=== PATIENT | male | born 1960 | race Two or more races ===

== ENCOUNTER 2024-06-19 16:36 | Inpatient (IN) | payer OTHER, MEDICAID ==
[~2024-06-19] VITALS: Ht 190.5 cm; Wt 138.0 kg
[2024-06-19 17:11] VITALS: BP 137/70; PULSE 94; RESP 18; TEMP 97.7; O2SAT 94
--- NOTE | 2024-06-19 17:28 | DVHHP2 ---
History of Present Illness Reason for Visit: Left foot osteomyelitis History of Present Illness Rickey Chin is a 64-year-old male with a past medical history of diabetes and diabetic neuropathy who presents to the clinic with left foot osteomyelitis. Per podiatry admit the patient in for plan for surgery tomorrow. Patient will be NPO after midnight. Endocrine: Diabetes Past Medical History Bilateral big toes I and D Smoke: Quit ALCOHOL: none Drugs: None Lives: with Family Domestic Violence: Neg Review of Systems Musculoskeletal: foot pain Skin: Other (Open left toe) Exam General Appearance: Alert, Cooperative, No acute distress Assessment/Plan Assessment/Plan Assessment/Plan: Left toe osteomyelitis Labs IV antibiotics-vancomycin + Zosyn Antiemetics Pain management Podiatry seen patient in clinic today A.m. labs NPO after midnight Diabetes HgbA1c ISS and Accu-Cheks FEN/PPX Diet IV fluids DVT ppx -not indicated patient ambulating PUD ppx not indicated no history of GERD or GI bleed Discussed plan of care with patient and nurse Admit to [facility] surge Plan discussed with: Patient My Orders Orders - CEE HADDAD RN CVICU Procedure Category Date Status Time Complete Blood Count LAB 06/19/24 Verified 17:20 Basic Metabolic Panel LAB 06/19/24 Verified 17:20 Electrocardigram EKG 06/19/24 Verified 17:20 Vancomycin Per PHA 06/19/24 Verified Pharmacy 17:30 Zosyn Extended PHA 06/19/24 Verified Infusion 22:00 Hemoglobin A1c LAB 06/19/24 Verified 17:20 Glucose Blood PHA 06/19/24 Verified (Accu-Chek Comfort 22:00 Mild Sliding Scale PHA 06/19/24 Verified 22:00 Dextrose 50% Syringe PHA 06/19/24 Verified 17:30 Npo After Midnight DIET 06/19/24 Verified Dinner Admit ADMIT 06/19/24 Verified 17:20 Allergies DOLORES 06/19/24 Verified 17:20 Code Status CODE 06/19/24 Verified 17:20 0.9% Ns 1000 Ml PHA 06/19/24 Verified 17:30 Hydrocodone-Acet PHA 06/19/24 Verified 5/325mg Tab ([place] 17:30 Ondansetron Hcl PHA 06/19/24 Verified (Zofran) 17:30 Complete Blood Count LAB 06/20/24 Verified 04:00 Comprehensive LAB 06/20/24 Verified Metabolic Panel 04:00 Cardiac DIET 06/19/24 Verified Diet-2gna,Lofat,Lochol Dinner Acetaminophen Tablet PHA 06/19/24 Verified (Tylenol Tablet) 17:30 Morphine Sulfate PHA 06/19/24 Verified Injection 17:30 Date of Service: Jun 19, 2024 Billing Provider: CEE HADDAD Common Visit Codes: [id number] INP/OBS CARE (HIGH) CEE HADDAD Jun 19, 2024 17:28
[2024-06-19] MEDS ORDERED: DEXTROSE (50%) 50ML SYRG IV PRN (17:30)
[2024-06-19] MEDS ORDERED: MORPHINE SULFATE INJ 2 MG/ml SYRG IV PRN (17:30)
[2024-06-19] MEDS ORDERED: VANCOMYCIN PER PHARMACY 0 MG IV SCH (17:30)
[2024-06-19] MEDS ORDERED: ONDANSETRON HCL 4 MG/2 ML VIAL IV PRN (17:30)
[2024-06-19] MEDS ORDERED: ACETAMINOPHEN 325 MG TAB PO PRN (17:30)
[2024-06-19 18:46] LABS: Basophils # (auto) 0.1 10 ^3/uL (0-0.2); Basophils % (auto) 0.6 % (0.0-2.0); Eosinophils # (auto) 0.6 10 ^3/uL (0-0.8); Eosinophils % (auto) 6.3 % (0.0-7.0); Hematocrit 41.7 % (41.0-53.0); Hemoglobin 13.6 g/dL (13.5-17.5); Lymphocytes # (auto) 1.8 10 ^3/uL (0.4-5.4); Lymphocytes % (auto) 18.9 % (10.0-50.0); Mean Corpuscular Hemoglobin 28.4 pg (28.0-32.0); Mean Corpuscular Hgb Conc. 32.5 g/dL (32.0-36.0); Mean Corpuscular Volume 87.3 fL (80.0-100.0); Monocytes # (auto) 0.8 10 ^3/uL (0-1.3); Monocytes % (auto) 8.2 % (0.0-12.0); Neutrophils # (auto) 6.2 10 ^3/uL (1.6-8.6); Nucleated Red Blood Cells % 0.1 %; Platelet Count (auto) 213 10^3/uL (140-450); Red Blood Cells 4.78 10^6/uL (4.5-5.90); Red Cell Distribution Width 14.6 % (11.8-14.3); White Blood Cell 9.4 10^3/uL (4.4-10.8)
[2024-06-19 18:50] LABS: Chloride 101 mmol/L (98-107); Potassium 4.5 mmol/L (3.5-5.1)
[2024-06-19 18:51] LABS: Anion Gap 8 (5-15); Calcium 9.1 mg/dL (8.7-10.4); Carbon Dioxide 27 mmol/L (20-31)
[2024-06-19 18:56] LABS: Blood Urea Nitrogen 23 mg/dL (9-23)
[2024-06-19 18:57] LABS: Glucose 192 mg/dL (74-106); Sodium 136 mmol/L (136-145)
[2024-06-19] MEDS: SODIUM CHLORIDE 0.9% 1,000 ML IV SCH (18:59)
[2024-06-19] MEDS ORDERED: PIPERACILLIN-TAZOB 3.375GM 100 ML IV ONE (19:00)
[2024-06-19 20:00] VITALS: PULSE 95; RESP 18; O2SAT 99
[2024-06-19] MEDS: VANCOMYCIN 1GM/250ML KIT 250 ML IV SCH (20:21)
[2024-06-19] MEDS: PIPERACILLIN-TAZOB 3.375GM 100 ML IV ONE (20:21)
[2024-06-19 21:00] VITALS: BP 122/73; PULSE 95; RESP 18; TEMP 97.8; O2SAT 94
[2024-06-19] MEDS: ACCU-CHEK COMFORT CURVE STRIP VI SCH (22:00)
[2024-06-19] MEDS: HYDROcodone-ACET 5/325MG TAB PO PRN (22:39)
[2024-06-19] MEDS: InsuLIN REG 1unit/0.01ml Soln (100units/ml) SC SCH (22:51)
[2024-06-19 23:50] LABS: Rapid Influenza A Negative (Negative); Rapid Influenza B Negative (Negative)
[2024-06-20] VITALS (9 sets, daily range): BP systolic 111–133; BP diastolic 59–78; PULSE 74–114; RESP 18–20; TEMP 97.6–98.6; O2SAT 93–99
[2024-06-20] MEDS: PIPERACILLIN-TAZOB 3.375GM 100 ML IV SCH (00:25)
[2024-06-20 02:13] LABS: COVID19 ANTIGEN SOFIA FIA NEGATIVE (NEGATIVE)
[2024-06-20 06:51] LABS: Basophils # (auto) 0.1 10 ^3/uL (0-0.2); Basophils % (auto) 0.6 % (0.0-2.0); Eosinophils # (auto) 0.9 10 ^3/uL (0-0.8); Eosinophils % (auto) 10.4 % (0.0-7.0); Hematocrit 41.8 % (41.0-53.0); Hemoglobin 13.7 g/dL (13.5-17.5); Lymphocytes # (auto) 2.3 10 ^3/uL (0.4-5.4); Lymphocytes % (auto) 25.9 % (10.0-50.0); Mean Corpuscular Hemoglobin 28.6 pg (28.0-32.0); Mean Corpuscular Hgb Conc. 32.8 g/dL (32.0-36.0); Mean Corpuscular Volume 87.1 fL (80.0-100.0); Monocytes # (auto) 0.9 10 ^3/uL (0-1.3); Monocytes % (auto) 9.8 % (0.0-12.0); Neutrophils # (auto) 4.6 10 ^3/uL (1.6-8.6); Neutrophils % (auto) 53.3 % (37.0-80.0); Nucleated Red Blood Cells % 0.1 %; Platelet Count (auto) 225 10^3/uL (140-450); Red Cell Distribution Width 14.6 % (11.8-14.3); White Blood Cell 8.7 10^3/uL (4.4-10.8)
[2024-06-20 07:09] LABS: Alanine Aminotransferase 25 U/L (7-40); Albumin 4.3 g/dL (3.2-4.8); Alkaline Phosphatase 86 U/L (46-116); Anion Gap 8 (5-15); Aspartate Aminotransferase 27 U/L (13-40); BUN/Creatinine Ratio 20.7 (10.0-20.0); Blood Urea Nitrogen 19 mg/dL (9-23); Calcium 9.7 mg/dL (8.7-10.4); Carbon Dioxide 28 mmol/L (20-31); Chloride 102 mmol/L (98-107); Potassium 4.4 mmol/L (3.5-5.1); Sodium 138 mmol/L (136-145)
[2024-06-20 07:10] LABS: Bilirubin, Total 0.4 mg/dL (0.2-1.0); Total Protein 7.5 g/dL (5.7-8.2)
[2024-06-20 07:12] LABS: Glucose 107 mg/dL (74-106)
[2024-06-20] MEDS ORDERED: VANCOMYCIN 1.25GM/250ML 250 ML IV SCH (08:00)
[2024-06-20] MEDS: BUPIVACAINE HCL 50 ML ONE (08:09)
--- NOTE | 2024-06-20 09:03 | DVH ---
XY CHEST PORTABLE, HISTORY: PRE-OP EVAL COMPARISON: None None TECHNICAL DATA: 1 view of the chest was obtained. FINDINGS: Lines and tubes: None Cardiomediastinal silhouette: normal Pulmonary vasculature: normal Lung expansion: normal Lung airspace: normal Lung interstitium: normal Pleura: normal Pneumothorax: no Bones: Unremarkable Other: no IMPRESSION: No acute intrathoracic abnormality.
--- NOTE | 2024-06-20 09:13 | DVHINCON2 ---
Date Seen: Jun 20, 2024 Reason for Consultation Left foot wound History of Present Illness Rickey Chin is a 64-year-old male with a past medical history of diabetes and diabetic neuropathy who presents to the clinic with left foot osteomyelitis. Per podiatry admit the patient in for plan for surgery tomorrow. Patient will be NPO after midnight. Past Medical History See H&P Past Surgical History See H&P Family History: Patient reports no known family medical history. Allergies: Coded Allergies: NO KNOWN ALLERGIES (Unverified , 06/19/24) Current Medications Current Medications Medications (Trade) Dose Ordered Sig/Melia Route PRN Reason Start Time Stop Time Status Last Admin Vancomycin HCl 0 ml @ 0 mls/hr UD IV 06/19/24 17:30 Piperacillin Sod/ Tazobactam Sod 100 ml @ 25 mls/hr Q8H IV 06/20/24 00:00 06/20/24 08:09 Diagnostic Test (Pha) (Accu-Chek Comfort Curve T) 1 strip ACHS 06/19/24 22:00 06/20/24 06:04 Insulin Human Regular (InsuLIN R) ACHS SC 06/19/24 22:00 06/19/24 22:51 Dextrose 50 ml UD PRN IV Blood Sugar LESS THAN 60 06/19/24 17:30 Sodium Chloride 1,000 ml @ 60 mls/hr [id number] IV 06/19/24 17:30 06/19/24 18:59 Acetaminophen/ Hydrocodone Bitart ([place] 5/325MG Tab) 1 tab Q4HP PRN PO MODERATE PAIN (4-6 PAIN SCALE) 06/19/24 17:30 06/19/24 22:39 Ondansetron HCl (Zofran) 4 mg Q4HP PRN IV NAUSEA / VOMITING 06/19/24 17:30 Acetaminophen (Tylenol Tablet) 650 mg Q6HP PRN PO PAIN SCALE 1-3 OR TEMP>100.4 06/19/24 17:30 Morphine Sulfate 2 mg Q4HPRN PRN IV SEVERE PAIN (7-10 PAIN SCALE) 06/19/24 17:30 Vancomycin HCl 250 ml @ 250 mls/hr Q1H IV 06/19/24 20:00 06/19/24 21:59 DC 06/19/24 22:44 Vancomycin HCl 250 ml @ 200 mls/hr Q12H IV 06/20/24 08:00 Vital Signs Vital Signs Date Time Temp Pulse Resp B/P (MAP) Pulse Ox O2 Delivery O2 Flow Rate FiO2 06/20/24 08:32 97.6 78 18 117/78 (91) 94 97.6 06/20/24 08:00 Nasal Cannula* 2 28 Physical Exam DERMATOLOGIC EXAM: - Skin is dry and cool to the touch dry bilaterally. - Nails 1-5 of the bilateral foot are thickened, discolored, dystrophic, and tender to palpate with subungual debris - Hair loss noted to bilateral feet Wound #1: Location: Left dorsal medial hallux Measurements: Length 2 cm x width 1 cm x depth 1 cm. Wound margins: Hyperkeratotic. Wound base: Full thickness. General Appearance: Fibrotic and necrotic Probes to Bone: Yes Purulent drainage: Yes Serous drainage: No Erythema: Mid foot VASCULAR EXAM: - DP and PT pulses are palpable bilaterally. - MENTAL HEALTH COUNSELOR is brisk to all digits. - Feet are cool to touch compared to lower legs bilaterally. NEUROLOGIC EXAM: - Normal light touch sensation to the superficial peroneal, deep peroneal, sural, saphenous, and tibial nerve branches. - Protective sensation is diminished as tested with a 5.07 10g Dawn-Shelbie bilaterally. MUSCULOSKELETAL EXAM: - No gross deformities - Muscle strength is 5/5 and active motion is pain-free and symmetrical bilaterally - No pain or crepitation with passive range of motion bilaterally to all major pedal joints Labs/Diagnostic Data Labs Test 06/20/24 06:02 06/20/24 05:40 06/19/24 23:00 06/19/24 18:13 Range/Units POC Glucose 118 H 70-106 mg/dl White Blood Count 8.7 4.4-10.8 10^3/uL Red Blood Count 4.80 4.5-5.90 10^6/uL Hemoglobin 13.7 13.5-17.5 g/dL Hematocrit 41.8 41.0-53.0 % Mean Corpuscular Volume 87.1 80.0-100.0 fL Mean Corpuscular Hemoglobin 28.6 28.0-32.0 pg Mean Corpuscular Hemoglobin Concent 32.8 32.0-36.0 g/dL Red Cell Distribution Width 14.6 H 11.8-14.3 % Platelet Count 225 140-450 10^3/uL Mean Platelet Volume 8.5 6.9-10.8 fL Neutrophils (%) (Auto) 53.3 37.0-80.0 % Lymphocytes (%) (Auto) 25.9 10.0-50.0 % Monocytes (%) (Auto) 9.8 0.0-12.0 % Eosinophils (%) (Auto) 10.4 H 0.0-7.0 % Basophils (%) (Auto) 0.6 0.0-2.0 % Neutrophils # (Auto) 4.6 1.6-8.6 10 ^3/uL Lymphocytes # (Auto) 2.3 0.4-5.4 10 ^3/uL Monocytes # (Auto) 0.9 0-1.3 10 ^3/uL Eosinophils # (Auto) 0.9 H 0-0.8 10 ^3/uL Basophils # (Auto) 0.1 0-0.2 10 ^3/uL Nucleated Red Blood Cells 0.1 % Sodium Level 138 136-145 mmol/L Potassium Level 4.4 3.5-5.1 mmol/L Chloride Level 102 98-107 mmol/L Carbon Dioxide Level 28 20-31 mmol/L Anion Gap 8 5-15 Blood Urea Nitrogen 19 9-23 mg/dL Creatinine 0.92 0.700-1.30 mg/dL Glomerular Filtration Rate Calc 93 >90 mL/min BUN/Creatinine Ratio 20.7 H 10.0-20.0 Serum Glucose 107 H 74-106 mg/dL Calcium Level 9.7 8.7-10.4 mg/dL Total Bilirubin 0.4 0.2-1.0 mg/dL Aspartate Amino Transferase (AST) 27 13-40 U/L Alanine Aminotransferase (ALT) 25 7-40 U/L Alkaline Phosphatase 86 46-116 U/L Total Protein 7.5 5.7-8.2 g/dL Albumin 4.3 3.2-4.8 g/dL Influenza Type A Antigen Negative Negative Influenza Type B Antigen Negative Negative SARS-CoV-2 Antigen (Rapid) Negative NEGATIVE Hemoglobin A1c 8.5 H <5.7 % A1C Problems(with codes): (1) Osteomyelitis of foot, left, acute (2) Abscess of left foot (3) Cellulitis of left foot (4) Diabetic foot ulcer (5) Diabetic neuropathy Plan/Recommendation ASSESSMENT: Patient is a year old seen on the floor for a worsening ulcer PLAN: - The patients chart was reviewed, clinical findings were discussed with the patient, the etiologies of the conditions were discussed in detail, and a treatment plan was agreed to at this time, with both oral and written instructions provided. - reviewed advanced imaging - discussed plan is to perform an incision and drainage - patient will be NPO since midnight - take him to the OR today - we will get cultures in the OR - can weightbear as tolerated in postoperative shoe All questions were answered and concerns addressed to the patient's satisfaction. The patient was given the phone number to the clinic and was told how to make contact with the clinic should any concerns or questions arise. Patient understands that if any questions or concerns arise prior to the next appointment, we should be contacted immediately. FOLLOW-UP: Continue to follow while inpatient Plan discussed with: Patient Date of Service: Jun 20, 2024 Billing Provider: AARBELLA OLIVAS DPM Common Visit Codes: CONSULT ONLY Consultation Codes: [id number] CONSULT <80MIN ARABELLA OLIVAS DPM Jun 20, 2024 09:13
[2024-06-20] MEDS ORDERED: MIDAZOLAM HCL 2MG/2ML 2ml VIAL (1mg/ml) ONE (11:20)
[2024-06-20] MEDS ORDERED: fentaNYL CITRATE 100 MCG/2 ML VL ONE (11:20)
[2024-06-20] MEDS ORDERED: METOCLOPRAMIDE HCL 5MG/ml INJ 2ml VIAL ONE (11:21)
[2024-06-20] MEDS ORDERED: PROPOFOL 10 MG/ML 20 ML IV ONE (11:21)
[2024-06-20] MEDS ORDERED: ONDANSETRON HCL 4 MG/2 ML VIAL ONE (11:21)
--- NOTE | 2024-06-20 12:00 | DVHOP2 ---
Operative Report - 2 Report Details Date: 06/20/24 Preop Diagnosis: 1. Left hallux osteomyelitis 2. Left hallux abscess 3. Left hallux cellulitis 4. Left hallux diabetic ulcer Postop Diagnosis: Same as preop Surgeon: Arabella Olivas MD Anesthesiologist: See anesthesia Anesthesia: General Consent: The patient was informed of the risks and benefits of the procedure. These include but are not limited to complications of anesthesia, postoperative infection, incomplete relief of symptoms, recurrence of symptoms, damage to blood vessels, nerves and tendons, deep venous thrombosis, pulmonary embolism and possible need for repeat surgery in the future. Complications: None Estimated Blood Loss: Minimal Fluids: See anesthesia Findings: Consistent with the diagnosis Indications for Surgery: Worsening left foot wound Name of Procedure Performed 1. Left foot I&D to bone (75226) 2. Left foot bone biopsy () x 2 Procedure Details Procedure Details: PRE-PROCEDURE INFORMATION: In the pre-op holding area, the extremity to be operated on was clearly marked and the patient verified correct laterality of the marking. The patient was transferred to the OR table and placed in a supine position. A timeout was performed in which identification of the correct patient, procedure, location, and materials was done. The left foot and leg were prepped and draped in normal sterile fashion. DESCRIPTION OF PROCEDURE: Attention was directed to the left where area of fluctuance was noted. An incision was made over this area and was deepened through blunt dissection. The incision was deepened to the level of abscess and bone. Care was taken to the dissection to avoid any neurovascular and tendinous structures. The incision was deepened to the bone, and the abscess appeared to be purulent fluid consistent with pus. The cortices of the bone was then removed with Andre an all necrotic tissue. After the abscess was drained, the area was irrigated with 3 L normal saline using cysto tubing. Deep cultures were then obtained from the wound. The area was then inspected and any areas of tracking, especially along the tendons were also drained. A bone biopsy was then taken of the left distal phalanx which was deepened to the muscle belly and tendons. The bone was then sent to pathology to determine the extent of osteomyelitis. A bone biopsy was then taken of the left proximal phalanx which was deepened to the muscle belly and tendons. The bone was then sent to pathology to determine the extent of osteomyelitis. The wound was packed with Betadine-soaked gauze and we will need to be closed at a later date. POSTOPERATIVE INFORMATION: The patient tolerated the above noted procedure and anesthesia well and was transferred to the PACU with vital signs stable, and vascular status intact with capillary refill intact to all digits. Deep cultures were taken. Patient will require 6 weeks of IV antibiotics. Patient will return to the OR possibly on Tuesday. Specimen: Left distal hallux phalanx Left proximal hallux phalanx Condition Good Disposition Still a Patient ARABELLA OLIVAS DPStaci Jun 20, 2024 12:00
[2024-06-20] MEDS ORDERED: HYDROmorphone HCL 2 MG/ML VL/or syr IV PRN (12:15)
[2024-06-20] MEDS: VANCOMYCIN 1.25GM/250ML 250 ML IV SCH (14:30)
[2024-06-20] MEDS ORDERED: ACET500T58 PO (15:28)
--- NOTE | 2024-06-20 15:41 | DVHPNRES ---
Progress Note Date Seen: Jun 20, 2024 Resident Creating Document: CECI MOSER RESIDENT Has the PT tested + for MRSA If YES, has PT been informed?: No Medical Necessity Reason Pt with a Central, PICC or Fol: No Subjective Review of Systems Rickey Chin is a 64-year-old male with a past medical history of HTN, COPD, diabetes and diabetic neuropathy who presents to the clinic with left foot osteomyelitis. Patient states 20 days days ago he had incision and debridement in other facility but the wound did not heal properly and he was seen by a doctor who sent him to the ED Objective vital signs Vital Sign Date Time Temp Pulse Resp B/P (MAP) Pulse Ox O2 Delivery O2 Flow Rate FiO2 06/20/24 13:00 97.7 114 20 122/77 (92) 94 97.7 06/20/24 12:00 Mask 7.0 06/20/24 12:00 93 Total Intake and Output 06/19/24 06/19/24 06/20/24 15:00 23:00 07:00 Intake Total 300 ml 1000 ml Output Total 1125 ml Balance 300 ml -125 ml medications Current Medications Medications Dose Ordered Sig/Melia Route Start Time Stop Time Status Last Admin Dose Admin Vancomycin HCl 0 ml @ 0 mls/hr UD IV 06/19/24 17:30 Piperacillin Sod/ Tazobactam Sod 100 ml @ 25 mls/hr Q8H IV 06/20/24 00:00 06/20/24 08:09 25 MLS/HR Diagnostic Test (Pha) 1 strip ACHS 06/19/24 22:00 06/20/24 06:04 1 STRIP Insulin Human Regular ACHS SC 06/19/24 22:00 06/19/24 22:51 2 UNITS Dextrose 50 ml UD PRN IV 06/19/24 17:30 Sodium Chloride 1,000 ml @ 60 mls/hr [id number] IV 06/19/24 17:30 06/20/24 14:26 60 MLS/HR Acetaminophen/ Hydrocodone Bitart 1 tab Q4HP PRN PO 06/19/24 17:30 06/20/24 15:20 1 TAB Ondansetron HCl 4 mg Q4HP PRN IV 06/19/24 17:30 Acetaminophen 650 mg Q6HP PRN PO 06/19/24 17:30 Morphine Sulfate 2 mg Q4HPRN PRN IV 06/19/24 17:30 Vancomycin HCl 250 ml @ 200 mls/hr Q12H IV 06/20/24 14:00 06/20/24 14:30 200 MLS/HR Examination PSYCH: Good Judgment. AOx3. Normal memory, mood, and affect. HEENT -Head: normocephalic atraumatic, no facial trauma, neck is supple -Eyes: PERRL, EOMI. No discharge or redness; -Ears: External ears are normal. Normal TMs. -Nose: Normal nares. -Mouth and throat: MMM. Normal gums, mucosa, palate,. Good dentition. NECK: Supple, with no masses. CV: RRR, no m/r/g. LUNGS: . Lungs clear to auscultation without rhonchi, wheezes, rales ABD: Soft, ND/NT. No evidence of fluid wave. No pulsatile masses on exam, rebound tenderness, Ward sign or pain over Mcburney's point. : N/A EXT: wound in the Left dorsal medial hallux Fibrotic and necrotic NEURO: Ambulating with no limitations. Normal muscle strength and tone. No focal deficits. laboratory and microbiology Laboratory Tests 06/20/24 05:40 Test 06/20/24 05:40 Range/Units Serum Glucose 107 H 74-106 mg/dL Problem List/Assessment/Plan Problem List/Assessment/Plan #sp I&D day 0 #Left hallux osteomyelitis #Left hallux abscess #Left hallux cellulitis #Left hallux diabetic ulcer #DM type 2 hba1c 8.5 #Hypertension #Acute on chronic respiratory failure resolved #COPD exacerbation? #Former smoker #PAD? Pt uses O2 at home 2 lt Diabetic diet IV fluids 60 cc/h Mild sliding scale insulin Piptazo/Vanco Pain medication Hold on BP meds for now No need of O2 for now Lower extremity Arterial Doppler ordered Case discussed with Dr Strong Time spent on care 23 min Plan discussed with: Patient, Other (rn) Date of Service: Jun 20, 2024 Billing Provider: MIMA STRONG MD Common Visit Codes: [id number] INP/OBS CARE(HIGH) CECI MOSER RESIDENT Jun 20, 2024 15:41 MIMA STRONG MD Jun 25, 2024 08:32
[2024-06-20] MEDS ORDERED: ATOR40TA52 PO (16:36)
[2024-06-20] MEDS ORDERED: AMLO1TAB22 PO (16:36)
[2024-06-20] MEDS ORDERED: BENZ100C97 PO (16:37)
[2024-06-20] MEDS ORDERED: LISI40TA16 (16:38)
[2024-06-20] MEDS ORDERED: EMPA1TAB3 (16:39)
[2024-06-20] MEDS ORDERED: TAMS0.4C39 (16:39)
[2024-06-20] MEDS ORDERED: METF-372 PO (16:40)
[2024-06-20] MEDS ORDERED: CHOL20002 PO (16:41)
[2024-06-20] MEDS ORDERED: PIOG1TAB51 (16:41)
[2024-06-20] MEDS ORDERED: BUDE0.253 NEB (16:43)
[2024-06-20] MEDS ORDERED: ALBU108A5 IN (16:46)
[2024-06-20] MEDS ORDERED: BECL80AE11 IN (16:47)
[2024-06-20] MEDS ORDERED: GABA-1250 PO (16:48)
--- NOTE | 2024-06-20 19:03 | DVH ---
EXAM: US BILAT LOW EXT ART DUPLEX HISTORY: PAD COMPARISON: None TECHNIQUE: Real-time grayscale and color Doppler images of the bilateral lower extremities were obta ined with spectral waveform analysis. Findings: Arterial peak systolic velocities reported in units of centimeters per second (cm/sec): Right side: Common femoral - 112 Profunda - 66 Proximal SFA - 103 Mid SFA - 127 Distal SFA - 160, suggests less than 50% stenosis Popliteal - 76 Posterior tibial - 85 Dorsalis pedis - 106 Diffuse triphasic waveforms. Left side: Common femoral - 92 Profunda - 58 Proximal SFA - 95 Mid SFA - 120 Distal SFA - 85 Popliteal - 106 Posterior tibial - 90 Dorsalis pedis - 89 Diffuse triphasic waveforms with the exception of the dorsalis pedis artery which is monophasic IMPRESSION: 1. No evidence of hemodynamically significant stenosis throughout the bilateral lower extremity arter ial systems.
[2024-06-21] VITALS (8 sets, daily range): BP systolic 104–140; BP diastolic 56–77; PULSE 82–90; RESP 17–20; TEMP 98–98.7; O2SAT 92–97
[2024-06-21 11:16] LABS: Urine Bacteria None Seen /hpf (None Seen)
[2024-06-21 11:34] LABS: Urine Blood Negative /uL (Negative); Urine Clarity Clear (Clear); Urine Color Light-Yellow (Yellow); Urine Protein, UAD Negative (Negative); Urine Squamous Epithelial Cell None Seen /hpf (<5); Urine Urobilinogen Normal (Negative); Urine WBC 1 /HPF (0-3); Urine pH 5.5 (5.0-9.0)
[2024-06-21 11:47] LABS: Benzodiazephine Screen, Urine Pos (NEGATIVE); Opiate Scree,Urine Neg (NEGATIVE)
[2024-06-21 11:51] LABS: Amphetamine Screen, Urine Neg (NEGATIVE); Barbiturate Scree,Urine Neg (NEGATIVE); Cannabinoid Screen, Urine Neg (NEGATIVE); Cocaine Screen, Urine Neg (NEGATIVE); Phencyclidine Screen, Urine Neg (NEGATIVE)
[2024-06-21] MEDS: guaiFENesin 200 MG/10 ML UD PO ONE (16:49)
--- NOTE | 2024-06-21 18:44 | DVHPNRES ---
Progress Note Date Seen: Jun 21, 2024 Resident Creating Document: CECI MOSER RESIDENT Has the PT tested + for MRSA If YES, has PT been informed?: No Medical Necessity Reason Pt with a Central, PICC or Fol: No Subjective Review of Systems Rickey Chin is a 64-year-old male with a past medical history of HTN, COPD, diabetes and diabetic neuropathy who presents to the clinic with left foot osteomyelitis. Patient states 20 days days ago he had incision and debridement in other facility but the wound did not heal properly and he was seen by a doctor who sent him to the ED Objective vital signs Vital Sign Date Time Temp Pulse Resp B/P (MAP) Pulse Ox O2 Delivery O2 Flow Rate FiO2 06/21/24 16:44 98.4 88 18 119/69 (86) 95 98.4 06/21/24 08:05 Nasal Cannula* 4 36 Total Intake and Output 06/20/24 06/20/24 06/21/24 15:00 23:00 07:00 Intake Total 200 ml 1650 ml 350 ml Output Total 1225 ml Balance 200 ml 1650 ml -875 ml medications Current Medications Medications Dose Ordered Sig/Melia Route Start Time Stop Time Status Last Admin Dose Admin Vancomycin HCl 0 ml @ 0 mls/hr UD IV 06/19/24 17:30 Piperacillin Sod/ Tazobactam Sod 100 ml @ 25 mls/hr Q8H IV 06/20/24 00:00 06/21/24 16:49 25 MLS/HR Diagnostic Test (Pha) 1 strip ACHS 06/19/24 22:00 06/21/24 17:00 1 STRIP Insulin Human Regular ACHS SC 06/19/24 22:00 06/21/24 17:45 3 UNITS Dextrose 50 ml UD PRN IV 06/19/24 17:30 Sodium Chloride 1,000 ml @ 60 mls/hr [id number] IV 06/19/24 17:30 06/21/24 03:37 60 MLS/HR Acetaminophen/ Hydrocodone Bitart 1 tab Q4HP PRN PO 06/19/24 17:30 06/20/24 15:20 1 TAB Ondansetron HCl 4 mg Q4HP PRN IV 06/19/24 17:30 Acetaminophen 650 mg Q6HP PRN PO 06/19/24 17:30 Cancel Morphine Sulfate 2 mg Q4HPRN PRN IV 06/19/24 17:30 Vancomycin HCl 250 ml @ 200 mls/hr Q12H IV 06/20/24 14:00 06/21/24 14:49 200 MLS/HR Examination PSYCH: Good Judgment. AOx3. Normal memory, mood, and affect. HEENT -Head: normocephalic atraumatic, no facial trauma, neck is supple -Eyes: PERRL, EOMI. No discharge or redness; -Ears: External ears are normal. Normal TMs. -Nose: Normal nares. -Mouth and throat: MMM. Normal gums, mucosa, palate,. Good dentition. NECK: Supple, with no masses. CV: RRR, no m/r/g. LUNGS: . Lungs clear to auscultation without rhonchi, wheezes, rales ABD: Soft, ND/NT. No evidence of fluid wave. No pulsatile masses on exam, rebound tenderness, Ward sign or pain over Mcburney's point. : N/A EXT: wound in the Left dorsal medial hallux Fibrotic and necrotic NEURO: Ambulating with no limitations. Normal muscle strength and tone. No focal deficits. laboratory and microbiology Laboratory Tests 06/20/24 05:40 Test 06/20/24 05:40 Range/Units Serum Glucose 107 H 74-106 mg/dL Microbiology Date/Time Source Procedure Growth Status 06/20/24 11:50 Foot Left Gram Stain - Final Resulted 06/20/24 11:50 Foot Left Anaerobic Culture - Preliminary Resulted 06/20/24 11:50 Foot Left Aerobic Culture - Preliminary Resulted Problem List/Assessment/Plan Problem List/Assessment/Plan #sp I&D day 1 #Left hallux osteomyelitis #Left hallux abscess #Left hallux cellulitis #Left hallux diabetic ulcer #DM type 2 hba1c 8.5 #Hypertension #Acute on chronic respiratory failure resolved #COPD exacerbation? #Former smoker Diabetic diet IV fluids 60 cc/h Mild sliding scale insulin Piptazo/Vanco Pain medication Hold on BP meds for now No need of O2 for now Lower extremity Arterial Doppler normal NPO midnight: surgery tomorrow Case discussed with Dr Strong Time spent on care 23 min Plan discussed with: Patient, Other (rn) Date of Service: Jun 21, 2024 Billing Provider: MIMA STRONG MD Common Visit Codes: [id number] INP/OBS CARE(HIGH) CECI MOSER RESIDENT Jun 21, 2024 18:44 MIMA STRONG MD Jun 25, 2024 08:33
[2024-06-22] VITALS (11 sets, daily range): BP systolic 113–149; BP diastolic 53–83; PULSE 78–114; RESP 15–20; TEMP 97.6–98; O2SAT 91–98
[2024-06-22 06:26] LABS: Basophils # (auto) 0.1 10 ^3/uL (0-0.2); Basophils % (auto) 0.7 % (0.0-2.0); Eosinophils % (auto) 13.2 % (0.0-7.0); Hematocrit 42.9 % (41.0-53.0); Hemoglobin 14.1 g/dL (13.5-17.5); Lymphocytes # (auto) 1.8 10 ^3/uL (0.4-5.4); Lymphocytes % (auto) 22.8 % (10.0-50.0); Mean Corpuscular Hemoglobin 28.6 pg (28.0-32.0); Mean Corpuscular Hgb Conc. 32.8 g/dL (32.0-36.0); Mean Corpuscular Volume 87.2 fL (80.0-100.0); Monocytes # (auto) 0.9 10 ^3/uL (0-1.3); Monocytes % (auto) 11.3 % (0.0-12.0); Platelet Count (auto) 218 10^3/uL (140-450); Red Blood Cells 4.92 10^6/uL (4.5-5.90); Red Cell Distribution Width 14.6 % (11.8-14.3); White Blood Cell 7.7 10^3/uL (4.4-10.8)
[2024-06-22 06:39] LABS: INR 1.02 (0.9-1.15); Partial Thromboplastin Time 29.2 SEC (24.5-34.5); Prothrombin Time 10.8 sec (9.3-11.8)
[2024-06-22 06:49] LABS: Alanine Aminotransferase 24 U/L (7-40); Alkaline Phosphatase 80 U/L (46-116); Anion Gap 9 (5-15); Aspartate Aminotransferase 25 U/L (13-40); BUN/Creatinine Ratio 14.5 (10.0-20.0); Bilirubin, Total 0.4 mg/dL (0.2-1.0); Blood Urea Nitrogen 11 mg/dL (9-23); Calcium 9.6 mg/dL (8.7-10.4); Carbon Dioxide 26 mmol/L (20-31); Chloride 102 mmol/L (98-107); Glucose 144 mg/dL (74-106); Potassium 4.2 mmol/L (3.5-5.1); Sodium 137 mmol/L (136-145)
[2024-06-22] MEDS ORDERED: PROPOFOL 10 MG/ML 20 ML IV ONE (13:21)
[2024-06-22] MEDS ORDERED: KETAMINE 50mg/ML 1ml syringe ONE (13:21)
[2024-06-22] MEDS ORDERED: MIDAZOLAM HCL 2MG/2ML 2ml VIAL (1mg/ml) ONE (13:21)
[2024-06-22] MEDS ORDERED: GLYCOPYRROLATE 0.2 MG/ML 1ML VIAL ONE (13:21)
[2024-06-22] MEDS ORDERED: ONDANSETRON HCL 4 MG/2 ML VIAL ONE (13:21)
--- NOTE | 2024-06-22 13:35 | DVHPNRES ---
Progress Note Date Seen: Jun 22, 2024 Resident Creating Document: CECI MOSER RESIDENT Has the PT tested + for MRSA If YES, has PT been informed?: No Medical Necessity Reason Pt with a Central, PICC or Fol: No Subjective Review of Systems Rickey Chin is a 64-year-old male with a past medical history of HTN, COPD, diabetes and diabetic neuropathy who presents to the clinic with left foot osteomyelitis. Patient states 20 days days ago he had incision and debridement in other facility but the wound did not heal properly and he was seen by a doctor who sent him to the ED Objective vital signs Vital Sign Date Time Temp Pulse Resp B/P (MAP) Pulse Ox O2 Delivery O2 Flow Rate FiO2 06/22/24 09:00 98.0 78 20 144/83 (103) 94 98.0 06/22/24 08:20 Nasal Cannula* 3 32 Total Intake and Output 06/21/24 06/21/24 06/22/24 15:00 23:00 07:00 Intake Total 100 ml 1565 ml 250 ml Output Total 1750 ml 1700 ml Balance 100 ml -185 ml -1450 ml medications Current Medications Medications Dose Ordered Sig/Melia Route Start Time Stop Time Status Last Admin Dose Admin Vancomycin HCl 0 ml @ 0 mls/hr UD IV 06/19/24 17:30 Piperacillin Sod/ Tazobactam Sod 100 ml @ 25 mls/hr Q8H IV 06/20/24 00:00 06/22/24 08:05 25 MLS/HR Diagnostic Test (Pha) 1 strip ACHS 06/19/24 22:00 06/22/24 11:30 1 STRIP Insulin Human Regular ACHS SC 06/19/24 22:00 06/21/24 21:18 4 UNITS Dextrose 50 ml UD PRN IV 06/19/24 17:30 Sodium Chloride 1,000 ml @ 60 mls/hr [id number] IV 06/19/24 17:30 06/21/24 20:43 60 MLS/HR Acetaminophen/ Hydrocodone Bitart 1 tab Q4HP PRN PO 06/19/24 17:30 06/21/24 21:10 1 TAB Ondansetron HCl 4 mg Q4HP PRN IV 06/19/24 17:30 Acetaminophen 650 mg Q6HP PRN PO 06/19/24 17:30 Cancel Morphine Sulfate 2 mg Q4HPRN PRN IV 06/19/24 17:30 Vancomycin HCl 250 ml @ 200 mls/hr Q12H IV 06/20/24 14:00 06/22/24 01:42 200 MLS/HR Examination PSYCH: Good Judgment. AOx3. Normal memory, mood, and affect. HEENT -Head: normocephalic atraumatic, no facial trauma, neck is supple -Eyes: PERRL, EOMI. No discharge or redness; -Ears: External ears are normal. Normal TMs. -Nose: Normal nares. -Mouth and throat: MMM. Normal gums, mucosa, palate,. Good dentition. NECK: Supple, with no masses. CV: RRR, no m/r/g. LUNGS: . Lungs clear to auscultation without rhonchi, wheezes, rales ABD: Soft, ND/NT. No evidence of fluid wave. No pulsatile masses on exam, rebound tenderness, Ward sign or pain over Mcburney's point. : N/A EXT: wound in the Left dorsal medial hallux Fibrotic and necrotic NEURO: Ambulating with no limitations. Normal muscle strength and tone. No focal deficits. laboratory and microbiology Laboratory Tests 06/22/24 05:14 Test 06/22/24 05:14 Range/Units Serum Glucose 144 H 74-106 mg/dL Microbiology Date/Time Source Procedure Growth Status 06/20/24 11:50 Foot Left Gram Stain - Final Resulted 06/20/24 11:50 Foot Left Anaerobic Culture - Preliminary Resulted 06/20/24 11:50 Aerobic Culture - Preliminary Morganella morganii Resulted Problem List/Assessment/Plan Problem List/Assessment/Plan #sp 2x I&D day 0 #Left hallux osteomyelitis #Left hallux abscess #Left hallux cellulitis #Left hallux diabetic ulcer #DM type 2 hba1c 8.5 #Hypertension #Acute on chronic respiratory failure resolved #COPD exacerbation? #Former smoker #PAD? Pt uses O2 at home 2 lt Diabetic diet IV fluids 60 cc/h Mild sliding scale insulin Piptazo/Vanco : Morganella is growing in the wound cultures Pending closure of the wound Pain medication Restart home meds No need of O2 for now Lower extremity Arterial Doppler ordered Case discussed with Dr Strong Time spent on care 23 min Plan discussed with: Patient, Other (rn) My Orders My Orders Orders - CECI MOSER RESIDENT Procedure Category Date Status Time * Picc Line Consult CONS 06/22/24 Transmitted 13:07 Date of Service: Jun 22, 2024 Billing Provider: MIMA STRONG MD Common Visit Codes: [id number] INP/OBS CARE(HIGH) CECI MOSER RESIDENT Jun 22, 2024 13:35 MIMA STRONG MD Jun 25, 2024 08:33
[2024-06-22] MEDS: ceFAZolin 2 GM/D5W100ml 100 ML IV ONE (14:25)
--- NOTE | 2024-06-22 14:42 | DVHPN2 ---
Subjective Rickey Chin is a 64-year-old male with a past medical history of diabetes and diabetic neuropathy who presents to the clinic with left foot osteomyelitis. Per podiatry admit the patient in for plan for surgery tomorrow. Patient will be NPO after midnight. Changes from previous H/P or p: No Changes Musculoskeletal: foot pain Skin: Other (Open left toe) Objective Vitals Vital Signs Date Time Temp Pulse Resp B/P (MAP) Pulse Ox O2 Delivery O2 Flow Rate FiO2 06/22/24 09:00 98.0 78 20 144/83 (103) 94 98.0 06/22/24 08:20 Nasal Cannula* 3 32 Intake/Output Intake and Output 06/22/24 07:00 Intake Total 1915 ml Output Total 3450 ml Balance -1535 ml Intake Oral 975 ml IV Total 940 ml Output Urine Total 3450 ml # Bowel Movements 1 Exam DERMATOLOGIC EXAM: - Skin is dry and cool to the touch dry bilaterally. - Nails 1-5 of the bilateral foot are thickened, discolored, dystrophic, and tender to palpate with subungual debris - Hair loss noted to bilateral feet Wound #1: Location: Left dorsal medial hallux Measurements: Length 2 cm x width 1 cm x depth 1 cm. Wound margins: Hyperkeratotic. Wound base: Full thickness. General Appearance: Fibrotic and necrotic Probes to Bone: Yes Purulent drainage: Yes Serous drainage: No Erythema: Mid foot VASCULAR EXAM: - DP and PT pulses are palpable bilaterally. - PIZZAMAKER is brisk to all digits. - Feet are cool to touch compared to lower legs bilaterally. NEUROLOGIC EXAM: - Normal light touch sensation to the superficial peroneal, deep peroneal, sural, saphenous, and tibial nerve branches. - Protective sensation is diminished as tested with a 5.07 10g Fortuna-Shelbie bilaterally. MUSCULOSKELETAL EXAM: - No gross deformities - Muscle strength is 5/5 and active motion is pain-free and symmetrical bilaterally - No pain or crepitation with passive range of motion bilaterally to all major pedal joints Medications Current Medications Medications Dose Ordered Sig/Melia Route Start Time Stop Time Status Last Admin Dose Admin Vancomycin HCl 0 ml @ 0 mls/hr UD IV 06/19/24 17:30 Piperacillin Sod/ Tazobactam Sod 100 ml @ 25 mls/hr Q8H IV 06/20/24 00:00 06/22/24 08:05 25 MLS/HR Diagnostic Test (Pha) 1 strip ACHS 06/19/24 22:00 06/22/24 11:30 1 STRIP Insulin Human Regular ACHS SC 06/19/24 22:00 06/21/24 21:18 4 UNITS Dextrose 50 ml UD PRN IV 06/19/24 17:30 Sodium Chloride 1,000 ml @ 60 mls/hr [id number] IV 06/19/24 17:30 06/21/24 20:43 60 MLS/HR Acetaminophen/ Hydrocodone Bitart 1 tab Q4HP PRN PO 06/19/24 17:30 06/21/24 21:10 1 TAB Ondansetron HCl 4 mg Q4HP PRN IV 06/19/24 17:30 Acetaminophen 650 mg Q6HP PRN PO 06/19/24 17:30 Cancel Morphine Sulfate 2 mg Q4HPRN PRN IV 06/19/24 17:30 Vancomycin HCl 250 ml @ 200 mls/hr Q12H IV 06/20/24 14:00 06/22/24 01:42 200 MLS/HR Laboratory Results Laboratory Tests 06/22/24 05:14 Chemistry Test 06/22/24 05:14 Albumin 4.0 g/dL (3.2-4.8) Calcium Level 9.6 mg/dL (8.7-10.4) Total Protein 7.0 g/dL (5.7-8.2) Coagulation Test 06/22/24 05:14 Prothrombin Time 10.8 sec (9.3-11.8) Prothrombin Time INR 1.02 (0.9-1.15) Activated Partial Thromboplast Time 29.2 SEC (24.5-34.5) LFT Test 06/22/24 05:14 Alanine Aminotransferase (ALT) 24 U/L (7-40) Alkaline Phosphatase 80 U/L (46-116) Aspartate Amino Transferase (AST) 25 U/L (13-40) Total Bilirubin 0.4 mg/dL (0.2-1.0) Urinalysis Test 06/21/24 10:30 Urine Color Light-yellow (Yellow) Urine Clarity Clear (Clear) Urine pH 5.5 (5.0-9.0) Urine Specific [place] 1.020 (1.001-1.035) Urine Protein Negative (Negative) Urine Ketones Negative (Negative) Urine Blood Negative /uL (Negative) Urine Nitrite Negative (Negative) Urine Bilirubin Negative (Negative) Urine Urobilinogen Normal mg/dL (Negative) Urine Leukocyte Esterase Negative /uL (Negative) Urine RBC <1 /hpf (0 - 3) Urine Microscopic WBC 1 /HPF (0-3) Urine Squamous Epithelial Cells None seen /hpf (<5) Urine Bacteria None seen /hpf (None Seen) Urine Glucose 4+ mg/dL (Normal) H Microbiology Microbiology Date/Time Source Procedure Growth Status 06/20/24 11:50 Foot Left Gram Stain - Final Resulted 06/20/24 11:50 Foot Left Anaerobic Culture - Preliminary Resulted 06/20/24 11:50 Aerobic Culture - Preliminary Morganella morganii Resulted Assessment/Plan Assessment/Plan ASSESSMENT: Patient is a year old seen on the floor today s/p from a left foot I&D PLAN: - The patients chart was reviewed, clinical findings were discussed with the patient, the etiologies of the conditions were discussed in detail, and a treatment plan was agreed to at this time, with both oral and written instructions provided. - reviewed advanced imaging - discussed plan is to perform an incision and drainage - patient will be NPO since midnight - take him to the OR today - can weightbear as tolerated in postoperative shoe - we will see if were able to close the patient - patient will need 6 weeks of IV antibiotics All questions were answered and concerns addressed to the patient's satisfaction. The patient was given the phone number to the clinic and was told how to make contact with the clinic should any concerns or questions arise. Patient understands that if any questions or concerns arise prior to the next appointment, we should be contacted immediately. FOLLOW-UP: Continue to follow while inpatient Plan discussed with: Patient My Orders Orders - ARABELLA OLIVAS DPM Procedure Category Date Status Time Npo After Midnight DIET 06/21/24 Transmitted Dinner Obtain Consent For: ORDERS 06/21/24 Transmitted 16:43 Problem List: (1) Diabetic neuropathy (2) Diabetic foot ulcer (3) Abscess of left foot (4) Osteomyelitis of foot, left, acute (5) Cellulitis of left foot Date of Service: Jun 22, 2024 Billing Provider: ARABELLA OLIVAS DPM Common Visit Codes: [id number] INP/OBS CARE(HIGH) ARABELLA OLIVAS DPM Jun 22, 2024 14:41
[2024-06-22] MEDS: ACCU-CHEK COMFORT CURVE STRIP VI ONE (14:45)
[2024-06-22] MEDS ORDERED: HYDROmorphone HCL 2 MG/ML VL/or syr IV PRN (14:45)
--- NOTE | 2024-06-22 14:45 | DVHOP2 ---
Operative Report - 2 Report Details Date: 06/22/24 Preop Diagnosis: 1. Left hallux osteomyelitis 2. Left hallux abscess 3. Left hallux cellulitis 4. Left hallux diabetic ulcer Postop Diagnosis: Same as preop Surgeon: Arabella Olivas MD Anesthesiologist: See anesthesia Anesthesia: General Consent: The patient was informed of the risks and benefits of the procedure. These include but are not limited to complications of anesthesia, postoperative infection, incomplete relief of symptoms, recurrence of symptoms, damage to blood vessels, nerves and tendons, deep venous thrombosis, pulmonary embolism and possible need for repeat surgery in the future. Complications: None Estimated Blood Loss: Minimal Fluids: See anesthesia Findings: Consistent with diagnosis Indications for Surgery: Worsening left foot wound Name of Procedure Performed 1. Left foot I&D to bone (98189) Procedure Details Procedure Details: PRE-PROCEDURE INFORMATION: In the pre-op holding area, the extremity to be operated on was clearly marked and the patient verified correct laterality of the marking. The patient was transferred to the OR table and placed in a supine position. A timeout was performed in which identification of the correct patient, procedure, location, and materials was done. The left foot and leg were prepped and draped in normal sterile fashion. DESCRIPTION OF PROCEDURE: Attention was directed to the left foot where previous area of fluctuance was noted. An incision was made over this area and was deepened through blunt dissection. The incision was deepened to the level of abscess and bone. Care was taken to the dissection to avoid any neurovascular and tendinous structures. The incision was deepened to the bone, and the abscess appeared to be purulent fluid consistent with pus. The cortices of the bone was then removed with Andre an all necrotic tissue. After the abscess was drained, the area was irrigated with 3 L normal saline using cysto tubing. Deep cultures were then obtained from the wound. The area was then inspected and any areas of tracking, especially along the tendons were also drained. The wound was packed with Betadine-soaked gauze and we will need to be closed at a later date. e. POSTOPERATIVE INFORMATION: The patient tolerated the above noted procedure and anesthesia well and was transferred to the PACU with vital signs stable, and vascular status intact with capillary refill intact to all digits. Patient will require 6 weeks of IV antibiotics. The patient will return to the floor on Tuesday for closure as it was not ready at this point. Specimen: Left distal hallux phalanx Left proximal hallux phalanx Condition Good Disposition Still a Patient ARABELLA OLIVAS DPM Jun 22, 2024 14:45
[2024-06-22] MEDS: IPRATROPIUM BROM 0.5 MG/2.5ML INH SOL NEB ONE (15:00)
[2024-06-22] MEDS: ALBUTEROL SULF 2.5 MG/0.5ML(0.5%) NEB SOLN NEB ONE (15:00)
[2024-06-22] MEDS: ALBUTEROL SULF 2.5 MG/0.5ML(0.5%) NEB SOLN ONE (15:01)
[2024-06-22] MEDS: IPRATROPIUM BROM 0.5 MG/2.5ML INH SOL ONE (15:01)
[2024-06-22] MEDS: TAMSULOSIN HYDROCHLORIDE 0.4 MG CAP PO SCH (18:09)
[2024-06-22] MEDS: ERTAPENEM SOD INJ 1 GM in SODIUM CHL 0.9% 50 ML IV ONE (18:10)
[2024-06-22] MEDS: ATORVASTATIN 20 MG TAB PO SCH (22:23)
[2024-06-23] VITALS (8 sets, daily range): BP systolic 114–162; BP diastolic 63–77; PULSE 78–101; RESP 17–18; TEMP 97.5–98.1; O2SAT 91–97
[2024-06-23 06:29] LABS: Basophils # (auto) 0.1 10 ^3/uL (0-0.2); Basophils % (auto) 0.9 % (0.0-2.0); Eosinophils % (auto) 11.3 % (0.0-7.0); Hematocrit 40.9 % (41.0-53.0); Hemoglobin 13.6 g/dL (13.5-17.5); Lymphocytes # (auto) 1.8 10 ^3/uL (0.4-5.4); Lymphocytes % (auto) 21.4 % (10.0-50.0); Mean Corpuscular Hemoglobin 29.2 pg (28.0-32.0); Mean Corpuscular Hgb Conc. 33.3 g/dL (32.0-36.0); Mean Corpuscular Volume 87.6 fL (80.0-100.0); Monocytes # (auto) 1.1 10 ^3/uL (0-1.3); Monocytes % (auto) 13.2 % (0.0-12.0); Neutrophils # (auto) 4.5 10 ^3/uL (1.6-8.6); Neutrophils % (auto) 53.2 % (37.0-80.0); Platelet Count (auto) 228 10^3/uL (140-450); Red Blood Cells 4.67 10^6/uL (4.5-5.90); Red Cell Distribution Width 14.6 % (11.8-14.3); White Blood Cell 8.5 10^3/uL (4.4-10.8)
[2024-06-23 06:58] LABS: Alanine Aminotransferase 19 U/L (7-40); Albumin 3.9 g/dL (3.2-4.8); Alkaline Phosphatase 76 U/L (46-116); Anion Gap 10 (5-15); Aspartate Aminotransferase 22 U/L (13-40); BUN/Creatinine Ratio 13.1 (10.0-20.0); Blood Urea Nitrogen 11 mg/dL (9-23); Calcium 9.4 mg/dL (8.7-10.4); Carbon Dioxide 24 mmol/L (20-31); Chloride 102 mmol/L (98-107)
[2024-06-23 06:59] LABS: Bilirubin, Total 0.4 mg/dL (0.2-1.0); Total Protein 6.7 g/dL (5.7-8.2)
[2024-06-23 07:00] LABS: Glucose 154 mg/dL (74-106); Sodium 136 mmol/L (136-145)
[2024-06-23] MEDS: LISINOPRIL 20 MG TAB PO SCH (09:56)
[2024-06-23] MEDS: ERTAPENEM SOD INJ 1 GM in SODIUM CHL 0.9% 50 ML IV SCH (09:57)
--- NOTE | 2024-06-23 15:14 | DVHPN2 ---
Subjective no acute events. patient notes hesitancy and inability to fully void. No hx of prostate disease. Reviewed: Care Plan Changes from previous H/P or p: No Changes (except as noted in Hpi ) General: No Chills, No Night Sweats; Fatigue Neurological: No Weakness, No Numbness Eyes: No Pain Cardiovascular: No Chest Pain Respiratory: No Cough, No Dry, No Shortness of breath Gastrointestinal: No Nausea, No Vomiting, No Abdominal Pain Genitourinary: Frequency, Retention Musculoskeletal: foot pain Skin: No Lesions Endocrine: No Cold Intolerance Objective Vitals Vital Signs Date Time Temp Pulse Resp B/P (MAP) Pulse Ox O2 Delivery O2 Flow Rate FiO2 06/23/24 13:00 97.9 101 18 162/77 (105) 96 97.9 06/23/24 10:30 Nasal Cannula* 3 32 Intake/Output Intake and Output 06/23/24 07:00 Intake Total 2960 ml Output Total 2000 ml Balance 960 ml Intake Oral 1660 ml IV Total 1300 ml Output Urine Total 2000 ml # Bowel Movements 1 General Appearance: Alert, Oriented X3 HEENT: Atraumatic Lungs: Clear to auscultation, Normal air movement Cardiovascular: Regular rate, Normal S1, Normal S2 Abdomen: Normal bowel sounds, Other (mild suprapubic discomft. ) Rectal: Deferred Medications Current Medications Medications Dose Ordered Sig/Melia Route Start Time Stop Time Status Last Admin Dose Admin Vancomycin HCl 0 ml @ 0 mls/hr UD IV 06/19/24 17:30 Cancel Diagnostic Test (Pha) 1 strip ACHS 06/19/24 22:00 06/23/24 11:12 1 STRIP Insulin Human Regular ACHS SC 06/19/24 22:00 06/23/24 11:12 3 UNITS Dextrose 50 ml UD PRN IV 06/19/24 17:30 Sodium Chloride 1,000 ml @ 60 mls/hr [id number] IV 06/19/24 17:30 06/22/24 15:54 60 MLS/HR Acetaminophen/ Hydrocodone Bitart 1 tab Q4HP PRN PO 06/19/24 17:30 06/22/24 22:24 1 TAB Ondansetron HCl 4 mg Q4HP PRN IV 06/19/24 17:30 Acetaminophen 650 mg Q6HP PRN PO 06/19/24 17:30 Cancel Morphine Sulfate 2 mg Q4HPRN PRN IV 06/19/24 17:30 Ertapenem 1 gm/ Sodium Chloride 50 ml @ 100 mls/hr DAILY IV 06/23/24 10:00 06/23/24 09:57 100 MLS/HR Lisinopril 40 mg DAILY PO 06/23/24 10:00 06/23/24 09:56 40 MG Atorvastatin Calcium 40 mg HS PO 06/22/24 22:00 06/22/24 22:23 40 MG Tamsulosin HCl 0.4 mg QPM PO 06/22/24 18:00 06/22/24 18:09 0.4 MG Laboratory Results Laboratory Tests 06/23/24 05:27 Chemistry Test 06/23/24 05:27 Albumin 3.9 g/dL (3.2-4.8) Calcium Level 9.4 mg/dL (8.7-10.4) Total Protein 6.7 g/dL (5.7-8.2) LFT Test 06/23/24 05:27 Alanine Aminotransferase (ALT) 19 U/L (7-40) Alkaline Phosphatase 76 U/L (46-116) Aspartate Amino Transferase (AST) 22 U/L (13-40) Total Bilirubin 0.4 mg/dL (0.2-1.0) Urinalysis Test 06/21/24 10:30 Urine Color Light-yellow (Yellow) Urine Clarity Clear (Clear) Urine pH 5.5 (5.0-9.0) Urine Specific [place] 1.020 (1.001-1.035) Urine Protein Negative (Negative) Urine Ketones Negative (Negative) Urine Blood Negative /uL (Negative) Urine Nitrite Negative (Negative) Urine Bilirubin Negative (Negative) Urine Urobilinogen Normal mg/dL (Negative) Urine Leukocyte Esterase Negative /uL (Negative) Urine RBC <1 /hpf (0 - 3) Urine Microscopic WBC 1 /HPF (0-3) Urine Squamous Epithelial Cells None seen /hpf (<5) Urine Bacteria None seen /hpf (None Seen) Urine Glucose 4+ mg/dL (Normal) H Microbiology Microbiology Date/Time Source Procedure Growth Status 06/20/24 11:50 Foot Left Gram Stain - Final Resulted 06/20/24 11:50 Foot Left Anaerobic Culture - Preliminary Resulted 06/20/24 11:50 Aerobic Culture - Preliminary Morganella morganii Resulted Assessment/Plan Assessment/Plan Problem List/Assessment/Plan #sp 2x I&D 06/20 & 0131 #Left hallux osteomyelitis #Left hallux abscess #Left hallux cellulitis #Left hallux diabetic ulcer #DM type 2 hba1c 8.5 #Hypertension #Acute on chronic respiratory failure resolved #Former smoker #PAD O2 like at home 2 lt Diabetic diet IV fluids 60 cc/h Mild sliding scale insulin Ertapenem IV f/u podiatry recs Pain medication Restart home meds No need of O2 for now Plan discussed with: Patient Date of Service: Jun 23, 2024 Billing Provider: LYN SORENSEN MD Common Visit Codes: [id number] INP/OBS CARE(HIGH) LYN SORENSEN MD Jun 23, 2024 15:14
[2024-06-23 16:23] LABS: Alanine Aminotransferase 19 U/L (7-40); Albumin 4.1 g/dL (3.2-4.8); Alkaline Phosphatase 78 U/L (46-116); Anion Gap 8 (5-15); Aspartate Aminotransferase 23 U/L (13-40); BUN/Creatinine Ratio 15.6 (10.0-20.0); Blood Urea Nitrogen 15 mg/dL (9-23); Calcium 9.2 mg/dL (8.7-10.4); Carbon Dioxide 28 mmol/L (20-31); Chloride 100 mmol/L (98-107); Potassium 4.1 mmol/L (3.5-5.1)
[2024-06-23 16:24] LABS: Total Protein 6.8 g/dL (5.7-8.2)
[2024-06-23 16:25] LABS: Bilirubin, Total 0.3 mg/dL (0.2-1.0); Glucose 226 mg/dL (74-106); Sodium 136 mmol/L (136-145)
[2024-06-23] MEDS: guaiFENesin 200 MG/10 ML UD PO PRN (17:28)
[2024-06-24] VITALS (9 sets, daily range): BP systolic 124–157; BP diastolic 57–95; PULSE 66–92; RESP 18; TEMP 97.5–98; O2SAT 94–96
[2024-06-24 07:00] LABS: Basophils # (auto) 0.1 10 ^3/uL (0-0.2); Basophils % (auto) 1.1 % (0.0-2.0); Eosinophils # (auto) 0.9 10 ^3/uL (0-0.8); Eosinophils % (auto) 13.4 % (0.0-7.0); Hematocrit 38.7 % (41.0-53.0); Lymphocytes # (auto) 1.6 10 ^3/uL (0.4-5.4); Lymphocytes % (auto) 24.2 % (10.0-50.0); Mean Corpuscular Hemoglobin 29.1 pg (28.0-32.0); Mean Corpuscular Hgb Conc. 33.6 g/dL (32.0-36.0); Mean Corpuscular Volume 86.8 fL (80.0-100.0); Monocytes # (auto) 0.8 10 ^3/uL (0-1.3); Monocytes % (auto) 12.2 % (0.0-12.0); Neutrophils # (auto) 3.3 10 ^3/uL (1.6-8.6); Neutrophils % (auto) 49.1 % (37.0-80.0); Nucleated Red Blood Cells % 0.1 %; Platelet Count (auto) 236 10^3/uL (140-450); Red Blood Cells 4.46 10^6/uL (4.5-5.90); Red Cell Distribution Width 14.4 % (11.8-14.3); White Blood Cell 6.8 10^3/uL (4.4-10.8)
--- NOTE | 2024-06-24 11:33 | DVHPNRES ---
Progress Note Date Seen: Jun 24, 2024 Resident Creating Document: CECI MOSER RESIDENT Has the PT tested + for MRSA If YES, has PT been informed?: No Medical Necessity Reason Pt with a Central, PICC or Fol: No Subjective Review of Systems Rickey Chin is a 64-year-old male with a past medical history of HTN, COPD, diabetes and diabetic neuropathy who presents to the clinic with left foot osteomyelitis. Patient states 20 days days ago he had incision and debridement in other facility but the wound did not heal properly and he was seen by a doctor who sent him to the ED Objective vital signs Vital Sign Date Time Temp Pulse Resp B/P (MAP) Pulse Ox O2 Delivery O2 Flow Rate FiO2 06/24/24 09:12 155/75 06/24/24 09:00 97.8 84 18 96 97.8 06/23/24 20:00 Nasal Cannula* 3 32 Total Intake and Output 06/23/24 06/23/24 06/24/24 15:00 23:00 07:00 Intake Total 50 ml 1000 ml 550 ml Output Total 1000 ml 1100 ml Balance 50 ml 0 ml -550 ml medications Current Medications Medications Dose Ordered Sig/Melia Route Start Time Stop Time Status Last Admin Dose Admin Vancomycin HCl 0 ml @ 0 mls/hr UD IV 06/19/24 17:30 Cancel Diagnostic Test (Pha) 1 strip ACHS 06/19/24 22:00 06/24/24 06:04 1 STRIP Insulin Human Regular ACHS SC 06/19/24 22:00 06/24/24 11:19 4 UNITS Dextrose 50 ml UD PRN IV 06/19/24 17:30 Sodium Chloride 1,000 ml @ 60 mls/hr [id number] IV 06/19/24 17:30 06/23/24 19:25 60 MLS/HR Acetaminophen/ Hydrocodone Bitart 1 tab Q4HP PRN PO 06/19/24 17:30 06/22/24 22:24 1 TAB Ondansetron HCl 4 mg Q4HP PRN IV 06/19/24 17:30 Acetaminophen 650 mg Q6HP PRN PO 06/19/24 17:30 Cancel Morphine Sulfate 2 mg Q4HPRN PRN IV 06/19/24 17:30 Ertapenem 1 gm/ Sodium Chloride 50 ml @ 100 mls/hr DAILY IV 06/23/24 10:00 06/24/24 09:12 100 MLS/HR Lisinopril 40 mg DAILY PO 06/23/24 10:00 06/24/24 09:12 40 MG Atorvastatin Calcium 40 mg HS PO 06/22/24 22:00 06/23/24 21:44 40 MG Tamsulosin HCl 0.4 mg QPM PO 06/22/24 18:00 06/23/24 17:28 0.4 MG Guaifenesin 200 mg Q6HP PRN PO 06/23/24 17:00 06/24/24 09:12 200 MG Examination PSYCH: Good Judgment. AOx3. Normal memory, mood, and affect. HEENT -Head: normocephalic atraumatic, no facial trauma, neck is supple -Eyes: PERRL, EOMI. No discharge or redness; -Ears: External ears are normal. Normal TMs. -Nose: Normal nares. -Mouth and throat: MMM. Normal gums, mucosa, palate,. Good dentition. NECK: Supple, with no masses. CV: RRR, no m/r/g. LUNGS: . Lungs clear to auscultation without rhonchi, wheezes, rales ABD: Soft, ND/NT. No evidence of fluid wave. No pulsatile masses on exam, rebound tenderness, Ward sign or pain over Mcburney's point. : N/A EXT: wound in the Left dorsal medial hallux Fibrotic and necrotic NEURO: Ambulating with no limitations. Normal muscle strength and tone. No focal deficits. laboratory and microbiology Laboratory Tests 06/24/24 05:45 06/23/24 15:47 Test 06/23/24 15:47 Range/Units Serum Glucose 226 H 74-106 mg/dL Microbiology Date/Time Source Procedure Growth Status 06/20/24 11:50 Foot Left Gram Stain - Final Resulted 06/20/24 11:50 Foot Left Anaerobic Culture - Final Resulted 06/20/24 11:50 Aerobic Culture - Preliminary Morganella morganii Enterococcus faecalis Resulted Problem List/Assessment/Plan Problem List/Assessment/Plan #sp 2x I&D day 0 #Left hallux osteomyelitis #Left hallux abscess #Left hallux cellulitis #Left hallux diabetic ulcer #DM type 2 hba1c 8.5 #Hypertension #Acute on chronic respiratory failure resolved #COPD exacerbation? #Former smoker Pt uses O2 at home 2 lt Diabetic diet IV fluids 60 cc/h Mild sliding scale insulin Ertapenem + Amoxicillin : Morganella and E faecalis is growing in the wound cultures IV AB for ertapenem Amoxicillin oral for 6 weeks Pending closure of the wound tomorrow Pain medication Restart home meds Lower extremity Arterial Doppler ordered: normal PICC already placed Case discussed with Dr Workman Time spent on care 23 min Plan discussed with: Patient, Other My Orders My Orders Orders - CECI MOSER Procedure Category Date Status Time Amoxicillin Capsule [facility] 06/24/24 Transmitted 14:00 CECI MOSER RESIDENT Jun 24, 2024 11:33
[2024-06-24] MEDS: AMOXICILLIN TRIHYDRATE 250 MG CAP PO SCH (14:45)
--- NOTE | 2024-06-24 16:07 | DVH ---
CLINICAL INFORMATION: 64 years old, Male; PICC placement. TECHNIQUE: Single AP portable chest radiograph was obtained. COMPARISON: XY CHEST PORTABLE on DOS: 06/20/24 FINDINGS: Interval placement of a right PICC with the distal tip at the level of the distal SVC. Low lung volum es and bibasilar atelectasis, similar to the prior exam. No pneumothorax. No other significant inter jeremi change. IMPRESSION: Interval placement of a right PICC as described above.
[2024-06-25] VITALS (13 sets, daily range): BP systolic 103–167; BP diastolic 69–93; PULSE 79–95; RESP 15–19; TEMP 97.6–98.8; O2SAT 94–96
[2024-06-25 06:43] LABS: Basophils # (auto) 0.1 10 ^3/uL (0-0.2); Basophils % (auto) 0.9 % (0.0-2.0); Eosinophils % (auto) 14.7 % (0.0-7.0); Hematocrit 39.6 % (41.0-53.0); Hemoglobin 13.2 g/dL (13.5-17.5); Lymphocytes # (auto) 1.6 10 ^3/uL (0.4-5.4); Lymphocytes % (auto) 23.6 % (10.0-50.0); Mean Corpuscular Hemoglobin 28.8 pg (28.0-32.0); Mean Corpuscular Hgb Conc. 33.2 g/dL (32.0-36.0); Mean Corpuscular Volume 86.6 fL (80.0-100.0); Monocytes # (auto) 0.7 10 ^3/uL (0-1.3); Neutrophils # (auto) 3.5 10 ^3/uL (1.6-8.6); Neutrophils % (auto) 50.8 % (37.0-80.0); Nucleated Red Blood Cells % 0.1 %; Platelet Count (auto) 254 10^3/uL (140-450); Red Blood Cells 4.57 10^6/uL (4.5-5.90); Red Cell Distribution Width 14.5 % (11.8-14.3); White Blood Cell 6.9 10^3/uL (4.4-10.8)
[2024-06-25 06:56] LABS: Alanine Aminotransferase 21 U/L (7-40); Albumin 3.8 g/dL (3.2-4.8); Alkaline Phosphatase 76 U/L (46-116); Anion Gap 7 (5-15); Aspartate Aminotransferase 23 U/L (13-40); BUN/Creatinine Ratio 13.8 (10.0-20.0); Bilirubin, Total 0.4 mg/dL (0.2-1.0); Blood Urea Nitrogen 11 mg/dL (9-23); Calcium 9.4 mg/dL (8.7-10.4); Carbon Dioxide 28 mmol/L (20-31); Chloride 103 mmol/L (98-107); Sodium 138 mmol/L (136-145); Total Protein 6.7 g/dL (5.7-8.2)
[2024-06-25 06:57] LABS: INR 1.03 (0.9-1.15); Partial Thromboplastin Time 26.2 SEC (24.5-34.5); Prothrombin Time 10.9 sec (9.3-11.8)
[2024-06-25 07:04] LABS: Glucose 212 mg/dL (74-106)
--- NOTE | 2024-06-25 07:53 | ECG ---
[facility] Test Date: 2024-06-25 Test Time: 02:09:24 Pat Name: WON OSCAR Department: Respiratoy Room: 0217 A Gender: M Consultant In [employer]ics And Safety: ZA CABALLERO : 1960 Requested By: CECI CABRERA Order Number: [id number] Reading MD: Sb Paz Measurements Intervals [place] Rate: 77 P: 91 SD: 175 QRS: 73 QRSD: 96 T: 10 QT: 366 QTc: 415 Interpretive Statements Sinus rhythm Electronically Signed On 06-25-2024 21:06:36 PST by Sb Paz Please click the below link to view image of tracing.
--- NOTE | 2024-06-25 11:44 | DVHPN2 ---
Subjective Rickey Chin is a 64-year-old male with a past medical history of diabetes and diabetic neuropathy who presents to the clinic with left foot osteomyelitis. Per podiatry admit the patient in for plan for surgery tomorrow. Patient will be NPO after midnight. Reviewed: Care Plan Changes from previous H/P or p: No Changes General: No Chills, No Night Sweats; Fatigue Neurological: No Weakness, No Numbness Eyes: No Pain Cardiovascular: No Chest Pain Respiratory: No Cough, No Dry, No Shortness of breath Gastrointestinal: No Nausea, No Vomiting, No Abdominal Pain Genitourinary: Frequency, Retention Musculoskeletal: foot pain Skin: No Lesions Endocrine: No Cold Intolerance Objective Vitals Vital Signs Date Time Temp Pulse Resp B/P (MAP) Pulse Ox O2 Delivery O2 Flow Rate FiO2 06/25/24 10:23 94 Nasal Cannula 3.0 06/25/24 10:23 32 06/25/24 09:24 153/83 06/25/24 09:11 98.6 84 18 98.6 Intake/Output Intake and Output 06/25/24 07:00 Intake Total 2888 ml Output Total 1803 ml Balance 1085 ml Intake Oral 1888 ml IV Total 1000 ml Output Urine Total 1800 ml Stool Total 3 ml # Voids 8 Exam DERMATOLOGIC EXAM: - Skin is dry and cool to the touch dry bilaterally. - Nails 1-5 of the bilateral foot are thickened, discolored, dystrophic, and tender to palpate with subungual debris - Hair loss noted to bilateral feet Wound #1: Location: Left dorsal medial hallux Measurements: Length 2 cm x width 1 cm x depth 1 cm. Wound margins: Hyperkeratotic. Wound base: Full thickness. General Appearance: Fibrotic and necrotic Probes to Bone: Yes Purulent drainage: Yes Serous drainage: No Erythema: Mid foot VASCULAR EXAM: - DP and PT pulses are palpable bilaterally. - INVESTMENT EXECUTIVE is brisk to all digits. - Feet are cool to touch compared to lower legs bilaterally. NEUROLOGIC EXAM: - Normal light touch sensation to the superficial peroneal, deep peroneal, sural, saphenous, and tibial nerve branches. - Protective sensation is diminished as tested with a 5.07 10g [place] bilaterally. MUSCULOSKELETAL EXAM: - No gross deformities - Muscle strength is 5/5 and active motion is pain-free and symmetrical bilaterally - No pain or crepitation with passive range of motion bilaterally to all major pedal joints General Appearance: Alert, Oriented X3 HEENT: Atraumatic Lungs: Clear to auscultation, Normal air movement Cardiovascular: Regular rate, Normal S1, Normal S2 Abdomen: Normal bowel sounds, Other (mild suprapubic discomft. ) Rectal: Deferred Medications Current Medications Medications Dose Ordered Sig/Melia Route Start Time Stop Time Status Last Admin Dose Admin Vancomycin HCl 0 ml @ 0 mls/hr UD IV 06/19/24 17:30 Cancel Diagnostic Test (Pha) 1 strip ACHS 06/19/24 22:00 06/25/24 11:16 1 STRIP Insulin Human Regular ACHS SC 06/19/24 22:00 06/25/24 11:18 3 UNITS Dextrose 50 ml UD PRN IV 06/19/24 17:30 Sodium Chloride 1,000 ml @ 60 mls/hr [id number] IV 06/19/24 17:30 06/25/24 06:21 60 MLS/HR Acetaminophen/ Hydrocodone Bitart 1 tab Q4HP PRN PO 06/19/24 17:30 06/22/24 22:24 1 TAB Ondansetron HCl 4 mg Q4HP PRN IV 06/19/24 17:30 Acetaminophen 650 mg Q6HP PRN PO 06/19/24 17:30 Cancel Morphine Sulfate 2 mg Q4HPRN PRN IV 06/19/24 17:30 Ertapenem 1 gm/ Sodium Chloride 50 ml @ 100 mls/hr DAILY IV 06/23/24 10:00 06/25/24 09:24 100 MLS/HR Lisinopril 40 mg DAILY PO 06/23/24 10:00 06/25/24 09:24 40 MG Atorvastatin Calcium 40 mg HS PO 06/22/24 22:00 06/24/24 21:22 40 MG Tamsulosin HCl 0.4 mg QPM PO 06/22/24 18:00 06/24/24 17:01 0.4 MG Guaifenesin 200 mg Q6HP PRN PO 06/23/24 17:00 06/24/24 21:39 200 MG Amoxicillin 500 mg Q8HR PO 06/24/24 14:00 06/24/24 21:22 500 MG Laboratory Results Laboratory Tests 06/25/24 05:51 Chemistry Test 06/25/24 05:51 Albumin 3.8 g/dL (3.2-4.8) Calcium Level 9.4 mg/dL (8.7-10.4) Total Protein 6.7 g/dL (5.7-8.2) Coagulation Test 06/25/24 05:51 Prothrombin Time 10.9 sec (9.3-11.8) Prothrombin Time INR 1.03 (0.9-1.15) Activated Partial Thromboplast Time 26.2 SEC (24.5-34.5) LFT Test 06/25/24 05:51 Alanine Aminotransferase (ALT) 21 U/L (7-40) Alkaline Phosphatase 76 U/L (46-116) Aspartate Amino Transferase (AST) 23 U/L (13-40) Total Bilirubin 0.4 mg/dL (0.2-1.0) Urinalysis Test 06/21/24 10:30 Urine Color Light-yellow (Yellow) Urine Clarity Clear (Clear) Urine pH 5.5 (5.0-9.0) Urine Specific [place] 1.020 (1.001-1.035) Urine Protein Negative (Negative) Urine Ketones Negative (Negative) Urine Blood Negative /uL (Negative) Urine Nitrite Negative (Negative) Urine Bilirubin Negative (Negative) Urine Urobilinogen Normal mg/dL (Negative) Urine Leukocyte Esterase Negative /uL (Negative) Urine RBC <1 /hpf (0 - 3) Urine Microscopic WBC 1 /HPF (0-3) Urine Squamous Epithelial Cells None seen /hpf (<5) Urine Bacteria None seen /hpf (None Seen) Urine Glucose 4+ mg/dL (Normal) H Microbiology Microbiology Date/Time Source Procedure Growth Status 06/20/24 11:50 Foot Left Gram Stain - Final Resulted 06/20/24 11:50 Foot Left Anaerobic Culture - Final Resulted 06/20/24 11:50 Aerobic Culture - Preliminary Morganella morganii Enterococcus faecalis Resulted Assessment/Plan Assessment/Plan ASSESSMENT: Patient is a year old seen on the floor today s/p from a left foot I&D PLAN: - The patients chart was reviewed, clinical findings were discussed with the patient, the etiologies of the conditions were discussed in detail, and a treatment plan was agreed to at this time, with both oral and written instructions provided. - reviewed advanced imaging - discussed plan is to perform an incision and drainage with closure - patient will be NPO since midnight - take him to the OR today - can weightbear as tolerated in postoperative shoe - we will see if were able to close the patient - patient will need 6 weeks of IV antibiotics All questions were answered and concerns addressed to the patient's satisfaction. The patient was given the phone number to the clinic and was told how to make contact with the clinic should any concerns or questions arise. Patient understands that if any questions or concerns arise prior to the next appointment, we should be contacted immediately. FOLLOW-UP: Continue to follow while inpatient Plan discussed with: Patient My Orders Orders - ARABELLA OLIVAS DPM Procedure Category Date Status Time Npo After Midnight DIET 06/25/24 Transmitted Breakfast Obtain Consent For: ORDERS 06/24/24 Transmitted 22:58 Problem List: (1) Diabetic neuropathy (2) Diabetic foot ulcer (3) Abscess of left foot (4) Osteomyelitis of foot, left, acute (5) Cellulitis of left foot Date of Service: Jun 25, 2024 Billing Provider: ARABELLA OLIVAS DPM Common Visit Codes: [id number] INP/OBS CARE(HIGH) ARABELLA OLIVAS DPM Jun 25, 2024 11:44
[2024-06-25] MEDS ORDERED: GLYCOPYRROLATE 0.2 MG/ML 1ML VIAL ONE (12:27)
[2024-06-25] MEDS ORDERED: PROPOFOL 10 MG/ML 20 ML IV ONE (12:27)
[2024-06-25] MEDS ORDERED: MIDAZOLAM HCL 2MG/2ML 2ml VIAL (1mg/ml) ONE (12:27)
[2024-06-25] MEDS ORDERED: ONDANSETRON HCL 4 MG/2 ML VIAL ONE (12:27)
[2024-06-25] MEDS ORDERED: KETAMINE 50mg/ML 1ml syringe ONE (12:28)
--- NOTE | 2024-06-25 13:07 | DVHOP2 ---
Operative Report - 2 Report Details Date: 06/25/24 Preop Diagnosis: 1. Left hallux osteomyelitis 2. Left hallux abscess 3. Left hallux cellulitis 4. Left hallux diabetic ulcer Postop Diagnosis: Same as preop Surgeon: Arabella Olivas MD Anesthesiologist: See anesthesia Anesthesia: General Consent: The patient was informed of the risks and benefits of the procedure. These include but are not limited to complications of anesthesia, postoperative infection, incomplete relief of symptoms, recurrence of symptoms, damage to blood vessels, nerves and tendons, deep venous thrombosis, pulmonary embolism and possible need for repeat surgery in the future. Complications: None Estimated Blood Loss: Minimal Fluids: See anesthesia Findings: Consistent with diagnosis Indications for Surgery: Worsening left foot wound Name of Procedure Performed 1. Left foot I&D to bone (46776) 2. Left foot rotational flap (28950) 3. Left foot delayed closure (70030) Procedure Details Procedure Details: PRE-PROCEDURE INFORMATION: In the pre-op holding area, the extremity to be operated on was clearly marked and the patient verified correct laterality of the marking. The patient was transferred to the OR table and placed in a supine position. A timeout was performed in which identification of the correct patient, procedure, location, and materials was done. The left foot and leg were prepped and draped in normal sterile fashion. DESCRIPTION OF PROCEDURE: Attention was directed to the left foot where previous area of fluctuance was noted. An incision was made over this area and was deepened through blunt dissection. The incision was deepened to the level of abscess and bone. Care was taken to the dissection to avoid any neurovascular and tendinous structures. The incision was deepened to the bone, and the abscess appeared to be purulent fluid consistent with pus. The cortices of the bone was then removed with Andre an all necrotic tissue. After the abscess was drained, the area was irrigated with 3 L normal saline using cysto tubing. A rotational flap was then performed using a 15. Blade, the medial aspect of the hallux was then excised to allow for closure of the toe. A delayed closure was then performed using 2-0 nylon after was deemed appropriate with no longer concern for infection. POSTOPERATIVE INFORMATION: The patient tolerated the above noted procedure and anesthesia well and was transferred to the PACU with vital signs stable, and v ascular status intact with capillary refill intact to all digits. Patient will require 6 weeks of IV antibiotics. The patient can be discharged on antibiotics. Patient can weightbear as tolerated with a postoperative shoe. Condition Good Disposition Still a Patient ARABELLA OLIVAS DPM Jun 25, 2024 13:07
[2024-06-25] MEDS ORDERED: HYDROmorphone HCL 2 MG/ML VL/or syr IV PRN (13:15)
--- NOTE | 2024-06-25 13:41 | DVHPNRES ---
Progress Note Date Seen: Jun 25, 2024 Resident Creating Document: CECI MOSER RESIDENT Has the PT tested + for MRSA If YES, has PT been informed?: No Medical Necessity Reason Pt with a Central, PICC or Fol: No Subjective Review of Systems Rickey Chin is a 64-year-old male with a past medical history of HTN, COPD, diabetes and diabetic neuropathy who presents to the clinic with left foot osteomyelitis. Patient states 20 days days ago he had incision and debridement in other facility but the wound did not heal properly and he was seen by a doctor who sent him to the ED Objective vital signs Vital Sign Date Time Temp Pulse Resp B/P (MAP) Pulse Ox O2 Delivery O2 Flow Rate FiO2 06/25/24 13:03 Nasal Cannula 3.0 95 06/25/24 13:03 95 15 95 06/25/24 09:24 153/83 06/25/24 09:11 98.6 98.6 Total Intake and Output 06/24/24 06/24/24 06/25/24 15:00 23:00 07:00 Intake Total 594 ml 994 ml 1300 ml Output Total 1102 ml 701 ml Balance 594 ml -108 ml 599 ml medications Current Medications Medications Dose Ordered Sig/Melia Route Start Time Stop Time Status Last Admin Dose Admin Vancomycin HCl 0 ml @ 0 mls/hr UD IV 06/19/24 17:30 Cancel Diagnostic Test (Pha) 1 strip ACHS 06/19/24 22:00 06/25/24 11:16 1 STRIP Insulin Human Regular ACHS SC 06/19/24 22:00 06/25/24 11:18 3 UNITS Dextrose 50 ml UD PRN IV 06/19/24 17:30 Sodium Chloride 1,000 ml @ 60 mls/hr [id number] IV 06/19/24 17:30 06/25/24 06:21 60 MLS/HR Acetaminophen/ Hydrocodone Bitart 1 tab Q4HP PRN PO 06/19/24 17:30 06/22/24 22:24 1 TAB Ondansetron HCl 4 mg Q4HP PRN IV 06/19/24 17:30 Acetaminophen 650 mg Q6HP PRN PO 06/19/24 17:30 Cancel Morphine Sulfate 2 mg Q4HPRN PRN IV 06/19/24 17:30 Ertapenem 1 gm/ Sodium Chloride 50 ml @ 100 mls/hr DAILY IV 06/23/24 10:00 06/25/24 09:24 100 MLS/HR Lisinopril 40 mg DAILY PO 06/23/24 10:00 06/25/24 09:24 40 MG Atorvastatin Calcium 40 mg HS PO 06/22/24 22:00 06/24/24 21:22 40 MG Tamsulosin HCl 0.4 mg QPM PO 06/22/24 18:00 06/24/24 17:01 0.4 MG Guaifenesin 200 mg Q6HP PRN PO 06/23/24 17:00 06/24/24 21:39 200 MG Amoxicillin 500 mg Q8HR PO 06/24/24 14:00 06/24/24 21:22 500 MG Hydromorphone HCl 0.5 mg Q10M PRN IV 06/25/24 13:15 06/25/24 13:56 UNV Examination PSYCH: Good Judgment. AOx3. Normal memory, mood, and affect. HEENT -Head: normocephalic atraumatic, no facial trauma, neck is supple -Eyes: PERRL, EOMI. No discharge or redness; -Ears: External ears are normal. Normal TMs. -Nose: Normal nares. -Mouth and throat: MMM. Normal gums, mucosa, palate,. Good dentition. NECK: Supple, with no masses. CV: RRR, no m/r/g. LUNGS: . Lungs clear to auscultation without rhonchi, wheezes, rales ABD: Soft, ND/NT. No evidence of fluid wave. No pulsatile masses on exam, rebound tenderness, Ward sign or pain over Mcburney's point. : N/A EXT: wound in the Left dorsal medial hallux covered NEURO: Ambulating with no limitations. Normal muscle strength and tone. No focal deficits. laboratory and microbiology Laboratory Tests 06/25/24 05:51 Test 06/25/24 05:51 Range/Units Serum Glucose 212 H 74-106 mg/dL Microbiology Date/Time Source Procedure Growth Status 06/20/24 11:50 Foot Left Gram Stain - Final Resulted 06/20/24 11:50 Foot Left Anaerobic Culture - Final Resulted 06/20/24 11:50 Aerobic Culture - Preliminary Morganella morganii Enterococcus faecalis Resulted Problem List/Assessment/Plan Problem List/Assessment/Plan #sp Left foot rotational flap Left foot delayed closure #sp 2x I&D day 0 #Left hallux osteomyelitis #Left hallux abscess #Left hallux cellulitis #Left hallux diabetic ulcer #DM type 2 hba1c 8.5 #Hypertension #Acute on chronic respiratory failure resolved #COPD exacerbation? #Former smoker Pt uses O2 at home 2 lt Diabetic diet IV fluids 60 cc/h Mild sliding scale insulin Ertapenem + Amoxicillin : Morganella and E faecalis is growing in the wound cultures IV AB for ertapenem: pending Amoxicillin oral for 6 weeks Probably DC tomorrow after HH arrangements, surgery today with successful closure Pain medication Restart home meds Lower extremity Arterial Doppler ordered: normal PICC already placed Case discussed with Dr Strong Time spent on care 23 min Plan discussed with: Patient, Other (rn) My Orders My Orders Orders - CECI MOSER RESIDENT Procedure Category Date Status Time Chest Xray 1 View XY 06/24/24 Resulted 14:17 Date of Service: Jun 25, 2024 Billing Provider: MIMA STRONG MD Common Visit Codes: [id number] INP/OBS CARE(HIGH) CECI MOSER RESIDENT Jun 25, 2024 13:41 MIMA STRONG MD Jun 26, 2024 09:20
[2024-06-25] MEDS: amLODIPine BESYLATE 5 MG TAB PO SCH (20:48)
[2024-06-25] MEDS: LISINOPRIL 20 MG TAB PO SCH (20:48)
[2024-06-26] VITALS (7 sets, daily range): BP systolic 133–142; BP diastolic 76–77; PULSE 69–96; RESP 16–20; TEMP 97.6–99; O2SAT 92–97
[2024-06-26] MEDS: ERTAPENEM SOD INJ 1 GM in SODIUM CHL 0.9% 50 ML IV SCH (06:22)
[2024-06-26] MEDS ORDERED: AMOX500T86 PO (11:21)
[2024-06-26] MEDS: ONDANSETRON HCL 4 MG/2 ML VIAL IV ONE ×3 (11:50→11:51)
[2024-06-26] MEDS: KETOROLAC TROMETH 30 MG/ML 1ML VIAL IV ONE (11:50)
[2024-06-26] MEDS: BUPIVACAINE HCL 50 ML ONE (11:50)
[2024-06-26] MEDS: BUPIVACAINE 0.5% P/F INJ 10 ML VIAL ONE (11:51)
[2024-06-26] MEDS: VANCOMYCIN HCL 1000 MG VL ONE (11:51)
[2024-06-26] MEDS: ACCU-CHEK COMFORT CURVE STRIP VI ONE (11:51)
--- NOTE | 2024-06-26 13:36 | DVHDSRES ---
Discharge Summary Date of Admission Resident Creating Document: CECI MOSER RESIDENT Jun 19, 2024 at 16:55 Date of Discharge: Jun 25, 2024 Admitting Diagnosis #Left hallux osteomyelitis Labs/Diagnostic Data: Laboratory Results Test 06/26/24 10:41 06/25/24 05:51 06/21/24 13:09 06/21/24 10:30 POC Glucose 265 mg/dl (70-106) White Blood Count 6.9 10^3/uL (4.4-10.8) Red Blood Count 4.57 10^6/uL (4.5-5.90) Hemoglobin 13.2 g/dL (13.5-17.5) Hematocrit 39.6 % (41.0-53.0) Mean Corpuscular Volume 86.6 fL (80.0-100.0) Mean Corpuscular Hemoglobin 28.8 pg (28.0-32.0) Mean Corpuscular Hemoglobin Concent 33.2 g/dL (32.0-36.0) Red Cell Distribution Width 14.5 % (11.8-14.3) Platelet Count 254 10^3/uL (140-450) Mean Platelet Volume 8.7 fL (6.9-10.8) Neutrophils (%) (Auto) 50.8 % (37.0-80.0) Lymphocytes (%) (Auto) 23.6 % (10.0-50.0) Monocytes (%) (Auto) 10.0 % (0.0-12.0) Eosinophils (%) (Auto) 14.7 % (0.0-7.0) Basophils (%) (Auto) 0.9 % (0.0-2.0) Neutrophils # (Auto) 3.5 10 ^3/uL (1.6-8.6) Lymphocytes # (Auto) 1.6 10 ^3/uL (0.4-5.4) Monocytes # (Auto) 0.7 10 ^3/uL (0-1.3) Eosinophils # (Auto) 1.0 10 ^3/uL (0-0.8) Basophils # (Auto) 0.1 10 ^3/uL (0-0.2) Nucleated Red Blood Cells 0.1 % Prothrombin Time 10.9 sec (9.3-11.8) Prothrombin Time INR 1.03 (0.9-1.15) Activated Partial Thromboplast Time 26.2 SEC (24.5-34.5) Sodium Level 138 mmol/L (136-145) Potassium Level 4.0 mmol/L (3.5-5.1) Chloride Level 103 mmol/L (98-107) Carbon Dioxide Level 28 mmol/L (20-31) Anion Gap 7 (5-15) Blood Urea Nitrogen 11 mg/dL (9-23) Creatinine 0.80 mg/dL (0.700-1.30) Glomerular Filtration Rate Calc 99 mL/min (>90) BUN/Creatinine Ratio 13.8 (10.0-20.0) Serum Glucose 212 mg/dL (74-106) Calcium Level 9.4 mg/dL (8.7-10.4) Total Bilirubin 0.4 mg/dL (0.2-1.0) Aspartate Amino Transferase (AST) 23 U/L (13-40) Alanine Aminotransferase (ALT) 21 U/L (7-40) Alkaline Phosphatase 76 U/L (46-116) Total Protein 6.7 g/dL (5.7-8.2) Albumin 3.8 g/dL (3.2-4.8) Vancomycin Level Trough 14.1 ug/mL (5-10) Urine Color Light-yellow (Yellow) Urine Clarity Clear (Clear) Urine pH 5.5 (5.0-9.0) Urine Specific [place] 1.020 (1.001-1.035) Urine Protein Negative (Negative) Urine Ketones Negative (Negative) Urine Blood Negative /uL (Negative) Urine Nitrite Negative (Negative) Urine Bilirubin Negative (Negative) Urine Urobilinogen Normal mg/dL (Negative) Urine Leukocyte Esterase Negative /uL (Negative) Urine RBC <1 /hpf (0 - 3) Urine Microscopic WBC 1 /HPF (0-3) Urine Squamous Epithelial Cells None seen /hpf (<5) Urine Bacteria None seen /hpf (None Seen) Urine Glucose 4+ mg/dL (Normal) Urine Opiates Screen Neg (NEGATIVE) Urine Fentanyl Screen Neg (NEGATIVE) Urine Barbiturates Screen Neg (NEGATIVE) Urine Phencyclidine Screen Neg (NEGATIVE) Urine Amphetamines Screen Neg (NEGATIVE) Urine Benzodiazepines Screen Pos (NEGATIVE) Urine Cocaine Screen Neg (NEGATIVE) Urine Cannabinoids Screen Neg (NEGATIVE) Test 06/19/24 23:00 06/19/24 18:13 Influenza Type A Antigen Negative (Negative) Influenza Type B Antigen Negative (Negative) SARS-CoV-2 Antigen (Rapid) Negative (NEGATIVE) Hemoglobin A1c 8.5 % A1C (<5.7) Other Laboratory Tests 06/25/24 05:51 Brief Hx & Hospital Course: A 64-year-old male with a past medical history significant for hypertension, COPD with home O2, diabetes mellitus with a hemoglobin A1c of 8.5%, and diabetic neuropathy presented with left foot osteomyelitis complicated by abscess, cellulitis, and a diabetic ulcer. He underwent incision and drainage procedures and was treated for a growing wound culture that revealed Morganella and Enterococcus faecalis. After placement of a PICC line, he was initiated on ertapenem and oral amoxicillin for six weeks. Surgical intervention with a left foot rotational flap was successfully performed, achieving delayed closure without complications. The patient was clinically stable at discharge, tolerating a diabetic diet, and his home medications were resumed. He will continue supplemental oxygen at 2 L/min. Arrangements were made for home health services to oversee IV antibiotic administration. A lower extremity arterial Doppler study was performed, yielding normal results. The patient was advised to follow up with the surgical team and primary care provider. PSYCH: Good Judgment. AOx3. Normal memory, mood, and affect. HEENT -Head: normocephalic atraumatic, no facial trauma, neck is supple -Eyes: PERRL, EOMI. No discharge or redness; -Ears: External ears are normal. Normal TMs. -Nose: Normal nares. -Mouth and throat: MMM. Normal gums, mucosa, palate,. Good dentition. NECK: Supple, with no masses. CV: RRR, no m/r/g. LUNGS: . Lungs clear to auscultation without rhonchi, wheezes, rales ABD: Soft, ND/NT. No evidence of fluid wave. No pulsatile masses on exam, rebound tenderness, Ward sign or pain over Mcburney's point. : N/A EXT: wound in the Left dorsal medial hallux covered NEURO: Ambulating with no limitations. Normal muscle strength and tone. No focal deficits. Case discussed with Dr Strong Time spent on care 23 min Consults/Reason for consult home economics teacher due to diabetic foot Operations or Procedures Preop Diagnosis: 1. Left hallux osteomyelitis 2. Left hallux abscess 3. Left hallux cellulitis 4. Left hallux diabetic ulcer Postop Diagnosis: Same as preop Surgeon: Shravan iGbbons MD Anesthesiologist: See anesthesia Anesthesia: General Consent: The patient was informed of the risks and benefits of the procedure. These include but are not limited to complications of anesthesia, postoperative infection, incomplete relief of symptoms, recurrence of symptoms, damage to blood vessels, nerves and tendons, deep venous thrombosis, pulmonary embolism and possible need for repeat surgery in the future. Complications: None Estimated Blood Loss: Minimal Fluids: See anesthesia Findings: Consistent with diagnosis Indications for Surgery: Worsening left foot wound Name of Procedure Performed 1. Left foot I&D to bone (58185) 2. Left foot rotational flap (97552) 3. Left foot delayed closure (78287) Procedure Details Procedure Details: PRE-PROCEDURE INFORMATION: In the pre-op holding area, the extremity to be operated on was clearly marked and the patient verified correct laterality of the marking. The patient was transferred to the OR table and placed in a supine position. A timeout was performed in which identification of the correct patient, procedure, location, and materials was done. The left foot and leg were prepped and draped in normal sterile fashion. DESCRIPTION OF PROCEDURE: Attention was directed to the left foot where previous area of fluctuance was noted. An incision was made over this area and was deepened through blunt dissection. The incision was deepened to the level of abscess and bone. Care was taken to the dissection to avoid any neurovascular and tendinous structures. The incision was deepened to the bone, and the abscess appeared to be purulent fluid consistent with pus. The cortices of the bone was then removed with Andre an all necrotic tissue. After the abscess was drained, the area was irrigated with 3 L normal saline using cysto tubing. A rotational flap was then performed using a 15. Blade, the medial aspect of the hallux was then excised to allow for closure of the toe. A delayed closure was then performed using 2-0 nylon after was deemed appropriate with no longer concern for infection. POSTOPERATIVE INFORMATION: The patient tolerated the above noted procedure and anesthesia well and was transferred to the PACU with vital signs stable, and vascular status intact with capillary refill intact to all digits. Patient will require 6 weeks of IV antibiotics. The patient can be discharged on antibiotics. Patient can weightbear as tolerated with a postoperative shoe. Condition at Discharge: Good Final Diagnosis/Problems List #sp Left foot rotational flap Left foot delayed closure #sp 2x I&D day 0 #Left hallux osteomyelitis #Left hallux abscess #Left hallux cellulitis #Left hallux diabetic ulcer #DM type 2 hba1c 8.5 #Hypertension #Acute on chronic respiratory failure resolved #COPD exacerbation? #Former smoker Discharge Disposition: Home with Health Services Discharge Instruct/Medications Diet: Consistent carbohydrate, Cardiac 2g Na,low cholest Activity: Light activity Follow Up/Referral: f/u pcp and Dr Gibbons as outpatient Medications: resume home meds + IV AB Discharge Statement: "Patient was advised to return to the ER or call 911 if any headaches, dizziness, shortness of breath, chest pain, abdominal pain, bleeding, fevers, or worsening of medical condition. Patient was counseled about treatment plan, medications, possible side effects, patientverbalized understanding. All questions were answered to the best of my ability. This discharge took greater then 30 minutes in planning, reviewing documentation, counseling the patient, and discussing with other team members." ASSESSMENT ASSESSMENT Assessment s/p I&D osetomyelitis CECI MOSER RESIDENT Jun 26, 2024 13:36
[2024-06-26] MEDS ORDERED: HYDR-4902 PO (14:38)
== END 2024-06-26 15:00 | disposition home health service (06) | DRG 628 ==
LOC: CENTRAL 16:55
PROVIDERS: ADMIT Student in an Organized Health Care Education/Training Program; ATTEND Podiatrist
PROC: 0QBP0ZX Excision of Left Metatarsal, Open Approach, Diagnostic (ICD-10-PCS; 2024-06-20)
PROC: 0Y9N0ZZ Drainage of Left Foot, Open Approach (ICD-10-PCS; principal; 2024-06-20 11:36)
PROC: 0Y9N0ZZ Drainage of Left Foot, Open Approach (ICD-10-PCS; 2024-06-22)
PROC: 0Y9N0ZZ Drainage of Left Foot, Open Approach (ICD-10-PCS; 2024-06-25)
DX: E11.69 Type 2 diabetes mellitus with other specified complication (principal); J96.20 Acute and chronic respiratory failure, unspecified whether with hypoxia or hypercapnia; L02.612 Cutaneous abscess of left foot; M86.172 Other acute osteomyelitis, left ankle and foot; J44.1 Chronic obstructive pulmonary disease with (acute) exacerbation; L03.032 Cellulitis of left toe; Z20.822 Contact with and (suspected) exposure to COVID-19; E11.622 Type 2 diabetes mellitus with other skin ulcer; E11.40 Type 2 diabetes mellitus with diabetic neuropathy, unspecified; I10 Essential (primary) hypertension; L97.529 Non-pressure chronic ulcer of other part of left foot with unspecified severity; Z87.891 Personal history of nicotine dependence
CPT/HCPCS: 36415; 71045; 80048; 80053; 80202; 80307; 81001; 82962; 83036; 85025; 85610; 85730; 87070; 87075; 87077; 87186; 87205; 87426; 87804; 93005; 93925; 94640; G0378; J1335; J1815; J2250; J2405; J2543; J2704; J3490

== ENCOUNTER 2025-01-28 15:43 | Inpatient (IN) | payer OTHER, MEDICAID ==
[~2025-01-28] VITALS: Ht 180.3 cm; Wt 133.7 kg
[~2025-01-28 15:43] MED LIST: ACET500T58 PO; ALBU108A5 IN; AMLO1TAB22 PO; AMOX500T86 PO; ATOR40TA52 PO; BECL80AE11 IN; BENZ100C97 PO; BUDE0.253 NEB; CHOL20002 PO; EMPA1TAB3; GABA-1250 PO; HYDR-4902 PO; LISI40TA16; METF-372 PO; PIOG1TAB51; TAMS0.4C39
--- NOTE | 2025-01-28 17:02 | ED.PDOC ---
SOB-HPI HPI Comments 64 year old male presents to the ED via EMS with a chief complaint of shortness of breath onset 4 days. PMHx COPD, HTN, DM. Patient states he has been experiencing shortness of breath for the past 4 days as well as back pain, states pain is on RT lung, has a stabbing sensation. He is also experiencing LT great toe swelling, follows up with orthopedic, recently began swelling with redness. Denies fever, chills, congestion, dizziness, chest pain, nausea, vomiting, diarrhea. No other symptoms or modifying factors present at this time. Chief Complaint: Shortness of Breath Time Seen by MD: 16:55 Reviewed notes: Medications, Allergies Information Source: Patient, Emergency Med Personnel Mode of Arrival: EMS Severity: Moderate Timing: Days Duration: Since onset Context: At Rest PE Risk Factors: None History of: COPD Prehospital treatment: Oxygen Modifying Factors: Nothing Past Medical History PAST MEDICAL HISTORY: COPD, DM, HTN Surgical History: Denies all surgeries Family History Family History: Reviewed,noncontributory to illness, No family hx of Cancer, No family hx of DM, No family hx of Heart crystal, No family hx of HTN, No family hx ofKidney crystal, No family hx of Liver crystal, No family hx of Lung crystal, No family hx of Stroke Social History Smoker: Non-Smoker Alcohol: Denies ETOH Use Drugs: Denies Drug Use Lives In: Home Constitutional: denies: chills, diaphoresis, fatigue, fever, malaise, sweats, weakness, others EENTM: denies: blurred vision, double vision, ear bleeding, ear discharge, ear drainage, ear pain, ear ringing, eye pain, eye redness, hearing loss, mouth pain, mouth swelling, nasal discharge, nose bleeding, nose congestion, nose pain, photophobia, tearing, throat pain, throat swelling, voice changes, others Respiratory: reports: cough, shortness of breath; denies: hemoptysis, orthopnea, SOB at rest, SOB with excertion, stridor, wheezing, others Cardiovascular: denies: chest pain, dizzy spells, diaphoresis, Dyspnea on exertion, edema, irregular heart beat, left arm pain, lightheadedness, palpitations, PND, syncope, others Gastrointestinal: denies: abdomen distended, abdominal pain, blood streaked bowels, constipated, diarrhea, dysphagia, difficulty swallowing, hematemesis, melena, nausea, poor appetite, poor fluid intake, rectal bleeding, rectal pain, vomiting, others Genitourinary: denies: burning, dysuria, flank pain, frequency, hematuria, incontinence, penile discharge, penile sore, pain, testicle pain, testicle swelling, urgency, others Neurological: denies: dizziness, fainting, headache, left sided numbness, left sided weakness, numbness, paresthesia, pre-existing deficit, right sided numbness, right sided weakness, seizure, speech problems, tingling, tremors, weakness, others Musculoskeletal: reports: back pain, others (LT great toe swelling, pain); denies: gout, joint pain, joint swelling, muscle pain, muscle stiffness, neck pain Integumetry: denies: bruises, change in color, change in hair/nails, dryness, laceration, lesions, lumps, rash, wounds, others Allergic/Immunocompromised: denies: Difficulty Healing, Frequent Infections, Hives, Itching, others Hematologic/Lymphatic: denies: anemia, blood clots, easy bleeding, easy bruising, swollen glands, others Endocrine: denies: excessive hunger, excessive sweating, excessive thirst, excessive urination, flushing, intolerance to cold, intolerance to heat, unexplained weight gain, unexplained weight loss, others Psychiatric: denies: anxiety, bipolar disorder, depression, hopeless, panic disorder, schizophrenia, sleepless, suicidal, others All Other Systems: Reviewed and Negative Physical Exam General Appearance: Moderate Distress, Obese HEENT: Normal ENT Inspection, Pharynx Normal, TMs Normal Neck: Full Range of Motion, Non-Tender, Normal, Normal Inspection Respiratory: Chest Non-Tender, No Accessory Muscle Use, No Respiratory Distress, Other (Coarse breath sounds) Cardiovascular: No Edema, No JVD, No Murmur, No Gallop, Normal Peripheral Pulses, Tachycardia Breast Exam: Deferred Gastrointestinal: No Organomegaly, Non Tender, No Pulsatile Mass, Normal Bowel Sounds, Soft Genitalia: Deferred Pelvic: Deferred Rectal: Deferred Extremities: No calf tenderness, Normal capillary refill, Normal inspection, Normal range of motion, Non-tender, No pedal edema Musculoskeletal : Apperance: Normal Neurologic: Alert, energy trading analyst II-XII nml as Tested, No Motor Deficits, Normal Affect, Normal Mood, No Sensory Deficits Cerebellar Function: NOT DONE Reflexes: NOT DONE Skin: Dry, Normal Color, Warm, Wounds (Left foot) Peripheral Pulses: 3+ Radial (R), 3+ Radial (L) Lymphatic: No Adenopathy Was a procedure done? Was a procedure done?: No Differential Dx Differential Diagnosis: Anxiety, Asthma, Bronchitis, CHF, COPD X-Ray, Labs, Meds, VS Vital Signs Date Time Temp Pulse Resp B/P (MAP) Pulse Ox O2 Delivery O2 Flow Rate FiO2 01/28/25 15:57 99.8 114 20 156/81 95 99.8 Patient alert. Complaining of back pain left foot pain. Vitals stable. Answering questions. Complaining of back pain. Blood pressure elevated. Left foot read swollen. Diabetic foot. Possible osteomyelitis. Establish intravenous access. Was given Zosyn. Was given clindamycin. Explained to the patient. Continue monitoring. Time of 1ST Reevaluation: 17:25 Reevaluation 1ST: Unchanged Patient Education/Counseling: Diagnosis, Treatment, Prognosis Family Education/Counseling: No Family Present SEPSIS Sepsis Screen Date sepsis recognized/suspect: Jan 28, 2025 Time Sepsis recognized/suspect: 1543 Recent Procedure: No On Antibiotic Therapy: No Respiratory Rate >20: No Heart Rate >90: Yes Temp<36 C (96.8 F) or >38.3 C: No SBP <90 or MAP <65 mmHG: No New Acute Mental Status Change: No Is the patient on CPAP, BIPAP,: No Physician Orders Troponin-I Hs (01/28/25 17:00) Complete Blood Count (01/28/25 17:00) Comprehensive Metabolic Panel (01/28/25 17:00) B-Type Natriuretic Peptide (01/28/25 17:00) Chest Portable (01/28/25 17:00) Urinalysis (01/28/25 17:00) Troponin-I Hs (01/28/25 18:00) Troponin-I Hs (01/28/25 20:00) Ct L Foot Wo Contrast (01/28/25 17:00) Spine Thoracic 2view (01/28/25 17:00) Vital Signs Date Time Temp Pulse Resp B/P (MAP) Pulse Ox O2 Delivery O2 Flow Rate FiO2 01/28/25 15:57 99.8 114 20 156/81 95 99.8 Departure 1 Departure Time of Disposition: 17:10 Impression: Primary Impression: Osteomyelitis of foot, left, acute Additional Impression: Hypertension Qualified Codes: I10 - Essential (primary) hypertension Disposition: 09 ADMITTED INPATIENT Admit to: Med Surg Condition: Guarded Critical Care Note Critical Care Time?: Yes (90 min-critical care time only) Critical care comment: Continue oxygen Stability Stability form required: No Heart Score Heart Score: Heart Score Response (Comments) Value History N/A 0 EKG N/A 0 Age N/A 0 Risk Factors N/A 0 Troponin N/A 0 Total 0 I personally scribed for BRENNON BOWERS MD ([email or web address]) on 01/28/25 at 17:02. Electronically submitted by Glenis Jose ([email or web address]). BRENNON BOWERS MD Jan 28, 2025 17:02
[2025-01-28] MEDS ORDERED: PIPERACILLIN-TAZOB 3.375GM 100 ML IV ONE (17:15)
--- NOTE | 2025-01-28 17:55 | DVH ---
CLINICAL HISTORY: sob TECHNIQUE: Single view of the chest was obtained. COMPARISON: XY CHEST XRAY 1 VIEW on DOS: 06/24/24, XY CHEST PORTABLE on DOS: 06/20/24 FINDINGS: The heart size and pulmonary vasculature are normal. There are low lung volumes. There is a left base opacity. IMPRESSION: Low lung volumes with left base opacity, likely atelactasis or infection with small pleural effusions .
[2025-01-28 17:59] LABS: Hematocrit 35.3 % (41.0-53.0); Hemoglobin 11.8 g/dL (13.5-17.5); Mean Corpuscular Hemoglobin 29.0 pg (28.0-32.0); Mean Corpuscular Volume 86.3 fL (80.0-100.0); Nucleated Red Blood Cells % 0.0 %
--- NOTE | 2025-01-28 18:07 | DVH ---
EXAM: XY SPINE THORACIC 2VIEW INDICATION: pain TECHNIQUE: 3 views of the thoracic spine COMPARISON: None FINDINGS/IMPRESSION: No radiographic evidence of an acute osseous abnormality. There is no acute fracture, osseous malalig nment, or aggressive focal osseous lesion. Minimal superior endplate loss measuring 10 percent in mid thoracic vertebra. No visualized significant retropulsion overall imaging findings incompletely malachi cterized consider further evaluation with CT height loss primarily affecting T12, T11 and possibly T8 .
[2025-01-28 18:17] LABS: Alanine Aminotransferase 24 U/L (7-40); Albumin 3.9 g/dL (3.2-4.8); Alkaline Phosphatase 80 U/L (46-116); Anion Gap 8 (5-15); BUN/Creatinine Ratio 21.8 (10.0-20.0); Bilirubin, Total 0.3 mg/dL (0.2-1.0); Carbon Dioxide 25 mmol/L (20-31); Chloride 107 mmol/L (98-107); Potassium 4.8 mmol/L (3.5-5.1); Sodium 140 mmol/L (136-145); Total Protein 7.1 g/dL (5.7-8.2)
[2025-01-28 18:18] LABS: Blood Urea Nitrogen 29 mg/dL (9-23); Calcium 8.1 mg/dL (8.7-10.4); Glucose 225 mg/dL (74-106)
--- NOTE | 2025-01-28 18:33 | DVH ---
EXAM: CT CT L FOOT WO CONTRAST INDICATION: osteo TECHNIQUE: Axial images of left foot have been obtained along with coronal and sagittal reformatted i mages. All CT scans at this facility use dose modulation, iterative reconstruction, and/or weight bas ed dosing when appropriate to reduce radiation dose to as low as reasonably achievable. COMPARISON: None FINDINGS: BONES: Significant osteomyelitis with the areas of osseous erosion and pathologic fracture primarily involving the 1st proximal phalanx. Additional osseous erosion and areas of intermixed sclerosis of the 1st metatarsal head and likely base of the distal phalanx. Surrounding subcutaneous adipose tiss ue edema and swelling. No soft tissue emphysema. Asymmetric joint space loss of the 1st metatarsopha langeal joint MUSCLES: No abnormal attenuation. JOINT SPACES: No joint effusion. TENDONS/LIGAMENTS: Intact. OTHER: Surrounding subcutaneous tissue edema without visualized drainable fluid collection. Vascular calcifications. IMPRESSION: 1. Significant osteomyelitis primarily involving the 1st proximal phalanx. 2. Additional osseous erosion and areas of intermixed sclerosis of the 1st metatarsal head and likely base of the distal phalanx.
[2025-01-28] MEDS ORDERED: VANCOMYCIN PER PHARMACY 0 MG IV SCH (20:45)
[2025-01-28] MEDS ORDERED: ONDANSETRON HCL 4 MG/2 ML VIAL IV PRN (20:45)
[2025-01-28] MEDS ORDERED: VANCOMYCIN 2,000 MG in SODIUM CHL 0.9% 500 ML IV ONE (21:45)
[2025-01-28] MEDS ORDERED: ALBUTEROL SULF 2.5 MG/0.5ML(0.5%) NEB SOLN NEB PRN (22:00)
[2025-01-28] MEDS ORDERED: DEXTROSE (50%) 50ML SYRG IV PRN (22:00)
[2025-01-28] MEDS ORDERED: ACETAMINOPHEN 325 MG TAB PO PRN (22:00)
[2025-01-28] MEDS ORDERED: PIPERACILLIN-TAZOB 3.375GM 100 ML IV SCH (22:00)
--- NOTE | 2025-01-28 22:01 | DVHHP2 ---
History of Present Illness Reason for Visit: Foot infection History of Present Illness 64-year-old male presents for evaluation of foot infection. Patient initially presented with complaints of shortness for breath as worsening over the past four days. He uses 2 L of nasal cannula oxygen at home. He further complaints of left foot infection to his great toe. Denies fever or chills. No chest pain or palpitations. Past Medical History Hypertension, diabetes mellitus, COPD, arthritis Past Surgical History Denies Family History Noncontributory Smoke: No ALCOHOL: none Drugs: None Lives: with Family Review of Systems Review of Systems Review of systems are currently negative otherwise addressed in HPI. Allergies: Coded Allergies: NO KNOWN ALLERGIES (Unverified , 06/19/24) Medications Current Medications Medications Dose Ordered Sig/Melia Route Start Time Stop Time Status Last Admin Dose Admin Amlodipine Besylate 5 mg DAILY PO 01/29/25 10:00 Lisinopril 40 mg DAILY PO 01/29/25 10:00 Atorvastatin Calcium 40 mg HS PO 01/28/25 22:00 Piperacillin Sod/ Tazobactam Sod 100 ml @ 25 mls/hr Q8HR IV 01/28/25 22:00 Vancomycin HCl 0 ml @ 0 mls/hr UD IV 01/28/25 20:45 UNV Ondansetron HCl 4 mg Q4HP PRN IV 01/28/25 20:45 Exam Vital Signs Vital Signs Date Time Temp Pulse Resp B/P (MAP) Pulse Ox O2 Delivery O2 Flow Rate FiO2 01/28/25 15:57 99.8 114 20 156/81 95 99.8 Exam Gen: 64-year-old male in mild distress Skin: Warm, dry, normal color and texture, no rash. HEENT: Normocephalic atraumatic, mucous membranes moist and pink. Neck: Cervical and supraclavicular nodes normal without enlargement, trachea is midline, thyroid gland is normal without masses. Pulmonary: Clear to auscultation and percussion bilaterally. Cardiac: Regular rate and rhythm. No murmur Abdomen: Soft, nontender, nondistended, bowel sounds present all 4 quadrants, no guarding, no rigidity, no organomegaly. Extremities: No cyanosis, clubbing, left foot infection Neuro: Cranial nerves II through XII grossly intact, normal affect and speech, no focal motor deficits. Labs/Xrays ORDERING PHYSICIAN: BRENNON BOWERS MD PROCEDURE(s): CXRP - CHEST PORTABLE REASON: sob ORDER NUMBER(s): [id number], ACCESSION NUMBER(s): [id number] CLINICAL HISTORY: sob TECHNIQUE: Single view of the chest was obtained. COMPARISON: XY CHEST XRAY 1 VIEW on DOS: 06/24/24, XY CHEST PORTABLE on DOS: 06/20/24 FINDINGS: The heart size and pulmonary vasculature are normal. There are low lung volumes. There is a left base opacity. IMPRESSION: Low lung volumes with left base opacity, likely atelactasis or infection with small pleural effusions. ATED BY: ZORAIDA HUDDLESTON MD ORDERING PHYSICIAN: BRENNON BOWERS MD PROCEDURE(s): LFTCT - CT L FOOT WO CONTRAST REASON: osteo ORDER NUMBER(s): [id number], ACCESSION NUMBER(s): [id number] EXAM: CT CT L FOOT WO CONTRAST INDICATION: osteo TECHNIQUE: Axial images of left foot have been obtained along with coronal and sagittal reformatted images. All CT scans at this facility use dose modulation, iterative reconstruction, and/or weight based dosing when appropriate to reduce radiation dose to as low as reasonably achievable. COMPARISON: None FINDINGS: BONES: Significant osteomyelitis with the areas of osseous erosion and pathologic fracture primarily involving the 1st proximal phalanx. Additional osseous erosion and areas of intermixed sclerosis of the 1st metatarsal head and likely base of the distal phalanx. Surrounding subcutaneous adipose tissue edema and swelling. No soft tissue emphysema. Asymmetric joint space loss of the 1st metatarsophalangeal joint MUSCLES: No abnormal attenuation. JOINT SPACES: No joint effusion. TENDONS/LIGAMENTS: Intact. OTHER: Surrounding subcutaneous tissue edema without visualized drainable fluid collection. Vascular calcifications. IMPRESSION: 1. Significant osteomyelitis primarily involving the 1st proximal phalanx. 2. Additional osseous erosion and areas of intermixed sclerosis of the 1st metatarsal head and likely base of the distal phalanx. Labs Test 01/28/25 21:11 01/28/25 17:39 Range/Units White Blood Count 13.6 H 4.4-10.8 10^3/uL Red Blood Count 4.09 L 4.5-5.90 10^6/uL Hemoglobin 11.8 L 13.5-17.5 g/dL Hematocrit 35.3 L 41.0-53.0 % Mean Corpuscular Volume 86.3 80.0-100.0 fL Mean Corpuscular Hemoglobin 29.0 28.0-32.0 pg Mean Corpuscular Hemoglobin Concent 33.6 32.0-36.0 g/dL Red Cell Distribution Width 15.2 H 11.8-14.3 % Platelet Count 359 140-450 10^3/uL Mean Platelet Volume 8.1 6.9-10.8 fL Neutrophils (%) (Auto) 82.4 H 37.0-80.0 % Lymphocytes (%) (Auto) 7.8 L 10.0-50.0 % Monocytes (%) (Auto) 8.2 0.0-12.0 % Eosinophils (%) (Auto) 0.9 0.0-7.0 % Basophils (%) (Auto) 0.7 0.0-2.0 % Neutrophils # (Auto) 11.2 H 1.6-8.6 10 ^3/uL Lymphocytes # (Auto) 1.1 0.4-5.4 10 ^3/uL Monocytes # (Auto) 1.1 0-1.3 10 ^3/uL Eosinophils # (Auto) 0.1 0-0.8 10 ^3/uL Basophils # (Auto) 0.1 0-0.2 10 ^3/uL Nucleated Red Blood Cells 0.0 % Sodium Level 140 136-145 mmol/L Potassium Level 4.8 3.5-5.1 mmol/L Chloride Level 107 98-107 mmol/L Carbon Dioxide Level 25 20-31 mmol/L Anion Gap 8 5-15 Blood Urea Nitrogen 29 H 9-23 mg/dL Creatinine 1.33 H 0.700-1.30 mg/dL Glomerular Filtration Rate Calc 60 >90 mL/min BUN/Creatinine Ratio 21.8 H 10.0-20.0 Serum Glucose 225 H 74-106 mg/dL Calcium Level 8.1 L 8.7-10.4 mg/dL Total Bilirubin 0.3 0.2-1.0 mg/dL Aspartate Amino Transferase (AST) 25 13-40 U/L Alanine Aminotransferase (ALT) 24 7-40 U/L Alkaline Phosphatase 80 46-116 U/L B-Type Natriuretic Peptide 73.56 0-100 pg/mL Total Protein 7.1 5.7-8.2 g/dL Albumin 3.9 3.2-4.8 g/dL SEPSIS Sepsis Screen Date sepsis recognized/suspect: Jan 28, 2025 Time Sepsis recognized/suspect: 1542 Recent Procedure: No On Antibiotic Therapy: No Respiratory Rate >20: No Heart Rate >90: Yes Temp<36 C (96.8 F) or >38.3 C: No SBP <90 or MAP <65 mmHG: No New Acute Mental Status Change: No Is the patient on CPAP, BIPAP,: No Physician Orders Chest Portable (01/28/25 17:00) Urinalysis (01/28/25 17:00) Troponin-I Hs (01/28/25 20:00) Ct L Foot Wo Contrast (01/28/25 17:00) Spine Thoracic 2view (01/28/25 17:00) Admit (01/28/25 19:58) Consistent Carb(Ccho)Diabetes (01/29/25 Breakfast) Amlodipine Tablet (Norvasc Tablet) (01/29/25 10:00) Lisinopril Tablet (Zestril Tablet) (01/29/25 10:00) Atorvastatin (Lipitor) (01/28/25 22:00) Piperacillin-Tazob 3.375gm (Zosyn 3.375g (01/28/25 22:00) Vancomycin Per Pharmacy (01/28/25 20:45) *Podiatry Consult Edwige(Dvmg) (01/28/25 20:43) Basic Metabolic Panel (01/29/25 04:00) Ondansetron Hcl (Zofran) (01/28/25 20:45) Complete Blood Count (01/29/25 04:00) Cardiac Diet-2gna,Lofat,Lochol (01/29/25 Breakfast) Condition: Stable (01/28/25 20:43) Bedrest With Bathroom Privileg (01/28/25 20:43) Vancomycin (Vancomycin Hcl) (01/28/25 21:45) Furosemide Injection (Lasix Injection) (01/28/25 22:00) Echo 2d Mode Cardiac Dop (01/28/25 21:55) Albuterol Medneb (Ventolin Medneb) (01/28/25 22:00) Guaifenesin-Dextromet Liquid (Robitussin (01/28/25 22:00) Lactic Acid W/ Reflex Order (01/28/25 21:55) Glucose Blood (Accu-Chek Comfort Curve T (01/28/25 22:00) Vital Signs Date Time Temp Pulse Resp B/P (MAP) Pulse Ox O2 Delivery O2 Flow Rate FiO2 01/28/25 15:57 99.8 114 20 156/81 95 99.8 Laboratory Tests Test 01/28/25 17:39 White Blood Count 13.6 10^3/uL (4.4-10.8) H Assessment/Plan Assessment/Plan Assessment Left foot osteomyelitis Acute kidney injury Uncontrolled diabetes mellitus Hypertension Morbid obesity Plan Admit the patient to [facility] surge to the hospitalist Zosyn/vancomycin Podiatry consult Resume home medications Continue treatment per orders. Plan discussed with: Patient My Orders Orders - KIM DUMONT Procedure Category Date Status Time Admit ADMIT 01/28/25 Transmitted 19:58 Consistent DIET 01/29/25 Transmitted Carb(Ccho)Diabetes Breakfast Amlodipine Tablet PHA 01/29/25 In Process (Norvasc Tablet) 10:00 Lisinopril Tablet PHA 01/29/25 In Process (Zestril Tablet) 10:00 Atorvastatin (Lipitor) PHA 01/28/25 In Process 22:00 Piperacillin-Tazob PHA 01/28/25 In Process 3.375gm (Zosyn 3.375g 22:00 Vancomycin Per PHA 01/28/25 Pending Pharmacy 20:45 *Podiatry Consult CONS 01/28/25 Transmitted Musson(Dvmg) 20:43 Basic Metabolic Panel LAB 01/29/25 Verified 04:00 Ondansetron Hcl PHA 01/28/25 In Process (Zofran) 20:45 Complete Blood Count LAB 01/29/25 Verified 04:00 Cardiac DIET 01/29/25 Transmitted Diet-2gna,Lofat,Lochol Breakfast Condition: Stable DOLORES 01/28/25 In Process 20:43 Bedrest With Bathroom DOLORES 01/28/25 In Process Privileg 20:43 Vancomycin PHA 01/28/25 In Process (Vancomycin Hcl) 21:45 Furosemide Injection PHA 01/28/25 Verified (Lasix Injection) 22:00 Echo 2d Mode Cardiac US 01/28/25 Verified DOP 21:55 Albuterol Medneb PHA 01/28/25 Verified (Ventolin Medneb) 22:00 Guaifenesin-Dextromet PHA 01/28/25 Verified Liquid (Robitussin 22:00 Lactic Acid W/ Reflex LAB 01/28/25 Verified Order 21:55 Glucose Blood PHA 01/28/25 Verified (Accu-Chek Comfort 22:00 Date of Service: Jan 28, 2025 Billing Provider: KIM DUMONT Common Visit Codes: [id number] INP/OBS CARE (HIGH) KIM DUMONT Jan 28, 2025 22:01
[2025-01-28 22:30] VITALS: BP 156/81; PULSE 114; RESP 20; TEMP 99.8; O2SAT 95
[2025-01-28] MEDS: VANCOMYCIN 1GM/250ML KIT 250 ML IV SCH (23:00)
[2025-01-29] VITALS (9 sets, daily range): BP systolic 123–152; BP diastolic 64–81; PULSE 102–115; RESP 18–22; TEMP 98.1–99.5; O2SAT 92–98
[2025-01-29] MEDS: FUROSEMIDE 20 MG/2 ML VIAL IV ONE (01:21)
[2025-01-29] MEDS: CLINDAMYCIN 300MG IV 50 ML IV ONE (01:21)
[2025-01-29] MEDS: HYDROcodone-ACET 5/325MG TAB PO PRN (01:25)
[2025-01-29] MEDS: ATORVASTATIN 20 MG TAB PO SCH (01:25)
[2025-01-29] MEDS: ACCU-CHEK COMFORT CURVE STRIP VI SCH (01:26)
[2025-01-29] MEDS: InsuLIN REG 1unit/0.01ml Soln (100units/ml) SC SCH (01:26)
[2025-01-29] MEDS: PIPERACILLIN-TAZOB 3.375GM 100 ML IV ONE (01:29)
[2025-01-29] MEDS: VANCOMYCIN 1GM/250ML KIT 250 ML IV SCH (05:48)
[2025-01-29 08:01] LABS: Hematocrit 39.8 % (41.0-53.0); Hemoglobin 13.1 g/dL (13.5-17.5); Mean Corpuscular Hemoglobin 28.8 pg (28.0-32.0); Mean Corpuscular Volume 87.9 fL (80.0-100.0); Nucleated Red Blood Cells % 0.0 %
[2025-01-29] MEDS: PIPERACILLIN-TAZOB 3.375GM 100 ML IV SCH (08:07)
[2025-01-29 08:11] LABS: Chloride 102 mmol/L (98-107); Potassium 4.6 mmol/L (3.5-5.1); Sodium 138 mmol/L (136-145)
[2025-01-29 08:12] LABS: Anion Gap 12 (5-15); Calcium 9.0 mg/dL (8.7-10.4); Carbon Dioxide 24 mmol/L (20-31)
[2025-01-29 08:17] LABS: BUN/Creatinine Ratio 14.6 (10.0-20.0); Blood Urea Nitrogen 19 mg/dL (9-23)
[2025-01-29 08:20] LABS: Glucose 209 mg/dL (74-106)
[2025-01-29 09:53] LABS: Urine Protein, UAD TRACE (Negative)
[2025-01-29] MEDS: LISINOPRIL 20 MG TAB PO SCH (11:00)
--- NOTE | 2025-01-29 17:05 | DVHPN2 ---
Subjective Patient continues to report having left foot pain Reviewed: Care Plan, H&P, Labs, Medications Changes from previous H/P or p: No Changes General: Per HPI Objective Vitals Vital Signs Date Time Temp Pulse Resp B/P (MAP) Pulse Ox O2 Delivery O2 Flow Rate FiO2 01/29/25 13:00 98.4 115 22 148/64 (92) 92 98.4 01/29/25 06:58 Nasal Cannula 3.0 01/29/25 06:58 32 General Appearance: Alert, Oriented X3, Cooperative HEENT: Atraumatic, PERRLA Lungs: Clear to auscultation, Normal air movement Cardiovascular: Normal S1, Normal S2 Musculoskeletal: Normal sensory function, Normal motor function Skin: Dry, Intact Psych/Mental Status: Mental status NL, Mood NL Medications Current Medications Medications Dose Ordered Sig/Melia Route Start Time Stop Time Status Last Admin Dose Admin Amlodipine Besylate 5 mg DAILY PO 01/29/25 10:00 01/29/25 10:51 5 MG Lisinopril 40 mg DAILY PO 01/29/25 10:00 01/29/25 11:00 40 MG Atorvastatin Calcium 40 mg HS PO 01/28/25 22:00 01/29/25 01:25 40 MG Vancomycin HCl 0 ml @ 0 mls/hr UD IV 01/28/25 20:45 Ondansetron HCl 4 mg Q4HP PRN IV 01/28/25 20:45 Albuterol 2.5 mg Q6HPRN PRN NEB 01/28/25 22:00 Guaifenesin/ Dextromethorphan 10 ml Q4HP PRN PO 01/28/25 22:00 Diagnostic Test (Pha) 1 strip ACHS 01/28/25 22:00 01/29/25 11:21 1 STRIP Insulin Human Regular ACHS SC 01/28/25 22:00 01/29/25 11:58 4 UNITS Dextrose 50 ml UD PRN IV 01/28/25 22:00 Acetaminophen 650 mg Q6HP PRN PO 01/28/25 22:00 Vancomycin HCl 250 ml @ 166.667 mls/hr Q12H IV 01/29/25 17:30 Ceftriaxone Sodium 50 ml @ 100 mls/hr DAILY@09 IV 01/30/25 09:00 UNV Acetaminophen/ Hydrocodone Bitart 1 tab Q6HP PRN PO 01/29/25 16:00 UNV Laboratory Results Laboratory Tests 01/29/25 07:19 Chemistry Test 01/28/25 17:39 01/29/25 07:19 Albumin 3.9 g/dL (3.2-4.8) Calcium Level 8.1 mg/dL (8.7-10.4) L 9.0 mg/dL (8.7-10.4) Total Protein 7.1 g/dL (5.7-8.2) Coagulation Test 01/28/25 22:48 D-Dimer, Quantitative 1.21 mg/L FEU (0.0-0.49) H Cardiac Markers Test 01/28/25 17:39 B-Type Natriuretic Peptide 73.56 pg/mL (0-100) LFT Test 01/28/25 17:39 Alanine Aminotransferase (ALT) 24 U/L (7-40) Alkaline Phosphatase 80 U/L (46-116) Aspartate Amino Transferase (AST) 25 U/L (13-40) Total Bilirubin 0.3 mg/dL (0.2-1.0) HgA1c, TSH Test 01/29/25 07:19 Hemoglobin A1c 8.5 % A1C (<5.7) H Urinalysis Test 01/29/25 09:14 Urine Color Light-yellow (Yellow) Urine Clarity Clear (Clear) Urine pH 5.0 (5.0-9.0) Urine Specific [place] 1.032 (1.001-1.035) Urine Protein Trace (Negative) H Urine Ketones 1+ (Negative) H Urine Blood 2+ /uL (Negative) H Urine Nitrite Negative (Negative) Urine Bilirubin Negative (Negative) Urine Urobilinogen Normal mg/dL (Negative) Urine Leukocyte Esterase Negative /uL (Negative) Urine RBC 11 /hpf (0 - 3) Urine Microscopic WBC 1 /HPF (0-3) Urine Squamous Epithelial Cells Few /hpf (<5) Urine Bacteria None seen /hpf (None Seen) Urine Glucose 4+ mg/dL (Normal) H Labs and/or images reviewed: Labs reviewed by me, Image(s) reviewed by me Assessment/Plan Assessment/Plan Impression: -left foot osteomyelitis -sepsis -diabetes mellitus -primary hypertension -dyslipidemia -obesity Plan: -podiatry consultation -continue antibiotic therapy with Rocephin and vancomycin -regular insulin sliding scale -pain management -antihypertensives -check ESR, CRP -repeat labs in a.m. Total time spent with patient discussing and formulating plan of care: 35 minutes. This medical document was created using an electronic medical record system with [employer] dictation system. Although this document has been carefully reviewed, there may still be some phonetic and typographical errors. These areas are purely typographical due to imperfections of the software programs, and do not reflect any compromise in the patient's medical care. Plan discussed with: Patient, Other (RN) My Orders Orders - CAROL PROCTOR NP Procedure Category Date Status Time Wound Culture W/ Gs LIZA 01/29/25 Logged 15:33 Erythrocyte LAB 01/29/25 In Process Sedimentation Rate 15:53 C-Reactive Protein LAB 01/29/25 In Process 15:53 Ceftriaxone 1gm/50ml PHA 01/30/25 Logged (Rocephin) 09:00 Basic Metabolic Panel LAB 01/30/25 Verified 04:00 Hydrocodone-Acet PHA 01/29/25 Logged 10/325mg Tab (Atalissa 16:00 Date of Service: Jan 29, 2025 Billing Provider: CAROL PROCTOR NP Common Visit Codes: [id number] INP/OBS CARE(HIGH) CAROL PROCTOR NP Jan 29, 2025 17:05
[2025-01-29] MEDS: HYDROcodone-ACET 10/325MG TAB PO PRN (17:44)
[2025-01-29] MEDS: VANCOMYCIN 1.5GM/250ML 250 ML IV SCH (18:55)
--- NOTE | 2025-01-29 19:50 | DVHCONRES ---
Date Seen: Jan 29, 2025 Resident Creating Document: DARLENE VILA RESIDENT Referring Physician Chadwick Myers NP Reason for Consultation Osteomyelitis of the left foot History of Present Illness Patient is a 64-year-old male prior medical history of COPD, hypertension, type 2 diabetes mellitus, previous left foot osteomyelitis previous I&D and 6 weeks of antibiotics in May 2024 and arthritis, who presented to the ED with complaint of shortness of breaths and left great toe pain. per the patient, the foot pain began approximately 2 weeks prior associated with swelling and redness. patient in the ED, temperature was 99.8 and was tachycardic and hypertensive. Labs are significant for WBCs 13.6 trending up to 16.6, normocytic anemia, ESR 76, CRP 18.13, A1c 8.5, and hyperglycemia. Left foot CT shows significant osteomyelitis primarily involving the 1st proximal phalanx and additional osseous erosion and areas of intermixed sclerosis of the 1st metatarsal head and likely base of distal phalanx. Patient was started on R ocephin and vancomycin for antibiotic therapy. Consultation for podiatry and infectious disease was placed for further evaluation. Past Medical History Type 2 diabetes mellitus, COPD, hypertension, osteoarthritis, recurrent osteomyelitis 3 sent episode in May 2024 requiring I and D and 6 weeks of IV antibiotics. Past Surgical History I&D in May 2024 Family History: Diabetes mellitus G8 MOTHER, Social History States he smoked a pack a day of cigarettes for 15 years Allergies: Coded Allergies: NO KNOWN ALLERGIES (Unverified , 06/19/24) Home Meds Active Scripts Hydrocodone-Acetaminophen (Hydrocodone Bitartrate/AC 5-325 mg) 1 Tab Tab, 1 TAB PO TIDP PRN for 3 Days, #9 TAB Prov:MIMA QUIROS MD 06/26/24 Amoxicillin & Pot Clavulanate (Augmentin) 500 Mg Tab, 500 MG PO BID for 42 Days, #84 TAB Prov:CECI MOSER 06/26/24 Reported Medications Gabapentin (Gabapentin) 300 Mg Cap, 400 MG PO QID for 30 Days, MG 06/20/24 Beclomethasone Dipropionate (Qvar Redihaler) 80 Mcg/Act Aer, 80 MCG IN BID, AER 06/20/24 Albuterol Sulfate (Albuterol Sulfate Hfa) 108 Mcg/Act Aer, 90 MCG IN Q4HPRN PRN for wheezing, AER 06/20/24 Budesonide (Inhalation) (Budesonide) 0.25 Mg/2 Ml Love, 1 VIAL NEB BID 06/20/24 Cholecalciferol (VITAMIN D3) 2,000 Unit Tab, 1 CAP PO DAILY 06/20/24 Pioglitazone Hydrochloride (PIOGLITAZONE HCL) 45 Mg Tab, 1 DAILY 06/20/24 Metformin Hydrochloride (Metformin Hcl) 1,000 Mg Tab, 1 TAB PO 06/20/24 Tamsulosin Hcl (Tamsulosin Hcl) 0.4 Mg Cap 06/20/24 Empagliflozin (Jardiance) 25 Mg Tab, 1 DAILY 06/20/24 Lisinopril (Lisinopril) 40 Mg Tab, 1 DAILY 06/20/24 Benzonatate (Benzonatate) 100 Mg Cap, 1 CAP PO TID PRN for cough 06/20/24 Atorvastatin Calcium (ATORVASTATIN CALCIUM) 40 Mg Tab, 1 TAB PO 06/20/24 Amlodipine Besylate (Amlodipine Besylate) 5 Mg Tab, 1 TAB PO DAILY 06/20/24 Acetaminophen (Acetaminophen) 500 Mg Tab, 500 MG PO Q6HPRN PRN for mild pain , TAB 06/20/24 Current Medications Current Medications Medications (Trade) Dose Ordered Sig/Melia Route PRN Reason Start Time Stop Time Status Last Admin Amlodipine Besylate (Norvasc Tablet) 5 mg DAILY PO 01/29/25 10:00 01/29/25 10:51 Lisinopril (Zestril Tablet) 40 mg DAILY PO 01/29/25 10:00 01/29/25 11:00 Atorvastatin Calcium (Lipitor) 40 mg HS PO 01/28/25 22:00 01/29/25 01:25 Piperacillin Sod/ Tazobactam Sod 100 ml @ 25 mls/hr Q8HR IV 01/28/25 22:00 01/28/25 22:08 DC Vancomycin HCl 0 ml @ 0 mls/hr UD IV 01/28/25 20:45 Ondansetron HCl (Zofran) 4 mg Q4HP PRN IV NAUSEA / VOMITING 01/28/25 20:45 Albuterol (Ventolin Medneb) 2.5 mg Q6HPRN PRN NEB SHORTNESS OF BREATH 01/28/25 22:00 Guaifenesin/ Dextromethorphan (Robitussin-Dm Liquid) 10 ml Q4HP PRN PO FOR COUGH 01/28/25 22:00 Diagnostic Test (Pha) (Accu-Chek Comfort Curve T) 1 strip ACHS 01/28/25 22:00 01/29/25 17:29 Insulin Human Regular (InsuLIN R) ACHS SC 01/28/25 22:00 01/29/25 11:58 Dextrose 50 ml UD PRN IV Blood Sugar LESS THAN 60 01/28/25 22:00 Acetaminophen/ Hydrocodone Bitart ([place] 5/325MG Tab) 1 tab Q4HP PRN PO MODERATE PAIN (4-6 PAIN SCALE) 01/28/25 22:00 01/29/25 16:00 DC 01/29/25 01:25 Acetaminophen (Tylenol Tablet) 650 mg Q6HP PRN PO PAIN SCALE 1-3 OR TEMP>100.4 01/28/25 22:00 Vancomycin HCl 250 ml @ 250 mls/hr Q1H IV 01/28/25 23:00 01/29/25 00:59 DC Piperacillin Sod/ Tazobactam Sod 100 ml @ 25 mls/hr Q8HR IV 01/29/25 06:00 01/29/25 15:57 DC 01/29/25 08:07 Vancomycin HCl 250 ml @ 250 mls/hr Q1H IV 01/29/25 05:30 01/29/25 07:29 DC 01/29/25 07:08 Vancomycin HCl 250 ml @ 166.667 mls/hr Q12H IV 01/29/25 17:30 01/29/25 18:55 Ceftriaxone Sodium 50 ml @ 100 mls/hr DAILY@09 IV 01/30/25 09:00 Acetaminophen/ Hydrocodone Bitart ([place] 10/325MG Tab) 1 tab Q6HP PRN PO MODERATE PAIN (4-6 PAIN SCALE) 01/29/25 16:00 01/29/25 17:44 Review of Systems Review of Systems: Constitutional: Denies weight loss, fever and chills. HEENT: Denies changes in vision and hearing. Respiratory: Shortness of breath has improved, denies cough Cardiovascular: Denies chest discomfort or palpitations GI: Denies abdominal distention, abdominal pain, diarrhea : Denies dysuria and urinary frequency. Musculoskeletal: Refers pain, redness and swelling of left Skin: Refers open wound in left great toe Neurological: denies dizziness headache vision or hearing problems Vital Signs Vital Signs Date Time Temp Pulse Resp B/P (MAP) Pulse Ox O2 Delivery O2 Flow Rate FiO2 01/29/25 19:42 95 Nasal Cannula 2.0 01/29/25 19:42 28 01/29/25 18:00 108 18 01/29/25 17:54 98.1 148/81 (103) 98.1 Physical Exam General: The patient alert and oriented in person place and time. Patient following commands HEENT: Normocephalic, atraumatic, normal reactive pupils, EOM intact, pink conjunctiva, pink moist mucous membrane Respiratory/pulmonary: Bilateral chest expansion, no pain on palpation, clear lungs bilaterally, vesicular murmurs present in almost all lung mcnair, no associated crackles or wheezes Abdomen: Abdomen nondistended, there is no pain to palpation in any of the abdominal quadrants, no palpable masses. Extremities: Erythema of foot, great toe with purulent wound been foul smell, pain on palpation Skin: As Above. Neurological: Intact cranial nerves with no focal neurologic deficits Labs/Diagnostic Data Labs Test 01/29/25 17:27 01/29/25 09:14 01/29/25 07:19 01/28/25 22:48 Range/Units POC Glucose 145 H 70-106 mg/dl Urine Color Light-yellow Yellow Urine Clarity Clear Clear Urine pH 5.0 5.0-9.0 Urine Specific [place] 1.032 1.001-1.035 Urine Protein Trace H Negative Urine Ketones 1+ H Negative Urine Blood 2+ H Negative /uL Urine Nitrite Negative Negative Urine Bilirubin Negative Negative Urine Urobilinogen Normal Negative mg/dL Urine Leukocyte Esterase Negative Negative /uL Urine RBC 11 0 - 3 /hpf Urine Microscopic WBC 1 0-3 /HPF Urine Squamous Epithelial Cells Few <5 /hpf Urine Bacteria None seen None Seen /hpf Urine Glucose 4+ H Normal mg/dL White Blood Count 16.6 H 4.4-10.8 10^3/uL Red Blood Count 4.53 4.5-5.90 10^6/uL Hemoglobin 13.1 L 13.5-17.5 g/dL Hematocrit 39.8 #L 41.0-53.0 % Mean Corpuscular Volume 87.9 80.0-100.0 fL Mean Corpuscular Hemoglobin 28.8 28.0-32.0 pg Mean Corpuscular Hemoglobin Concent 32.8 32.0-36.0 g/dL Red Cell Distribution Width 15.2 H 11.8-14.3 % Platelet Count 399 140-450 10^3/uL Mean Platelet Volume 8.4 6.9-10.8 fL Neutrophils (%) (Auto) 84.7 H 37.0-80.0 % Lymphocytes (%) (Auto) 7.0 L 10.0-50.0 % Monocytes (%) (Auto) 7.4 0.0-12.0 % Eosinophils (%) (Auto) 0.6 0.0-7.0 % Basophils (%) (Auto) 0.3 0.0-2.0 % Neutrophils # (Auto) 14.1 H 1.6-8.6 10 ^3/uL Lymphocytes # (Auto) 1.2 0.4-5.4 10 ^3/uL Monocytes # (Auto) 1.2 0-1.3 10 ^3/uL Eosinophils # (Auto) 0.1 0-0.8 10 ^3/uL Basophils # (Auto) 0.1 0-0.2 10 ^3/uL Nucleated Red Blood Cells 0.0 % Erythrocyte Sedimentation Rate 76 H 0-20 mm/hr Sodium Level 138 136-145 mmol/L Potassium Level 4.6 3.5-5.1 mmol/L Chloride Level 102 98-107 mmol/L Carbon Dioxide Level 24 20-31 mmol/L Anion Gap 12 5-15 Blood Urea Nitrogen 19 # 9-23 mg/dL Creatinine 1.30 0.700-1.30 mg/dL Glomerular Filtration Rate Calc 62 >90 mL/min BUN/Creatinine Ratio 14.6 10.0-20.0 Serum Glucose 209 H 74-106 mg/dL Hemoglobin A1c 8.5 H <5.7 % A1C Calcium Level 9.0 8.7-10.4 mg/dL C-Reactive Protein High Sensitivity 18.13 H <1.0 mg/dL D-Dimer, Quantitative 1.21 H 0.0-0.49 mg/L FEU Test 01/28/25 22:16 01/28/25 21:11 01/28/25 17:39 Range/Units Lactic Acid Level 0.8 0.4-2.0 mmol/L Troponin I High Sensitivity 5 </=54 ng/L Total Bilirubin 0.3 0.2-1.0 mg/dL Aspartate Amino Transferase (AST) 25 13-40 U/L Alanine Aminotransferase (ALT) 24 7-40 U/L Alkaline Phosphatase 80 46-116 U/L B-Type Natriuretic Peptide 73.56 0-100 pg/mL Total Protein 7.1 5.7-8.2 g/dL Albumin 3.9 3.2-4.8 g/dL Assessment Assessment: Osteomyelitis of left great toe Cellulitis of left foot Sepsis Uncontrolled diabetes mellitus Possible peripheral vascular disease History of heavy tobacco use Hypertension Dyslipidemia Morbid obesity Plan/Recommendation Discontinue ceftriaxone Initiate Cefepime 1g IV q8 hrs Continue Vancomycin per pharmacy protocol Order b/l lower extremity duplex ultrasound Continue wound care Pending evaluation from podiatry for potential I&D Recommended smoking cessation Case discussed with Dr. Pascual Thank you for the opportunity to consult on this patient. We will continue to follow. Plan discussed with: Patient DARLENE VILA RESIDENT Jan 29, 2025 19:50
[2025-01-29] MEDS: CEFEPIME 1GM/50ML 50 ML IV SCH (21:49)
[2025-01-30] VITALS (14 sets, daily range): BP systolic 102–162; BP diastolic 55–90; PULSE 71–98; RESP 16–22; TEMP 97.4–98.7; O2SAT 69–98
--- NOTE | 2025-01-30 03:29 | DVH ---
BILATERAL Lower Extremity Arterial Duplex Date: 01/29/2025 09:17 PM Clinical History: R/o PAD Comparison: US BILAT LOW EXT ART DUPLEX on DOS: 06/20/24, MRI LOWER EXT JOINT WO on DOS: 05/20/24, MRI LOWER EXT JOINT W and WO on DOS: 05/20/24 Technique: Duplex Doppler evaluation including color Doppler and spectral/pulsed waveform analysis of the lower extremity arteries was performed. Finding: Velocities and waveform within Normal limits. 4cm left inguinal lymph node REFERENCE VALUES, [facility] ([facility]) vascular Imaging Lab Criteria: Peak systolic velocity ranges (in cm/sec) are as follows: <150 cm/s - <20 % stenosis 150-200 cm/s - 20-49% stenosis 200-300 cm/s - 50-75% stenosis >300 cm/s -> 75% stenosis IMPRESSION: There is no evidence for peripheral vascular insufficiency in the right lower extremity. There is no evidence for peripheral vascular insufficiency in the left lower extremity. No significant focal stenosis is identified.
--- NOTE | 2025-01-30 10:31 | DVHPN2 ---
Subjective Patient continues to report having left foot pain Reviewed: Care Plan, H&P, Labs, Medications Changes from previous H/P or p: No Changes General: Per HPI Objective Vitals Vital Signs Date Time Temp Pulse Resp B/P (MAP) Pulse Ox O2 Delivery O2 Flow Rate FiO2 01/30/25 09:22 102/60 01/30/25 08:48 97.4 93 19 92 97.4 01/30/25 07:00 Nasal Cannula* 2 28 Intake/Output Intake and Output 01/30/25 07:00 Intake Total 900 ml Output Total 250 ml Balance 650 ml Intake Oral 350 ml IV Total 550 ml Output Urine Total 250 ml General Appearance: Alert, Oriented X3, Cooperative HEENT: Atraumatic, PERRLA Lungs: Clear to auscultation, Normal air movement Cardiovascular: Normal S1, Normal S2 Musculoskeletal: Normal sensory function, Normal motor function Extremities: Other (Limited range of motion in pain to right shoulder.) Skin: Dry, Intact Psych/Mental Status: Mental status NL, Mood NL Medications Current Medications Medications Dose Ordered Sig/Melia Route Start Time Stop Time Status Last Admin Dose Admin Amlodipine Besylate 5 mg DAILY PO 01/29/25 10:00 01/30/25 09:22 5 MG Lisinopril 40 mg DAILY PO 01/29/25 10:00 01/30/25 09:15 40 MG Atorvastatin Calcium 40 mg HS PO 01/28/25 22:00 01/29/25 21:49 40 MG Vancomycin HCl 0 ml @ 0 mls/hr UD IV 01/28/25 20:45 Ondansetron HCl 4 mg Q4HP PRN IV 01/28/25 20:45 Guaifenesin/ Dextromethorphan 10 ml Q4HP PRN PO 01/28/25 22:00 Diagnostic Test (Pha) 1 strip ACHS 01/28/25 22:00 01/30/25 06:12 1 STRIP Insulin Human Regular ACHS SC 01/28/25 22:00 01/30/25 06:12 2 UNITS Dextrose 50 ml UD PRN IV 01/28/25 22:00 Acetaminophen 650 mg Q6HP PRN PO 01/28/25 22:00 Vancomycin HCl 250 ml @ 166.667 mls/hr Q12H IV 01/29/25 17:30 01/30/25 04:47 166.667 MLS/HR Acetaminophen/ Hydrocodone Bitart 1 tab Q6HP PRN PO 01/29/25 16:00 01/30/25 06:22 1 TAB Cefepime HCl 50 ml @ 12.5 mls/hr Q8HR IV 01/29/25 22:00 01/30/25 06:25 12.5 MLS/HR Albuterol 2.5 mg Q6HWA [facility] 01/30/25 12:00 UNV Ipratropium [place] 0.5 mg Q6HWA [facility] 01/30/25 12:00 UNV Laboratory Results Laboratory Tests 01/29/25 07:19 Urinalysis Test 01/29/25 09:14 Urine Color Light-yellow (Yellow) Urine Clarity Clear (Clear) Urine pH 5.0 (5.0-9.0) Urine Specific [place] 1.032 (1.001-1.035) Urine Protein Trace (Negative) H Urine Ketones 1+ (Negative) H Urine Blood 2+ /uL (Negative) H Urine Nitrite Negative (Negative) Urine Bilirubin Negative (Negative) Urine Urobilinogen Normal mg/dL (Negative) Urine Leukocyte Esterase Negative /uL (Negative) Urine RBC 11 /hpf (0 - 3) Urine Microscopic WBC 1 /HPF (0-3) Urine Squamous Epithelial Cells Few /hpf (<5) Urine Bacteria None seen /hpf (None Seen) Urine Glucose 4+ mg/dL (Normal) H Labs and/or images reviewed: Labs reviewed by me, Image(s) reviewed by me Assessment/Plan Assessment/Plan Impression: -left foot osteomyelitis -sepsis -diabetes mellitus -primary hypertension -dyslipidemia -obesity -acute hypoxic respiratory failure -nicotine dependence -rheumatoid arthritis -right shoulder pain Plan: Events: No events overnight. -podiatry consultation : Pending -infectious disease consultation: Continue antibiotics per their recommendations. Noted bilateral lower extremity arterial study without any flow-limiting stenosis. -regular insulin sliding scale -pain management: Continue [place], add Celebrex -right shoulder x-ray -antihypertensives -check ESR, CRP -repeat labs in a.m. Total time spent with patient discussing and formulating plan of care: 35 minutes. This medical document was created using an electronic medical record system with [employer] dictation system. Although this document has been carefully reviewed, there may still be some phonetic and typographical errors. These areas are purely typographical due to imperfections of the software programs, and do not reflect any compromise in the patient's medical care. Plan discussed with: Patient, Other (RN) My Orders Orders - CAROL PROCTOR NP Procedure Category Date Status Time Wound Culture W/ Gs LIZA 01/29/25 Logged 15:33 Basic Metabolic Panel LAB 01/30/25 Logged 04:00 Hydrocodone-Acet PHA 01/29/25 In Process 10/325mg Tab ([place] 16:00 * Infectious Amy- CONS 01/29/25 Transmitted K Ankur 17:09 Ipratropium Medneb PHA 01/30/25 Logged (Atrovent Medneb) 12:00 Albuterol Medneb PHA 01/30/25 Logged (Ventolin Medneb) 12:00 Date of Service: Jan 30, 2025 Billing Provider: CAROL PROCTOR NP Common Visit Codes: [id number] INP/OBS CARE(HIGH) CAROL PROCTOR NP Jan 30, 2025 10:31
[2025-01-30 10:47] LABS: Hematocrit 36.8 % (41.0-53.0); Hemoglobin 12.3 g/dL (13.5-17.5); Mean Corpuscular Hemoglobin 29.2 pg (28.0-32.0); Mean Corpuscular Volume 87.4 fL (80.0-100.0); Nucleated Red Blood Cells % 0.1 %
[2025-01-30 10:49] LABS: Chloride 100 mmol/L (98-107); Potassium 4.6 mmol/L (3.5-5.1)
[2025-01-30 10:50] LABS: Anion Gap 12 (5-15); Carbon Dioxide 23 mmol/L (20-31)
[2025-01-30 10:51] LABS: Calcium 8.7 mg/dL (8.7-10.4); Sodium 135 mmol/L (136-145)
[2025-01-30 10:55] LABS: BUN/Creatinine Ratio 13.6 (10.0-20.0); Blood Urea Nitrogen 15 mg/dL (9-23)
[2025-01-30 10:57] LABS: Glucose 254 mg/dL (74-106)
--- NOTE | 2025-01-30 11:54 | DVHCONRES ---
Date Seen: Jan 30, 2025 Reason for Consultation Left hallux wound History of Present Illness 64-year-old male presents for evaluation of foot infection. Patient initially presented with complaints of shortness for breath as worsening over the past four days. He uses 2 L of nasal cannula oxygen at home. He further complaints of left foot infection to his great toe. Denies fever or chills. No chest pain or palpitations. Past Medical History See H&P Past Surgical History See H&P Family History: Diabetes mellitus G8 MOTHER, Allergies: Coded Allergies: NO KNOWN ALLERGIES (Unverified , 06/19/24) Home Meds Active Scripts Hydrocodone-Acetaminophen (Hydrocodone Bitartrate/AC 5-325 mg) 1 Tab Tab, 1 TAB PO TIDP PRN for 3 Days, #9 TAB Prov:MIMA QUIROS MD 06/26/24 Amoxicillin & Pot Clavulanate (Augmentin) 500 Mg Tab, 500 MG PO BID for 42 Days, #84 TAB Prov:CECI MOSER 06/26/24 Reported Medications Gabapentin (Gabapentin) 300 Mg Cap, 400 MG PO QID for 30 Days, MG 06/20/24 Beclomethasone Dipropionate (Qvar Redihaler) 80 Mcg/Act Aer, 80 MCG IN BID, AER 06/20/24 Albuterol Sulfate (Albuterol Sulfate Hfa) 108 Mcg/Act Aer, 90 MCG IN Q4HPRN PRN for wheezing, AER 06/20/24 Budesonide (Inhalation) (Budesonide) 0.25 Mg/2 Ml Love, 1 VIAL NEB BID 06/20/24 Cholecalciferol (VITAMIN D3) 2,000 Unit Tab, 1 CAP PO DAILY 06/20/24 Pioglitazone Hydrochloride (PIOGLITAZONE HCL) 45 Mg Tab, 1 DAILY 06/20/24 Metformin Hydrochloride (Metformin Hcl) 1,000 Mg Tab, 1 TAB PO 06/20/24 Tamsulosin Hcl (Tamsulosin Hcl) 0.4 Mg Cap 06/20/24 Empagliflozin (Jardiance) 25 Mg Tab, 1 DAILY 06/20/24 Lisinopril (Lisinopril) 40 Mg Tab, 1 DAILY 06/20/24 Benzonatate (Benzonatate) 100 Mg Cap, 1 CAP PO TID PRN for cough 06/20/24 Atorvastatin Calcium (ATORVASTATIN CALCIUM) 40 Mg Tab, 1 TAB PO 06/20/24 Amlodipine Besylate (Amlodipine Besylate) 5 Mg Tab, 1 TAB PO DAILY 06/20/24 Acetaminophen (Acetaminophen) 500 Mg Tab, 500 MG PO Q6HPRN PRN for mild pain , TAB 06/20/24 Current Medications Current Medications Medications (Trade) Dose Ordered Sig/Melia Route PRN Reason Start Time Stop Time Status Last Admin Vancomycin HCl 250 ml @ 166.667 mls/hr Q12H IV 01/29/25 17:30 01/30/25 04:47 Ceftriaxone Sodium 50 ml @ 100 mls/hr DAILY@09 IV 01/30/25 09:00 01/29/25 20:20 DC Acetaminophen/ Hydrocodone Bitart ([place] 10/325MG Tab) 1 tab Q6HP PRN PO MODERATE PAIN (4-6 PAIN SCALE) 01/29/25 16:00 01/30/25 06:22 Cefepime HCl 50 ml @ 12.5 mls/hr Q8HR IV 01/29/25 22:00 01/30/25 06:25 Albuterol (Ventolin Medneb) 2.5 mg Q6HWA [facility] 01/30/25 12:00 UNV Ipratropium [place] (Atrovent Medneb) 0.5 mg Q6HWA NEB 01/30/25 12:00 UNV Celecoxib (CeleBREX CAPSULE) 100 mg Q12HR PO 01/30/25 22:00 UNV Vital Signs Vital Signs Date Time Temp Pulse Resp B/P (MAP) Pulse Ox O2 Delivery O2 Flow Rate FiO2 01/30/25 09:22 102/60 01/30/25 08:48 97.4 93 19 92 97.4 01/30/25 07:00 Nasal Cannula* 2 28 Physical Exam Dermatological: Skin is dry with mild erythema and some maceration around the wound site No gross deformities noted Mild non-pitting edema present bilaterally Left hallux medial wound with purulent drainage Vascular: Dorsalis pedis and posterior tibial pulses are 1+ bilaterally Capillary refill is under 2 seconds Skin temperature is warm bilaterally Neurologic: Protective sensation is absent on the plantar forefoot bilaterally Monofilament testing reveals decreased sensation in multiple plantar sites Musculoskeletal: Range of motion at the ankle and MTP joints is within normal limits. Strength is 5/5 in all tested muscle groups. Gait is antalgic due to offloading of the affected limb. Labs/Diagnostic Data Labs Test 01/30/25 09:55 01/29/25 21:37 01/29/25 09:14 01/29/25 07:19 Range/Units White Blood Count 13.3 H 4.4-10.8 10^3/uL Red Blood Count 4.21 L 4.5-5.90 10^6/uL Hemoglobin 12.3 L 13.5-17.5 g/dL Hematocrit 36.8 L 41.0-53.0 % Mean Corpuscular Volume 87.4 80.0-100.0 fL Mean Corpuscular Hemoglobin 29.2 28.0-32.0 pg Mean Corpuscular Hemoglobin Concent 33.5 32.0-36.0 g/dL Red Cell Distribution Width 14.9 H 11.8-14.3 % Platelet Count 353 140-450 10^3/uL Mean Platelet Volume 8.5 6.9-10.8 fL Neutrophils (%) (Auto) 77.6 37.0-80.0 % Lymphocytes (%) (Auto) 9.6 L 10.0-50.0 % Monocytes (%) (Auto) 10.5 0.0-12.0 % Eosinophils (%) (Auto) 1.5 0.0-7.0 % Basophils (%) (Auto) 0.8 0.0-2.0 % Neutrophils # (Auto) 10.3 H 1.6-8.6 10 ^3/uL Lymphocytes # (Auto) 1.3 0.4-5.4 10 ^3/uL Monocytes # (Auto) 1.4 H 0-1.3 10 ^3/uL Eosinophils # (Auto) 0.2 0-0.8 10 ^3/uL Basophils # (Auto) 0.1 0-0.2 10 ^3/uL Nucleated Red Blood Cells 0.1 % Sodium Level 135 L 136-145 mmol/L Potassium Level 4.6 3.5-5.1 mmol/L Chloride Level 100 98-107 mmol/L Carbon Dioxide Level 23 20-31 mmol/L Anion Gap 12 5-15 Blood Urea Nitrogen 15 9-23 mg/dL Creatinine 1.10 0.700-1.30 mg/dL Glomerular Filtration Rate Calc 75 >90 mL/min BUN/Creatinine Ratio 13.6 10.0-20.0 Serum Glucose 254 H 74-106 mg/dL Calcium Level 8.7 8.7-10.4 mg/dL POC Glucose 218 H 70-106 mg/dl Urine Color Light-yellow Yellow Urine Clarity Clear Clear Urine pH 5.0 5.0-9.0 Urine Specific [place] 1.032 1.001-1.035 Urine Protein Trace H Negative Urine Ketones 1+ H Negative Urine Blood 2+ H Negative /uL Urine Nitrite Negative Negative Urine Bilirubin Negative Negative Urine Urobilinogen Normal Negative mg/dL Urine Leukocyte Esterase Negative Negative /uL Urine RBC 11 0 - 3 /hpf Urine Microscopic WBC 1 0-3 /HPF Urine Squamous Epithelial Cells Few <5 /hpf Urine Bacteria None seen None Seen /hpf Urine Glucose 4+ H Normal mg/dL Erythrocyte Sedimentation Rate 76 H 0-20 mm/hr Hemoglobin A1c 8.5 H <5.7 % A1C C-Reactive Protein High Sensitivity 18.13 H <1.0 mg/dL Test 01/28/25 22:48 01/28/25 22:16 01/28/25 21:11 01/28/25 17:39 Range/Units D-Dimer, Quantitative 1.21 H 0.0-0.49 mg/L FEU Lactic Acid Level 0.8 0.4-2.0 mmol/L Troponin I High Sensitivity 5 </=54 ng/L Total Bilirubin 0.3 0.2-1.0 mg/dL Aspartate Amino Transferase (AST) 25 13-40 U/L Alanine Aminotransferase (ALT) 24 7-40 U/L Alkaline Phosphatase 80 46-116 U/L B-Type Natriuretic Peptide 73.56 0-100 pg/mL Total Protein 7.1 5.7-8.2 g/dL Albumin 3.9 3.2-4.8 g/dL Problems(with codes): (1) Diabetic neuropathy (2) Diabetic foot ulcer (3) Abscess of left foot (4) Cellulitis of left foot (5) Hypertension (6) Osteomyelitis of foot, left, acute Plan/Recommendation ASSESSMENT: Patient is a 64 year old seen on the floor for a worsening ulcer PLAN: - The patients chart was reviewed, clinical findings were discussed with the patient, the etiologies of the conditions were discussed in detail, and a treatment plan was agreed to at this time, with both oral and written instructions provided. - reviewed advanced imaging - discussed plan is to perform an incision and drainage - patient will be NPO at midnight - take him to the OR tomorrow - we will get cultures in the OR - can weightbear as tolerated in postoperative shoe All questions were answered and concerns addressed to the patient's satisfaction. The patient was given the phone number to the clinic and was told how to make contact with the clinic should any concerns or questions arise. Patient understands that if any questions or concerns arise prior to the next ap pointment, we should be contacted immediately. FOLLOW-UP: Continue to follow while inpatient Plan discussed with: Patient Visit Coding Podiatry Date of Service if different f: Jan 30, 2025 Billing Provider: ARABELLA OLIVAS DPM Podiatry Common Visit Codes: CONSULT ONLY Podiatry Consult Codes: 21743-QY/OBS CONSLTJ NEW/EST HI 80 ARABELLA OLIVAS DPM Jan 30, 2025 11:54
[2025-01-30] MEDS: ALBUTEROL SULF 2.5 MG/0.5ML(0.5%) NEB SOLN ONE (12:00)
[2025-01-30] MEDS: ALBUTEROL SULF 2.5 MG/0.5ML(0.5%) NEB SOLN NEB SCH (12:02)
[2025-01-30] MEDS: IPRATROPIUM BROM 0.5 MG/2.5ML INH SOL NEB SCH (12:02)
--- NOTE | 2025-01-30 13:01 | DVH ---
EXAM: XY R SHOULDER 2+ VIEW XRAY CLINICAL INDICATION: pain, limited ROM TECHNIQUE: XY R SHOULDER 2+ VIEW XRAY Comparison: None FINDINGS/IMPRESSION: There is no evidence of acute fracture or dislocation. The visualized joint space is well maintained. The alignment is anatomical. There is no radiopaque foreign body.
[2025-01-30] MEDS: CELECOXIB 100 MG CAP PO SCH (21:32)
[2025-01-31] VITALS (14 sets, daily range): BP systolic 106–144; BP diastolic 68–83; PULSE 84–103; RESP 17–20; TEMP 97.9–98.5; O2SAT 91–99
[2025-01-31 05:56] LABS: Anion Gap 10 (5-15); Carbon Dioxide 27 mmol/L (20-31); Chloride 100 mmol/L (98-107); Potassium 4.8 mmol/L (3.5-5.1); Sodium 137 mmol/L (136-145)
[2025-01-31 06:02] LABS: BUN/Creatinine Ratio 20.8 (10.0-20.0); Blood Urea Nitrogen 21 mg/dL (9-23)
[2025-01-31 06:06] LABS: Calcium 8.6 mg/dL (8.7-10.4); Glucose 172 mg/dL (74-106)
[2025-01-31 06:09] LABS: Hematocrit 36.6 % (41.0-53.0); Hemoglobin 12.5 g/dL (13.5-17.5); Mean Corpuscular Hemoglobin 29.5 pg (28.0-32.0); Mean Corpuscular Volume 86.3 fL (80.0-100.0); Nucleated Red Blood Cells % 0.1 %
[2025-01-31 08:59] LABS: INR 1.02 (0.9-1.15); Partial Thromboplastin Time 36.4 SEC (24.5-34.5); Prothrombin Time 10.8 sec (9.3-11.8)
--- NOTE | 2025-01-31 12:07 | DVHPN2 ---
Subjective 64-year-old male presents for evaluation of foot infection. Patient initially presented with complaints of shortness for breath as worsening over the past four days. He uses 2 L of nasal cannula oxygen at home. He further complaints of left foot infection to his great toe. Denies fever or chills. No chest pain or palpitations. Reviewed: Care Plan, H&P, Labs, Medications Changes from previous H/P or p: No Changes General: Per HPI Objective Vitals Vital Signs Date Time Temp Pulse Resp B/P (MAP) Pulse Ox O2 Delivery O2 Flow Rate FiO2 01/31/25 10:20 97 Nasal Cannula* 2 28 01/31/25 09:36 150/81 01/31/25 08:50 97.9 88 19 97.9 Intake/Output Intake and Output 01/31/25 07:00 Intake Total 2100 ml Output Total 2970 ml Balance -870 ml Intake Oral 1950 ml IV Total 150 ml Output Urine Total 2970 ml Exam Dermatological: Skin is dry with mild erythema and some maceration around the wound site No gross deformities noted Mild non-pitting edema present bilaterally Left hallux medial wound with purulent drainage Vascular: Dorsalis pedis and posterior tibial pulses are 1+ bilaterally Capillary refill is under 2 seconds Skin temperature is warm bilaterally Neurologic: Protective sensation is absent on the plantar forefoot bilaterally Monofilament testing reveals decreased sensation in multiple plantar sites Musculoskeletal: Range of motion at the ankle and MTP joints is within normal limits. Strength is 5/5 in all tested muscle groups. Gait is antalgic due to offloading of the affected limb. General Appearance: Alert, Oriented X3, Cooperative HEENT: Atraumatic, PERRLA Lungs: Clear to auscultation, Normal air movement Cardiovascular: Normal S1, Normal S2 Musculoskeletal: Normal sensory function, Normal motor function Extremities: Other (Limited range of motion in pain to right shoulder.) Skin: Dry, Intact Psych/Mental Status: Mental status NL, Mood NL Medications Current Medications Medications Dose Ordered Sig/Melia Route Start Time Stop Time Status Last Admin Dose Admin Amlodipine Besylate 5 mg DAILY PO 01/29/25 10:00 01/31/25 09:35 5 MG Lisinopril 40 mg DAILY PO 01/29/25 10:00 01/31/25 09:36 40 MG Atorvastatin Calcium 40 mg HS PO 01/28/25 22:00 01/30/25 21:33 40 MG Vancomycin HCl 0 ml @ 0 mls/hr UD IV 01/28/25 20:45 Ondansetron HCl 4 mg Q4HP PRN IV 01/28/25 20:45 Guaifenesin/ Dextromethorphan 10 ml Q4HP PRN PO 01/28/25 22:00 Diagnostic Test (Pha) 1 strip ACHS 01/28/25 22:00 01/31/25 06:20 1 STRIP Insulin Human Regular ACHS SC 01/28/25 22:00 01/30/25 21:30 8 UNITS Dextrose 50 ml UD PRN IV 01/28/25 22:00 Acetaminophen 650 mg Q6HP PRN PO 01/28/25 22:00 Acetaminophen/ Hydrocodone Bitart 1 tab Q6HP PRN PO 01/29/25 16:00 01/31/25 07:35 1 TAB Cefepime HCl 50 ml @ 12.5 mls/hr Q8HR IV 01/29/25 22:00 01/31/25 05:35 12.5 MLS/HR Albuterol 2.5 mg Q6HWA [facility] 01/30/25 12:00 01/31/25 05:55 2.5 MG Ipratropium [place] 0.5 mg Q6HWA NEB 01/30/25 12:00 01/31/25 05:55 0.5 MG Celecoxib 100 mg Q12HR PO 01/30/25 22:00 01/30/25 21:32 100 MG Vancomycin HCl 250 ml @ 200 mls/hr Q12H IV 01/31/25 19:00 UNV Laboratory Results Laboratory Tests 01/31/25 04:47 Chemistry Test 01/31/25 04:47 Calcium Level 8.6 mg/dL (8.7-10.4) L Coagulation Test 01/31/25 08:04 Prothrombin Time 10.8 sec (9.3-11.8) Prothrombin Time INR 1.02 (0.9-1.15) Activated Partial Thromboplast Time 36.4 SEC (24.5-34.5) H Urinalysis Test 01/29/25 09:14 Urine Color Light-yellow (Yellow) Urine Clarity Clear (Clear) Urine pH 5.0 (5.0-9.0) Urine Specific [place] 1.032 (1.001-1.035) Urine Protein Trace (Negative) H Urine Ketones 1+ (Negative) H Urine Blood 2+ /uL (Negative) H Urine Nitrite Negative (Negative) Urine Bilirubin Negative (Negative) Urine Urobilinogen Normal mg/dL (Negative) Urine Leukocyte Esterase Negative /uL (Negative) Urine RBC 11 /hpf (0 - 3) Urine Microscopic WBC 1 /HPF (0-3) Urine Squamous Epithelial Cells Few /hpf (<5) Urine Bacteria None seen /hpf (None Seen) Urine Glucose 4+ mg/dL (Normal) H Microbiology Microbiology Date/Time Source Procedure Growth Status 01/30/25 11:16 Foot Left Gram Stain Pending Resulted 01/30/25 11:16 Foot Left Wound Culture - Preliminary Resulted Assessment/Plan Assessment/Plan ASSESSMENT: Patient is a 64 year old seen on the floor for a worsening ulcer PLAN: - The patients chart was reviewed, clinical findings were discussed with the patient, the etiologies of the conditions were discussed in detail, and a treatment plan was agreed to at this time, with both oral and written instructions provided. - reviewed advanced imaging - discussed plan is to perform an incision and drainage - patient has been NPO since midnight - take him to the OR today - we will get cultures in the OR - can weightbear as tolerated in postoperative shoe All questions were answered and concerns addressed to the patient's satisfaction. The patient was given the phone number to the clinic and was told how to make contact with the clinic should any concerns or questions arise. Patient understands that if any questions or concerns arise prior to the next appointment, we should be contacted immediately. FOLLOW-UP: Continue to follow while inpatient Plan discussed with: Patient My Orders Orders - ARABELLA OLIVAS DPM Procedure Category Date Status Time Electrocardigram EKG 01/31/25 Logged 07:15 Problem List: (1) Hypertension (2) Osteomyelitis of foot, left, acute (3) Diabetic neuropathy (4) Diabetic foot ulcer (5) Abscess of left foot (6) Cellulitis of left foot Visit Coding Podiatry Date of Service if different f: Jan 31, 2025 Billing Provider: ARABELLA OLIVAS DPM Podiatry Common Visit Codes: [id number] INP/OBS CARE(HIGH) ARABELLA OLIVAS DPM Jan 31, 2025 12:07
[2025-01-31] MEDS ORDERED: ONDANSETRON HCL 4 MG/2 ML VIAL IV PRN (12:15)
[2025-01-31] MEDS ORDERED: hydrALAZINE HCL 20 MG/ML VL IV PRN (12:15)
[2025-01-31] MEDS ORDERED: HYDROmorphone HCL 2 MG/ML VL/or syr IV PRN (12:15)
[2025-01-31] MEDS ORDERED: MIDAZOLAM HCL 2MG/2ML 2ml VIAL (1mg/ml) ONE (13:13)
[2025-01-31] MEDS ORDERED: PROPOFOL 10 MG/ML 20 ML IV ONE (13:13)
[2025-01-31] MEDS ORDERED: fentaNYL CITRATE 100 MCG/2 ML VL ONE (13:13)
[2025-01-31] MEDS ORDERED: ONDANSETRON HCL 4 MG/2 ML VIAL ONE (13:14)
[2025-01-31] MEDS ORDERED: METOCLOPRAMIDE HCL 5MG/ml INJ 2ml VIAL ONE (13:14)
[2025-01-31] MEDS: BUPIVACAINE 0.25% INJ 50ML VIAL IJ ONE (13:24)
--- NOTE | 2025-01-31 13:40 | DVHOP2 ---
Operative Report - 2 Report Details Date: 01/31/25 Preop Diagnosis: 1. Left foot osteomyelitis 2. Left foot abscess 3. Left foot cellulitis 4. Left foot diabetic ulcer Postop Diagnosis: Same as preop Surgeon: Arabella Olivas MD Anesthesiologist: See anesthesia Anesthesia: Mac Consent: The patient was informed of the risks and benefits of the procedure. These include but are not limited to complications of anesthesia, postoperative infection, incomplete relief of symptoms, recurrence of symptoms, damage to blood vessels, nerves and tendons, deep venous thrombosis, pulmonary embolism and possible need for repeat surgery in the future. Complications: None Estimated Blood Loss: Minimal Fluids: See anesthesia Findings: Consistent with diagnosis Indications for Surgery: Worsening foot wound Name of Procedure Performed 1. Left foot I&D to bone () 2. Left foot bone biopsy () Procedure Details Procedure Details: PRE-PROCEDURE INFORMATION: In the pre-op holding area, the extremity to be operated on was clearly marked and the patient verified correct laterality of the marking. The patient was transferred to the OR table and placed in a supine position. A timeout was performed in which identification of the correct patient, procedure, location, and materials was done. The left foot and leg were prepped and draped in normal sterile fashion. DESCRIPTION OF PROCEDURE: Attention was directed to the left where area of fluctuance was noted. An incision was made over this area and was deepened through blunt dissection. The incision was deepened to the level of abscess and bone. Care was taken to the dissection to avoid any neurovascular and tendinous structures. The incision was deepened to the bone, and the abscess appeared to be purulent fluid consistent with pus. The cortices of the bone was then removed with rongeur an all necrotic tissue. After the abscess was drained, the area was irrigated with 3 L normal saline using cysto tubing. Deep cultures were then obtained from the wound. The area was then inspected and any areas of tracking, especially along the tendons were also drained. A bone biopsy was then taken of the left hallux which was deepened to the muscle belly and tendons. The bone was then sent to pathology to determine the extent of osteomyelitis. The wound was packed with Betadine-soaked gauze and we will need to be closed at a later date. POSTOPERATIVE INFORMATION: The patient tolerated the above noted procedure and anesthesia well and was transferred to the PACU with vital signs stable, and vascular status intact with capillary refill intact to all digits. Deep cultures were taken. Continue on IV antibiotics. Patient will need closure another date. Condition Good Disposition Still a Patient Visit Coding Podiatry Date of Service if different f: Jan 31, 2025 Billing Provider: ARABELLA OLIVAS DPM Podiatry Common Visit Codes: PROCEDURE ONLY ARABELLA OLIVAS DPM Jan 31, 2025 13:40
--- NOTE | 2025-01-31 14:13 | DVHPN2 ---
Subjective Patient continues to report having left foot pain Reviewed: Care Plan, H&P, Labs, Medications Changes from previous H/P or p: No Changes General: Per HPI Objective Vitals Vital Signs Date Time Temp Pulse Resp B/P (MAP) Pulse Ox O2 Delivery O2 Flow Rate FiO2 01/31/25 13:34 Mask 6.0 01/31/25 13:34 97.5 95 17 100/60 (73) 96 97.5 01/31/25 10:20 28 Intake/Output Intake and Output 01/31/25 07:00 Intake Total 2100 ml Output Total 2970 ml Balance -870 ml Intake Oral 1950 ml IV Total 150 ml Output Urine Total 2970 ml General Appearance: Alert, Oriented X3, Cooperative HEENT: Atraumatic, PERRLA Lungs: Clear to auscultation, Normal air movement Cardiovascular: Normal S1, Normal S2 Musculoskeletal: Normal sensory function, Normal motor function Extremities: Other (Limited range of motion in pain to right shoulder.) Skin: Dry, Intact Psych/Mental Status: Mental status NL, Mood NL Medications Current Medications Medications Dose Ordered Sig/Melia Route Start Time Stop Time Status Last Admin Dose Admin Amlodipine Besylate 5 mg DAILY PO 01/29/25 10:00 01/31/25 09:35 5 MG Lisinopril 40 mg DAILY PO 01/29/25 10:00 01/31/25 09:36 40 MG Atorvastatin Calcium 40 mg HS PO 01/28/25 22:00 01/30/25 21:33 40 MG Vancomycin HCl 0 ml @ 0 mls/hr UD IV 01/28/25 20:45 Ondansetron HCl 4 mg Q4HP PRN IV 01/28/25 20:45 Guaifenesin/ Dextromethorphan 10 ml Q4HP PRN PO 01/28/25 22:00 Diagnostic Test (Pha) 1 strip ACHS 01/28/25 22:00 01/31/25 06:20 1 STRIP Insulin Human Regular ACHS SC 01/28/25 22:00 01/30/25 21:30 8 UNITS Dextrose 50 ml UD PRN IV 01/28/25 22:00 Acetaminophen 650 mg Q6HP PRN PO 01/28/25 22:00 Acetaminophen/ Hydrocodone Bitart 1 tab Q6HP PRN PO 01/29/25 16:00 01/31/25 07:35 1 TAB Cefepime HCl 50 ml @ 12.5 mls/hr Q8HR IV 01/29/25 22:00 01/31/25 05:35 12.5 MLS/HR Albuterol 2.5 mg Q6HWA [facility] 01/30/25 12:00 01/31/25 05:55 2.5 MG Ipratropium [place] 0.5 mg Q6HWA [facility] 01/30/25 12:00 01/31/25 05:55 0.5 MG Celecoxib 100 mg Q12HR PO 01/30/25 22:00 01/30/25 21:32 100 MG Vancomycin HCl 250 ml @ 200 mls/hr Q12H IV 01/31/25 19:00 Laboratory Results Laboratory Tests 01/31/25 04:47 Chemistry Test 01/31/25 04:47 Calcium Level 8.6 mg/dL (8.7-10.4) L Coagulation Test 01/31/25 08:04 Prothrombin Time 10.8 sec (9.3-11.8) Prothrombin Time INR 1.02 (0.9-1.15) Activated Partial Thromboplast Time 36.4 SEC (24.5-34.5) H Urinalysis Test 01/29/25 09:14 Urine Color Light-yellow (Yellow) Urine Clarity Clear (Clear) Urine pH 5.0 (5.0-9.0) Urine Specific [place] 1.032 (1.001-1.035) Urine Protein Trace (Negative) H Urine Ketones 1+ (Negative) H Urine Blood 2+ /uL (Negative) H Urine Nitrite Negative (Negative) Urine Bilirubin Negative (Negative) Urine Urobilinogen Normal mg/dL (Negative) Urine Leukocyte Esterase Negative /uL (Negative) Urine RBC 11 /hpf (0 - 3) Urine Microscopic WBC 1 /HPF (0-3) Urine Squamous Epithelial Cells Few /hpf (<5) Urine Bacteria None seen /hpf (None Seen) Urine Glucose 4+ mg/dL (Normal) H Microbiology Microbiology Date/Time Source Procedure Growth Status 01/30/25 11:16 Foot Left Gram Stain Pending Resulted 01/30/25 11:16 Foot Left Wound Culture - Preliminary Resulted Labs and/or images reviewed: Labs reviewed by me, Image(s) reviewed by me Assessment/Plan Assessment/Plan Impression: -left foot osteomyelitis -sepsis -diabetes mellitus -primary hypertension -dyslipidemia -obesity -acute hypoxic respiratory failure -nicotine dependence -rheumatoid arthritis -right shoulder pain Plan: Events: No events overnight. -podiatry consultation t: Patient to surgery today. -infectious disease consultation: Continue antibiotics per their recommendations. Noted bilateral lower extremity arterial study without any flow-limiting stenosis. -regular insulin sliding scale -pain management: Continue [place], add Celebrex -antihypertensives -repeat labs in a.m. Total time spent with patient discussing and formulating plan of care: 35 minutes. This medical document was created using an electronic medical record system with [employer] dictation system. Although this document has been carefully reviewed, there may still be some phonetic and typographical errors. These areas are purely typographical due to imperfections of the software programs, and do not reflect any compromise in the patient's medical care. Plan discussed with: Patient, Other (RN) My Orders Orders - CAROL PROCTOR NP Procedure Category Date Status Time Basic Metabolic Panel LAB 02/01/25 Verified 04:00 Complete Blood Count LAB 02/01/25 Verified 04:00 Date of Service: Jan 31, 2025 Billing Provider: CAROL PROCTOR NP Common Visit Codes: [id number] INP/OBS CARE(HIGH) CAROL PROCTOR NP Jan 31, 2025 14:13
[2025-01-31] MEDS: VANCOMYCIN 1.25GM/250ML 250 ML IV SCH (18:14)
[2025-02-01] VITALS (13 sets, daily range): BP systolic 126–149; BP diastolic 66–81; PULSE 75–100; RESP 16–20; TEMP 98–98.8; O2SAT 90–95
[2025-02-01 06:18] LABS: Hematocrit 35.8 % (41.0-53.0); Hemoglobin 12.1 g/dL (13.5-17.5); Mean Corpuscular Hemoglobin 29.4 pg (28.0-32.0); Mean Corpuscular Volume 86.8 fL (80.0-100.0); Nucleated Red Blood Cells % 0.0 %
[2025-02-01 06:36] LABS: Anion Gap 9 (5-15); Carbon Dioxide 28 mmol/L (20-31); Potassium 4.8 mmol/L (3.5-5.1)
[2025-02-01 06:42] LABS: BUN/Creatinine Ratio 16.0 (10.0-20.0); Blood Urea Nitrogen 17 mg/dL (9-23)
[2025-02-01 06:44] LABS: Calcium 8.7 mg/dL (8.7-10.4); Chloride 98 mmol/L (98-107); Glucose 199 mg/dL (74-106); Sodium 135 mmol/L (136-145)
--- NOTE | 2025-02-01 07:59 | ECG ---
[facility] Test Date: 2025-01-31 Test Time: 07:15:12 Pat Name: WON OSCAR Department: Room: [facility] Gender: M Materials Scheduler: ANA : 1960 Requested By: ARABELLA OLIVAS Order Number: [id number] Reading MD: Sb Paz Measurements Intervals [place] Rate: 92 P: 75 CO: 163 QRS: 74 QRSD: 90 T: 41 QT: 330 QTc: 409 Interpretive Statements Sinus rhythm Electronically Signed On 02-05-2025 18:08:11 PDT by Sb Paz Please click the below link to view image of tracing.
[2025-02-01] MEDS ORDERED: DEXTROSE (50%) 50ML SYRG IV PRN (10:00)
--- NOTE | 2025-02-01 10:06 | DVHPN2 ---
Subjective Patient continues to report having left foot pain Reviewed: Care Plan, H&P, Labs, Medications Changes from previous H/P or p: No Changes General: Per HPI Objective Vitals Vital Signs Date Time Temp Pulse Resp B/P (MAP) Pulse Ox O2 Delivery O2 Flow Rate FiO2 02/01/25 09:25 143/75 02/01/25 08:10 Nasal Cannula* 2 28 02/01/25 06:50 96 20 95 02/01/25 04:39 98.1 98.1 Intake/Output Intake and Output 02/01/25 07:00 Intake Total 2150 ml Output Total 2200 ml Balance -50 ml Intake Oral 1450 ml IV Total 700 ml Output Urine Total 2200 ml General Appearance: Alert, Oriented X3, Cooperative HEENT: Atraumatic, PERRLA Lungs: Clear to auscultation, Normal air movement Cardiovascular: Normal S1, Normal S2 Musculoskeletal: Normal sensory function, Normal motor function Extremities: Other (Limited range of motion in pain to right shoulder.) Skin: Dry, Intact Psych/Mental Status: Mental status NL, Mood NL Medications Current Medications Medications Dose Ordered Sig/Melia Route Start Time Stop Time Status Last Admin Dose Admin Amlodipine Besylate 5 mg DAILY PO 01/29/25 10:00 02/01/25 09:24 5 MG Lisinopril 40 mg DAILY PO 01/29/25 10:00 02/01/25 09:25 40 MG Atorvastatin Calcium 40 mg HS PO 01/28/25 22:00 01/31/25 21:26 40 MG Vancomycin HCl 0 ml @ 0 mls/hr UD IV 01/28/25 20:45 Ondansetron HCl 4 mg Q4HP PRN IV 01/28/25 20:45 Guaifenesin/ Dextromethorphan 10 ml Q4HP PRN PO 01/28/25 22:00 Acetaminophen 650 mg Q6HP PRN PO 01/28/25 22:00 Acetaminophen/ Hydrocodone Bitart 1 tab Q6HP PRN PO 01/29/25 16:00 01/31/25 21:26 1 TAB Cefepime HCl 50 ml @ 12.5 mls/hr Q8HR IV 01/29/25 22:00 02/01/25 04:46 12.5 MLS/HR Albuterol 2.5 mg Q6HWA NEB 01/30/25 12:00 02/01/25 06:40 2.5 MG Ipratropium [place] 0.5 mg Q6HWA NEB 01/30/25 12:00 02/01/25 06:40 0.5 MG Celecoxib 100 mg Q12HR PO 01/30/25 22:00 02/01/25 09:25 100 MG Vancomycin HCl 250 ml @ 200 mls/hr Q12H IV 01/31/25 19:00 02/01/25 06:27 200 MLS/HR Diagnostic Test (Pha) 1 strip ACHS 02/01/25 11:30 UNV Insulin Human Regular HS SC 02/01/25 22:00 UNV Insulin Human Regular AC SC 02/01/25 11:30 UNV Dextrose 50 ml UD PRN IV 02/01/25 10:00 UNV Laboratory Results Laboratory Tests 02/01/25 05:31 Chemistry Test 02/01/25 05:31 Calcium Level 8.7 mg/dL (8.7-10.4) Urinalysis Test 01/29/25 09:14 Urine Color Light-yellow (Yellow) Urine Clarity Clear (Clear) Urine pH 5.0 (5.0-9.0) Urine Specific [place] 1.032 (1.001-1.035) Urine Protein Trace (Negative) H Urine Ketones 1+ (Negative) H Urine Blood 2+ /uL (Negative) H Urine Nitrite Negative (Negative) Urine Bilirubin Negative (Negative) Urine Urobilinogen Normal mg/dL (Negative) Urine Leukocyte Esterase Negative /uL (Negative) Urine RBC 11 /hpf (0 - 3) Urine Microscopic WBC 1 /HPF (0-3) Urine Squamous Epithelial Cells Few /hpf (<5) Urine Bacteria None seen /hpf (None Seen) Urine Glucose 4+ mg/dL (Normal) H Microbiology Microbiology Date/Time Source Procedure Growth Status 01/30/25 11:16 Foot Left Gram Stain - Final Resulted 01/30/25 11:16 Foot Left Wound Culture - Preliminary Resulted Labs and/or images reviewed: Labs reviewed by me Assessment/Plan Assessment/Plan Impression: -left foot osteomyelitis -sepsis -diabetes mellitus -primary hypertension -dyslipidemia -obesity -acute hypoxic respiratory failure -nicotine dependence -rheumatoid arthritis -right shoulder pain -constipation Plan: Events: No events overnight. -podiatry consultation: Status post I&D. -PICC line placement -infectious disease consultation: Continue antibiotics per their recommendations. Noted bilateral lower extremity arterial study without any flow-limiting stenosis. -regular insulin sliding scale, increased to monitor to scale -pain management: Continue [place], add Celebrex -bowel regimen -antihypertensives Total time spent with patient discussing and formulating plan of care: 35 minutes. This medical document was created using an electronic medical record system with [employer] dictation system. Although this document has been carefully reviewed, there may still be some phonetic and typographical errors. These areas are purely typographical due to imperfections of the software programs, and do not reflect any compromise in the patient's medical care. Plan discussed with: Patient, Other (RN) My Orders Orders - CAROL PROCTOR NP Procedure Category Date Status Time Consistent DIET 01/31/25 Transmitted Carb(Ccho)Diabetes Dinner * Picc Line Consult CONS 02/01/25 Transmitted 09:57 Glucose Blood PHA 02/01/25 Transmitted (Accu-Chek Comfort 11:30 Bedtime Insulin Scale PHA 02/01/25 Transmitted 22:00 Moderate Insulin Ss PHA 02/01/25 Transmitted 11:30 Dextrose 50% Syringe PHA 02/01/25 Transmitted 10:00 Date of Service: Feb 01, 2025 Billing Provider: CAROL PROCTOR NP Common Visit Codes: [id number] INP/OBS CARE(HIGH) CAROL PROCTOR NP Feb 01, 2025 10:05
[2025-02-01] MEDS: ACCU-CHEK COMFORT CURVE STRIP VI SCH (11:07)
[2025-02-01] MEDS: InsuLIN REG 1unit/0.01ml Soln (100units/ml) SC SCH ×2 (11:11→21:28)
[2025-02-01] MEDS: LACTULOSE 20Gm/30ML SOLN PO ONE (11:13)
[2025-02-01] MEDS: guaiFENesin-DM 100/10mg/5ml SYR PO PRN (11:13)
[2025-02-01] MEDS: LIDOCAINE 1% (LOCAL ANESTH.) PF 5ml SDV ID ONE (20:24)
--- NOTE | 2025-02-01 20:29 | DVHPN2 ---
Consult Progress Note Date Seen: Feb 01, 2025 Subjective Patient reports: No new complaints Other Systems: Primarily Malawian speaking patient, seen at bedside was sleeping, pain moderately well controlled. Objective vital signs Vital Sign Date Time Temp Pulse Resp B/P (MAP) Pulse Ox O2 Delivery O2 Flow Rate FiO2 02/01/25 17:10 98.0 95 18 126/81 (96) 94 98.0 02/01/25 11:49 Nasal Cannula* 2 28 Total Intake and Output 01/31/25 01/31/25 02/01/25 15:00 23:00 07:00 Intake Total 400 ml 550 ml 1200 ml Output Total 1150 ml 1050 ml Balance 400 ml -600 ml 150 ml General Appearance: Alert, Oriented X3, Cooperative HEENT: Atraumatic, PERRLA Lungs: Clear to auscultation, Normal air movement Cardiovascular: Normal S1, Normal S2 Musculoskeletal: Normal sensory function, Normal motor function Extremities: Other (Limited range of motion in pain to right shoulder.) Well dressed foot wound. Skin: Dry, Intact Psych/Mental Status: Mental status NL, Mood NL medications Current Medications Medications Dose Ordered Sig/Melia Route Start Time Stop Time Status Last Admin Dose Admin Amlodipine Besylate 5 mg DAILY PO 01/29/25 10:00 02/01/25 09:24 5 MG Lisinopril 40 mg DAILY PO 01/29/25 10:00 02/01/25 09:25 40 MG Atorvastatin Calcium 40 mg HS PO 01/28/25 22:00 01/31/25 21:26 40 MG Vancomycin HCl 0 ml @ 0 mls/hr UD IV 01/28/25 20:45 Ondansetron HCl 4 mg Q4HP PRN IV 01/28/25 20:45 Guaifenesin/ Dextromethorphan 10 ml Q4HP PRN PO 01/28/25 22:00 02/01/25 11:13 10 ML Acetaminophen 650 mg Q6HP PRN PO 01/28/25 22:00 Acetaminophen/ Hydrocodone Bitart 1 tab Q6HP PRN PO 01/29/25 16:00 02/01/25 16:59 1 TAB Cefepime HCl 50 ml @ 12.5 mls/hr Q8HR IV 01/29/25 22:00 02/01/25 14:02 12.5 MLS/HR Albuterol 2.5 mg Q6HWA NEB 01/30/25 12:00 02/01/25 19:10 2.5 MG Ipratropium [place] 0.5 mg Q6HWA NEB 01/30/25 12:00 02/01/25 19:10 0.5 MG Celecoxib 100 mg Q12HR PO 01/30/25 22:00 02/01/25 09:25 100 MG Vancomycin HCl 250 ml @ 200 mls/hr Q12H IV 01/31/25 19:00 02/01/25 18:26 200 MLS/HR Diagnostic Test (Pha) 1 strip ACHS 02/01/25 11:30 02/01/25 16:51 1 STRIP Insulin Human Regular HS SC 02/01/25 22:00 Insulin Human Regular AC SC 02/01/25 11:30 02/01/25 16:56 9 UNITS Dextrose 50 ml UD PRN IV 02/01/25 10:00 Lactulose 30 ml DAILYPRN PRN PO 02/02/25 10:00 Sodium Chloride 10 ml QSHIFT@10,22 IV 02/01/25 22:00 laboratory and microbiology Laboratory Tests 02/01/25 05:31 Test 02/01/25 05:31 Range/Units Serum Glucose 199 H 74-106 mg/dL Problem List/Assessment/Plan Problem List/Assessment/Plan WON PEARSON, a 64-year-old male with a history of COPD, hypertension, type 2 diabetes mellitus, prior smoking history, osteoarthritis, and recurrent left foot osteomyelitis (previously treated with I&D and six weeks of IV antibiotics in May 2024) presented to the ED with shortness of breath and left great toe pain that began two weeks prior, accompanied by swelling and redness, presented septic, with CT imaging of the left foot showed significant osteomyelitis involving the 1st proximal phalanx, with additional osseous erosion and sclerosis of the 1st metatarsal head and likely base of the distal phalanx. He was started on Rocephin and vancomycin later changed to cefepime as MSSA and Streptococcus group B came positive from left foot wound, podiatry on board for further management and now pending incision and drainage. Assessment: #Osteomyelitis of left 1st proximal phalanx with osseous erosion and areas of intermixed sclerosis of the 1st metatarsal head and likely base of the distal phalanx. #Cellulitis of left foot with worsening wound MSSA and Streptococcus group s/p I&D for source control #rheumatoid arthritis with right shoulder pain #Present on admission, with sepsis, resolved. #[place] diabetes mellitus 8.5 HbA1C #Diabetic neuropathy/Charcot foot #Ruled out peripheral vascular disease #History of heavy tobacco use #Osteoarthritis #Hypertension #Dyslipidemia #Chronic constipation #Grade III obesity #Anxiety and depression #COPD #BPH Plan/Recommendation: #PICC line with likely 6-8 weeks of IV antibiotics. #S/p Cefepime 1g IV q8 hrs. changed to IV Zosyn. #Discontinue Vancomycin #Continue wound care and follow up cultures #Recommended smoking cessation Case discussed with Dr. Pascual ID team will continue to follow up. Plan discussed with: Patient [facility]ary Evaluation [facility] Expected Outcomes/Goals: wt loss, healing wounds FRIDA SOUZA RESIDENT Feb 01, 2025 20:29
[2025-02-01] MEDS: PIPERACILLIN-TAZO 4.5GM 100 ML IV SCH (21:19)
[2025-02-01] MEDS: SODIUM CHLOR 0.9% PF (SALINE LOCK) 10ML VIAL/SYR IV SCH (21:28)
[2025-02-01] MEDS ORDERED: PIPERACILLIN-TAZOB 3.375GM 100 ML IV SCH (22:00)
[2025-02-02] VITALS (15 sets, daily range): BP systolic 118–149; BP diastolic 70–87; PULSE 80–102; RESP 15–22; TEMP 97.6–98.3; O2SAT 94–100
[2025-02-02 06:37] LABS: Hematocrit 36.0 % (41.0-53.0); Hemoglobin 12.1 g/dL (13.5-17.5); Mean Corpuscular Hemoglobin 28.8 pg (28.0-32.0); Mean Corpuscular Volume 85.7 fL (80.0-100.0); Nucleated Red Blood Cells % 0.1 %
[2025-02-02 06:57] LABS: Chloride 99 mmol/L (98-107); Potassium 4.4 mmol/L (3.5-5.1)
[2025-02-02 06:58] LABS: Anion Gap 10 (5-15); Carbon Dioxide 25 mmol/L (20-31)
[2025-02-02 07:00] LABS: Sodium 134 mmol/L (136-145)
[2025-02-02 07:01] LABS: Calcium 8.6 mg/dL (8.7-10.4)
[2025-02-02 07:03] LABS: BUN/Creatinine Ratio 13.5 (10.0-20.0); Blood Urea Nitrogen 13 mg/dL (9-23)
[2025-02-02 07:04] LABS: Glucose 230 mg/dL (74-106)
[2025-02-02] MEDS ORDERED: LACTULOSE 20Gm/30ML SOLN PO PRN (10:00)
--- NOTE | 2025-02-02 11:46 | DVHPN2 ---
Reviewed: Care Plan, H&P, Labs, Medications Changes from previous H/P or p: No Changes General: Per HPI Objective Vitals Vital Signs Date Time Temp Pulse Resp B/P (MAP) Pulse Ox O2 Delivery O2 Flow Rate FiO2 02/02/25 10:07 149/84 02/02/25 08:03 98.3 102 18 94 98.3 02/02/25 06:48 Nasal Cannula 2.0 02/02/25 06:48 28 Intake/Output Intake and Output 02/02/25 07:00 Intake Total 1950 ml Balance 1950 ml Intake Oral 1600 ml IV Total 350 ml # Voids 14 # Bowel Movements 1 General Appearance: Alert, Oriented X3, Cooperative HEENT: Atraumatic, PERRLA Lungs: Clear to auscultation, Normal air movement Cardiovascular: Normal S1, Normal S2 Musculoskeletal: Normal sensory function, Normal motor function Extremities: Other (Limited range of motion in pain to right shoulder.) Skin: Dry, Intact Psych/Mental Status: Mental status NL, Mood NL Medications Current Medications Medications Dose Ordered Sig/Melia Route Start Time Stop Time Status Last Admin Dose Admin Amlodipine Besylate 5 mg DAILY PO 01/29/25 10:00 02/02/25 10:07 5 MG Lisinopril 40 mg DAILY PO 01/29/25 10:00 02/02/25 10:06 40 MG Atorvastatin Calcium 40 mg HS PO 01/28/25 22:00 02/01/25 21:19 40 MG Ondansetron HCl 4 mg Q4HP PRN IV 01/28/25 20:45 Guaifenesin/ Dextromethorphan 10 ml Q4HP PRN PO 01/28/25 22:00 02/01/25 11:13 10 ML Acetaminophen 650 mg Q6HP PRN PO 01/28/25 22:00 Acetaminophen/ Hydrocodone Bitart 1 tab Q6HP PRN PO 01/29/25 16:00 02/02/25 06:18 1 TAB Albuterol 2.5 mg Q6HWA NEB 01/30/25 12:00 02/02/25 06:58 2.5 MG Ipratropium [place] 0.5 mg Q6HWA NEB 01/30/25 12:00 02/02/25 06:58 0.5 MG Celecoxib 100 mg Q12HR PO 01/30/25 22:00 02/02/25 10:07 100 MG Diagnostic Test (Pha) 1 strip ACHS 02/01/25 11:30 02/02/25 06:28 1 STRIP Insulin Human Regular HS SC 02/01/25 22:00 02/01/25 21:28 4 UNITS Insulin Human Regular AC SC 02/01/25 11:30 02/02/25 06:14 6 UNITS Dextrose 50 ml UD PRN IV 02/01/25 10:00 Lactulose 30 ml DAILYPRN PRN PO 02/02/25 10:00 Sodium Chloride 10 ml QSHIFT@10,22 IV 02/01/25 22:00 02/02/25 10:07 10 ML Piperacillin Sod/ Tazobactam Sod 100 ml @ 25 mls/hr Q8HR IV 02/01/25 22:00 UNV Piperacillin Sod/ Tazobactam Sod 100 ml @ 25 mls/hr Q8HR IV 02/01/25 22:00 02/02/25 05:38 25 MLS/HR Laboratory Results Laboratory Tests 02/02/25 05:50 Chemistry Test 02/02/25 05:50 Calcium Level 8.6 mg/dL (8.7-10.4) L Urinalysis Test 01/29/25 09:14 Urine Color Light-yellow (Yellow) Urine Clarity Clear (Clear) Urine pH 5.0 (5.0-9.0) Urine Specific [place] 1.032 (1.001-1.035) Urine Protein Trace (Negative) H Urine Ketones 1+ (Negative) H Urine Blood 2+ /uL (Negative) H Urine Nitrite Negative (Negative) Urine Bilirubin Negative (Negative) Urine Urobilinogen Normal mg/dL (Negative) Urine Leukocyte Esterase Negative /uL (Negative) Urine RBC 11 /hpf (0 - 3) Urine Microscopic WBC 1 /HPF (0-3) Urine Squamous Epithelial Cells Few /hpf (<5) Urine Bacteria None seen /hpf (None Seen) Urine Glucose 4+ mg/dL (Normal) H Microbiology Microbiology Date/Time Source Procedure Growth Status 01/31/25 13:26 Foot Left Gram Stain Pending Resulted 01/31/25 13:26 Foot Left Anaerobic Culture Pending Resulted 01/31/25 13:26 Foot Left Aerobic Culture - Preliminary Resulted Labs and/or images reviewed: Labs reviewed by me, Image(s) reviewed by me Assessment/Plan Assessment/Plan Covering for-nurse practitioner Luciano Myers left foot osteomyelitis status post I&D wound cultures growing MSSA, continue Zosyn 4.5 g IV q.8 hours as per ID recommendation -sepsis -diabetes mellitus -primary hypertension -dyslipidemia -obesity -acute hypoxic respiratory failure -nicotine dependence -rheumatoid arthritis PAD ruled out -right shoulder pain -constipation Plan discussed with: Patient Date of Service: Feb 02, 2025 Billing Provider: ANGELA BUSTOS MD Common Visit Codes: [id number] INP/OBS CARE(HIGH) ANGELA BUSTOS MD Feb 02, 2025 11:46
[2025-02-02] MEDS: PIPERACILLIN-TAZO 4.5GM 100 ML IV SCH (13:52)
[2025-02-03] VITALS (16 sets, daily range): BP systolic 109–152; BP diastolic 66–85; PULSE 84–103; RESP 16–20; TEMP 97.9–99.6; O2SAT 93–100
--- NOTE | 2025-02-03 12:12 | DVHPN2 ---
Reviewed: Care Plan, H&P, Labs, Medications Changes from previous H/P or p: No Changes General: Per HPI Objective Vitals Vital Signs Date Time Temp Pulse Resp B/P (MAP) Pulse Ox O2 Delivery O2 Flow Rate FiO2 02/03/25 11:32 95 Nasal Cannula 2.0 02/03/25 11:32 28 02/03/25 10:08 146/61 02/03/25 09:00 99.6 103 20 99.6 Intake/Output Intake and Output 02/03/25 07:00 Intake Total 2300 ml Output Total 2350 ml Balance -50 ml Intake Oral 2100 ml IV Total 200 ml Output Urine Total 2350 ml General Appearance: Alert, Oriented X3, Cooperative HEENT: Atraumatic, PERRLA Lungs: Clear to auscultation, Normal air movement Cardiovascular: Normal S1, Normal S2 Musculoskeletal: Normal sensory function, Normal motor function Extremities: Other (Limited range of motion in pain to right shoulder.) Skin: Dry, Intact Psych/Mental Status: Mental status NL, Mood NL Medications Current Medications Medications Dose Ordered Sig/Melia Route Start Time Stop Time Status Last Admin Dose Admin Amlodipine Besylate 5 mg DAILY PO 01/29/25 10:00 02/03/25 10:05 5 MG Lisinopril 40 mg DAILY PO 01/29/25 10:00 02/03/25 10:08 40 MG Atorvastatin Calcium 40 mg HS PO 01/28/25 22:00 02/02/25 22:25 40 MG Ondansetron HCl 4 mg Q4HP PRN IV 01/28/25 20:45 Guaifenesin/ Dextromethorphan 10 ml Q4HP PRN PO 01/28/25 22:00 02/01/25 11:13 10 ML Acetaminophen 650 mg Q6HP PRN PO 01/28/25 22:00 Acetaminophen/ Hydrocodone Bitart 1 tab Q6HP PRN PO 01/29/25 16:00 02/03/25 06:38 1 TAB Albuterol 2.5 mg Q6HWA NEB 01/30/25 12:00 02/03/25 06:42 2.5 MG Ipratropium [place] 0.5 mg Q6HWA NEB 01/30/25 12:00 02/03/25 06:42 0.5 MG Celecoxib 100 mg Q12HR PO 01/30/25 22:00 02/03/25 10:05 100 MG Diagnostic Test (Pha) 1 strip ACHS 02/01/25 11:30 02/03/25 06:38 1 STRIP Insulin Human Regular HS SC 02/01/25 22:00 02/02/25 22:28 6 UNITS Insulin Human Regular AC SC 02/01/25 11:30 02/03/25 06:37 9 UNITS Dextrose 50 ml UD PRN IV 02/01/25 10:00 Lactulose 30 ml DAILYPRN PRN PO 02/02/25 10:00 Sodium Chloride 10 ml QSHIFT@10,22 IV 02/01/25 22:00 02/03/25 10:08 10 ML Piperacillin Sod/ Tazobactam Sod 100 ml @ 25 mls/hr Q8HR IV 02/01/25 22:00 UNV Piperacillin Sod/ Tazobactam Sod 100 ml @ 100 mls/hr Q6HR IV 02/02/25 12:23 02/03/25 06:38 100 MLS/HR Laboratory Results Laboratory Tests 02/02/25 05:50 Urinalysis Test 01/29/25 09:14 Urine Color Light-yellow (Yellow) Urine Clarity Clear (Clear) Urine pH 5.0 (5.0-9.0) Urine Specific [place] 1.032 (1.001-1.035) Urine Protein Trace (Negative) H Urine Ketones 1+ (Negative) H Urine Blood 2+ /uL (Negative) H Urine Nitrite Negative (Negative) Urine Bilirubin Negative (Negative) Urine Urobilinogen Normal mg/dL (Negative) Urine Leukocyte Esterase Negative /uL (Negative) Urine RBC 11 /hpf (0 - 3) Urine Microscopic WBC 1 /HPF (0-3) Urine Squamous Epithelial Cells Few /hpf (<5) Urine Bacteria None seen /hpf (None Seen) Urine Glucose 4+ mg/dL (Normal) H Microbiology Microbiology Date/Time Source Procedure Growth Status 01/31/25 13:26 Foot Left Gram Stain - Final Resulted 01/31/25 13:26 Foot Left Anaerobic Culture - Preliminary Resulted 01/31/25 13:26 Aerobic Culture - Final Staphylococcus aureus Streptococcus Group B Resulted Labs and/or images reviewed: Labs reviewed by me, Image(s) reviewed by me Assessment/Plan Assessment/Plan Covering for-nurse practitioner Luciano Myers left foot osteomyelitis status post I&D wound cultures growing MSSA, continue Zosyn 4.5 g IV q.8 hours as per ID recommendation -sepsis -diabetes mellitus -primary hypertension -dyslipidemia -obesity -acute hypoxic respiratory failure -nicotine dependence -rheumatoid arthritis PAD ruled out -right shoulder pain -constipation Continue current management Scheduled for closure of the right foot wound by massage coordinator on Tuesday Plan discussed with: Patient Date of Service: Feb 03, 2025 Billing Provider: ANGELA BUSTOS MD Common Visit Codes: [id number] INP/OBS CARE(HIGH) ANGELA BUSTOS MD Feb 03, 2025 12:12
[2025-02-03] MEDS: PIPERACILLIN-TAZO 4.5GM 100 ML IV SCH (12:15)
--- NOTE | 2025-02-03 21:59 | DVHPN2 ---
Consult Progress Note Objective vital signs Vital Sign Date Time Temp Pulse Resp B/P (MAP) Pulse Ox O2 Delivery O2 Flow Rate FiO2 02/03/25 18:20 84 18 98 02/03/25 18:12 Nasal Cannula* 3 32 02/03/25 16:40 98.0 132/82 (99) 98.0 Total Intake and Output 02/02/25 02/02/25 02/03/25 15:00 23:00 07:00 Intake Total 100 ml 1400 ml 800 ml Output Total 950 ml 1400 ml Balance 100 ml 450 ml -600 ml medications Current Medications Medications Dose Ordered Sig/Melia Route Start Time Stop Time Status Last Admin Dose Admin Amlodipine Besylate 5 mg DAILY PO 01/29/25 10:00 02/03/25 10:05 5 MG Lisinopril 40 mg DAILY PO 01/29/25 10:00 02/03/25 10:08 40 MG Atorvastatin Calcium 40 mg HS PO 01/28/25 22:00 02/02/25 22:25 40 MG Ondansetron HCl 4 mg Q4HP PRN IV 01/28/25 20:45 Guaifenesin/ Dextromethorphan 10 ml Q4HP PRN PO 01/28/25 22:00 02/01/25 11:13 10 ML Acetaminophen 650 mg Q6HP PRN PO 01/28/25 22:00 Acetaminophen/ Hydrocodone Bitart 1 tab Q6HP PRN PO 01/29/25 16:00 02/03/25 06:38 1 TAB Albuterol 2.5 mg Q6HWA NEB 01/30/25 12:00 02/03/25 18:12 2.5 MG Ipratropium [place] 0.5 mg Q6HWA NEB 01/30/25 12:00 02/03/25 18:12 0.5 MG Celecoxib 100 mg Q12HR PO 01/30/25 22:00 02/03/25 10:05 100 MG Diagnostic Test (Pha) 1 strip ACHS 02/01/25 11:30 02/03/25 17:00 1 STRIP Insulin Human Regular HS SC 02/01/25 22:00 02/02/25 22:28 6 UNITS Insulin Human Regular AC SC 02/01/25 11:30 02/03/25 17:00 9 UNITS Dextrose 50 ml UD PRN IV 02/01/25 10:00 Lactulose 30 ml DAILYPRN PRN PO 02/02/25 10:00 Sodium Chloride 10 ml QSHIFT@10,22 IV 02/01/25 22:00 02/03/25 10:08 10 ML Piperacillin Sod/ Tazobactam Sod 100 ml @ 25 mls/hr Q8HR IV 02/01/25 22:00 UNV Piperacillin Sod/ Tazobactam Sod 100 ml @ 100 mls/hr Q8HR IV 02/03/25 12:15 02/03/25 14:21 100 MLS/HR laboratory and microbiology Laboratory Tests 02/02/25 05:50 Test 02/02/25 05:50 Range/Units Serum Glucose 230 H 74-106 mg/dL Dietary Evaluation Review Comments: [facility]-60 cardiac diet Juan for healing Expected Outcomes/Goals: wt loss, healing wounds JASON PATEL MD Feb 03, 2025 21:59
[2025-02-04] VITALS (14 sets, daily range): BP systolic 117–159; BP diastolic 65–84; PULSE 73–102; RESP 18–24; TEMP 97.9–98.4; O2SAT 90–100
--- NOTE | 2025-02-04 12:15 | DVHPN2 ---
Subjective 64-year-old male presents for evaluation of foot infection. Patient initially presented with complaints of shortness for breath as worsening over the past four days. He uses 2 L of nasal cannula oxygen at home. He further complaints of left foot infection to his great toe. Denies fever or chills. No chest pain or palpitations. Reviewed: Care Plan, H&P, Labs, Medications Changes from previous H/P or p: No Changes General: Per HPI Objective Vitals Vital Signs Date Time Temp Pulse Resp B/P (MAP) Pulse Ox O2 Delivery O2 Flow Rate FiO2 02/04/25 10:00 95 Nasal Cannula 2.0 02/04/25 10:00 28 02/04/25 09:59 122/72 02/04/25 08:43 97.9 99 20 97.9 Intake/Output Intake and Output 02/04/25 07:00 Intake Total 1240 ml Output Total 700 ml Balance 540 ml Intake Oral 1140 ml IV Total 100 ml Output Urine Total 700 ml # Voids 1 # Bowel Movements 1 Exam Dermatological: Skin is dry with mild erythema and some maceration around the wound site No gross deformities noted Mild non-pitting edema present bilaterally Left hallux medial wound with purulent drainage Vascular: Dorsalis pedis and posterior tibial pulses are 1+ bilaterally Capillary refill is under 2 seconds Skin temperature is warm bilaterally Neurologic: Protective sensation is absent on the plantar forefoot bilaterally Monofilament testing reveals decreased sensation in multiple plantar sites Musculoskeletal: Range of motion at the ankle and MTP joints is within normal limits. Strength is 5/5 in all tested muscle groups. Gait is antalgic due to offloading of the affected limb. General Appearance: Alert, Oriented X3, Cooperative HEENT: Atraumatic, PERRLA Lungs: Clear to auscultation, Normal air movement Cardiovascular: Normal S1, Normal S2 Musculoskeletal: Normal sensory function, Normal motor function Extremities: Other (Limited range of motion in pain to right shoulder.) Skin: Dry, Intact Psych/Mental Status: Mental status NL, Mood NL Medications Current Medications Medications Dose Ordered Sig/Melia Route Start Time Stop Time Status Last Admin Dose Admin Amlodipine Besylate 5 mg DAILY PO 01/29/25 10:00 02/04/25 09:59 5 MG Lisinopril 40 mg DAILY PO 01/29/25 10:00 02/04/25 09:59 40 MG Atorvastatin Calcium 40 mg HS PO 01/28/25 22:00 02/03/25 22:46 40 MG Ondansetron HCl 4 mg Q4HP PRN IV 01/28/25 20:45 Guaifenesin/ Dextromethorphan 10 ml Q4HP PRN PO 01/28/25 22:00 02/01/25 11:13 10 ML Acetaminophen 650 mg Q6HP PRN PO 01/28/25 22:00 Acetaminophen/ Hydrocodone Bitart 1 tab Q6HP PRN PO 01/29/25 16:00 02/03/25 22:58 1 TAB Albuterol 2.5 mg Q6HWA NEB 01/30/25 12:00 02/04/25 05:53 2.5 MG Ipratropium [place] 0.5 mg Q6HWA NEB 01/30/25 12:00 02/04/25 05:52 0.5 MG Celecoxib 100 mg Q12HR PO 01/30/25 22:00 02/04/25 09:58 100 MG Diagnostic Test (Pha) 1 strip ACHS 02/01/25 11:30 02/04/25 11:40 1 STRIP Insulin Human Regular HS SC 02/01/25 22:00 02/03/25 22:58 12 UNITS Insulin Human Regular AC SC 02/01/25 11:30 02/04/25 06:27 9 UNITS Dextrose 50 ml UD PRN IV 02/01/25 10:00 Lactulose 30 ml DAILYPRN PRN PO 02/02/25 10:00 Sodium Chloride 10 ml QSHIFT@10,22 IV 02/01/25 22:00 02/04/25 10:00 10 ML Piperacillin Sod/ Tazobactam Sod 100 ml @ 25 mls/hr Q8HR IV 02/01/25 22:00 UNV Piperacillin Sod/ Tazobactam Sod 100 ml @ 100 mls/hr Q8HR IV 02/03/25 12:15 02/04/25 06:06 100 MLS/HR Laboratory Results Laboratory Tests 02/02/25 05:50 Urinalysis Test 01/29/25 09:14 Urine Color Light-yellow (Yellow) Urine Clarity Clear (Clear) Urine pH 5.0 (5.0-9.0) Urine Specific [place] 1.032 (1.001-1.035) Urine Protein Trace (Negative) H Urine Ketones 1+ (Negative) H Urine Blood 2+ /uL (Negative) H Urine Nitrite Negative (Negative) Urine Bilirubin Negative (Negative) Urine Urobilinogen Normal mg/dL (Negative) Urine Leukocyte Esterase Negative /uL (Negative) Urine RBC 11 /hpf (0 - 3) Urine Microscopic WBC 1 /HPF (0-3) Urine Squamous Epithelial Cells Few /hpf (<5) Urine Bacteria None seen /hpf (None Seen) Urine Glucose 4+ mg/dL (Normal) H Microbiology Microbiology Date/Time Source Procedure Growth Status 01/31/25 13:26 Foot Left Gram Stain - Final Resulted 01/31/25 13:26 Foot Left Anaerobic Culture - Preliminary Resulted 01/31/25 13:26 Aerobic Culture - Final Staphylococcus aureus Streptococcus Group B Resulted Assessment/Plan Assessment/Plan ASSESSMENT: Patient is a 64 year old seen on the floor follow up s/p foot I&D PLAN: - The patients chart was reviewed, clinical findings were discussed with the patient, the etiologies of the conditions were discussed in detail, and a treatment plan was agreed to at this time, with both oral and written instructions provided. - reviewed advanced imaging - reviewed all of the labs and pathology - discussed plan is to perform a subsequent incision and drainage - patient NPO since midnight - take him to the OR today - it was determined that multiple I&Ds will be necessary to save the limb - recommend 6 weeks IV antibiotics - WBAT in post op shoe All questions were answered and concerns addressed to the patient's satisfaction. The patient was given the phone number to the clinic and was told how to make contact with the clinic should any concerns or questions arise. Patient understands that if any questions or concerns arise prior to the next appointment, we should be contacted immediately. FOLLOW-UP: Continue to follow while inpatient Plan discussed with: Patient My Orders Orders - ARABELLA OLIVAS DPM Procedure Category Date Status Time Npo (Nothing By DIET 02/04/25 Transmitted Mouth) Diet Breakfast Problem List: (1) Hypertension (2) Osteomyelitis of foot, left, acute (3) Diabetic neuropathy (4) Diabetic foot ulcer (5) Abscess of left foot (6) Cellulitis of left foot Visit Coding Podiatry Date of Service if different f: Feb 04, 2025 Billing Provider: ARABELLA OLIVAS DPM Podiatry Common Visit Codes: [id number] INP/OBS CARE(HIGH) ARABELLA OLIVAS DPStaci Feb 04, 2025 12:15
--- NOTE | 2025-02-04 13:52 | DVHPN2 ---
Consult Progress Note Date Seen: Feb 04, 2025 Subjective Patient reports: No new complaints Other Systems: Primarily Japanese speaking patient, seen at bedside was sleeping, pain moderately well controlled today status post I and D by Dr. Gibbons. the patient is hemodynamically stable with 2 L of nasal cannula oxygen. Objective vital signs Vital Sign Date Time Temp Pulse Resp B/P (MAP) Pulse Ox O2 Delivery O2 Flow Rate FiO2 02/04/25 13:00 98.4 80 18 159/81 (107) 95 98.4 02/04/25 10:00 Nasal Cannula 2.0 02/04/25 10:00 28 Total Intake and Output 02/03/25 02/03/25 02/04/25 15:00 23:00 07:00 Intake Total 340 ml 900 ml Output Total 700 ml Balance -360 ml 900 ml medications Current Medications Medications Dose Ordered Sig/Melia Route Start Time Stop Time Status Last Admin Dose Admin Amlodipine Besylate 5 mg DAILY PO 01/29/25 10:00 02/04/25 09:59 5 MG Lisinopril 40 mg DAILY PO 01/29/25 10:00 02/04/25 09:59 40 MG Atorvastatin Calcium 40 mg HS PO 01/28/25 22:00 02/03/25 22:46 40 MG Ondansetron HCl 4 mg Q4HP PRN IV 01/28/25 20:45 Guaifenesin/ Dextromethorphan 10 ml Q4HP PRN PO 01/28/25 22:00 02/01/25 11:13 10 ML Acetaminophen 650 mg Q6HP PRN PO 01/28/25 22:00 Acetaminophen/ Hydrocodone Bitart 1 tab Q6HP PRN PO 01/29/25 16:00 02/03/25 22:58 1 TAB Albuterol 2.5 mg Q6HWA NEB 01/30/25 12:00 02/04/25 12:26 2.5 MG Ipratropium [place] 0.5 mg Q6HWA NEB 01/30/25 12:00 02/04/25 12:26 0.5 MG Celecoxib 100 mg Q12HR PO 01/30/25 22:00 02/04/25 09:58 100 MG Diagnostic Test (Pha) 1 strip ACHS 02/01/25 11:30 02/04/25 11:40 1 STRIP Insulin Human Regular HS SC 02/01/25 22:00 02/03/25 22:58 12 UNITS Insulin Human Regular AC SC 02/01/25 11:30 02/04/25 06:27 9 UNITS Dextrose 50 ml UD PRN IV 02/01/25 10:00 Lactulose 30 ml DAILYPRN PRN PO 02/02/25 10:00 Sodium Chloride 10 ml QSHIFT@10,22 IV 02/01/25 22:00 02/04/25 10:00 10 ML Piperacillin Sod/ Tazobactam Sod 100 ml @ 25 mls/hr Q8HR IV 02/01/25 22:00 UNV Piperacillin Sod/ Tazobactam Sod 100 ml @ 100 mls/hr Q8HR IV 02/03/25 12:15 02/04/25 13:22 100 MLS/HR General Appearance: Alert, Oriented X3, Cooperative HEENT: Atraumatic, PERRLA Lungs: Clear to auscultation, Normal air movement Cardiovascular: Normal S1, Normal S2 Musculoskeletal: Normal sensory function, Normal motor function Extremities: Other (Limited range of motion in pain to right shoulder.) Well dressed post surgical foot wound. Skin: Dry, Intact Psych/Mental Status: Mental status NL, Mood NL laboratory and microbiology Laboratory Tests 02/02/25 05:50 Test 02/02/25 05:50 Range/Units Serum Glucose 230 H 74-106 mg/dL Problem List/Assessment/Plan Problem List/Assessment/Plan WON PEARSON, a 64-year-old male with a history of COPD, hypertension, type 2 diabetes mellitus, prior smoking history, osteoarthritis, and recurrent left foot osteomyelitis (previously treated with I&D and six weeks of IV antibiotics in May 2024) presented to the ED with shortness of breath and left great toe pain that began two weeks prior, accompanied by swelling and redness, presented septic, with CT imaging of the left foot showed significant osteomyelitis involving the 1st proximal phalanx, with additional osseous erosion and sclerosis of the 1st metatarsal head and likely base of the distal phalanx. He was started on Rocephin and vancomycin later changed to cefepime as MSSA and Streptococcus group B came positive from left foot wound, podiatry on board for further management and now s/p incision and drainage this PM Assessment: #Osteomyelitis of left 1st proximal phalanx with osseous erosion and areas of intermixed sclerosis of the 1st metatarsal head and likely base of the distal phalanx. #Cellulitis of left foot with worsening wound MSSA, Enterobacter aerogenous and Streptococcus group s/p I&D for source control on 02/04/2025 #rheumatoid arthritis with right shoulder pain #Present on admission, with sepsis, resolved s/p Vancomycin and Cefepime 1g IV q8 hrs empiric #Known diabetes mellitus 8.5 HbA1C #Diabetic neuropathy/Charcot foot #Ruled out peripheral vascular disease #History of heavy tobacco use - #Osteoarthritis #Hypertension #Dyslipidemia #Chronic constipation #Grade III obesity #Anxiety and depression #COPD #BPH Plan/Recommendation: #Continue IV Zosyn monotherapy and follow up intraoperative cultures closely. #S/p PICC line with 6-8 weeks of IV antibiotics consider SW consult for home health arrangement. #Highly recommended smoking cessation. #Outpatient close follow up with the Infectious Disease. #Continue wound care and post surgical wound management, pain controlled and further medical management as per the primary team. Case discussed with Dr. Ankur FELIZ team will continue to follow up. Plan discussed with: Patient Dietary Evaluation Review Comments[facility] Juan for healing Expected Outcomes/Goals: wt loss, healing wounds FRIDA SOUZA RESIDENT Feb 04, 2025 13:52
[2025-02-04] MEDS ORDERED: KETOROLAC TROMETH 30 MG/ML 1ML VIAL ONE (14:29)
[2025-02-04] MEDS ORDERED: LIDOCAINE 1% INJ PF 5ML AMP ONE (14:29)
[2025-02-04] MEDS ORDERED: PROPOFOL 10 MG/ML 20 ML IV ONE (14:29)
[2025-02-04] MEDS ORDERED: GLYCOPYRROLATE 0.2 MG/ML 1ML VIAL ONE (14:29)
[2025-02-04] MEDS ORDERED: ONDANSETRON HCL 4 MG/2 ML VIAL ONE (14:29)
[2025-02-04] MEDS: BUPIVACAINE 0.5% INJ 50ML VIAL IJ ONE (15:37)
[2025-02-04] MEDS: VANCOMYCIN HCL 1000 MG VL ONE (15:40)
--- NOTE | 2025-02-04 15:48 | DVHOP2 ---
Operative Report - 2 Report Details Date: 02/04/25 Preop Diagnosis: 1. Left foot osteomyelitis 2. Left foot abscess 3. Left foot cellulitis 4. Left foot diabetic ulcer Postop Diagnosis: Same as preop Surgeon: Arabella Olivas MD Anesthesiologist: See anesthesia Anesthesia: Mac Consent: The patient was informed of the risks and benefits of the procedure. These include but are not limited to complications of anesthesia, postoperative infection, incomplete relief of symptoms, recurrence of symptoms, damage to blood vessels, nerves and tendons, deep venous thrombosis, pulmonary embolism and possible need for repeat surgery in the future. Complications: None Estimated Blood Loss: Minimal Fluids: See anesthesia Findings: Consistent with the diagnosis Indications for Surgery: Worsening foot ulcer Name of Procedure Performed 1. Left foot I&D to bone (24715) 2. Left foot delayed closure (01668) Procedure Details Procedure Details: PRE-PROCEDURE INFORMATION: In the pre-op holding area, the extremity to be operated on was clearly marked and the patient verified correct laterality of the marking. The patient was transferred to the OR table and placed in a supine position. A timeout was performed in which identification of the correct patient, procedure, location, and materials was done. The left foot and leg were prepped and draped in normal sterile fashion. DESCRIPTION OF PROCEDURE: Attention was directed to the left where previous incision was made. An incision was made over this area and was deepened through blunt dissection. The incision was deepened to the level of abscess and bone. Care was taken to the dissection to avoid any neurovascular and tendinous structures. The incision was deepened to the bone, and the abscess appeared to be purulent fluid consistent with pus. The cortices of the bone was then removed with rongeur an all necrotic tissue. After the abscess was drained, the area was irrigated with 3 L normal saline using cysto tubing. Deep cultures were then obtained from the wound. The area was then inspected and any areas of tracking, especially along the tendons were also drained. A delayed closure was then performed using 2-0 nylon after was deemed appropriate with no longer concern for infection. POSTOPERATIVE INFORMATION: The patient tolerated the above noted procedure and anesthesia well and was transferred to the PACU with vital signs stable, and vascular status intact with capillary refill intact to all digits. Recommend IV antibiotics. Keep dressings clean dry and intact until he sees me. If the dressing gets saturated, Betadine-soaked gauze Kerlix Victor M. Condition Good Disposition Still a Patient Visit Coding Podiatry Date of Service if different f: Feb 04, 2025 Billing Provider: ARABELLA OLIVAS DPM Podiatry Common Visit Codes: PROCEDURE ONLY ARABELLA OLIVAS DPM Feb 04, 2025 15:48
[2025-02-04] MEDS ORDERED: ONDANSETRON HCL 4 MG/2 ML VIAL IV PRN (16:00)
[2025-02-04] MEDS ORDERED: fentaNYL CITRATE 100 MCG/2 ML VL IV PRN (16:00)
[2025-02-04] MEDS ORDERED: NALOXONE HCL 0.4 MG/ML VIAL IV PRN (16:00)
[2025-02-04] MEDS ORDERED: hydrALAZINE HCL 20 MG/ML VL IV PRN (16:00)
[2025-02-04] MEDS ORDERED: FLUMAZENIL 0.1 MG/ML INJ 10ML MDV IV PRN (16:00)
[2025-02-04] MEDS ORDERED: HYDROmorphone HCL 2 MG/ML VL/or syr IV PRN (16:00)
[2025-02-04] MEDS: PIPERACILLIN-TAZO 4.5GM 100 ML IV ONE (16:52)
--- NOTE | 2025-02-04 18:40 | DVHSR ---
APPROVED REPORT EXAM: Two-dimensional and M-mode echocardiogram with Doppler and color Doppler. Blood Pressure: 162/90 mmHg INDICATION EF RISK FACTORS Obesity: Height: 5'11", Weight: 321 DIMENSIONS LVDd4.8 (3.8-5.7cm)LA (2D)4.8 (1.9-4.0cm)Aortic Root2.9 (2.0-3.7cm) LVDs3.0 (2.5-4.0cm)LA (MM) (1.9-4.0cm)Aortic Cusp Exc2.1 (1.5-2.0cm) EF (%) 68.0 (55-70%)Rt. Atrium4.1 (1.9-4.0cm)Asc. Aorta3.3 cm IVSd1.4 (0.7-1.1cm)RV (D) (1.8-2.4cm) PWd0.8 (0.7-1.1cm) Mitral Valve MitralMitral Stenosis E wave1.09m/sMV Mean GR.mmHg A wave1.11m/sMV Peak GR.mmHg E/A ratio1.02D MVAcm2 DECEL [id number] 1/2 Tim[place] Aortic Valve Aortic ValveAortic Stenosis V11.36m/Pilo Mean GR.7mmHg V21.72m/Pilo Peak GR.12mmHg LVOT Diameter2.4 (1.8-2.4cm)Doppler AVA3.58cm2 Pulmonic Valve V20.98m/s Tricuspid Valve TR Velocity3.10m/s [id number] Other Information Quality : Technically LimitedRhythm : Technically limited study due to body habitus. Conclusion Sinus rhythm. Concentric LVH with left atrial enlargement. Mild aortic sclerosis without stenosis. Mild mitral annular calcification. The tricuspid and pulmoni c or structurally normal. Left ventricular function is preserved at 60% with normal right ventricular function. Dopplers unremarkable. No pericardial effusion masses or vegetations.
[2025-02-05] VITALS (12 sets, daily range): BP systolic 103–160; BP diastolic 57–81; PULSE 75–101; RESP 16–20; TEMP 97.5–98.3; O2SAT 90–99
[2025-02-05] MEDS: INSULIN LANTUS (GLARGINE) 1 /0.01ml (100units/ml) SC ONE (01:05)
[2025-02-05] MEDS ORDERED: DEXTROSE (50%) 50ML SYRG IV PRN (12:30)
--- NOTE | 2025-02-05 12:30 | DVHPN2 ---
Subjective Patient continues to report having left foot pain Reviewed: Care Plan, H&P, Labs, Medications Changes from previous H/P or p: No Changes General: Per HPI Objective Vitals Vital Signs Date Time Temp Pulse Resp B/P (MAP) Pulse Ox O2 Delivery O2 Flow Rate FiO2 02/05/25 11:21 94 Nasal Cannula 2.0 02/05/25 11:21 28 02/05/25 11:13 90 18 02/05/25 09:46 117/79 02/05/25 09:00 97.6 97.6 Intake/Output Intake and Output 02/05/25 06:59 Intake Total 500 ml Balance 500 ml Intake Oral 200 ml IV Total 300 ml # Voids 5 General Appearance: Alert, Oriented X3, Cooperative HEENT: Atraumatic, PERRLA Lungs: Clear to auscultation, Normal air movement Cardiovascular: Normal S1, Normal S2 Musculoskeletal: Normal sensory function, Normal motor function Extremities: Other (Limited range of motion in pain to right shoulder.) Skin: Dry, Intact Psych/Mental Status: Mental status NL, Mood NL Medications Current Medications Medications Dose Ordered Sig/Melia Route Start Time Stop Time Status Last Admin Dose Admin Amlodipine Besylate 5 mg DAILY PO 01/29/25 10:00 02/05/25 09:46 5 MG Lisinopril 40 mg DAILY PO 01/29/25 10:00 02/05/25 09:46 40 MG Atorvastatin Calcium 40 mg HS PO 01/28/25 22:00 02/04/25 21:57 40 MG Ondansetron HCl 4 mg Q4HP PRN IV 01/28/25 20:45 Guaifenesin/ Dextromethorphan 10 ml Q4HP PRN PO 01/28/25 22:00 02/01/25 11:13 10 ML Acetaminophen 650 mg Q6HP PRN PO 01/28/25 22:00 Acetaminophen/ Hydrocodone Bitart 1 tab Q6HP PRN PO 01/29/25 16:00 02/05/25 09:46 1 TAB Albuterol 2.5 mg Q6HWA NEB 01/30/25 12:00 02/05/25 11:13 2.5 MG Ipratropium [place] 0.5 mg Q6HWA NEB 01/30/25 12:00 02/05/25 11:13 0.5 MG Celecoxib 100 mg Q12HR PO 01/30/25 22:00 02/05/25 09:45 100 MG Diagnostic Test (Pha) 1 strip ACHS 02/01/25 11:30 02/05/25 06:47 1 STRIP Dextrose 50 ml UD PRN IV 02/01/25 10:00 Lactulose 30 ml DAILYPRN PRN PO 02/02/25 10:00 Sodium Chloride 10 ml QSHIFT@10,22 IV 02/01/25 22:00 02/05/25 09:47 10 ML Piperacillin Sod/ Tazobactam Sod 100 ml @ 25 mls/hr Q8HR IV 02/01/25 22:00 UNV Piperacillin Sod/ Tazobactam Sod 100 ml @ 100 mls/hr Q8HR IV 02/03/25 12:15 02/05/25 05:55 100 MLS/HR Oxycodone HCl 10 mg ONCE PRN PO 02/04/25 16:00 Insulin Glargine 15 units HS SC 02/05/25 22:00 Insulin Glargine 25 units BID@0700,2200 SC 02/05/25 22:00 UNV Diagnostic Test (Pha) 1 strip IQ4HR 02/05/25 16:00 UNV Insulin Human Regular IQ4HR SC 02/05/25 16:00 UNV Dextrose 50 ml UD PRN IV 02/05/25 12:30 UNV Laboratory Results Laboratory Tests 02/02/25 05:50 Urinalysis Test 01/29/25 09:14 Urine Color Light-yellow (Yellow) Urine Clarity Clear (Clear) Urine pH 5.0 (5.0-9.0) Urine Specific [place] 1.032 (1.001-1.035) Urine Protein Trace (Negative) H Urine Ketones 1+ (Negative) H Urine Blood 2+ /uL (Negative) H Urine Nitrite Negative (Negative) Urine Bilirubin Negative (Negative) Urine Urobilinogen Normal mg/dL (Negative) Urine Leukocyte Esterase Negative /uL (Negative) Urine RBC 11 /hpf (0 - 3) Urine Microscopic WBC 1 /HPF (0-3) Urine Squamous Epithelial Cells Few /hpf (<5) Urine Bacteria None seen /hpf (None Seen) Urine Glucose 4+ mg/dL (Normal) H Microbiology Microbiology Date/Time Source Procedure Growth Status 01/31/25 13:26 Foot Left Gram Stain - Final Complete 01/31/25 13:26 Foot Left Anaerobic Culture - Final Complete 01/31/25 13:26 Aerobic Culture - Final Staphylococcus aureus Streptococcus Group B Complete Labs and/or images reviewed: Labs reviewed by me, Image(s) reviewed by me Assessment/Plan Assessment/Plan Impression: -left foot osteomyelitis -sepsis -diabetes mellitus -primary hypertension -dyslipidemia -obesity -acute hypoxic respiratory failure -nicotine dependence -rheumatoid arthritis -right shoulder pain -constipation Plan: Events: s/p closure of surgical wound. Blood sugars poorly controlled over past 24hrs. -Lantus 25 units bid, Aggressive sliding scale -podiatry consultation: Status post I&D. -PICC line placement -infectious disease consultation: Home IV abx recommendations/orders appreciated -social service consultation for [facility] -pain management: Continue [place], add Celebrex -bowel regimen -antihypertensives Total time spent with patient discussing and formulating plan of care: 35 minutes. This medical document was created using an electronic medical record system with [employer] dictation system. Although this document has been carefully reviewed, there may still be some phonetic and typographical errors. These areas are purely typographical due to imperfections of the software programs, and do not reflect any compromise in the patient's medical care. Plan discussed with: Patient, Other (RN) My Orders Orders - CAROL PROCTOR NP Procedure Category Date Status Time Insulin Lantus PHA 02/05/25 Logged (Glargine) (Lantus) 22:00 Insulin R (Human) PHA 02/05/25 Logged (Insulin R) 12:30 Glucose Blood PHA 02/05/25 Logged (Accu-Chek Comfort 16:00 Insulin R (Human) PHA 02/05/25 Logged (Insulin R) 16:00 Dextrose 50% Syringe PHA 02/05/25 Logged 12:30 Date of Service: Feb 05, 2025 Billing Provider: CAROL PROCTOR NP Common Visit Codes: [id number] INP/OBS CARE(HIGH) CAROL PROCTOR NP Feb 05, 2025 12:30
--- NOTE | 2025-02-05 13:04 | DVHPN2 ---
Consult Progress Note Date Seen: Feb 05, 2025 Subjective Patient reports: No new complaints Other Systems: Primarily Arabic speaking patient, status post I and D by Dr. Gibbons. the patient is hemodynamically stable with 2 L of nasal cannula oxygen. SW on board arranging for the medications via PICC line with home health. Objective vital signs Vital Sign Date Time Temp Pulse Resp B/P (MAP) Pulse Ox O2 Delivery O2 Flow Rate FiO2 02/05/25 11:21 94 Nasal Cannula 2.0 02/05/25 11:21 28 02/05/25 11:13 90 18 02/05/25 09:46 117/79 02/05/25 09:00 97.6 97.6 Total Intake and Output 02/04/25 02/04/25 02/05/25 15:00 23:00 07:00 Intake Total 200 ml 400 ml Balance 200 ml 400 ml medications Current Medications Medications Dose Ordered Sig/Melia Route Start Time Stop Time Status Last Admin Dose Admin Amlodipine Besylate 5 mg DAILY PO 01/29/25 10:00 02/05/25 09:46 5 MG Lisinopril 40 mg DAILY PO 01/29/25 10:00 02/05/25 09:46 40 MG Atorvastatin Calcium 40 mg HS PO 01/28/25 22:00 02/04/25 21:57 40 MG Ondansetron HCl 4 mg Q4HP PRN IV 01/28/25 20:45 Guaifenesin/ Dextromethorphan 10 ml Q4HP PRN PO 01/28/25 22:00 02/01/25 11:13 10 ML Acetaminophen 650 mg Q6HP PRN PO 01/28/25 22:00 Acetaminophen/ Hydrocodone Bitart 1 tab Q6HP PRN PO 01/29/25 16:00 02/05/25 09:46 1 TAB Albuterol 2.5 mg Q6HWA NEB 01/30/25 12:00 02/05/25 11:13 2.5 MG Ipratropium [place] 0.5 mg Q6HWA NEB 01/30/25 12:00 02/05/25 11:13 0.5 MG Celecoxib 100 mg Q12HR PO 01/30/25 22:00 02/05/25 09:45 100 MG Diagnostic Test (Pha) 1 strip ACHS 02/01/25 11:30 02/05/25 12:28 1 STRIP Dextrose 50 ml UD PRN IV 02/01/25 10:00 Lactulose 30 ml DAILYPRN PRN PO 02/02/25 10:00 Sodium Chloride 10 ml QSHIFT@10,22 IV 02/01/25 22:00 02/05/25 09:47 10 ML Piperacillin Sod/ Tazobactam Sod 100 ml @ 25 mls/hr Q8HR IV 02/01/25 22:00 UNV Piperacillin Sod/ Tazobactam Sod 100 ml @ 100 mls/hr Q8HR IV 02/03/25 12:15 02/05/25 05:55 100 MLS/HR Oxycodone HCl 10 mg ONCE PRN PO 02/04/25 16:00 Insulin Glargine 15 units HS SC 02/05/25 22:00 Insulin Glargine 25 units BID@0700,2200 SC 02/05/25 22:00 UNV Diagnostic Test (Pha) 1 strip IQ4HR 02/05/25 16:00 UNV Insulin Human Regular IQ4HR SC 02/05/25 16:00 UNV Dextrose 50 ml UD PRN IV 02/05/25 12:30 UNV General Appearance: Alert, Oriented X3, Cooperative HEENT: Atraumatic, PERRLA Lungs: Clear to auscultation, Normal air movement Cardiovascular: Normal S1, Normal S2 Musculoskeletal: Normal sensory function, Normal motor function Extremities: Other (Limited range of motion in pain to right shoulder.) Well dressed post surgical foot wound. Skin: Dry, Intact Psych/Mental Status: Mental status NL, Mood NL laboratory and microbiology Laboratory Tests 02/02/25 05:50 Test 02/02/25 05:50 Range/Units Serum Glucose 230 H 74-106 mg/dL Problem List/Assessment/Plan Problem List/Assessment/Plan WON PEARSON, a 64-year-old male with a history of COPD, hypertension, type 2 diabetes mellitus, prior smoking history, osteoarthritis, and recurrent left foot osteomyelitis (previously treated with I&D and six weeks of IV antibiotics in May 2024) presented to the ED with shortness of breath and left great toe pain that began two weeks prior, accompanied by swelling and redness, presented septic, with CT imaging of the left foot showed significant osteomyelitis involving the 1st proximal phalanx, with additional osseous erosion and sclerosis of the 1st metatarsal head and likely base of the distal phalanx. He was started on Rocephin and vancomycin later changed to cefepime as MSSA and Streptococcus group B came positive from left foot wound, podiatry on board for further management and now s/p incision and drainage 02/[address] Gibbons. Assessment: #Osteomyelitis of left 1st proximal phalanx with osseous erosion and areas of intermixed sclerosis of the 1st metatarsal head and likely base of the distal phalanx. #Cellulitis of left foot with worsening wound MSSA, Enterobacter aerogenous and Streptococcus group s/p I&D for source control on 02/04/2025 #rheumatoid arthritis with right shoulder pain #Present on admission, with sepsis, resolved s/p Vancomycin and Cefepime 1g IV q8 hrs empiric #Known diabetes mellitus 8.5 HbA1C #Diabetic neuropathy/Charcot foot #Ruled out peripheral vascular disease #History of heavy tobacco use - #Osteoarthritis #Hypertension #Dyslipidemia #Chronic constipation #Grade III obesity #Anxiety and depression #COPD #BPH Plan/Recommendation: #Please control in hospital serum glucose level, target 140-180 in hospital with superintendent terminal goal of 7-8 HbA1C. #Continue IV Zosyn monotherapy and follow up intraoperative cultures closely. #S/p PICC line with 6-8 weeks of IV antibiotics consider SW consult for home health arrangement with weekly labs. #Highly recommended smoking cessation. #Outpatient close follow up with the Infectious Disease with Dr. Pascual at [facility] clinic. #Continue wound care and post surgical wound management, pain controlled and further medical management as per the primary team. #From ID team perspective no barriers to discharge as long as the primary team and podiatry team deem it clinically appropriate. Case discussed with Dr. Pascual ID team will sign off. Thank you for the opportunity to take care of the patient. Please feel free to reach out with any questions. Plan discussed with: Patient, Other (primary team RN) Dietary Evaluation Review Comments: CCHO-60 cardiac diet Juan for healing Expected Outcomes/Goals: wt loss, healing wounds FRIDA SOUZA RESIDENT Feb 05, 2025 13:04
[2025-02-05] MEDS: InsuLIN REG 1unit/0.01ml Soln (100units/ml) IV ONE ×2 (13:23→16:57)
[2025-02-05] MEDS ORDERED: KETAMINE 50mg/ML 1ml syringe IV ONE (16:01)
[2025-02-05] MEDS: ACCU-CHEK COMFORT CURVE STRIP VI SCH (16:17)
[2025-02-05] MEDS: InsuLIN REG 1unit/0.01ml Soln (100units/ml) SC SCH (16:17)
[2025-02-05] MEDS ORDERED: INSULIN LANTUS (GLARGINE) 1 /0.01ml (100units/ml) SC SCH (22:00)
[2025-02-05] MEDS: INSULIN LANTUS (GLARGINE) 1 /0.01ml (100units/ml) SC SCH (23:08)
[2025-02-06] VITALS (10 sets, daily range): BP systolic 127–155; BP diastolic 73–87; PULSE 68–89; RESP 16–18; TEMP 97.4–98.6; O2SAT 90–99
[2025-02-06] MEDS ORDERED: HYDR-4902 PO (10:09)
[2025-02-06] MEDS ORDERED: SENN-62 PO (10:09)
--- NOTE | 2025-02-06 10:15 | DVHDS2 ---
Discharge Summary Date of Admission Jan 28, 2025 at 19:58 Date of Discharge: Feb 06, 2025 Admitting Diagnosis Left foot osteomyelitis Labs/Diagnostic Data: Laboratory Results Test 02/06/25 08:59 02/02/25 05:50 01/31/25 08:04 01/31/25 04:47 POC Glucose 321 mg/dl (70-106) White Blood Count 9.0 10^3/uL (4.4-10.8) Red Blood Count 4.20 10^6/uL (4.5-5.90) Hemoglobin 12.1 g/dL (13.5-17.5) Hematocrit 36.0 % (41.0-53.0) Mean Corpuscular Volume 85.7 fL (80.0-100.0) Mean Corpuscular Hemoglobin 28.8 pg (28.0-32.0) Mean Corpuscular Hemoglobin Concent 33.6 g/dL (32.0-36.0) Red Cell Distribution Width 14.8 % (11.8-14.3) Platelet Count 430 10^3/uL (140-450) Mean Platelet Volume 8.5 fL (6.9-10.8) Neutrophils (%) (Auto) 69.1 % (37.0-80.0) Lymphocytes (%) (Auto) 14.3 % (10.0-50.0) Monocytes (%) (Auto) 10.9 % (0.0-12.0) Eosinophils (%) (Auto) 5.1 % (0.0-7.0) Basophils (%) (Auto) 0.6 % (0.0-2.0) Neutrophils # (Auto) 6.2 10 ^3/uL (1.6-8.6) Lymphocytes # (Auto) 1.3 10 ^3/uL (0.4-5.4) Monocytes # (Auto) 1.0 10 ^3/uL (0-1.3) Eosinophils # (Auto) 0.5 10 ^3/uL (0-0.8) Basophils # (Auto) 0.1 10 ^3/uL (0-0.2) Nucleated Red Blood Cells 0.1 % Sodium Level 134 mmol/L (136-145) Potassium Level 4.4 mmol/L (3.5-5.1) Chloride Level 99 mmol/L (98-107) Carbon Dioxide Level 25 mmol/L (20-31) Anion Gap 10 (5-15) Blood Urea Nitrogen 13 mg/dL (9-23) Creatinine 0.96 mg/dL (0.700-1.30) Glomerular Filtration Rate Calc 89 mL/min (>90) BUN/Creatinine Ratio 13.5 (10.0-20.0) Serum Glucose 230 mg/dL (74-106) Calcium Level 8.6 mg/dL (8.7-10.4) Prothrombin Time 10.8 sec (9.3-11.8) Prothrombin Time INR 1.02 (0.9-1.15) Activated Partial Thromboplast Time 36.4 SEC (24.5-34.5) Vancomycin Level Trough 19.8 ug/mL (5-10) Test 01/29/25 09:14 01/29/25 07:19 01/28/25 22:48 01/28/25 22:16 Urine Color Light-yellow (Yellow) Urine Clarity Clear (Clear) Urine pH 5.0 (5.0-9.0) Urine Specific [place] 1.032 (1.001-1.035) Urine Protein Trace (Negative) Urine Ketones 1+ (Negative) Urine Blood 2+ /uL (Negative) Urine Nitrite Negative (Negative) Urine Bilirubin Negative (Negative) Urine Urobilinogen Normal mg/dL (Negative) Urine Leukocyte Esterase Negative /uL (Negative) Urine RBC 11 /hpf (0 - 3) Urine Microscopic WBC 1 /HPF (0-3) Urine Squamous Epithelial Cells Few /hpf (<5) Urine Bacteria None seen /hpf (None Seen) Urine Glucose 4+ mg/dL (Normal) Erythrocyte Sedimentation Rate 76 mm/hr (0-20) Hemoglobin A1c 8.5 % A1C (<5.7) C-Reactive Protein High Sensitivity 18.13 mg/dL (<1.0) D-Dimer, Quantitative 1.21 mg/L FEU (0.0-0.49) Lactic Acid Level 0.8 mmol/L (0.4-2.0) Test 01/28/25 21:11 01/28/25 17:39 Troponin I High Sensitivity 5 ng/L (</=54) Total Bilirubin 0.3 mg/dL (0.2-1.0) Aspartate Amino Transferase (AST) 25 U/L (13-40) Alanine Aminotransferase (ALT) 24 U/L (7-40) Alkaline Phosphatase 80 U/L (46-116) B-Type Natriuretic Peptide 73.56 pg/mL (0-100) Total Protein 7.1 g/dL (5.7-8.2) Albumin 3.9 g/dL (3.2-4.8) Other Laboratory Tests 02/02/25 05:50 Brief Hx & Hospital Course: History of Present Illness 64-year-old male presents for evaluation of foot infection. Patient initially presented with complaints of shortness for breath as worsening over the past four days. He uses 2 L of nasal cannula oxygen at home. He further complaints of left foot infection to his great toe. Denies fever or chills. No chest pain or palpitations. Course of hospitalization: Patient was found to be with sepsis. Empiric antibiotics were started. Infectious Disease consultation was placed. Patient was seen by Podiatry, undergoing I and D of left foot, requiring two surgeries. Patient's blood sugars also were difficult to control given patient had outside food brought into the hospital. Patient has Lantus as well as regular insulin sliding scale was increased to q.4 coverage with the aggressive regular insulin scale. Patient's blood sugars have improved. Patient has adequate pain management with oral narcotics. Options were given to the patient regarding care after being discharged, for which he is requesting to be discharged home with IV antibiotic therapy and home health services. Patient will have wound care performed 3 times a week, with IV antibiotics including Zosyn, which will be followed by Dr. Milad Pascual as an outpatient. Patient will also continue all previous home medications and to be provided [place] 5/325 mg p.o. q.6 hours as needed for [id number] pain, as well as being provided with Senokot for episodes of constipation. He is agreeable with discharge plan. All questions answered. Physical examination General: Alert and Oriented x3. No acute distress. Well-nourished. Obese Eyes: EOMI. Anicteric. HENT: Moist mucous membranes. Lungs: Clear to auscultation bilaterally. No accessory muscle use. Cardiovascular: Regular rate and rhythm. No murmur. No JVD. Abdomen: Soft, non-tender and non-distended. No palpable masses. Extremities: No edema. Non-tender. Left foot dressing dry and intact Skin: No rashes or lesions. Warm. Neurologic: No focal neurological deficits. CN II-XII grossly intact, but not individually tested. Psychiatric: Cooperative. Appropriate mood and affect. Total time spent with patient discussing and formulating plan of care: 35 minutes. This medical document was created using an electronic medical record system with [employer] system. Although this document has been carefully reviewed, there may still be some phonetic and typographical errors. These areas are purely typographical due to imperfections of the software programs, and do not reflect any compromise in the patient's medical care. Condition at Discharge: Good Final Diagnosis/Problems List Left foot osteomyelitis Sepsis -diabetes mellitus -primary hypertension -dyslipidemia -obesity -acute hypoxic respiratory failure -nicotine dependence -rheumatoid arthritis -right shoulder pain -constipation Discharge Disposition: Home with Health Services Discharge Instruct/Medications Diet: Consistent carbohydrate Activity: No Restrictions, As Tolerated Follow Up/Referral: Follow up with Dr. Gibbons in 1-2 weeks Follow up with the PCP in 1-2 weeks Follow up with Dr. Pascual, infectious Disease in 2-3 weeks Medications: Continue all home medications [place] 5/325 q 6 hours as needed for [id number] pain IV antibiotics per Infectious Disease doctor Scheduled Amlodipine Besylate (Amlodipine Besylate), 1 TAB PO DAILY, (Reported) Amoxicillin & Pot Clavulanate (Augmentin), 500 MG PO BID Beclomethasone Dipropionate (Qvar Redihaler), 80 MCG IN BID, (Reported) Budesonide (Inhalation) (Budesonide), 1 VIAL NEB BID, (Reported) Cholecalciferol (Vitamin D3), 1 CAP PO DAILY, (Reported) Empagliflozin (Jardiance), 1 DAILY, (Reported) Gabapentin (Gabapentin), 400 MG PO QID, (Reported) Lisinopril (Lisinopril), 1 DAILY, (Reported) Pioglitazone Hydrochloride (Pioglitazone Hcl), 1 DAILY, (Reported) Sennosides-Docusate Sodium (Senokot S), 1 TAB PO BID Scheduled PRN Acetaminophen (Acetaminophen), 500 MG PO Q6HPRN PRN for mild pain , (Reported) Albuterol Sulfate (Albuterol Sulfate Hfa), 90 MCG IN Q4HPRN PRN for wheezing, (Reported) Benzonatate (Benzonatate), 1 CAP PO TID PRN for cough, (Reported) Hydrocodone-Acetaminophen (Hydrocodone Bitartrate/AC 5-325 mg), 1 TAB PO TIDP PRN Hydrocodone-Acetaminophen (Hydrocodone Bitartrate/AC 5-325 mg), 1 TAB PO Q6HP PRN Miscellaneous Medications Atorvastatin Calcium (Atorvastatin Calcium), 1 TAB PO, (Reported) Metformin Hydrochloride (Metformin Hcl), 1 TAB PO, (Reported) Tamsulosin Hcl (Tamsulosin Hcl), (Reported) 36 Discharge Statement: "Patient was advised to return to the ER or call 911 if any headaches, dizziness, shortness of breath, chest pain, abdominal pain, bleeding, fevers, or worsening of medical condition. Patient was counseled about treatment plan, medications, possible side effects, patientverbalized understanding. All questions were answered to the best of my ability. This discharge took greater then 30 minutes in planning, reviewing documentation, counseling the patient, and discussing with other team members." ASSESSMENT ASSESSMENT Assessment Left foot osteomyelitis Sepsis Date of Service: Feb 06, 2025 Billing Provider: CAROL PROCTOR NP Common Visit Codes: [id number] DISCH DAY >30min CAROL PROCTOR NP Feb 06, 2025 10:15
[2025-02-06] MEDS: InsuLIN REG 1unit/0.01ml Soln (100units/ml) IV ONE (10:56)
[2025-02-06 11:10] LABS: Chloride 100 mmol/L (98-107); Potassium 4.3 mmol/L (3.5-5.1)
[2025-02-06 11:11] LABS: Anion Gap 7 (5-15); Carbon Dioxide 28 mmol/L (20-31)
[2025-02-06 11:12] LABS: Calcium 8.1 mg/dL (8.7-10.4); Sodium 135 mmol/L (136-145)
[2025-02-06 11:16] LABS: BUN/Creatinine Ratio 20.4 (10.0-20.0); Blood Urea Nitrogen 23 mg/dL (9-23); Glucose 349 mg/dL (74-106)
[2025-02-06 11:17] LABS: Magnesium 2.2 mg/dL (1.6-2.6)
[2025-02-06] MEDS ORDERED: INSULIN LANTUS (GLARGINE) 1 /0.01ml (100units/ml) SC SCH (22:00)
== END 2025-02-06 16:32 | disposition home health service (06) | DRG 853 ==
LOC: EDBD 15:43 → ER 15:43 → OVERFLOW 19:58 → WEST WING 01-29 17:47
PROVIDERS: ADMIT Nurse Practitioner Acute Care; ATTEND Nurse Practitioner Acute Care
PROC: 0J9R0ZZ Drainage of Left Foot Subcutaneous Tissue and Fascia, Open Approach (ICD-10-PCS; 2025-01-31)
PROC: 0QBR0ZX Excision of Left Toe Phalanx, Open Approach, Diagnostic (ICD-10-PCS; principal; 2025-01-31 13:11)
PROC: 02HV33Z Insertion of Infusion Device into Superior Vena Cava, Percutaneous Approach (ICD-10-PCS; 2025-02-01)
PROC: B548ZZA Ultrasonography of Superior Vena Cava, Guidance (ICD-10-PCS; 2025-02-01)
PROC: 0J9R0ZZ Drainage of Left Foot Subcutaneous Tissue and Fascia, Open Approach (ICD-10-PCS; 2025-02-04)
DX: A41.9 Sepsis, unspecified organism (principal); J96.01 Acute respiratory failure with hypoxia; M86.172 Other acute osteomyelitis, left ankle and foot; N17.9 Acute kidney failure, unspecified; L03.116 Cellulitis of left lower limb; L02.612 Cutaneous abscess of left foot; Z68.42 Body mass index [BMI] 45.0-49.9, adult; J44.9 Chronic obstructive pulmonary disease, unspecified; I10 Essential (primary) hypertension; E11.69 Type 2 diabetes mellitus with other specified complication; E78.5 Hyperlipidemia, unspecified; M06.9 Rheumatoid arthritis, unspecified; E11.621 Type 2 diabetes mellitus with foot ulcer; E11.610 Type 2 diabetes mellitus with diabetic neuropathic arthropathy; N40.0 Benign prostatic hyperplasia without lower urinary tract symptoms; F32.A Depression, unspecified; M19.09 Primary osteoarthritis, other specified site; F41.9 Anxiety disorder, unspecified; K59.09 Other constipation; F17.200 Nicotine dependence, unspecified, uncomplicated; E66.813 Obesity, class 3; L97.529 Non-pressure chronic ulcer of other part of left foot with unspecified severity; E11.65 Type 2 diabetes mellitus with hyperglycemia; E11.40 Type 2 diabetes mellitus with diabetic neuropathy, unspecified; Z79.84 Long term (current) use of oral hypoglycemic drugs; Z79.899 Other long term (current) drug therapy
CPT/HCPCS: 36415; 36569; 71045; 72070; 73030; 73700; 76937; 80048; 80053; 80202; 81001; 82962; 83036; 83605; 83735; 83880; 84484; 85025; 85379; 85610; 85652; 85730; 86141; 86850; 86900; 86901; 87070; 87075; 87077; 87081; 87186; 87205; 93005; 93306; 93925; 94640; 99291; 99292; G0378; J1100; J1815; J1885; J1956; J2250; J2405; J2543; J2704; J3490

== ENCOUNTER 2025-03-26 18:35 | Inpatient (IN) | payer MEDICARE, MEDICAID ==
[~2025-03-26] VITALS: Ht 188 cm; Wt 134.8 kg
[~2025-03-26 18:35] MED LIST changes: +ALBU108A5 INH; +BENZ200C64 PO; +BUDE1AER16 INH; +CLOTCRE3 EX; +CYCL0.058 OP; +EMPA1TAB3 PO; +ESCI5TAB20 PO; +GABA-1251 PO; +HYDR-3682 PO; +INSU100I54 SC; +INSUINJ37 SC; +IPRA0.00 NEB; +LISI40TA16 PO; +METF-912 PO; +METF-929 PO; +PIOG1TAB51 PO; +RESM100T PO; +SENN-195 PO; +SENN-62 PO; +TAMS0.4C39 PO; +TRAM50TA2 PO
[2025-03-26 18:50] VITALS: PULSE 122; RESP 24; O2SAT 97
[2025-03-26] MEDS ORDERED: ALBUTEROL SULF 2.5 MG/0.5ML(0.5%) NEB SOLN NEB ONE (19:00)
[2025-03-26] MEDS: IPRATROPIUM BROM 0.5 MG/2.5ML INH SOL NEB ONE (19:20)
[2025-03-26] MEDS: LEVALBUTEROL HCL 1.25 MG/3 ML NEB ONE (19:20)
--- NOTE | 2025-03-26 19:25 | ED.PDOC ---
SOB-HPI HPI Comments HPI: 65 y/o M, BIBA, presents to the ED for CC of shortness of breath. EMS reports, patient is coming from home where he c/o shortness of breath with an associated productive cough x1day. Per EMS, patient is on home 2L of continuous oxygen via [place], d/t a right-lung problem which was unspecified. Upon arrival to the scene, patient was found to be tachycardiac with a heart rate of 128bpm. Patient received x2 breathing Tx en route to the ED with improvement of symptoms. Patient denies current chest pain, palpations, weakness, numbness, dizziness, or headache. No other symptoms or modifying factors are present at this time. Initial Vitals BP: HR: RR: O2 Sat: Temp: Past Medical history: PNEUMONIA, HTN, DM II, HLD DV D/C FINAL Dx (04/08/25): Left foot osteomyelitis Sepsis -diabetes mellitus -primary hypertension -dyslipidemia -obesity -acute hypoxic respiratory failure -nicotine dependence -rheumatoid arthritis -right shoulder pain -constipation Past Surgical history: DENIES ANY Medications: Social History: Denies smoking, ETOH, and drug use. Allergies: NKDA HPI: Poor Historian. REVIEW OF SYSTEMS: CONSTITUTIONAL: Denies acute: fever, diaphoresis, chills, HEAD: Denies acute: headache, photophobia Eyes: Denies acute: Double vision, vision loss, eye pain, eye discharge. EARS: Denies acute: tinnitus, hearing loss, ear discharge, ear pain, THROAT: Denies acute: sore throat, swelling, difficulty swallowing , pain with swallowing, change in voice. NECK: Denies acute: neck pain, neck swelling, stiff neck. HEART: Denies acute : chest pain, palpitations, LUNGS: Denies acute: wheezing, hemoptysis ABDOMEN: Denies acute: abdominal pain, Nausea, Vomiting, diarrhea, melena , hematemesis, hematochezia SKIN: Denies acute: rash, redness, lesions, itchiness. EXTREMITIES: Denies acute: calf pain, numbness, tingling, weakness, denies pain in extremity. Denies acute: Low back pain. Neuro: Denies acute: focal neurological deficit, motor or sensory focal neurological deficit, tremors, seizure like activity, confusion, dizziness, change in mental status, loss of bowel or bladder function, cauda equina like symptoms. : Denies acute: dysuria, hematuria, flank pain, increase in urinary frequency. PSYCH: Denies acute: hallucination, suicidal ideation, homicidal ideation. PHYSICAL EXAM: General: ------moderate--acute distress, awake and alert. Head: normocephalic, atraumatic. No raccoon's eyes, no luz sign. Neck: supple, trachea is midline, no swelling. Throat: Normal phonation. Eyes:, no erythema, no purulent discharge, no proptosis, no icterus. Heart: regular tachycardia, no significant murmur appreciated. Lungs: no apparent respiratory distress, Able to speak in full sentences. No wheezing, no rhonchi, no crackles. No stridors Clear to auscultation bilaterally. Abdomen: non tender to palpation, non distended, soft, no guarding, no rebound, + bowel sounds. Morbidly obese Neuro: Awake, Alert, oriented to name, self, situation, follows commands GCS=15. Speech is normal. Skin: no petechia, no purpura, no cyanosis, non-pale, not jaundice. Lower extremities: --1/4 bilateral - Pitting edema no deformity, no focal swelling, no calf TTP. Makes eye contact. moves all four extremities. Face: no apparent facial droop. ED COURSE: DISCLAIMER: This medical document was created using an electronic medical record system with voice recognition software and computerized dictation system. Although this document has been carefully reviewed, there might still be some phonetic and typographical errors. Occasional wrong-word or "sound-alike" substitutions may have occurred due to the inherent limitations of voice recognition software. These areas are purely typographical due to imperfections of the software programs and do not reflect any compromise in the patient's medical care. Please read the chart carefully and recognize, using context, where these substitutions have occurred. Chief Complaint: Shortness of Breath Time Seen by MD: 19:00 Reviewed notes: Nurses Notes, Medications, Allergies Information Source: Patient Mode of Arrival: EMS History of: None Prehospital treatment: Breathing Tx Modifying Factors: Nothing Associated Signs and Symptoms: Cough If cough with SOB: Productive EKG EKG : Pulse Rate (adult): 118 [place]: Normal Cardiac Rhythm: ST Block: None Hypertrophy: None ST: Normal Comments T-WAVE INVERSION LEAD 3 Was a procedure done? Was a procedure done?: No Differential Dx Differential Diagnosis: Bronchitis, Pneumonia, Sinusitis, Pharyngitis, URI, Other (DDx include ACS, unstable angina, anxiety, PE, pneumothroax, neoplasm, cardiac ischemia, COPD, asthma, CHF, pleural effusion, tobacco abuse, pneumonia, hypoxia, hypercapnia, anemia., infection/sepsis., pulmonary edema. Asthma, Cardiac tamponade, infection.) X-Ray, Labs, Meds, VS Vital Signs Date Time Temp Pulse Resp B/P (MAP) Pulse Ox O2 Delivery O2 Flow Rate FiO2 03/26/25 21:39 98.0 102 18 141/74 (96) 95 98.0 03/26/25 21:37 105 18 128/86 (100) 95 03/26/25 21:00 111 18 114/84 (94) 93 03/26/25 20:16 110/77 03/26/25 20:00 116 03/26/25 19:56 120 16 92 Oxymizer 2 N/A 03/26/25 19:55 118 03/26/25 19:45 118 03/26/25 19:30 98.8 120 16 131/70 (90) 92 98.8 03/26/25 19:20 18 89 Nasal Cannula* 5 40 03/26/25 18:50 122 24 97 Nasal Cannula* 4 36 03/26/25 18:38 98.6 128 4 122/78 95 98.6 Lab Test 03/26/25 21:56 03/26/25 20:53 03/26/25 19:59 03/26/25 19:00 Range/Units Troponin I High Sensitivity Pending 8 4 </=54 ng/L Urine Color Colorless Yellow Urine Clarity Clear Clear Urine pH 5.0 5.0-9.0 Urine Specific [place] 1.010 1.001-1.035 Urine Protein Negative Negative Urine Ketones Negative Negative Urine Blood 2+ H Negative /uL Urine Nitrite Negative Negative Urine Bilirubin Negative Negative Urine Urobilinogen Normal Negative mg/dL Urine Leukocyte Esterase Trace Negative /uL Urine RBC 6 0 - 3 /hpf Urine Microscopic WBC 2 0-3 /HPF Urine Squamous Epithelial Cells Few <5 /hpf Urine Bacteria None seen None Seen /hpf Urine Glucose 4+ H Normal mg/dL White Blood Count 12.7 H 4.4-10.8 10^3/uL Red Blood Count 4.54 4.5-5.90 10^6/uL Hemoglobin 12.5 L 13.5-17.5 g/dL Hematocrit 38.1 L 41.0-53.0 % Mean Corpuscular Volume 84.0 80.0-100.0 fL Mean Corpuscular Hemoglobin 27.6 L 28.0-32.0 pg Mean Corpuscular Hemoglobin Concent 32.9 32.0-36.0 g/dL Red Cell Distribution Width 16.5 H 11.8-14.3 % Platelet Count 257 140-450 10^3/uL Mean Platelet Volume 8.4 6.9-10.8 fL Neutrophils (%) (Auto) 66.2 37.0-80.0 % Lymphocytes (%) (Auto) 23.0 10.0-50.0 % Monocytes (%) (Auto) 8.5 0.0-12.0 % Eosinophils (%) (Auto) 2.1 0.0-7.0 % Basophils (%) (Auto) 0.2 0.0-2.0 % Neutrophils # (Auto) 8.4 1.6-8.6 10 ^3/uL Lymphocytes # (Auto) 2.9 0.4-5.4 10 ^3/uL Monocytes # (Auto) 1.1 0-1.3 10 ^3/uL Eosinophils # (Auto) 0.3 0-0.8 10 ^3/uL Basophils # (Auto) 0 0-0.2 10 ^3/uL Nucleated Red Blood Cells 0.0 % D-Dimer, Quantitative 16.70 H 0.0-0.49 mg/L FEU Sodium Level 137 136-145 mmol/L Potassium Level 4.8 3.5-5.1 mmol/L Chloride Level 101 98-107 mmol/L Carbon Dioxide Level 26 20-31 mmol/L Anion Gap 10 5-15 Blood Urea Nitrogen 25 H 9-23 mg/dL Creatinine 1.32 H 0.700-1.30 mg/dL Glomerular Filtration Rate Calc 60 >90 mL/min BUN/Creatinine Ratio 18.9 10.0-20.0 Serum Glucose 131 H 74-106 mg/dL Lactic Acid Level 1.3 0.4-2.0 mmol/L Calcium Level 8.6 L 8.7-10.4 mg/dL Total Bilirubin 0.5 0.2-1.0 mg/dL Aspartate Amino Transferase (AST) 28 13-40 U/L Alanine Aminotransferase (ALT) 27 7-40 U/L Alkaline Phosphatase 109 46-116 U/L B-Type Natriuretic Peptide 16.38 0-100 pg/mL Total Protein 7.3 5.7-8.2 g/dL Albumin 4.2 3.2-4.8 g/dL Current Medications Medications (Trade) Dose Ordered Sig/Melia Route Start Time Stop Time Status Last Admin Ipratropium [place] (Atrovent Medneb) 1 mg ONCE ONCE NEB 03/26/25 19:00 03/26/25 19:01 DC 03/26/25 19:20 Methylprednisolone Sodium Succinate (Solu Medrol) 125 mg ONCE ONCE IV 03/26/25 19:00 03/26/25 19:01 DC 03/26/25 19:52 Furosemide (Lasix Injection) 60 mg ONCE ONCE IV 03/26/25 19:45 03/26/25 19:56 DC 03/26/25 20:16 [place] [id number] Ph: [phone] DIAGNOSTIC IMAGING Diagnostic Imaging Report : [id number] Signed PATIENT: WON SHELBY ACCT: [id number] UNIT: [id number] : 1960 LOC: ER ROOM / BED: / AGE / SEX: 65 / M ADM STATUS: REG ER SERVICE 46 ORDERING PHYSICIAN: JANELLE GIFFORD DO PROCEDURE(s): CXRP - CHEST PORTABLE REASON: sob ORDER NUMBER(s): [id number], ACCESSION NUMBER(s): [id number] CHEST RADIOGRAPH Indication: sob Technique: Single frontal view of the chest was obtained COMPARISON: None FINDINGS: Cardiac silhouette is enlarged. Mild prominence of the pulmonary vasculature. Mild bibasilar atelectatic changes with probable trace bilateral pleural effusions. Bones and soft tissues demonstrate no significant abnormality. IMPRESSION: Cardiomegaly with pulmonary venous congestion. ATED BY: MARCELINO HUDDLESTON MD DICTATED DATE/TIME: 03/26/251924 SIGNED BY: MARCELINO HUDDLESTON MD SIGNED DATE/TIME: 03/26/251924 CC: Time of 1ST Reevaluation: 19:30 Reevaluation 1ST: Unchanged Time of 2ND Reevaluation: 20:20 (As of now, the only available labs results is CBC. Everything else is still pending) Time of 3RD Reevaluation: 21:31 (D-dimer is still pending) Reevaluation 3RD: Improved Patient Education/Counseling: Diagnosis, Treatment Family Education/Counseling: No Family Present Assigned to Dr. dr. Narvaez. To follow up and CTA angiogram of the chest to rule out PE Comments MDM: patient presented with the above HPI.---dyspnea---workup was initiated. patient was found with the above mentioned diagnosis. the following medications were ordered: please refer to order lists of meds and tests obtained by myself Dr. Gifford. Patient ED course and VS have been stabilized. Patient has been reassessed in the ED and remained in a stable condition. Pertinent incidental findings were discussed with the patient and/or family. Patient/family voices understanding and is agreeable with plan. Patient has been observed in the ED adequate length of time to insure improvement/stability. Escalation of care considered: Consideration of escalation to observation or admission Patient was hypoxic on 2 L nasal cannula here in the ED. Patient was placed on high-flow. Patient continued to be tachycardic without any known history of atrial fibrillation. Patient was given DuoNeb treatments and Lasix and Solu- Medrol. D-dimer was elevated. CTA angiogram of the chest is still pending Patient was ADMITTED to the medicine team for further evaluation and treatment of their presentation. All the reports of any imaging studies that were ordered by myself were reviewed by myself. SEPSIS Sepsis Screen Date sepsis recognized/suspect: Mar 26, 2025 Time Sepsis recognized/suspect: 1837 Recent Procedure: No On Antibiotic Therapy: No Respiratory Rate >20: Yes Heart Rate >90: Yes Temp<36 C (96.8 F) or >38.3 C: No SBP <90 or MAP <65 mmHG: No New Acute Mental Status Change: No Is the patient on CPAP, BIPAP,: No Physician Orders Construction Economist (03/26/25 ) Chest Portable (03/26/25 18:47) Electrocardigram (03/26/25 18:47) Blood Culture (03/26/25 18:47) Troponin-I Hs (03/26/25 21:47) Levalbuterol Hcl (Xopenex Medneb) (03/27/25 00:00) Ct Angio Chest Contrast (03/26/25 22:03) Bilat Lower Dvt (03/26/25 22:03) Vital Signs Date Time Temp Pulse Resp B/P (MAP) Pulse Ox O2 Delivery O2 Flow Rate FiO2 03/26/25 21:39 98.0 102 18 141/74 (96) 95 98.0 03/26/25 21:37 105 18 128/86 (100) 95 03/26/25 21:00 111 18 114/84 (94) 93 03/26/25 20:16 110/77 03/26/25 20:00 116 03/26/25 19:56 120 16 92 Oxymizer 2 N/A 03/26/25 19:55 118 03/26/25 19:45 118 03/26/25 19:30 98.8 120 16 131/70 (90) 92 98.8 03/26/25 19:20 18 89 Nasal Cannula* 5 40 03/26/25 18:50 122 24 97 Nasal Cannula* 4 36 03/26/25 18:38 98.6 128 4 122/78 95 98.6 Laboratory Tests Test 03/26/25 19:00 Lactic Acid Level 1.3 mmol/L (0.4-2.0) White Blood Count 12.7 10^3/uL (4.4-10.8) H Medications Medications Dose Ordered Sig/Melia Route Start Time Stop Time Status Last Admin Dose Admin Furosemide 60 mg ONCE ONCE IV 03/26/25 19:45 03/26/25 19:56 DC 03/26/25 20:16 Ipratropium [place] 1 mg ONCE ONCE NEB 03/26/25 19:00 03/26/25 19:01 DC 03/26/25 19:20 Levalbuterol HCl 1.25 mg STK-MED ONCE .ROUTE 03/26/25 19:15 03/26/25 19:15 DC 03/26/25 19:20 Methylprednisolone Sodium Succinate 125 mg ONCE ONCE IV 03/26/25 19:00 03/26/25 19:01 DC 03/26/25 19:52 Departure 1 Departure Time of Disposition: 19:43 Impression: Primary Impression: Dyspnea Additional Impressions: Acute respiratory distress Hypoxemia Pulmonary vascular congestion Elevated d-dimer Disposition: ADMITTED INPATIENT Admit to: Tele Condition: Guarded Discharged With: Self Critical Care Note Critical Care Time?: Yes (45 min-critical care time only) I personally scribed for JANELLE GIFFORD DO ([email or web address]) on 03/26/25 at 19:25. Electronically submitted by Lary Clark ([email or web address]). I personally scribed for PRASAD GIFFORDE J DO ([email or web address]) on 03/26/25 at 19:55. Electronically submitted by Lary Clark ([email or web address]). I personally scribed for JANELLE GIFFORD J DO ([email or web address]) on 03/26/25 at 20:00. Electronically submitted by Lary Clark ([email or web address]). I personally scribed for PRASAD GIFFORDE J DO ([email or web address]) on 03/26/25 at 20:11. Electronically submitted by Lary Clark ([email or web address]). I personally scribed for PRASAD GIFFORDE J DO ([email or web address]) on 03/26/25 at 20:14. Electronically submitted by Lary Clark ([email or web address]). I personally scribed for JANELLE GIFFORD J DO ([email or web address]) on 03/26/25 at 21:02. Electronically submitted by Lary Clark ([email or web address]). PRASAD GIFFORDE J DO Mar 26, 2025 19:25
[2025-03-26 19:33] LABS: Hematocrit 38.1 % (41.0-53.0); Hemoglobin 12.5 g/dL (13.5-17.5); Mean Corpuscular Hemoglobin 27.6 pg (28.0-32.0); Mean Corpuscular Volume 84.0 fL (80.0-100.0); Nucleated Red Blood Cells % 0.0 %
[2025-03-26 19:45] LABS: Alanine Aminotransferase 27 U/L (7-40); Albumin 4.2 g/dL (3.2-4.8); Alkaline Phosphatase 109 U/L (46-116); Anion Gap 10 (5-15); BUN/Creatinine Ratio 18.9 (10.0-20.0); Carbon Dioxide 26 mmol/L (20-31); Chloride 101 mmol/L (98-107); Potassium 4.8 mmol/L (3.5-5.1); Sodium 137 mmol/L (136-145); Total Protein 7.3 g/dL (5.7-8.2)
[2025-03-26 19:46] LABS: Bilirubin, Total 0.5 mg/dL (0.2-1.0)
[2025-03-26] MEDS: methylPREDNISolone SOD SUCC 125 MG/2 ML VL IV ONE (19:52)
[2025-03-26 19:56] VITALS: PULSE 120; RESP 16; O2SAT 92
[2025-03-26] MEDS: FUROSEMIDE 100 MG/10ML VIAL IV ONE (20:16)
[2025-03-26 20:36] LABS: Blood Urea Nitrogen 25 mg/dL (9-23); Calcium 8.6 mg/dL (8.7-10.4); Glucose 131 mg/dL (74-106)
[2025-03-26 21:52] LABS: Urine Protein, UAD Negative (Negative)
[2025-03-26] MEDS ORDERED: NITROGLYCERIN 0.4 MG SL TAB SL PRN (22:15)
[2025-03-26] MEDS: IOHEXOL 350 MG/ML 100ML IJ ONE (22:36)
--- NOTE | 2025-03-26 22:52 | DVH ---
CTA Chest with intravenous contrast INDICATION: r/o pe. Chest pain. COMPARISON: XY CHEST PORTABLE on DOS: 03/26/25 TECHNIQUE: Multidetector spiral CTA of the chest was performed of the chest with intravenous contrast. PULMONARY ANGIOGRAPHY PROTOCOL was utilized using a bolus- tracking technique centered on the main pulmonary artery. Axial, coronal and sagittal multiplanar and MIP reformats were performed. Radiation Dose : 1. Chest: CTDI volume is 26.91 mGy. Dose-length product is 1144.49 mGy*cm The dose indicators for CT are the volume Computed Tomography (CT) Dose Index (CTDIvol) and the Dose Length Product (DLP), and are measured in units of mGy and mGy-cm, respectively. These indicators are not patient dose, but values generated from the CT scanner acquisition factors. The report includes radiation exposure data for exposures received during this examination. Contrast: 100 cc Omnipaque 350. Findings: Pulmonary artery: Suboptimal opacification of the pulmonary arterial tree. No central, lobar, or segmental pulmonary emboli. Peripheral vessels poorly opacified and not well assessed. No right heart strain. Main pulmonary artery is normal in diameter. Lower neck: Normal thyroid. Lungs: Mild dependent atelectatic changes. Heart/Vascular Structures: Normal heart size. No pericardial effusion. Lymph Nodes: No adenopathy Pleura: No pleural effusion or significant pneumothorax. Musculoskeletal: No acute osseous abnormality. Soft tissues: Normal. Upper abdomen: Limited portions of the upper abdomen are unremarkable. IMPRESSION: No pulmonary embolism. No acute thoracic finding. Mild dependent atelectatic changes.
[2025-03-26 23:00] VITALS: BP 158/82; PULSE 102; RESP 18; TEMP 98; O2SAT 95
--- NOTE | 2025-03-26 23:12 | ECG ---
[facility] Test Date: 2025-03-26 Test Time: 19:45:39 Pat Name: WON OSCAR Department: ED Room: 0296T Gender: M [employer] Professor: JESSI : 1960 Requested By: JANELLE GIFFORD Order Number: [id number] Reading MD: Sb Paz Measurements Intervals [place] Rate: 118 P: 57 CT: 172 QRS: 53 QRSD: 96 T: -12 QT: 304 QTc: 427 Interpretive Statements Sinus tachycardia Abnormal R-wave progression, early transition Borderline T abnormalities, inferior leads Electronically Signed On 04-01-2025 10:06:44 PST by Sb Paz Please click the below link to view image of tracing.
[2025-03-26] MEDS: MORPHINE SULFATE INJ 2 MG/ml SYRG IV PRN (23:30)
--- NOTE | 2025-03-26 23:45 | DVH ---
Bilateral lower extremity venous duplex Clinical History: r/o dvt Comparison: CT CT ANGIO CHEST CONTRAST on DOS: 03/26/25 Technique: Duplex Doppler evaluation of the deep venous systems of both lower extremities from the common femoral veins to the popliteal veins including color Doppler and spectral/pulsed waveform analysis was performed. Findings: RIGHT SIDE: The common femoral vein demonstrates appropriate compressibility and waveform variability. There is compressibility/patency of the great saphenous vein at the proximal thigh. The femoral vein demonstrates appropriate compressibility and waveform variability. The deep femoral vein demonstrates appropriate compressibility and waveform variability. The popliteal vein demonstrates appropriate compressibility and waveform variability. There is normal compressibility at the tibioperoneal trunk. Likely popliteal cyst measures 5.1 cm. LEFT SIDE: The common femoral vein demonstrates appropriate compressibility and waveform variability. There is compressibility/patency of the great saphenous vein at the proximal thigh. The femoral vein demonstrates appropriate compressibility and waveform variability. The deep femoral vein demonstrates appropriate compressibility and waveform variability. The popliteal vein demonstrates appropriate compressibility and waveform variability. There is normal compressibility at the tibioperoneal trunk. Moderately enlarged inguinal lymph node measures 2.7 cm. Impression: 1. No right or left femoropopliteal venous thrombosis. 2. If clinical concern/symptoms persist or worsen, short-interval follow-up study is suggested. 3. Likely right popliteal cyst measures 5.1 cm. 4. Moderately enlarged left inguinal lymph node measures 2.7 cm.
[2025-03-27] VITALS (19 sets, daily range): BP systolic 135–162; BP diastolic 76–90; PULSE 85–103; RESP 16–20; TEMP 96.3–97.9; O2SAT 92–98
[2025-03-27] MEDS ORDERED: DEXTROSE (50%) 50ML SYRG IV PRN
[2025-03-27] MEDS: LEVALBUTEROL HCL 1.25 MG/3 ML NEB NEB SCH
[2025-03-27] MEDS ORDERED: ONDANSETRON HCL 4 MG/2 ML VIAL IV PRN
[2025-03-27] MEDS ORDERED: ACETAMINOPHEN 325 MG TAB PO PRN
--- NOTE | 2025-03-27 00:06 | DVHHP2 ---
History of Present Illness Reason for Visit: Shortness for breath History of Present Illness 65-year-old male presents for evaluation of shortness for breath. Patient reports a two day history of worsening shortness for breath with associated nonproductive cough. Denies fever or chills. No chest pain at the moment. No other acute complaints. Past Medical History COPD, hypertension, diabetes mellitus, dyslipidemia,? Heart failure Past Surgical History Left foot surgery Family History Noncontributory Smoke: No ALCOHOL: none Drugs: None Lives: with Family Review of Systems Review of Systems Review of systems are currently negative otherwise addressed in HPI. Allergies: Coded Allergies: NO KNOWN ALLERGIES (Unverified , 03/26/25) Medications Current Medications Medications Dose Ordered Sig/Melia Route Start Time Stop Time Status Last Admin Dose Admin Levalbuterol HCl 1.25 mg Q6HR NEB 03/27/25 00:00 Nitroglycerin 0.4 mg Q5MINP PRN SL 03/26/25 22:15 Morphine Sulfate 2 mg Q30M PRN IV 03/26/25 22:15 03/26/25 23:30 2 MG Furosemide 20 mg DAILY IV 03/27/25 10:00 UNV Lisinopril 40 mg DAILY PO 03/27/25 10:00 UNV Amlodipine Besylate 5 mg DAILY PO 03/27/25 10:00 UNV Empaglifozin 25 mg DAILY PO 03/27/25 10:00 UNV Diagnostic Test (Pha) 1 strip ACHS 03/27/25 07:00 UNV Insulin Human Regular ACHS SC 03/27/25 07:00 UNV Dextrose 50 ml UD PRN IV 03/27/25 00:00 UNV Ondansetron HCl 4 mg Q4HP PRN IV 03/27/25 00:00 UNV Enoxaparin Sodium 30 mg DAILY SC 03/27/25 10:00 UNV Acetaminophen 650 mg Q6HP PRN PO 03/27/25 00:00 UNV Exam Vital Signs Vital Signs Date Time Temp Pulse Resp B/P (MAP) Pulse Ox O2 Delivery O2 Flow Rate FiO2 03/26/25 23:30 103 14 158/82 03/26/25 23:00 95 03/26/25 23:00 98.0 10.0 72 98.0 03/26/25 19:56 Oxymizer Exam Gen: 65-year-old male in mild distress. Skin: Warm, dry, normal color and texture, no rash. HEENT: Normocephalic atraumatic, mucous membranes moist and pink. Neck: Cervical and supraclavicular nodes normal without enlargement, trachea is midline, thyroid gland is normal without masses. Pulmonary: Diminished breath sounds bilaterally. Cardiac: Regular rate and rhythm. No murmur Abdomen: Soft, nontender, nondistended, bowel sounds present all 4 quadrants, no guarding, no rigidity, no organomegaly. Extremities: No cyanosis, clubbing, no edema Neuro: Cranial nerves II through XII grossly intact, normal affect and speech, no focal motor deficits. Labs/Xrays ORDERING PHYSICIAN: KIM DUMONT PROCEDURE(s): BLDVT - BiLat Lower DVT REASON: r/o dvt ORDER NUMBER(s): [id number], ACCESSION NUMBER(s): [id number] Bilateral lower extremity venous duplex Clinical History: r/o dvt Comparison: CT CT ANGIO CHEST CONTRAST on DOS: 03/26/25 Technique: Duplex Doppler evaluation of the deep venous systems of both lower extremities from the common femoral veins to the popliteal veins including color Doppler and spectral/pulsed waveform analysis was performed. Findings: RIGHT SIDE: The common femoral vein demonstrates appropriate compressibility and waveform variability. There is compressibility/patency of the great saphenous vein at the proximal thigh. The femoral vein demonstrates appropriate compressibility and waveform variability. The deep femoral vein demonstrates appropriate compressibility and waveform variability. The popliteal vein demonstrates appropriate compressibility and waveform variability. There is normal compressibility at the tibioperoneal trunk. Likely popliteal cyst measures 5.1 cm. LEFT SIDE: The common femoral vein demonstrates appropriate compressibility and waveform variability. There is compressibility/patency of the great saphenous vein at the proximal thigh. The femoral vein demonstrates appropriate compressibility and waveform variability. The deep femoral vein demonstrates appropriate compressibility and waveform variability. The popliteal vein demonstrates appropriate compressibility and waveform variability. There is normal compressibility at the tibioperoneal trunk. Moderately enlarged inguinal lymph node measures 2.7 cm. Impression: 1. No right or left femoropopliteal venous thrombosis. 2. If clinical concern/symptoms persist or worsen, short-interval follow-up study is suggested. 3. Likely right popliteal cyst measures 5.1 cm. 4. Moderately enlarged left inguinal lymph node measures 2.7 cm. RING PHYSICIAN: KIM DUMONT PROCEDURE(s): CTACH - CT ANGIO CHEST CONTRAST REASON: r/o pe ORDER NUMBER(s): [id number], ACCESSION NUMBER(s): [id number] CTA Chest with intravenous contrast INDICATION: r/o pe. Chest pain. COMPARISON: XY CHEST PORTABLE on DOS: 03/26/25 TECHNIQUE: Multidetector spiral CTA of the chest was performed of the chest with intravenous contrast. PULMONARY ANGIOGRAPHY PROTOCOL was utilized using a bolus- tracking technique centered on the main pulmonary artery. Axial, coronal and sagittal multiplanar and MIP reformats were performed. Radiation Dose : 1. Chest: CTDI volume is 26.91 mGy. Dose-length product is 1144.49 mGy*cm The dose indicators for CT are the volume Computed Tomography (CT) Dose Index (CTDIvol) and the Dose Length Product (DLP), and are measured in units of mGy and mGy-cm, respectively. These indicators are not patient dose, but values generated from the CT scanner acquisition factors. The report includes radiation exposure data for exposures received during this examination. Contrast: 100 cc Omnipaque 350. Findings: Pulmonary artery: Suboptimal opacification of the pulmonary arterial tree. No central, lobar, or segmental pulmonary emboli. Peripheral vessels poorly opacified and not well assessed. No right heart strain. Main pulmonary artery is normal in diameter. Lower neck: Normal thyroid. Lungs: Mild dependent atelectatic changes. Heart/Vascular Structures: Normal heart size. No pericardial effusion. Lymph Nodes: No adenopathy Pleura: No pleural effusion or significant pneumothorax. Musculoskeletal: No acute osseous abnormality. Soft tissues: Normal. Upper abdomen: Limited portions of the upper abdomen are unremarkable. IMPRESSION: No pulmonary embolism. No acute thoracic finding. Mild dependent atelectatic changes. Labs Test 03/26/25 21:56 03/26/25 20:53 03/26/25 19:00 Range/Units Troponin I High Sensitivity 15 </=54 ng/L Urine Color Colorless Yellow Urine Clarity Clear Clear Urine pH 5.0 5.0-9.0 Urine Specific [place] 1.010 1.001-1.035 Urine Protein Negative Negative Urine Ketones Negative Negative Urine Blood 2+ H Negative /uL Urine Nitrite Negative Negative Urine Bilirubin Negative Negative Urine Urobilinogen Normal Negative mg/dL Urine Leukocyte Esterase Trace Negative /uL Urine RBC 6 0 - 3 /hpf Urine Microscopic WBC 2 0-3 /HPF Urine Squamous Epithelial Cells Few <5 /hpf Urine Bacteria None seen None Seen /hpf Urine Glucose 4+ H Normal mg/dL White Blood Count 12.7 H 4.4-10.8 10^3/uL Red Blood Count 4.54 4.5-5.90 10^6/uL Hemoglobin 12.5 L 13.5-17.5 g/dL Hematocrit 38.1 L 41.0-53.0 % Mean Corpuscular Volume 84.0 80.0-100.0 fL Mean Corpuscular Hemoglobin 27.6 L 28.0-32.0 pg Mean Corpuscular Hemoglobin Concent 32.9 32.0-36.0 g/dL Red Cell Distribution Width 16.5 H 11.8-14.3 % Platelet Count 257 140-450 10^3/uL Mean Platelet Volume 8.4 6.9-10.8 fL Neutrophils (%) (Auto) 66.2 37.0-80.0 % Lymphocytes (%) (Auto) 23.0 10.0-50.0 % Monocytes (%) (Auto) 8.5 0.0-12.0 % Eosinophils (%) (Auto) 2.1 0.0-7.0 % Basophils (%) (Auto) 0.2 0.0-2.0 % Neutrophils # (Auto) 8.4 1.6-8.6 10 ^3/uL Lymphocytes # (Auto) 2.9 0.4-5.4 10 ^3/uL Monocytes # (Auto) 1.1 0-1.3 10 ^3/uL Eosinophils # (Auto) 0.3 0-0.8 10 ^3/uL Basophils # (Auto) 0 0-0.2 10 ^3/uL Nucleated Red Blood Cells 0.0 % D-Dimer, Quantitative 16.70 H 0.0-0.49 mg/L FEU Sodium Level 137 136-145 mmol/L Potassium Level 4.8 3.5-5.1 mmol/L Chloride Level 101 98-107 mmol/L Carbon Dioxide Level 26 20-31 mmol/L Anion Gap 10 5-15 Blood Urea Nitrogen 25 H 9-23 mg/dL Creatinine 1.32 H 0.700-1.30 mg/dL Glomerular Filtration Rate Calc 60 >90 mL/min BUN/Creatinine Ratio 18.9 10.0-20.0 Serum Glucose 131 H 74-106 mg/dL Lactic Acid Level 1.3 0.4-2.0 mmol/L Calcium Level 8.6 L 8.7-10.4 mg/dL Total Bilirubin 0.5 0.2-1.0 mg/dL Aspartate Amino Transferase (AST) 28 13-40 U/L Alanine Aminotransferase (ALT) 27 7-40 U/L Alkaline Phosphatase 109 46-116 U/L B-Type Natriuretic Peptide 16.38 0-100 pg/mL Total Protein 7.3 5.7-8.2 g/dL Albumin 4.2 3.2-4.8 g/dL SEPSIS Sepsis Screen Date sepsis recognized/suspect: Mar 26, 2025 Time Sepsis recognized/suspect: 1939 Recent Procedure: No On Antibiotic Therapy: No Respiratory Rate >20: No Heart Rate >90: Yes Temp<36 C (96.8 F) or >38.3 C: No SBP <90 or MAP <65 mmHG: No New Acute Mental Status Change: No Is the patient on CPAP, BIPAP,: No Physician Orders Dairy Clerk (03/26/25 ) Chest Portable (03/26/25 18:47) Blood Culture (03/26/25 18:47) Levalbuterol Hcl (Xopenex Medneb) (03/27/25 00:00) Ct Angio Chest Contrast (03/26/25 22:03) Bilat Lower Dvt (03/26/25 22:03) Admit (03/26/25 22:05) Nitroglycerin Sublingual (Ntrostat Subli (03/26/25 22:15) Morphine Sulfate Injection (03/26/25 22:15) Stat Ekg For Chest Pain (03/26/25 22:05) Notify Of Changes From Base (03/26/25 22:05) Pediatric Nephrologist For 24 Hours (03/26/25 22:05) Emergency Dysrhythmia Protocol (03/26/25 22:05) Rhythm Strips Once Every Shift (03/26/25 22:05) Oxygen By Nasal Cannula (03/26/25 22:05) Furosemide Injection (Lasix Injection) (03/27/25 10:00) Lisinopril Tablet (Zestril Tablet) (03/27/25 10:00) Amlodipine Tablet (Norvasc Tablet) (03/27/25 10:00) Empagliflozin (Jardiance) (03/27/25 10:00) Basic Metabolic Panel (03/27/25 04:00) Glucose Blood (Accu-Chek Comfort Curve T (03/27/25 07:00) Insulin R (Human) (Insulin R) (03/27/25 07:00) Dextrose 50% Syringe (03/27/25 00:00) Ondansetron Hcl (Zofran) (03/27/25 00:00) Complete Blood Count (03/27/25 04:00) Echo 2d Mode Cardiac Dop (03/26/25 23:53) Condition: Fair (03/26/25 23:53) Enoxaparin Sodium (Lovenox) (03/27/25 10:00) Acetaminophen Tablet (Tylenol Tablet) (03/27/25 00:00) Bedrest With Bathroom Privileg (03/26/25 23:53) Thyroid Stimulating Hormone (03/27/25 00:01) Lipid Panel (03/27/25 00:01) Hemoglobin A1c (03/27/25 00:01) Vital Signs Date Time Temp Pulse Resp B/P (MAP) Pulse Ox O2 Delivery O2 Flow Rate FiO2 03/26/25 23:30 103 14 158/82 03/26/25 23:00 102 18 158/82 (107) 95 03/26/25 23:00 98.0 102 18 158/82 95 10.0 72 98.0 03/26/25 21:39 98.0 102 18 141/74 (96) 95 98.0 03/26/25 21:37 105 18 128/86 (100) 95 03/26/25 21:00 111 18 114/84 (94) 93 03/26/25 20:16 110/77 03/26/25 20:00 116 03/26/25 19:56 120 16 92 Oxymizer 2 N/A 03/26/25 19:55 118 03/26/25 19:45 118 03/26/25 19:30 98.8 120 16 131/70 (90) 92 98.8 03/26/25 19:20 18 89 Nasal Cannula* 5 40 03/26/25 18:50 122 24 97 Nasal Cannula* 4 36 03/26/25 18:38 98.6 128 4 122/78 95 98.6 Laboratory Tests Test 03/26/25 19:00 Lactic Acid Level 1.3 mmol/L (0.4-2.0) White Blood Count 12.7 10^3/uL (4.4-10.8) H Medications Medications Dose Ordered Sig/Melia Route Start Time Stop Time Status Last Admin Dose Admin Furosemide 60 mg ONCE ONCE IV 03/26/25 19:45 03/26/25 19:56 DC 03/26/25 20:16 60 MG Ipratropium [place] 1 mg ONCE ONCE NEB 03/26/25 19:00 03/26/25 19:01 DC 03/26/25 19:20 1 MG Levalbuterol HCl 1.25 mg STK-MED ONCE .ROUTE 03/26/25 19:15 03/26/25 19:15 DC 03/26/25 19:20 1.25 MG Methylprednisolone Sodium Succinate 125 mg ONCE ONCE IV 03/26/25 19:00 03/26/25 19:01 DC 03/26/25 19:52 125 MG Morphine Sulfate 2 mg Q30M PRN IV 03/26/25 22:15 03/26/25 23:30 2 MG Assessment/Plan Assessment/Plan Assessment Acute on chronic hypoxic respiratory failure ? Heart failure Diabetes mellitus Hypertension Chronic kidney disease Morbid obesity Plan Admit the patient to telemetry to the hospitalist [facility] nebs IV Lasix Echocardiogram pending Resume home medications Continue treatment per orders. Plan discussed with: Patient My Orders Orders - KIM DUMONT AGACNP Procedure Category Date Status Time Ct Angio Chest CT 03/26/25 Resulted Contrast 22:03 Bilat Lower Dvt US 03/26/25 Resulted 22:03 Admit ADMIT 03/26/25 Transmitted 22:05 Nitroglycerin PHA 03/26/25 In Process Sublingual (Ntrostat 22:15 Morphine Sulfate PHA 03/26/25 In Process Injection 22:15 Stat Ekg For Chest DOLORES 03/26/25 In Process Pain 22:05 Notify Of Changes [facility] 03/26/25 In Process From Base 22:05 Pediatric Nephrologist For [facility] 03/26/25 In Process 24 Hours 22:05 Emergency Dysrhythmia [facility] 03/26/25 In Process Protocol 22:05 Rhythm Strips Once [facility] 03/26/25 In Process Every Shift 22:05 Oxygen By Nasal RT 03/26/25 Transmitted Cannula 22:05 Furosemide Injection PHA 03/27/25 Logged (Lasix Injection) 10:00 Lisinopril Tablet PHA 03/27/25 Logged (Zestril Tablet) 10:00 Amlodipine Tablet PHA 03/27/25 Logged (Norvasc Tablet) 10:00 Empagliflozin PHA 03/27/25 Logged (Jardiance) 10:00 Basic Metabolic Panel LAB 03/27/25 Transmitted 04:00 Glucose Blood PHA 03/27/25 Logged (Accu-Chek Comfort 07:00 Insulin R (Human) PHA 03/27/25 Logged (Insulin R) 07:00 Dextrose 50% Syringe PHA 03/27/25 Logged 00:00 Ondansetron Hcl PHA 03/27/25 Transmitted (Zofran) 00:00 Complete Blood Count LAB 03/27/25 Transmitted 04:00 Echo 2d Mode Cardiac US 03/26/25 Logged DOP 23:53 Condition: Fair [facility] 03/26/25 In Process 23:53 Enoxaparin Sodium PHA 03/27/25 Transmitted (Lovenox) 10:00 Acetaminophen Tablet PHA 03/27/25 Logged (Tylenol Tablet) 00:00 Bedrest With Bathroom [facility] 03/26/25 In Process Privileg 23:53 Thyroid Stimulating LAB 03/27/25 Verified Hormone 00:01 Lipid Panel LAB 03/27/25 Verified 00:01 Hemoglobin A1c LAB 03/27/25 Verified 00:01 Date of Service: Mar 26, 2025 Billing Provider: KIM DUMONT Common Visit Codes: [id number] INP/OBS CARE (HIGH) KIM DUMONT Mar 27, 2025 00:06
[2025-03-27] MEDS: HYDROcodone-ACET 5/325MG TAB PO PRN (01:08)
[2025-03-27 03:27] LABS: Triglycerides 57 mg/dL (< 150)
[2025-03-27 03:29] LABS: Cholesterol 169 mg/dL (< 200); HDL Cholesterol 47 mg/dL (40-59)
[2025-03-27 06:23] LABS: Hematocrit 38.8 % (41.0-53.0); Hemoglobin 13.0 g/dL (13.5-17.5); Mean Corpuscular Hemoglobin 28.1 pg (28.0-32.0); Mean Corpuscular Volume 83.6 fL (80.0-100.0); Nucleated Red Blood Cells % 0.0 %
[2025-03-27 06:37] LABS: Chloride 102 mmol/L (98-107); Potassium 4.6 mmol/L (3.5-5.1); Sodium 138 mmol/L (136-145)
[2025-03-27 06:38] LABS: BUN/Creatinine Ratio 19.5 (10.0-20.0)
[2025-03-27 06:39] LABS: Anion Gap 13 (5-15); Blood Urea Nitrogen 24 mg/dL (9-23); Calcium 9.2 mg/dL (8.7-10.4); Carbon Dioxide 23 mmol/L (20-31); Glucose 197 mg/dL (74-106)
[2025-03-27] MEDS: ACCU-CHEK COMFORT CURVE STRIP VI SCH (06:48)
[2025-03-27] MEDS: InsuLIN REG 1unit/0.01ml Soln (100units/ml) SC SCH (06:52)
[2025-03-27] MEDS: FUROSEMIDE 20 MG/2 ML VIAL IV SCH (10:38)
[2025-03-27] MEDS: methylPREDNISolone SOD SUCC 40 MG/ML VL IV SCH (10:38)
[2025-03-27] MEDS: LISINOPRIL 20 MG TAB PO SCH (10:39)
[2025-03-27] MEDS: EMPAGLIFLOZIN 10 MG TAB PO SCH (10:40)
[2025-03-27] MEDS: ENOXAPARIN SOD 30 MG/0.3 ML SYRINGE SC SCH (10:40)
--- NOTE | 2025-03-27 12:36 | DVHPN2 ---
Subjective feels SOB Reviewed: H&P Changes from previous H/P or p: No Changes Objective Vitals Vital Signs Date Time Temp Pulse Resp B/P (MAP) Pulse Ox O2 Delivery O2 Flow Rate FiO2 03/27/25 12:27 96.9 96 20 162/86 (111) 97 96.9 03/27/25 11:36 Oxymizer 10 N/A Intake/Output Intake and Output 03/27/25 05:00 Intake Total 250 ml Output Total 300 ml Balance -50 ml Intake Oral 250 ml Output Urine Total 300 ml # Voids 2 General Appearance: Alert, Oriented X3 HEENT: Atraumatic Lungs: Other (wheezing on exam bilateral) Cardiovascular: Regular rate, Normal S1, Normal S2 Abdomen: Normal bowel sounds Medications Current Medications Medications Dose Ordered Sig/Melia Route Start Time Stop Time Status Last Admin Dose Admin Levalbuterol HCl 1.25 mg Q6HR NEB 03/27/25 00:00 03/27/25 11:36 1.25 MG Nitroglycerin 0.4 mg Q5MINP PRN SL 03/26/25 22:15 Morphine Sulfate 2 mg Q30M PRN IV 03/26/25 22:15 03/26/25 23:30 2 MG Furosemide 20 mg DAILY IV 03/27/25 10:00 03/27/25 10:38 20 MG Lisinopril 40 mg DAILY PO 03/27/25 10:00 03/27/25 10:39 40 MG Amlodipine Besylate 5 mg DAILY PO 03/27/25 10:00 03/27/25 10:39 5 MG Empaglifozin 25 mg DAILY PO 03/27/25 10:00 03/27/25 10:40 25 MG Diagnostic Test (Pha) 1 strip ACHS 03/27/25 07:00 03/27/25 11:30 1 STRIP Insulin Human Regular ACHS SC 03/27/25 07:00 03/27/25 12:15 6 UNITS Dextrose 50 ml UD PRN IV 03/27/25 00:00 Ondansetron HCl 4 mg Q4HP PRN IV 03/27/25 00:00 Enoxaparin Sodium 30 mg DAILY SC 03/27/25 10:00 03/27/25 10:40 30 MG Acetaminophen 650 mg Q6HP PRN PO 03/27/25 00:00 Methylprednisolone Sodium Succinate 40 mg DAILY IV 03/27/25 10:00 03/27/25 10:38 40 MG Acetaminophen/ Hydrocodone Bitart 1 tab Q6HPRN PRN PO 03/27/25 00:45 03/27/25 10:41 1 TAB Laboratory Results Laboratory Tests 03/27/25 04:43 Chemistry Test 03/26/25 19:00 03/27/25 04:43 Albumin 4.2 g/dL (3.2-4.8) Calcium Level 8.6 mg/dL (8.7-10.4) L 9.2 mg/dL (8.7-10.4) Total Protein 7.3 g/dL (5.7-8.2) Coagulation Test 03/26/25 19:00 D-Dimer, Quantitative 16.70 mg/L FEU (0.0-0.49) H Lipid panel Test 03/27/25 00:20 Cholesterol Level 169 mg/dL (< 200) HDL Cholesterol 47 mg/dL (40-59) Triglycerides Level 57 mg/dL (< 150) Cardiac Markers Test 03/26/25 19:00 B-Type Natriuretic Peptide 16.38 pg/mL (0-100) LFT Test 03/26/25 19:00 Alanine Aminotransferase (ALT) 27 U/L (7-40) Alkaline Phosphatase 109 U/L (46-116) Aspartate Amino Transferase (AST) 28 U/L (13-40) Total Bilirubin 0.5 mg/dL (0.2-1.0) HgA1c, TSH Test 03/27/25 00:20 Hemoglobin A1c 8.2 % A1C (<5.7) H Thyroid Stimulating Hormone (TSH) 0.62 uIU/mL (0.55-4.78) Urinalysis Test 03/26/25 20:53 Urine Color Colorless (Yellow) Urine Clarity Clear (Clear) Urine pH 5.0 (5.0-9.0) Urine Specific [place] 1.010 (1.001-1.035) Urine Protein Negative (Negative) Urine Ketones Negative (Negative) Urine Blood 2+ /uL (Negative) H Urine Nitrite Negative (Negative) Urine Bilirubin Negative (Negative) Urine Urobilinogen Normal mg/dL (Negative) Urine Leukocyte Esterase Trace /uL (Negative) Urine RBC 6 /hpf (0 - 3) Urine Microscopic WBC 2 /HPF (0-3) Urine Squamous Epithelial Cells Few /hpf (<5) Urine Bacteria None seen /hpf (None Seen) Urine Glucose 4+ mg/dL (Normal) H Assessment/Plan Assessment/Plan Acute on chronic hypoxic respiratory failure COPD exacerbation Acute diastolic HF exacerbation Diabetes mellitus Hypertension Chronic kidney disease Morbid obesity Continue IV steroids IV lasix Echo pending Duonebs Plan discussed with: Patient Date of Service: Mar 27, 2025 Billing Provider: ARNOLDO LOCKHART MD Common Visit Codes: [id number] INP/OBS CARE(HIGH) ARNOLDO LOCKHART MD Mar 27, 2025 12:36
[2025-03-27] MEDS: guaiFENesin-DM 100/10mg/5ml SYR PO PRN (16:18)
[2025-03-28] VITALS (16 sets, daily range): BP systolic 130–156; BP diastolic 73–90; PULSE 79–111; RESP 16–20; TEMP 97.4–97.9; O2SAT 18–98
[2025-03-28] MEDS ORDERED: VANCOMYCIN PER PHARMACY 0 MG IV SCH (08:30)
[2025-03-28] MEDS ORDERED: VANCOMYCIN 1.75GM/350ML 350 ML IV ONE (10:00)
[2025-03-28 11:25] LABS: Hematocrit 40.3 % (41.0-53.0); Hemoglobin 13.0 g/dL (13.5-17.5); Mean Corpuscular Hemoglobin 27.0 pg (28.0-32.0); Mean Corpuscular Volume 83.4 fL (80.0-100.0); Nucleated Red Blood Cells % 0.0 %
--- NOTE | 2025-03-28 11:46 | DVHINCON2 ---
Date of Service if different f: Mar 28, 2025 Consultation (AYDEN) Labs Laboratory Tests Test 03/26/25 19:00 03/26/25 20:53 03/26/25 21:56 03/27/25 00:20 D-Dimer, Quantitative 16.70 mg/L FEU (0.0-0.49) Lactic Acid Level 1.3 mmol/L (0.4-2.0) Total Bilirubin 0.5 mg/dL (0.2-1.0) Aspartate Amino Transf (AST/SGOT) 28 U/L (13-40) Alanine Aminotransferase (ALT/SGPT) 27 U/L (7-40) Alkaline Phosphatase 109 U/L (46-116) B-Type Natriuretic Peptide 16.38 pg/mL (0-100) Total Protein 7.3 g/dL (5.7-8.2) Albumin 4.2 g/dL (3.2-4.8) Urine Color Colorless (Yellow) Urine Clarity Clear (Clear) Urine pH 5.0 (5.0-9.0) Urine Specific [place] 1.010 (1.001-1.035) Urine Protein Negative (Negative) Urine Ketones Negative (Negative) Urine Blood 2+ /uL (Negative) Urine Nitrite Negative (Negative) Urine Bilirubin Negative (Negative) Urine Urobilinogen Normal mg/dL (Negative) Urine Leukocyte Esterase Trace /uL (Negative) Urine RBC 6 /hpf (0 - 3) Urine Microscopic WBC 2 /HPF (0-3) Urine Squamous Epithelial Cells Few /hpf (<5) Urine Bacteria None seen /hpf (None Seen) Urine Glucose 4+ mg/dL (Normal) Troponin I High Sensitivity 15 ng/L (</=54) Hemoglobin A1c 8.2 % A1C (<5.7) Triglycerides Level 57 mg/dL (< 150) Cholesterol Level 169 mg/dL (< 200) LDL Cholesterol 115 mg/dL (< 100) HDL Cholesterol 47 mg/dL (40-59) Thyroid Stimulating Hormone (TSH) 0.62 uIU/mL (0.55-4.78) Test 03/27/25 04:43 03/28/25 06:23 03/28/25 10:30 Eosinophils (%) (Auto) 0.0 % (0.0-7.0) Eosinophils # (Auto) 0 10 ^3/uL (0-0.8) Basophils # (Auto) 0 10 ^3/uL (0-0.2) Nucleated Red Blood Cells 0.0 % Sodium Level 138 mmol/L (136-145) Potassium Level 4.6 mmol/L (3.5-5.1) Chloride Level 102 mmol/L (98-107) Carbon Dioxide Level 23 mmol/L (20-31) Anion Gap 13 (5-15) Blood Urea Nitrogen 24 mg/dL (9-23) BUN/Creatinine Ratio 19.5 (10.0-20.0) Serum Glucose 197 mg/dL (74-106) Calcium Level 9.2 mg/dL (8.7-10.4) Bedside Glucose 244 mg/dl (70-106) Microbiology Date/Time Source Procedure Growth Status 03/26/25 19:10 Blood Blood Culture - Preliminary Resulted Appetite: Good Side effects of medications: EPS Appearance: Stated age, Groomed Psychomotor activity: WNL Behavioral: Cooperative Eye contact: Appropriate Speech: WNL Affect: Mood Congruent Mood: Depressed Thought processes: Linear/Goal-directed Thought content: WNL Suicidal ideations: Absent Homicidal ideations: Absent Orientation: Person, Place, Time, Situation Memory intact: Recent Intellect: Average Abstractability: WNL Concentration: Adequate Attention: Adequate Judgement: WNL Insight: Fair Vitals Vital Signs Date Time Temp Pulse Resp B/P (MAP) Pulse Ox O2 Delivery O2 Flow Rate FiO2 03/28/25 09:15 138/83 03/28/25 09:00 97.9 87 20 93 97.9 03/28/25 08:00 Oxymizer 10 N/A Current medications Current Medications Medications Dose Ordered Sig/Melia Route Start Time Stop Time Status Last Admin Dose Admin Levalbuterol HCl 1.25 mg Q6HR NEB 03/27/25 00:00 03/28/25 06:01 1.25 MG Nitroglycerin 0.4 mg Q5MINP PRN SL 03/26/25 22:15 Morphine Sulfate 2 mg Q30M PRN IV 03/26/25 22:15 03/26/25 23:30 2 MG Furosemide 20 mg DAILY IV 03/27/25 10:00 03/28/25 09:13 20 MG Lisinopril 40 mg DAILY PO 03/27/25 10:00 03/28/25 09:14 40 MG Amlodipine Besylate 5 mg DAILY PO 03/27/25 10:00 03/28/25 09:15 5 MG Empaglifozin 25 mg DAILY PO 03/27/25 10:00 03/28/25 09:13 25 MG Diagnostic Test (Pha) 1 strip ACHS 03/27/25 07:00 03/28/25 06:31 1 STRIP Insulin Human Regular ACHS SC 03/27/25 07:00 03/28/25 06:46 4 UNITS Dextrose 50 ml UD PRN IV 03/27/25 00:00 Ondansetron HCl 4 mg Q4HP PRN IV 03/27/25 00:00 Enoxaparin Sodium 30 mg DAILY SC 03/27/25 10:00 03/28/25 09:15 30 MG Acetaminophen 650 mg Q6HP PRN PO 03/27/25 00:00 Methylprednisolone Sodium Succinate 40 mg DAILY IV 03/27/25 10:00 03/28/25 09:13 40 MG Acetaminophen/ Hydrocodone Bitart 1 tab Q6HPRN PRN PO 03/27/25 00:45 03/28/25 09:14 1 TAB Guaifenesin/ Dextromethorphan 10 ml Q4HP PRN PO 03/27/25 15:45 03/28/25 09:14 10 ML Vancomycin HCl 0 ml @ 0 mls/hr PER PHARMACY IV 03/28/25 08:30 Vancomycin HCl 250 ml @ 250 mls/hr Q1H IV 03/28/25 10:00 03/28/25 11:59 Treatment plan discussed: With staff Medication adjusted: Yes Labs ordered: No Diagnosis: unspecified mood disorder Plan : Patient does report depressed mood primarily due to his health concerns, but denies any suicidal/homicidal ideation with plan or intent. Recommend to continue current antidepressant as prescribed Patient does not meet LPS hold criteria and may discharge home after medical clearance here. Provide outpatient mental health referrals as available History of Present Illness Reason for Consult : Per report, patient reported suicidal thoughts HPI : This is a 65-year-old [place]-speaking male, presented here for shortness of breath. Patient is evaluated via telepsychiatry platform with client associate. Met patient lying in bed. Patient reports being here due to having difficulty with breathing and pain near his lungs. He reports having pain for awhile but worst in the last 21 days. He reports his health problems and pain makes him feel more depressed. he often thinks "if God takes me now, I'm fine with it" He also reports, yes " I want to " but " I am not going to kill myself." " I have never had thoughts to kill myself." He would not have thoughts about dying if he was in good health. Again, he denies having suicidal/homicidal ideation with plan or intent. He sometimes feels depressed and hopeless. He does report his PCP prescribed an antidepressant 6 months ago and it has helped him feel better. He cannot recall name of medication but gives it to him daily. He reports his appetite and sleep are intact. He denies any history of psychosis and presently denies auditory/visual hallucinations or paranoid thoughts. Past Psychiatric History : He denies prior psych admissions, 5150holds or suicide attempts. He is prescribed antidepressant by his PCP x 6months. He currently does not have outpatient mental health services. Past Medical History : He reports hx of COPD, HTN, HLD, diabetes, fatty liver Social History : He lives with and daughter and has good support at home. He receives disability and unable to work. 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 He currently denies any alcohol or other illicit drug use. He denies any known family history of psychiatric problems. He denies access to firearms. JULI MEZA [facility] Mar 28, 2025 11:46
[2025-03-28] MEDS: VANCOMYCIN 1GM/250ML KIT 250 ML IV SCH (11:59)
--- NOTE | 2025-03-28 16:02 | DVHPN2 ---
Subjective feels SOB Reviewed: H&P Changes from previous H/P or p: No Changes Objective Vitals Vital Signs Date Time Temp Pulse Resp B/P (MAP) Pulse Ox O2 Delivery O2 Flow Rate FiO2 03/28/25 12:44 97.9 87 18 130/74 (92) 93 97.9 03/28/25 11:32 Nasal Cannula* 4 36 Intake/Output Intake and Output 03/28/25 05:00 Intake Total 1500 ml Output Total 350 ml Balance 1150 ml Intake Oral 1500 ml Output Urine Total 350 ml # Voids 3 # Bowel Movements 1 General Appearance: Alert, Oriented X3 HEENT: Atraumatic Lungs: Other (wheezing on exam bilateral) Cardiovascular: Regular rate, Normal S1, Normal S2 Abdomen: Normal bowel sounds Medications Current Medications Medications Dose Ordered Sig/Melia Route Start Time Stop Time Status Last Admin Dose Admin Levalbuterol HCl 1.25 mg Q6HR NEB 03/27/25 00:00 03/28/25 11:25 1.25 MG Nitroglycerin 0.4 mg Q5MINP PRN SL 03/26/25 22:15 Morphine Sulfate 2 mg Q30M PRN IV 03/26/25 22:15 03/26/25 23:30 2 MG Furosemide 20 mg DAILY IV 03/27/25 10:00 03/28/25 09:13 20 MG Lisinopril 40 mg DAILY PO 03/27/25 10:00 03/28/25 09:14 40 MG Amlodipine Besylate 5 mg DAILY PO 03/27/25 10:00 03/28/25 09:15 5 MG Empaglifozin 25 mg DAILY PO 03/27/25 10:00 03/28/25 09:13 25 MG Diagnostic Test (Pha) 1 strip ACHS 03/27/25 07:00 03/28/25 11:30 1 STRIP Insulin Human Regular ACHS SC 03/27/25 07:00 03/28/25 12:01 10 UNITS Dextrose 50 ml UD PRN IV 03/27/25 00:00 Ondansetron HCl 4 mg Q4HP PRN IV 03/27/25 00:00 Enoxaparin Sodium 30 mg DAILY SC 03/27/25 10:00 03/28/25 09:15 30 MG Acetaminophen 650 mg Q6HP PRN PO 03/27/25 00:00 Methylprednisolone Sodium Succinate 40 mg DAILY IV 03/27/25 10:00 03/28/25 09:13 40 MG Guaifenesin/ Dextromethorphan 10 ml Q4HP PRN PO 03/27/25 15:45 03/28/25 09:14 10 ML Vancomycin HCl 0 ml @ 0 mls/hr PER PHARMACY IV 03/28/25 08:30 Morphine Sulfate 2 mg Q4HPRN PRN IV 03/28/25 12:00 Vancomycin HCl 250 ml @ 166.667 mls/hr Q12H IV 03/29/25 02:00 Laboratory Results Laboratory Tests 03/27/25 04:43 03/28/25 10:30 Urinalysis Test 03/26/25 20:53 Urine Color Colorless (Yellow) Urine Clarity Clear (Clear) Urine pH 5.0 (5.0-9.0) Urine Specific [place] 1.010 (1.001-1.035) Urine Protein Negative (Negative) Urine Ketones Negative (Negative) Urine Blood 2+ /uL (Negative) H Urine Nitrite Negative (Negative) Urine Bilirubin Negative (Negative) Urine Urobilinogen Normal mg/dL (Negative) Urine Leukocyte Esterase Trace /uL (Negative) Urine RBC 6 /hpf (0 - 3) Urine Microscopic WBC 2 /HPF (0-3) Urine Squamous Epithelial Cells Few /hpf (<5) Urine Bacteria None seen /hpf (None Seen) Urine Glucose 4+ mg/dL (Normal) H Microbiology Microbiology Date/Time Source Procedure Growth Status 03/26/25 19:10 Blood Blood Culture - Preliminary Resulted Assessment/Plan Assessment/Plan Acute on chronic hypoxic respiratory failure COPD exacerbation Acute diastolic HF exacerbation Diabetes mellitus Hypertension Chronic kidney disease Morbid obesity Bacteremia with gram positive Continue IV steroids Started IV vanco Repeat blood cx in 2 days IV lasix Echo pending Duonebs Dispo: Not ready for discharge Plan discussed with: Patient My Orders Orders - ARNOLDO LOCKHART MD Procedure Category Date Status Time Vancomycin Per PHA 03/28/25 In Process Pharmacy 08:30 Morphine Sulfate PHA 03/28/25 In Process Injection 12:00 Vancomycin Per DOLORES 03/30/25 In Process Pharmacy Protoc 02:00 Vancomycin,Trough LAB 03/30/25 Verified 01:00 Creatinine LAB 03/29/25 Verified 04:00 Complete Blood Count LAB 03/29/25 Verified 04:00 Vancomycin PHA 03/29/25 In Process 1.5gm/250ml 02:00 Date of Service: Mar 28, 2025 Billing Provider: ARNOLDO LOCKHART MD Common Visit Codes: [id number] INP/OBS CARE(HIGH) ARNOLDO LOCKHART MD Mar 28, 2025 16:02
[2025-03-28] MEDS: MORPHINE SULFATE INJ 2 MG/ml SYRG IV PRN (19:53)
[2025-03-29] VITALS (16 sets, daily range): BP systolic 101–147; BP diastolic 68–87; PULSE 88–115; RESP 17–24; TEMP 97.3–98.2; O2SAT 93–100
[2025-03-29] MEDS: VANCOMYCIN 1.5GM/250ML 250 ML IV SCH (02:29)
[2025-03-29 06:46] LABS: Hematocrit 39.7 % (41.0-53.0); Hemoglobin 13.2 g/dL (13.5-17.5); Mean Corpuscular Hemoglobin 27.8 pg (28.0-32.0); Mean Corpuscular Volume 83.3 fL (80.0-100.0); Nucleated Red Blood Cells % 0.0 %
[2025-03-29 10:48] LABS: Hepatitis B Surface Antigen Negative (Negative)
[2025-03-29 11:07] LABS: Hepatitis C Antibody Negative (Negative)
[2025-03-29] MEDS ORDERED: DEXTROSE (50%) 50ML SYRG IV PRN (21:45)
[2025-03-30] VITALS (20 sets, daily range): BP systolic 97–139; BP diastolic 53–94; PULSE 60–111; RESP 14–20; TEMP 87–98.6; O2SAT 0–100
[2025-03-30] MEDS: ACCU-CHEK COMFORT CURVE STRIP VI SCH
[2025-03-30] MEDS: InsuLIN REG 1unit/0.01ml Soln (100units/ml) SC SCH (00:53)
[2025-03-30] MEDS: HYDROcodone-ACET 5/325MG TAB PO PRN (00:54)
[2025-03-30 07:35] LABS: Hematocrit 43.1 % (41.0-53.0); Hemoglobin 14.1 g/dL (13.5-17.5); Mean Corpuscular Hemoglobin 27.1 pg (28.0-32.0); Mean Corpuscular Volume 82.8 fL (80.0-100.0); Nucleated Red Blood Cells % 0.0 %
--- NOTE | 2025-03-30 10:34 | DVH ---
EXAM DESCRIPTION: Chest 1 View CLINICAL HISTORY: Chest pain COMPARISON: XY CHEST PORTABLE on DOS: 01/28/25, XY CHEST XRAY 1 VIEW on DOS: 06/24/24, XY CHEST PORTABLE on DOS: 06/20/24 FINDINGS and IMPRESSION: Lines, tubes, and support devices: None. Lungs / Pleura: Low lung volumes with subsegmental atelectasis in the right lung. No pleural effusion. No pneumothorax. Mediastinum: Prominent cardiomediastinal silhouette, at least partially related to low lung volumes. Osseous structures / Soft tissues: No acute findings.
[2025-03-30] MEDS: VANCOMYCIN 500mg/100mL 100 ML IV ONE (16:16)
[2025-03-30] MEDS: diphenhydrAMINE HCL 50 MG/1 ML VL IV PRN (16:31)
--- NOTE | 2025-03-30 18:15 | DVHPN2 ---
Subjective I am assuming the care of the patient from today onwards. Patient is here for increasing shortness a breath found to have no evidence of PE but subsegmental atelectasis, blood culture positive for Gram-positive bacteremia. 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 General Appearance: Alert, Oriented X3 HEENT: Atraumatic Lungs: Other (wheezing on exam bilateral) Cardiovascular: Regular rate, Normal S1, Normal S2 Abdomen: Normal bowel sounds Medications Current Medications Medications Dose Ordered Sig/Melia Route Start Time Stop Time Status Last Admin Dose Admin Levalbuterol HCl 1.25 mg Q6HR NEB 03/27/25 00:00 03/30/25 11:35 1.25 MG Nitroglycerin 0.4 mg Q5MINP PRN SL 03/26/25 22:15 Morphine Sulfate 2 mg Q30M PRN IV 03/26/25 22:15 03/29/25 06:23 2 MG Furosemide 20 mg DAILY IV 03/27/25 10:00 03/30/25 10:34 20 MG Lisinopril 40 mg DAILY PO 03/27/25 10:00 03/30/25 10:36 40 MG Amlodipine Besylate 5 mg DAILY PO 03/27/25 10:00 03/30/25 10:35 5 MG Empaglifozin 25 mg DAILY PO 03/27/25 10:00 03/30/25 10:35 25 MG Ondansetron HCl 4 mg Q4HP PRN IV 03/27/25 00:00 Enoxaparin Sodium 30 mg DAILY SC 03/27/25 10:00 03/30/25 10:37 30 MG Acetaminophen 650 mg Q6HP PRN PO 03/27/25 00:00 Methylprednisolone Sodium Succinate 40 mg DAILY IV 03/27/25 10:00 03/30/25 10:34 40 MG Guaifenesin/ Dextromethorphan 10 ml Q4HP PRN PO 03/27/25 15:45 03/30/25 06:59 10 ML Vancomycin HCl 0 ml @ 0 mls/hr PER PHARMACY IV 03/28/25 08:30 Morphine Sulfate 2 mg Q4HPRN PRN IV 03/28/25 12:00 03/30/25 04:31 2 MG Diagnostic Test (Pha) 1 strip IQ4HR 03/30/25 00:00 03/30/25 16:14 1 STRIP Insulin Human Regular IQ4HR SC 03/30/25 00:00 03/30/25 16:16 15 UNITS Dextrose 50 ml UD PRN IV 03/29/25 21:45 Acetaminophen/ Hydrocodone Bitart 1 tab Q6HPRN PRN PO 03/30/25 00:45 03/30/25 06:59 1 TAB Zinc Acetate/ Diphenhydramine 1 applic Q6HP PRN TOP 03/30/25 15:30 Diphenhydramine HCl 25 mg Q6HP PRN IV 03/30/25 15:30 03/30/25 16:31 25 MG Laboratory Results Laboratory Tests 03/27/25 04:43 03/30/25 06:10 Urinalysis Test 03/26/25 20:53 Urine Color Colorless (Yellow) Urine Clarity Clear (Clear) Urine pH 5.0 (5.0-9.0) Urine Specific [place] 1.010 (1.001-1.035) Urine Protein Negative (Negative) Urine Ketones Negative (Negative) Urine Blood 2+ /uL (Negative) H Urine Nitrite Negative (Negative) Urine Bilirubin Negative (Negative) Urine Urobilinogen Normal mg/dL (Negative) Urine Leukocyte Esterase Trace /uL (Negative) Urine RBC 6 /hpf (0 - 3) Urine Microscopic WBC 2 /HPF (0-3) Urine Squamous Epithelial Cells Few /hpf (<5) Urine Bacteria None seen /hpf (None Seen) Urine Glucose 4+ mg/dL (Normal) H Microbiology Microbiology Date/Time Source Procedure Growth Status 03/26/25 19:10 Blood Blood Culture - Final Staphylococcus aureus Complete Assessment/Plan Assessment/Plan 65-year-old male with a known history of diabetes mellitus type 2, hypertension, dyslipidemia, morbid obesity classII who initially presented to the hospital with shortness of breaths and cough found to have 1. Acute on chronic hypoxic respiratory failure suspect secondary to acute COPD exacerbation 2. Acute COPD exacerbation 3. Gram-positive bacteremia with a MSSA 4. Diabetes mellitus type 2 5. Hypertension 6. Dyslipidemia neck 7. Morbid obesity classII -IV antibiotics, repeat blood cultures, O2 supplementation, IV Solu-Medrol. Plan discussed with: Patient My Orders Orders - ROXANNA ABREU MD Procedure Category Date Status Time Diphenhydramine-Zinc PHA 03/30/25 In Process Cream (Benadryl Cre 15:30 Diphenhydramine PHA 03/30/25 In Process Injection (Benadryl 15:30 Date of Service: Mar 30, 2025 Billing Provider: ROXANNA ABREU MD Common Visit Codes: [id number] INP/OBS CARE(HIGH) ROXANNA ABREU MD Mar 30, 2025 18:15
[2025-03-30] MEDS: INSULIN LANTUS (GLARGINE) 1 /0.01ml (100units/ml) SC SCH (22:04)
[2025-03-31] VITALS (15 sets, daily range): BP systolic 112–127; BP diastolic 69–76; PULSE 77–113; RESP 16–20; TEMP 97.2–98.9; O2SAT 0–99
[2025-03-31] MEDS: MORPHINE SULFATE 4 MG/ML SYR/VIAL IV PRN (03:06)
[2025-03-31 07:13] LABS: Hematocrit 42.3 % (41.0-53.0); Hemoglobin 14.1 g/dL (13.5-17.5); Mean Corpuscular Hemoglobin 27.6 pg (28.0-32.0); Mean Corpuscular Volume 83.0 fL (80.0-100.0); Nucleated Red Blood Cells % 0.1 %
--- NOTE | 2025-03-31 09:53 | ECG ---
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
--- NOTE | 2025-03-31 16:45 | DVHPN2 ---
Subjective Patient denies any complaints, repeat blood cultures has been ordered, stat BMP has been ordered to make sure there is no hyperkalemia as patient is currently on lisinopril. Reviewed: H&P Changes from previous H/P or p: No Changes Objective Vitals Vital Signs Date Time Temp Pulse Resp B/P (MAP) Pulse Ox O2 Delivery O2 Flow Rate FiO2 03/31/25 13:00 97.9 77 19 123/72 (89) 96 97.9 03/31/25 12:29 Nasal Cannula 2.0 03/31/25 12:29 28 Intake/Output Intake and Output 03/31/25 07:00 Intake Total 820 ml Output Total 1154 ml Balance -334 ml Intake Oral 820 ml Output Urine Total 1150 ml Stool Total 4 ml # Voids 8 # Bowel Movements 1 Exam HEENT pupils are reactive Neck is supple CV is S1-S2 regular rate and rhythm Respiratory diminished breath sounds bases GI positive bowel sound 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 General Appearance: Alert, Oriented X3 HEENT: Atraumatic Lungs: Other (wheezing on exam bilateral) Cardiovascular: Regular rate, Normal S1, Normal S2 Abdomen: Normal bowel sounds Medications Current Medications Medications Dose Ordered Sig/Melia Route Start Time Stop Time Status Last Admin Dose Admin Levalbuterol HCl 1.25 mg Q6HR NEB 03/27/25 00:00 03/31/25 12:29 1.25 MG Nitroglycerin 0.4 mg Q5MINP PRN SL 03/26/25 22:15 Furosemide 20 mg DAILY IV 03/27/25 10:00 03/31/25 08:57 20 MG Lisinopril 40 mg DAILY PO 03/27/25 10:00 03/31/25 08:59 40 MG Amlodipine Besylate 5 mg DAILY PO 03/27/25 10:00 03/31/25 08:58 5 MG Empaglifozin 25 mg DAILY PO 03/27/25 10:00 03/31/25 08:58 25 MG Ondansetron HCl 4 mg Q4HP PRN IV 03/27/25 00:00 Enoxaparin Sodium 30 mg DAILY SC 03/27/25 10:00 03/31/25 08:57 30 MG Acetaminophen 650 mg Q6HP PRN PO 03/27/25 00:00 Methylprednisolone Sodium Succinate 40 mg DAILY IV 03/27/25 10:00 03/31/25 08:57 40 MG Guaifenesin/ Dextromethorphan 10 ml Q4HP PRN PO 03/27/25 15:45 03/30/25 06:59 10 ML Vancomycin HCl 0 ml @ 0 mls/hr PER PHARMACY IV 03/28/25 08:30 Diagnostic Test (Pha) 1 strip IQ4HR 03/30/25 00:00 03/31/25 12:02 1 STRIP Insulin Human Regular IQ4HR SC 03/30/25 00:00 03/31/25 12:06 12 UNITS Dextrose 50 ml UD PRN IV 03/29/25 21:45 Acetaminophen/ Hydrocodone Bitart 1 tab Q6HPRN PRN PO 03/30/25 00:45 03/31/25 12:10 1 TAB Zinc Acetate/ Diphenhydramine 1 applic Q6HP PRN TOP 03/30/25 15:30 03/30/25 20:41 1 APPLIC Diphenhydramine HCl 25 mg Q6HP PRN IV 03/30/25 15:30 03/31/25 04:24 25 MG Insulin Glargine 20 units HS SC 03/30/25 22:00 03/30/25 22:04 20 UNITS Morphine Sulfate 2 mg Q30M PRN IV 03/31/25 03:00 Morphine Sulfate 2 mg Q4HPRN PRN IV 03/31/25 03:00 03/31/25 03:06 2 MG Vancomycin HCl 100 ml @ 100 mls/hr Q12H IV 04/01/25 05:00 Laboratory Results Laboratory Tests 03/27/25 04:43 03/31/25 06:01 Urinalysis Test 03/26/25 20:53 Urine Color Colorless (Yellow) Urine Clarity Clear (Clear) Urine pH 5.0 (5.0-9.0) Urine Specific [place] 1.010 (1.001-1.035) Urine Protein Negative (Negative) Urine Ketones Negative (Negative) Urine Blood 2+ /uL (Negative) H Urine Nitrite Negative (Negative) Urine Bilirubin Negative (Negative) Urine Urobilinogen Normal mg/dL (Negative) Urine Leukocyte Esterase Trace /uL (Negative) Urine RBC 6 /hpf (0 - 3) Urine Microscopic WBC 2 /HPF (0-3) Urine Squamous Epithelial Cells Few /hpf (<5) Urine Bacteria None seen /hpf (None Seen) Urine Glucose 4+ mg/dL (Normal) H Microbiology Microbiology Date/Time Source Procedure Growth Status 03/26/25 19:10 Blood Blood Culture - Final Staphylococcus aureus Complete Assessment/Plan Assessment/Plan 65-year-old male with a known history of diabetes mellitus type 2, hypertension, dyslipidemia, morbid obesity classII who initially presented to the hospital with shortness of breaths and cough found to have 1. Acute on chronic hypoxic respiratory failure suspect secondary to acute COPD exacerbation 2. Acute COPD exacerbation 3. Gram-positive bacteremia with a MSSA 4. Uncontrolled hyperglycemia in the setting of Diabetes mellitus type 2 5. Hypertension 6. Dyslipidemia neck 7. Morbid obesity classII 8. Acute kidney injury suspected secondary to vasomotor nephropathy and lisinopril induced -repeat blood cultures, 2D echo to make sure there is no infective endocarditis, stat BMP to make sure there is no hyperkalemia as patient is currently on lisinopril -IV antibiotics, repeat blood cultures, O2 supplementation, IV Solu-Medrol. Plan discussed with: Patient, Other My Orders Orders - ROXANNA ABREU MD Procedure Category Date Status Time Blood Culture LIZA 03/31/25 Logged 16:35 Echo 2d Mode Cardiac US 03/31/25 Logged DOP 16:35 Basic Metabolic Panel LAB 03/31/25 Transmitted 16:36 Basic Metabolic Panel LAB 04/01/25 Verified 06:00 Complete Blood Count LAB 04/01/25 Verified 06:00 Magnesium LAB 04/01/25 Verified 06:00 Communication Order ORDERS 03/31/25 Transmitted 16:36 Date of Service: Mar 31, 2025 Billing Provider: ROXANNA ABREU MD Common Visit Codes: [id number] INP/OBS CARE(HIGH) ROXANNA ABREU MD Mar 31, 2025 16:45
[2025-03-31] MEDS: VANCOMYCIN 750MG KIT 100 ML IV ONE (17:00)
[2025-03-31 18:30] LABS: Potassium 4.5 mmol/L (3.5-5.1)
[2025-03-31 18:31] LABS: Anion Gap 0 (5-15); Carbon Dioxide 25 mmol/L (20-31)
[2025-03-31 18:36] LABS: BUN/Creatinine Ratio 24.1 (10.0-20.0)
[2025-03-31 19:05] LABS: Blood Urea Nitrogen 38 mg/dL (9-23); Calcium 8.5 mg/dL (8.7-10.4); Chloride 110 mmol/L (98-107); Glucose 375 mg/dL (74-106); Sodium 135 mmol/L (136-145)
[2025-03-31] MEDS ORDERED: DEXTROSE (50%) 50ML SYRG IV PRN (21:15)
[2025-04-01] VITALS (18 sets, daily range): BP systolic 96–136; BP diastolic 50–90; PULSE 80–108; RESP 16–20; TEMP 96.3–98.2; O2SAT 0–98
[2025-04-01] MEDS: InsuLIN REG 1unit/0.01ml Soln (100units/ml) SC SCH (00:41)
[2025-04-01] MEDS: ACCU-CHEK COMFORT CURVE STRIP VI SCH (00:45)
[2025-04-01] MEDS: VANCOMYCIN 750MG KIT 100 ML IV SCH (05:04)
[2025-04-01 08:01] LABS: Hematocrit 40.0 % (41.0-53.0); Hemoglobin 13.1 g/dL (13.5-17.5); Mean Corpuscular Hemoglobin 27.6 pg (28.0-32.0); Mean Corpuscular Volume 84.2 fL (80.0-100.0); Nucleated Red Blood Cells % 0.0 %
[2025-04-01 08:13] LABS: Potassium 4.0 mmol/L (3.5-5.1); Sodium 139 mmol/L (136-145)
[2025-04-01 08:14] LABS: Calcium 8.7 mg/dL (8.7-10.4); Carbon Dioxide 23 mmol/L (20-31)
[2025-04-01 08:19] LABS: BUN/Creatinine Ratio 21.4 (10.0-20.0)
[2025-04-01 08:22] LABS: Blood Urea Nitrogen 28 mg/dL (9-23); Glucose 192 mg/dL (74-106); Magnesium 3.0 mg/dL (1.6-2.6)
[2025-04-01 09:02] LABS: Anion Gap 15 (5-15); Chloride 101 mmol/L (98-107)
--- NOTE | 2025-04-01 11:00 | DVHSR ---
APPROVED REPORT EXAM: LIMITED Two-dimensional and M-mode echocardiogram with Doppler and color Doppler. Blood Pressure: 147/87 mmHg INDICATION EF RISK FACTORS Obesity: Height: 6' 2", Weight: 304 DIMENSIONS LVDd 5.1 (3.8-5.7cm) LA (2D) 4.3 (1.9-4.0cm) Aortic Root 3.2 (2.0-3.7cm) LVDs 3.5 (2.5-4.0cm) LA (MM) (1.9-4.0cm) Aortic Cusp Exc 1.9 (1.5-2.0cm) EF (%) 57.0 (55-70%) Rt. Atrium 4.5 (1.9-4.0cm) Asc. Aorta cm IVSd 1.1 (0.7-1.1cm) RV (D) (1.8-2.4cm) PWd 1.1 (0.7-1.1cm) Mitral Valve Mitral Mitral Stenosis E wave 1.20m/s MV Mean GR. mmHg A wave 1.60m/s MV Peak GR. mmHg E/A ratio 0.8 2D MVA cm2 Aortic Valve Aortic Valve Aortic Stenosis V1 1.30m/s AO Mean GR. 8mmHg V2 2.00m/s AO Peak GR. 17mmHg LVOT Diameter 2.3 (1.8-2.4cm) Doppler ARVIN 2.70cm2 Pulmonic Valve V2 1.10m/s Tricuspid Valve TR Velocity 3.20m/s RVSP 50mmHg Other Information Quality : Technically Limited Rhythm : Technically limited study due to body habitus. Conclusion lvef 65% normal rv function normal atria no severe valve abnormalities noted pericardial fat pad limited study
--- NOTE | 2025-04-01 12:23 | MEDREC ---
[facility] ASP Intervention Section I [facility] ASP Intervention: Deescalate AB based on CS (Blood cultures confirm MSSA; vancomycin should be d/c in favor of a beta-lactam such as nafcillin (preferred) or cefazolin. Evidence shows beta-lactams are significantly more effective than vancomycin for MSSA bacteremia, with faster clearance, lower mortality, and reduced toxicity. IDSA guidelines support this switch as standard of care when no allergy is present) BRIDGETTE BATES [facility] RESIDENT Apr 01, 2025 12:23
--- NOTE | 2025-04-01 12:59 | DVHPN2 ---
Subjective feels SOB Reviewed: H&P Changes from previous H/P or p: No Changes Objective Vitals Vital Signs Date Time Temp Pulse Resp B/P (MAP) Pulse Ox O2 Delivery O2 Flow Rate FiO2 04/01/25 12:21 85 18 95 04/01/25 12:15 Nasal Cannula 2.0 04/01/25 12:15 28 04/01/25 10:15 115/66 04/01/25 09:00 97.6 97.6 Intake/Output Intake and Output 04/01/25 07:00 Intake Total 2000 ml Output Total 2466 ml Balance -466 ml Intake Oral 800 ml Tube Feeding 1200 ml Output Urine Total 2465 ml Stool Total 1 ml # Voids 5 General Appearance: Alert, Oriented X3 HEENT: Atraumatic Lungs: Other (wheezing on exam bilateral) Cardiovascular: Regular rate, Normal S1, Normal S2 Abdomen: Normal bowel sounds Medications Current Medications Medications Dose Ordered Sig/Melia Route Start Time Stop Time Status Last Admin Dose Admin Levalbuterol HCl 1.25 mg Q6HR NEB 03/27/25 00:00 04/01/25 12:15 1.25 MG Nitroglycerin 0.4 mg Q5MINP PRN SL 03/26/25 22:15 Furosemide 20 mg DAILY IV 03/27/25 10:00 04/01/25 10:15 20 MG Lisinopril 40 mg DAILY PO 03/27/25 10:00 03/31/25 08:59 40 MG Amlodipine Besylate 5 mg DAILY PO 03/27/25 10:00 03/31/25 08:58 5 MG Empaglifozin 25 mg DAILY PO 03/27/25 10:00 04/01/25 10:15 25 MG Ondansetron HCl 4 mg Q4HP PRN IV 03/27/25 00:00 Enoxaparin Sodium 30 mg DAILY SC 03/27/25 10:00 04/01/25 10:26 30 MG Acetaminophen 650 mg Q6HP PRN PO 03/27/25 00:00 Methylprednisolone Sodium Succinate 40 mg DAILY IV 03/27/25 10:00 04/01/25 10:15 40 MG Guaifenesin/ Dextromethorphan 10 ml Q4HP PRN PO 03/27/25 15:45 03/30/25 06:59 10 ML Vancomycin HCl 0 ml @ 0 mls/hr PER PHARMACY IV 03/28/25 08:30 Acetaminophen/ Hydrocodone Bitart 1 tab Q6HPRN PRN PO 03/30/25 00:45 04/01/25 04:36 1 TAB Zinc Acetate/ Diphenhydramine 1 applic Q6HP PRN TOP 03/30/25 15:30 03/30/25 20:41 1 APPLIC Diphenhydramine HCl 25 mg Q6HP PRN IV 03/30/25 15:30 03/31/25 04:24 25 MG Insulin Glargine 20 units HS SC 03/30/25 22:00 03/31/25 20:55 20 UNITS Morphine Sulfate 2 mg Q30M PRN IV 03/31/25 03:00 Morphine Sulfate 2 mg Q4HPRN PRN IV 03/31/25 03:00 04/01/25 07:55 2 MG Vancomycin HCl 100 ml @ 100 mls/hr Q12H IV 04/01/25 05:00 04/01/25 05:04 100 MLS/HR Diagnostic Test (Pha) 1 strip IQ4HR 04/01/25 00:00 04/01/25 12:28 1 STRIP Insulin Human Regular IQ4HR SC 04/01/25 00:00 04/01/25 12:33 12 UNITS Dextrose 50 ml UD PRN IV 03/31/25 21:15 Laboratory Results Laboratory Tests 04/01/25 07:30 Chemistry Test 03/31/25 17:30 04/01/25 07:30 Calcium Level 8.5 mg/dL (8.7-10.4) L 8.7 mg/dL (8.7-10.4) Magnesium Level 3.0 mg/dL (1.6-2.6) H Urinalysis Test 03/26/25 20:53 Urine Color Colorless (Yellow) Urine Clarity Clear (Clear) Urine pH 5.0 (5.0-9.0) Urine Specific [place] 1.010 (1.001-1.035) Urine Protein Negative (Negative) Urine Ketones Negative (Negative) Urine Blood 2+ /uL (Negative) H Urine Nitrite Negative (Negative) Urine Bilirubin Negative (Negative) Urine Urobilinogen Normal mg/dL (Negative) Urine Leukocyte Esterase Trace /uL (Negative) Urine RBC 6 /hpf (0 - 3) Urine Microscopic WBC 2 /HPF (0-3) Urine Squamous Epithelial Cells Few /hpf (<5) Urine Bacteria None seen /hpf (None Seen) Urine Glucose 4+ mg/dL (Normal) H Microbiology Microbiology Date/Time Source Procedure Growth Status 03/26/25 19:10 Blood Blood Culture - Final Staphylococcus aureus Complete Assessment/Plan Assessment/Plan Acute on chronic hypoxic respiratory failure COPD exacerbation Acute diastolic HF exacerbation Diabetes mellitus Hypertension Chronic kidney disease Morbid obesity Bacteremia with gram positive Continue IV steroids IV vanco Repeat blood cx IV lasix Duonebs Dispo: Not ready for discharge Plan discussed with: Patient My Orders Orders - ARNOLDO LOCKHART MD Procedure Category Date Status Time Vancomycin 750mg Kit PHA 04/01/25 In Process (Vancomycin Hcl) 05:00 Creatinine LAB 04/02/25 Verified 04:00 Vancomycin,Trough LAB 04/02/25 Verified 04:00 Vancomycin Per DOLORES 04/02/25 In Process Pharmacy Protoc 04:00 Blood Culture LIZA 04/01/25 In Process 10:28 Date of Service: Apr 01, 2025 Billing Provider: ARNOLDO LOCKHART MD Common Visit Codes: [id number] INP/OBS CARE(HIGH) ARNOLDO LOCKHART MD Apr 01, 2025 12:59
--- NOTE | 2025-04-01 16:43 | DVHPN2 ---
Subjective Patient denies any complaints, repeat blood cultures has been ordered, stat BMP has been ordered to make sure there is no hyperkalemia as patient is currently on lisinopril. Reviewed: H&P Objective Vitals Vital Signs Date Time Temp Pulse Resp B/P (MAP) Pulse Ox O2 Delivery O2 Flow Rate FiO2 04/01/25 13:00 98.1 92 19 102/50 (67) 90 98.1 04/01/25 12:15 Nasal Cannula 2.0 04/01/25 12:15 28 Intake/Output Intake and Output 04/01/25 07:00 Intake Total 2000 ml Output Total 2466 ml Balance -466 ml Intake Oral 800 ml Tube Feeding 1200 ml Output Urine Total 2465 ml Stool Total 1 ml # Voids 5 Exam HEENT pupils are reactive Neck is supple CV is S1-S2 regular rate and rhythm Respiratory diminished breath sounds bases GI positive bowel sound Extremity no edema [employer]ICE [employer] no motor deficit General Appearance: Alert, Oriented X3 HEENT: Atraumatic Lungs: Other (wheezing on exam bilateral) Cardiovascular: Regular rate, Normal S1, Normal S2 Abdomen: Normal bowel sounds Medications Current Medications Medications Dose Ordered Sig/Melia Route Start Time Stop Time Status Last Admin Dose Admin Levalbuterol HCl 1.25 mg Q6HR NEB 03/27/25 00:00 04/01/25 12:15 1.25 MG Nitroglycerin 0.4 mg Q5MINP PRN SL 03/26/25 22:15 Furosemide 20 mg DAILY IV 03/27/25 10:00 04/01/25 10:15 20 MG Lisinopril 40 mg DAILY PO 03/27/25 10:00 03/31/25 08:59 40 MG Amlodipine Besylate 5 mg DAILY PO 03/27/25 10:00 03/31/25 08:58 5 MG Empaglifozin 25 mg DAILY PO 03/27/25 10:00 04/01/25 10:15 25 MG Ondansetron HCl 4 mg Q4HP PRN IV 03/27/25 00:00 Enoxaparin Sodium 30 mg DAILY SC 03/27/25 10:00 04/01/25 10:26 30 MG Acetaminophen 650 mg Q6HP PRN PO 03/27/25 00:00 Methylprednisolone Sodium Succinate 40 mg DAILY IV 03/27/25 10:00 04/01/25 10:15 40 MG Guaifenesin/ Dextromethorphan 10 ml Q4HP PRN PO 03/27/25 15:45 03/30/25 06:59 10 ML Vancomycin HCl 0 ml @ 0 mls/hr PER PHARMACY IV 03/28/25 08:30 Acetaminophen/ Hydrocodone Bitart 1 tab Q6HPRN PRN PO 03/30/25 00:45 04/01/25 04:36 1 TAB Zinc Acetate/ Diphenhydramine 1 applic Q6HP PRN TOP 03/30/25 15:30 03/30/25 20:41 1 APPLIC Diphenhydramine HCl 25 mg Q6HP PRN IV 03/30/25 15:30 03/31/25 04:24 25 MG Insulin Glargine 20 units HS SC 03/30/25 22:00 03/31/25 20:55 20 UNITS Morphine Sulfate 2 mg Q30M PRN IV 03/31/25 03:00 Morphine Sulfate 2 mg Q4HPRN PRN IV 03/31/25 03:00 04/01/25 07:55 2 MG Vancomycin HCl 100 ml @ 100 mls/hr Q12H IV 04/01/25 05:00 04/01/25 05:04 100 MLS/HR Diagnostic Test (Pha) 1 strip IQ4HR 04/01/25 00:00 04/01/25 12:28 1 STRIP Insulin Human Regular IQ4HR SC 04/01/25 00:00 04/01/25 12:33 12 UNITS Dextrose 50 ml UD PRN IV 03/31/25 21:15 Laboratory Results Laboratory Tests 04/01/25 07:30 Chemistry Test 03/31/25 17:30 04/01/25 07:30 Calcium Level 8.5 mg/dL (8.7-10.4) L 8.7 mg/dL (8.7-10.4) Magnesium Level 3.0 mg/dL (1.6-2.6) H Urinalysis Test 03/26/25 20:53 Urine Color Colorless (Yellow) Urine Clarity Clear (Clear) Urine pH 5.0 (5.0-9.0) Urine Specific [place] 1.010 (1.001-1.035) Urine Protein Negative (Negative) Urine Ketones Negative (Negative) Urine Blood 2+ /uL (Negative) H Urine Nitrite Negative (Negative) Urine Bilirubin Negative (Negative) Urine Urobilinogen Normal mg/dL (Negative) Urine Leukocyte Esterase Trace /uL (Negative) Urine RBC 6 /hpf (0 - 3) Urine Microscopic WBC 2 /HPF (0-3) Urine Squamous Epithelial Cells Few /hpf (<5) Urine Bacteria None seen /hpf (None Seen) Urine Glucose 4+ mg/dL (Normal) H Microbiology Microbiology Date/Time Source Procedure Growth Status 03/31/25 17:30 Blood Blood Culture - Preliminary Resulted Assessment/Plan Assessment/Plan 65-year-old male with a known history of diabetes mellitus type 2, hypertension, dyslipidemia, morbid obesity classII who initially presented to the hospital with shortness of breaths and cough found to have 1. Acute on chronic hypoxic respiratory failure suspect secondary to acute COPD exacerbation 2. Acute COPD exacerbation 3. Gram-positive bacteremia with a MSSA 4. Uncontrolled hyperglycemia in the setting of Diabetes mellitus type 2 5. Hypertension 6. Dyslipidemia neck 7. Morbid obesity classII 8. Acute kidney injury suspected secondary to vasomotor nephropathy and lisinopril induced -repeat blood cultures, 2D echo to make sure there is no infective endocarditis, stat BMP to make sure there is no hyperkalemia as patient is currently on lisinopril -IV antibiotics, repeat blood cultures, O2 supplementation, IV Solu-Medrol. ROXANNA ABREU MD Apr 01, 2025 16:43
[2025-04-02] VITALS (20 sets, daily range): BP systolic 111–146; BP diastolic 64–89; PULSE 74–100; RESP 17–20; TEMP 97.5–98.5; O2SAT 90–99
[2025-04-02] MEDS ORDERED: VANCOMYCIN 1.25GM/250ML 250 ML IV SCH (10:00)
[2025-04-02] MEDS: NAFCILLIN SOD 2GM 6 GM in SODIUM CHL 0.9% 500 ML IV SCH (13:08)
--- NOTE | 2025-04-02 18:02 | DVHPN2 ---
Subjective feels SOB Reviewed: H&P Changes from previous H/P or p: No Changes Objective Vitals Vital Signs Date Time Temp Pulse Resp B/P (MAP) Pulse Ox O2 Delivery O2 Flow Rate FiO2 04/02/25 17:07 98.5 86 19 111/64 (80) 97 98.5 04/02/25 11:12 Nasal Cannula* 2 28 Intake/Output Intake and Output 04/02/25 05:00 Intake Total 1730 ml Output Total 850 ml Balance 880 ml Intake Oral 1730 ml Output Urine Total 850 ml # Voids 7 General Appearance: Alert, Oriented X3 HEENT: Atraumatic Lungs: Other (wheezing on exam bilateral) Cardiovascular: Regular rate, Normal S1, Normal S2 Abdomen: Normal bowel sounds Medications Current Medications Medications Dose Ordered Sig/Melia Route Start Time Stop Time Status Last Admin Dose Admin Levalbuterol HCl 1.25 mg Q6HR NEB 03/27/25 00:00 04/02/25 11:11 1.25 MG Nitroglycerin 0.4 mg Q5MINP PRN SL 03/26/25 22:15 Furosemide 20 mg DAILY IV 03/27/25 10:00 04/02/25 08:43 20 MG Lisinopril 40 mg DAILY PO 03/27/25 10:00 04/02/25 08:42 40 MG Amlodipine Besylate 5 mg DAILY PO 03/27/25 10:00 04/02/25 08:42 5 MG Empaglifozin 25 mg DAILY PO 03/27/25 10:00 04/02/25 08:41 25 MG Ondansetron HCl 4 mg Q4HP PRN IV 03/27/25 00:00 Enoxaparin Sodium 30 mg DAILY SC 03/27/25 10:00 04/02/25 08:43 30 MG Acetaminophen 650 mg Q6HP PRN PO 03/27/25 00:00 Methylprednisolone Sodium Succinate 40 mg DAILY IV 03/27/25 10:00 04/02/25 08:41 40 MG Guaifenesin/ Dextromethorphan 10 ml Q4HP PRN PO 03/27/25 15:45 03/30/25 06:59 10 ML Acetaminophen/ Hydrocodone Bitart 1 tab Q6HPRN PRN PO 03/30/25 00:45 04/02/25 11:31 1 TAB Zinc Acetate/ Diphenhydramine 1 applic Q6HP PRN TOP 03/30/25 15:30 03/30/25 20:41 1 APPLIC Diphenhydramine HCl 25 mg Q6HP PRN IV 03/30/25 15:30 03/31/25 04:24 25 MG Insulin Glargine 20 units HS SC 03/30/25 22:00 04/01/25 23:30 20 UNITS Morphine Sulfate 2 mg Q30M PRN IV 03/31/25 03:00 Morphine Sulfate 2 mg Q4HPRN PRN IV 03/31/25 03:00 04/02/25 08:01 2 MG Diagnostic Test (Pha) 1 strip IQ4HR 04/01/25 00:00 04/02/25 16:40 1 STRIP Insulin Human Regular IQ4HR SC 04/01/25 00:00 04/02/25 16:49 20 UNITS Dextrose 50 ml UD PRN IV 03/31/25 21:15 Vancomycin HCl 250 ml @ 200 mls/hr Q12H IV 04/02/25 10:00 Cancel Nafcillin Sodium 6 gm/Sodium Chloride 500 ml @ 41.667 mls/ hr Q12H IV 04/02/25 12:00 04/02/25 13:08 41.667 MLS/HR Laboratory Results Laboratory Tests 04/01/25 07:30 04/02/25 03:58 Urinalysis Test 03/26/25 20:53 Urine Color Colorless (Yellow) Urine Clarity Clear (Clear) Urine pH 5.0 (5.0-9.0) Urine Specific [place] 1.010 (1.001-1.035) Urine Protein Negative (Negative) Urine Ketones Negative (Negative) Urine Blood 2+ /uL (Negative) H Urine Nitrite Negative (Negative) Urine Bilirubin Negative (Negative) Urine Urobilinogen Normal mg/dL (Negative) Urine Leukocyte Esterase Trace /uL (Negative) Urine RBC 6 /hpf (0 - 3) Urine Microscopic WBC 2 /HPF (0-3) Urine Squamous Epithelial Cells Few /hpf (<5) Urine Bacteria None seen /hpf (None Seen) Urine Glucose 4+ mg/dL (Normal) H Microbiology Microbiology Date/Time Source Procedure Growth Status 04/01/25 11:50 Blood Blood Culture - Preliminary Resulted Assessment/Plan Assessment/Plan Acute on chronic hypoxic respiratory failure COPD exacerbation Acute diastolic HF exacerbation Diabetes mellitus Hypertension Chronic kidney disease Morbid obesity Bacteremia with gram positive Continue IV steroids IV vanco>changed to nafcillin Repeat blood cx pending IV jay Albert Dispo: Not ready for discharge Plan discussed with: Patient My Orders Orders - ARNOLDO LOCKHART MD Procedure Category Date Status Time Vancomycin Per DOLORES 04/02/25 In Process Pharmacy [facility] 09:36 Nafcillin Sod 2gm PHA 04/02/25 In Process 12:00 Date of Service: Apr 02, 2025 Billing Provider: ARNOLDO LOCKHART MD Common Visit Codes: [id number] INP/OBS CARE(HIGH) ARNOLDO LOCKHART MD Apr 02, 2025 18:01
[2025-04-03] VITALS (15 sets, daily range): BP systolic 112–131; BP diastolic 70–85; PULSE 78–95; RESP 16–19; TEMP 96–97.6; O2SAT 92–98
[2025-04-03] MEDS: NAFCILLIN SOD 2GM 6 GM in SODIUM CHL 0.9% 500 ML IV SCH (02:28)
[2025-04-03] MEDS: MORPHINE SULFATE 4 MG/ML SYR/VIAL IV PRN (09:23)
--- NOTE | 2025-04-03 13:59 | DVHPN2 ---
Subjective feels SOB Reviewed: H&P Changes from previous H/P or p: No Changes Objective Vitals Vital Signs Date Time Temp Pulse Resp B/P (MAP) Pulse Ox O2 Delivery O2 Flow Rate FiO2 04/03/25 12:48 97.6 89 19 131/85 (100) 94 97.6 04/03/25 12:03 Nasal Cannula* 3 32 Intake/Output Intake and Output 04/03/25 07:00 Intake Total 2600 ml Output Total 1500 ml Balance 1100 ml Intake Oral 2100 ml IV Total 500 ml Output Urine Total 1500 ml # Voids 7 # Bowel Movements 1 General Appearance: Alert, Oriented X3 HEENT: Atraumatic Lungs: Other (wheezing on exam bilateral) Cardiovascular: Regular rate, Normal S1, Normal S2 Abdomen: Normal bowel sounds Medications Current Medications Medications Dose Ordered Sig/Melia Route Start Time Stop Time Status Last Admin Dose Admin Levalbuterol HCl 1.25 mg Q6HR NEB 03/27/25 00:00 04/03/25 12:01 1.25 MG Nitroglycerin 0.4 mg Q5MINP PRN SL 03/26/25 22:15 Furosemide 20 mg DAILY IV 03/27/25 10:00 04/03/25 09:28 20 MG Lisinopril 40 mg DAILY PO 03/27/25 10:00 04/03/25 09:30 40 MG Amlodipine Besylate 5 mg DAILY PO 03/27/25 10:00 04/03/25 09:30 5 MG Empaglifozin 25 mg DAILY PO 03/27/25 10:00 04/03/25 09:30 25 MG Ondansetron HCl 4 mg Q4HP PRN IV 03/27/25 00:00 Enoxaparin Sodium 30 mg DAILY SC 03/27/25 10:00 04/03/25 09:30 30 MG Acetaminophen 650 mg Q6HP PRN PO 03/27/25 00:00 Methylprednisolone Sodium Succinate 40 mg DAILY IV 03/27/25 10:00 04/03/25 09:27 40 MG Guaifenesin/ Dextromethorphan 10 ml Q4HP PRN PO 03/27/25 15:45 03/30/25 06:59 10 ML Acetaminophen/ Hydrocodone Bitart 1 tab Q6HPRN PRN PO 03/30/25 00:45 04/03/25 05:02 1 TAB Zinc Acetate/ Diphenhydramine 1 applic Q6HP PRN TOP 03/30/25 15:30 03/30/25 20:41 1 APPLIC Diphenhydramine HCl 25 mg Q6HP PRN IV 03/30/25 15:30 04/03/25 09:35 25 MG Insulin Glargine 20 units HS SC 03/30/25 22:00 04/02/25 21:08 20 UNITS Morphine Sulfate 2 mg Q30M PRN IV 03/31/25 03:00 04/03/25 09:23 2 MG Morphine Sulfate 2 mg Q4HPRN PRN IV 03/31/25 03:00 04/02/25 08:01 2 MG Diagnostic Test (Pha) 1 strip IQ4HR 04/01/25 00:00 04/03/25 11:24 1 STRIP Insulin Human Regular IQ4HR SC 04/01/25 00:00 04/03/25 11:41 16 UNITS Dextrose 50 ml UD PRN IV 03/31/25 21:15 Vancomycin HCl 250 ml @ 200 mls/hr Q12H IV 04/02/25 10:00 Cancel Nafcillin Sodium 6 gm/Sodium Chloride 500 ml @ 41.667 mls/ hr Q12H IV 04/03/25 02:00 04/03/25 02:28 41.667 MLS/HR Laboratory Results Laboratory Tests 04/01/25 07:30 04/02/25 03:58 Urinalysis Test 03/26/25 20:53 Urine Color Colorless (Yellow) Urine Clarity Clear (Clear) Urine pH 5.0 (5.0-9.0) Urine Specific [place] 1.010 (1.001-1.035) Urine Protein Negative (Negative) Urine Ketones Negative (Negative) Urine Blood 2+ /uL (Negative) H Urine Nitrite Negative (Negative) Urine Bilirubin Negative (Negative) Urine Urobilinogen Normal mg/dL (Negative) Urine Leukocyte Esterase Trace /uL (Negative) Urine RBC 6 /hpf (0 - 3) Urine Microscopic WBC 2 /HPF (0-3) Urine Squamous Epithelial Cells Few /hpf (<5) Urine Bacteria None seen /hpf (None Seen) Urine Glucose 4+ mg/dL (Normal) H Microbiology Microbiology Date/Time Source Procedure Growth Status 04/01/25 11:50 Blood Blood Culture - Preliminary Resulted Assessment/Plan Assessment/Plan Acute on chronic hypoxic respiratory failure COPD exacerbation Acute diastolic HF exacerbation Diabetes mellitus Hypertension Chronic kidney disease Morbid obesity Bacteremia with gram positive Continue IV steroids IV vanco>changed to nafcillin Repeat blood cx MSSA on 04/03 IV lasix Duonebs Consult ID and cardiology for possible YO[facility] Dispo: Not ready for discharge Plan discussed with: Patient My Orders Orders - ARNOLDO LOCKHART MD Procedure Category Date Status Time Nafcillin Sod 2gm PHA 04/03/25 In Process 02:00 * Infectious [place]- CONS 04/03/25 Transmitted [facility] 09:44 * Cardiology Consult CONS 04/03/25 Transmitted 13:51 Ls Spine Wo Contrast CT 04/03/25 Logged 13:[address] 04/03/25 Logged [place] 13:17 Date of Service: Apr 03, 2025 Billing Provider: ARNOLDO LOCKHART MD Common Visit Codes: [id number] INP/OBS CARE(HIGH) ARNOLDO LOCKHART MD Apr 03, 2025 13:59
--- NOTE | 2025-04-03 15:06 | DVH ---
Indication: osteomyelitis Technique: CT axial images of the thoracic spine are obtained without contrast. Coronal and sagittal reformats were obtained. Comparison: None FINDINGS: The Thoracic vertebral body heights are maintained. Moderate multilevel disc space narrowing. No definitive osseous erosion seen. Prominent anterior osteophytosis. [id number] facet hypertrophic changes. Mild thoracic dextrocurvature. Tiny bilateral pleural effusions. Bilateral atelectasis, [id number]. IMPRESSION: Moderate thoracic degenerative disc disease. No definitive CT evidence for osteomyelitis. If clinical concern persists, recommend obtaining MRI thoracic spine with and without contrast. Bilateral atelectatic changes and tiny bilateral pleural effusions.
--- NOTE | 2025-04-03 16:05 | DVH ---
CT LS SPINE WO CONTRAST Indication: Osteomyelitis EXAM DATE: 04/03/2025 02:11 PM COMPARISON: None TECHNIQUE: CT of the lumbar spine without intravenous contrast. RADIATION DOSE: CTDIvol: 36 mGy, DLP: [id number] FINDINGS: The lumbar vertebral body heights are maintained. Moderate to advanced multilevel disc space narrowing with vacuum disc phenomena most pronounced at L5-S1. Alignment grossly preserved. No evidence for endplate erosive changes. Moderate lumbar facet hypertrophic changes. Moderate to severe neural foraminal stenosis L4-5 and L5-S1. Moderate neural foraminal stenosis of the remaining levels in the lumbar spine. Abdominal aortic atherosclerotic disease. IMPRESSION: Moderate advanced lumbar degenerative disc disease. No definitive endplate erosive changes. If there is concern for discitis/ osteomyelitis, recommend obtaining MRI lumbar spine with and without contrast.
--- NOTE | 2025-04-03 16:07 | DVHINCON2 ---
Date Seen: Apr 03, 2025 Referring Physician MD Zaki Reason for Consultation Rule out infective endocarditis History of Present Illness This is a [place]itian-speaking mostly 65-year-old man who presented to the emergency room via EMS with a chief complaint of shortness of breath. The patient presented with complaints of shortness of breath associated with a productive cough and tachycardia for one day. The patient underwent multiple blood cultures revealing persistent bacteremia with Staphylococcus aureus for which cardiology team has been consulted to rule out infective endocarditis. The patient denies a history of IV drug use, hemodialysis, Port-A-Cath, recent dent al work, or other possible routes of infection. Significant medical history includes hypertension, dyslipidemia, fatty liver, insulin-dependent diabetes mellitus, benign prostatic hyperplasia, recent left great toe infection with debridement, lumbar/thoracic degenerative disc disease, and morbid obesity. Past Medical History Past medical history reviewed. No other significant than mentioned above. Past Surgical History Unilateral eye Left great toe Polyps removal Family History: Diabetes mellitus G8 MOTHER, G8 MOTHER Diabetes mellitus G8 MOTHER, G8 MOTHER Hypercholesterolemia G8 MOTHER Hypertension G8 MOTHER Family History Family history reviewed. Social History Denies the use of illicit drugs, alcohol, or tobacco use. Allergies: Coded Allergies: NO KNOWN ALLERGIES (Unverified , 06/19/24) Home Meds Active Scripts Sennosides-Docusate Sodium (Senokot S) 1 Tab Tab, 1 TAB PO BID for 30 Days, #60 TAB Prov:CAROL PROCTOR COMPENSATION AND BENEFITS ANALYST 02/06/25 Hydrocodone-Acetaminophen (Hydrocodone Bitartrate/AC 5-325 mg) 1 Tab Tab, 1 TAB PO Q6HP PRN for 7 Days, #28 TAB Prov:CAROL PROCTOR COMPENSATION AND BENEFITS ANALYST 02/06/25 Hydrocodone-Acetaminophen (Hydrocodone Bitartrate/AC 5-325 mg) 1 Tab Tab, 1 TAB PO TIDP PRN for 3 Days, #9 TAB Prov:MIMA QUIROS MD 06/26/24 Amoxicillin & Pot Clavulanate (Augmentin) 500 Mg Tab, 500 MG PO BID for 42 Days, #84 TAB Prov:CECI MOSER 06/26/24 Reported Medications Sennosides-Docusate Sodium (Senexon-S) 1 Tab Tab, 1 TAB PO BID for 30 Days, #60 03/28/25 Gabapentin (Gabapentin) 400 Mg Cap, 1 CAP PO QID for 90 Days, #360 03/28/25 Metformin HCl (Metformin Hydrochloride) 1,000 Mg Tab, 1 TAB PO Q12HR for 90 Days, #180 03/28/25 Empagliflozin (Jardiance) 25 Mg Tab, 1 TAB PO DAILY for 90 Days, #90 03/28/25 Ipratropium-Albuterol (Ipratropium [place]/Albut) 1 Rosalba Rosalba, 3 ML NEB Q6HR PRN for 90 Days, #1080 03/28/25 Resmetirom (Rezdiffra) 100 Mg Tab, 1 TAB PO DAILY for 30 Days, #30 03/28/25 Tamsulosin Hcl (Tamsulosin Hcl) 0.4 Mg Cap, 1 CAP PO DAILY for 90 Days, #90 03/28/25 Insulin Glargine (Lantus Solostar) 100 Unit/Ml Inj, 40 UNIT SC BID for 56 Days, #45 03/28/25 Escitalopram Oxalate (ESCITALOPRAM OXALATE) 5 Mg Tab, 1 TAB PO DAILY for 90 Days, #90 03/28/25 Atorvastatin Calcium (ATORVASTATIN CALCIUM) 40 Mg Tab, 1 TAB PO DAILY for 90 Days, #90 03/28/25 Pioglitazone Hydrochloride (PIOGLITAZONE HCL) 45 Mg Tab, 1 TAB PO DAILY for 90 Days, #90 03/28/25 Amlodipine Besylate (Amlodipine Besylate) 5 Mg Tab, 1 TAB PO DAILY for 90 Days, #90 03/28/25 Lisinopril (Lisinopril) 40 Mg Tab, 1 TAB PO DAILY for 90 Days, #90 03/28/25 Cyclosporine (Ophth) (Cyclosporine) 0.05 % Emu, 1 DROP OP BID for 90 Days, #360 03/28/25 Budesonide (Inhalation) (Budesonide) 0.25 Mg/2 Ml Love, 1 VIAL NEB BID for 90 Days, #180 03/28/25 Clotrimazole W/ Betamethasone (Clotrimazole/Betamethason 1-0.05 %) 1 Cre Cre, 1 APPLIC EX BID for 30 Days, #45 APPLY TO THE AFFECTED AREA TWICE A DAY. 03/28/25 Tramadol Hcl (Tramadol Hcl) 50 Mg Tab, 1 TAB PO Q8HR PRN for PAIN for 15 Days, #45 11/6/25 Hydroxyzine Hcl (Hydroxyzine Hcl) 25 Mg Tab, 1 TAB PO Q6HR PRN for FOR ITCHING for 15 Days, #60 03/28/25 Benzonatate (Benzonatate) 200 Mg Cap, 1 CAP PO TID PRN for COUGH for 30 Days, #90 03/28/25 Insulin Lispro (Insulin Lispro Kwikpen) 100 Unit/Ml Inj, UNITS SC UD for 90 Days, #45 PLEASE SEE ATTACHED FOR DETAILED INSTRUCTIONS, MAX 45 UNITS PER DAY. 03/28/25 Albuterol Sulfate (Albuterol Sulfate Hfa) 108 Mcg/Act Aer, 2 PUFF INH Q4HR PRN for 48 Days, #54 03/28/25 Gabapentin (Gabapentin) 300 Mg Cap, 400 MG PO QID for 30 Days, MG 06/20/24 Beclomethasone Dipropionate (Qvar Redihaler) 80 Mcg/Act Aer, 80 MCG IN BID, AER 06/20/24 Albuterol Sulfate (Albuterol Sulfate Hfa) 108 Mcg/Act Aer, 90 MCG IN Q4HPRN PRN for wheezing, AER 06/20/24 Budesonide (Inhalation) (Budesonide) 0.25 Mg/2 Ml Love, 1 VIAL NEB BID 06/20/24 Cholecalciferol (VITAMIN D3) 2,000 Unit Tab, 1 CAP PO DAILY 06/20/24 Pioglitazone Hydrochloride (PIOGLITAZONE HCL) 45 Mg Tab, 1 DAILY 06/20/24 Metformin Hydrochloride (Metformin Hcl) 1,000 Mg Tab, 1 TAB PO 06/20/24 Tamsulosin Hcl (Tamsulosin Hcl) 0.4 Mg Cap 06/20/24 Empagliflozin (Jardiance) 25 Mg Tab, 1 DAILY 06/20/24 Lisinopril (Lisinopril) 40 Mg Tab, 1 DAILY 06/20/24 Benzonatate (Benzonatate) 100 Mg Cap, 1 CAP PO TID PRN for cough 06/20/24 Atorvastatin Calcium (ATORVASTATIN CALCIUM) 40 Mg Tab, 1 TAB PO 06/20/24 Amlodipine Besylate (Amlodipine Besylate) 5 Mg Tab, 1 TAB PO DAILY 06/20/24 Acetaminophen (Acetaminophen) 500 Mg Tab, 500 MG PO Q6HPRN PRN for mild pain , TAB 06/20/24 Discontinued Reported Medications Metformin Hydrochloride (Metformin Hydrochloride E) 1,000 Mg Tab, 1 TAB PO Q12HR for 90 Days, #180 03/28/25 Home Meds Home medications reviewed. Current Medications Current Medications Medications (Trade) Dose Ordered Sig/Melia Route PRN Reason Start Time Stop Time Status Last Admin Nafcillin Sodium 6 gm/Sodium Chloride 500 ml @ 41.667 mls/ hr Q12H IV 04/03/25 02:00 04/03/25 02:28 Review of Systems Constitutional: No symptom reported Ears, Nose, & Throat: No symptom reported Eyes: No symptom reported Neurological: No symptoms reported Pulmonary/Respiratory: SOB Cardiovascular: No symptom reported Gastrointestinal: No symptom reported Genitourinary: No symptom reported Musculoskeletal: No symptom reported Skin: No symptom reported Psychiatric: No symptom reported Endocrine: No symptom reported Hemotologic/Lymphatic: No symptom reported Vital Signs Vital Signs Date Time Temp Pulse Resp B/P (MAP) Pulse Ox O2 Delivery O2 Flow Rate FiO2 04/03/25 12:48 97.6 89 19 131/85 (100) 94 97.6 04/03/25 12:03 Nasal Cannula* 3 32 Physical Exam General Appearance: Cooperative. Well developed. Morbidly obese. In no acute distress Head Exam: Normal inspection Neck Exam: Normal inspection. Non-tender. Normal alignment Pulmonary/Respiratory: Chest non-tender. Diminished bilateral breath sounds Cardiovascular/Chest: Regular rate and rhythm. S1, S2. NSR. No murmurs. No JVD. Peripheral Pulses: 2+ Radial (R). 2+ Radial (L). 2+ Pedal (R). 2+ Pedal (L) Abdominal Exam: Normal bowel sounds. Soft. Ankle Exam: Negative ankle edema Lower extremities: Negative lower extremity edema Neuro/Mental Status: A&O x4. Coherent Thoughts/Psych: Normal thought pattern. Appropriate mood and affect. Good judgement and insight Appearance: In no acute distress Skin Exam: Normal inspection. Normal color. Warm. Dry Labs/Diagnostic Data Labs Test 04/02/25 03:58 04/01/25 07:30 03/31/25 12:07 03/31/25 08:35 Range/Units Creatinine 1.18 0.700-1.30 mg/dL Glomerular Filtration Rate Calc 69 >90 mL/min Vancomycin Level Trough 11.9 H 5-10 ug/mL White Blood Count 10.7 4.4-10.8 10^3/uL Red Blood Count 4.76 4.5-5.90 10^6/uL Hemoglobin 13.1 L 13.5-17.5 g/dL Hematocrit 40.0 L 41.0-53.0 % Mean Corpuscular Volume 84.2 80.0-100.0 fL Mean Corpuscular Hemoglobin 27.6 L 28.0-32.0 pg Mean Corpuscular Hemoglobin Concent 32.8 32.0-36.0 g/dL Red Cell Distribution Width 15.8 H 11.8-14.3 % Platelet Count 318 140-450 10^3/uL Mean Platelet Volume 8.2 6.9-10.8 fL Neutrophils (%) (Auto) 69.7 37.0-80.0 % Lymphocytes (%) (Auto) 19.5 10.0-50.0 % Monocytes (%) (Auto) 9.8 0.0-12.0 % Eosinophils (%) (Auto) 0.7 0.0-7.0 % Basophils (%) (Auto) 0.3 0.0-2.0 % Neutrophils # (Auto) 7.5 1.6-8.6 10 ^3/uL Lymphocytes # (Auto) 2.1 0.4-5.4 10 ^3/uL Monocytes # (Auto) 1.0 0-1.3 10 ^3/uL Eosinophils # (Auto) 0.1 0-0.8 10 ^3/uL Basophils # (Auto) 0 0-0.2 10 ^3/uL Nucleated Red Blood Cells 0.0 % Sodium Level 139 136-145 mmol/L Potassium Level 4.0 3.5-5.1 mmol/L Chloride Level 101 98-107 mmol/L Carbon Dioxide Level 23 20-31 mmol/L Anion Gap 15 5-15 Blood Urea Nitrogen 28 #H 9-23 mg/dL BUN/Creatinine Ratio 21.4 H 10.0-20.0 Serum Glucose 192 #H 74-106 mg/dL Calcium Level 8.7 8.7-10.4 mg/dL Magnesium Level 3.0 H 1.6-2.6 mg/dL Random Vancomycin Level 11.3 H 5-10 ug/mL POC Glucose 196 H 70-106 mg/dl Test 03/27/25 04:43 03/27/25 00:20 03/26/25 21:56 03/26/25 20:53 Range/Units Hepatitis B Surface Antigen Negative Negative Hepatitis C Antibody Negative Negative Hemoglobin A1c 8.2 H <5.7 % A1C Triglycerides Level 57 < 150 mg/dL Cholesterol Level 169 < 200 mg/dL LDL Cholesterol 115 H < 100 mg/dL HDL Cholesterol 47 40-59 mg/dL Thyroid Stimulating Hormone (TSH) 0.62 0.55-4.78 uIU/mL Troponin I High Sensitivity 15 </=54 ng/L Urine Color Colorless Yellow Urine Clarity Clear Clear Urine pH 5.0 5.0-9.0 Urine Specific [place] 1.010 1.001-1.035 Urine Protein Negative Negative Urine Ketones Negative Negative Urine Blood 2+ H Negative /uL Urine Nitrite Negative Negative Urine Bilirubin Negative Negative Urine Urobilinogen Normal Negative mg/dL Urine Leukocyte Esterase Trace Negative /uL Urine RBC 6 0 - 3 /hpf Urine Microscopic WBC 2 0-3 /HPF Urine Squamous Epithelial Cells Few <5 /hpf Urine Bacteria None seen None Seen /hpf Urine Glucose 4+ H Normal mg/dL Test 03/26/25 19:00 Range/Units D-Dimer, Quantitative 16.70 H 0.0-0.49 mg/L FEU Lactic Acid Level 1.3 0.4-2.0 mmol/L Total Bilirubin 0.5 0.2-1.0 mg/dL Aspartate Amino Transferase (AST) 28 13-40 U/L Alanine Aminotransferase (ALT) 27 7-40 U/L Alkaline Phosphatase 109 46-116 U/L B-Type Natriuretic Peptide 16.38 0-100 pg/mL Total Protein 7.3 5.7-8.2 g/dL Albumin 4.2 3.2-4.8 g/dL Microbiology Date/Time Source Procedure Growth Status 04/01/25 11:50 Blood Blood Culture - Final Staphylococcus aureus Complete Assessment Persistent bacteremia rule out infective endocarditis Insulin-dependent diabetes mellitus Hypertension Dyslipidemia CAROLINE on CKD, resolved Morbid obesity * Transthoracic echocardiogram revealed LVEF 65% with normal RV function, normal atria, no severe valve abnormalities noted, pericardial fat pad * Multiple 12 lead electrocardiograms x2 revealed a normal sinus rhythm * Blood cultures x3 sets, persistent Staphylococcus aureus Plan/Recommendation (Dr. Paz) Scheduled for a transesophageal echocardiogram with Dr. Paz on 04/04/2025 at 9:00 a.m. All risks and benefits of the procedure were discussed with the patient who agrees to proceed with intervention. All questions answered. In the meantime, continue ABX therapy per primary care team and Infectious Disease recommendations. In the setting of an unremarkable YOEL, there is no further cardiac workup indicated at this time. Thank you for allowing us to participate in this patient's care. Please call if you have any questions or concerns. This medical document was created using an electronic medical record system with voice recognition software and computerized dictation system. Although this document has been carefully reviewed, there might still be some phonetic and typographical errors. Occasional wrong-word or ``sound-alike substitutions may have occurred due to the inherent limitations of voice recognition software. These areas are purely typographical due to imperfections of the software programs and do not reflect any compromise in the patient's medical care. Please read the chart carefully and recognize, using context, where these substitutions have occurred. Plan discussed with: Patient, Other NYHA Physical activity limitations: NA Date of Service: Apr 03, 2025 Billing Provider: KAVYA GUERRERO Cardiology Common Codes: [id number] INP/OBS CARE (High) KAVYA GUERRERO Apr 03, 2025 16:07
[2025-04-03 20:32] LABS: INR 1.02 (0.9-1.15); Partial Thromboplastin Time 26.5 SEC (24.5-34.5); Prothrombin Time 10.8 sec (9.3-11.8)
[2025-04-04] VITALS (19 sets, daily range): BP systolic 118–139; BP diastolic 65–98; PULSE 75–103; RESP 16–19; TEMP 97.5–98; O2SAT 94–99
[2025-04-04 06:30] LABS: Hematocrit 40.6 % (41.0-53.0); Hemoglobin 13.5 g/dL (13.5-17.5); Mean Corpuscular Hemoglobin 27.5 pg (28.0-32.0); Mean Corpuscular Volume 82.7 fL (80.0-100.0); Nucleated Red Blood Cells % 0.0 %
[2025-04-04 06:46] LABS: Chloride 100 mmol/L (98-107); Potassium 3.9 mmol/L (3.5-5.1); Sodium 143 mmol/L (136-145)
[2025-04-04 06:47] LABS: Anion Gap 13 (5-15); Carbon Dioxide 30 mmol/L (20-31)
[2025-04-04 06:53] LABS: BUN/Creatinine Ratio 27.9 (10.0-20.0)
[2025-04-04 06:56] LABS: Blood Urea Nitrogen 34 mg/dL (9-23); Calcium 8.6 mg/dL (8.7-10.4); Glucose 133 mg/dL (74-106)
[2025-04-04] MEDS: LIDOCAINE VISCOUS 2% 15ML UD PO ONE (09:52)
[2025-04-04] MEDS: MIDAZOLAM HCL 2MG/2ML 2ml VIAL (1mg/ml) IV ONE (09:54)
[2025-04-04] MEDS: fentaNYL CITRATE 100 MCG/2 ML VL IV ONE (09:56)
--- NOTE | 2025-04-04 13:04 | DVHPN2 ---
Subjective feels SOB Reviewed: H&P Changes from previous H/P or p: No Changes Objective Vitals Vital Signs Date Time Temp Pulse Resp B/P (MAP) Pulse Ox O2 Delivery O2 Flow Rate FiO2 04/04/25 12:37 97.5 101 19 139/84 (102) 97 97.5 04/04/25 11:51 Nasal Cannula 3.0 04/04/25 11:51 32 Intake/Output Intake and Output 04/04/25 07:00 Intake Total 1600 ml Output Total 700 ml Balance 900 ml Intake Oral 1600 ml Output Urine Total 700 ml # Voids 10 # Bowel Movements 1 General Appearance: Alert, Oriented X3 HEENT: Atraumatic Lungs: Other (wheezing on exam bilateral) Cardiovascular: Regular rate, Normal S1, Normal S2 Abdomen: Normal bowel sounds Medications Current Medications Medications Dose Ordered Sig/Melia Route Start Time Stop Time Status Last Admin Dose Admin Levalbuterol HCl 1.25 mg Q6HR NEB 03/27/25 00:00 04/04/25 11:51 1.25 MG Nitroglycerin 0.4 mg Q5MINP PRN SL 03/26/25 22:15 Furosemide 20 mg DAILY IV 03/27/25 10:00 04/04/25 11:06 20 MG Lisinopril 40 mg DAILY PO 03/27/25 10:00 04/04/25 11:09 40 MG Amlodipine Besylate 5 mg DAILY PO 03/27/25 10:00 04/04/25 11:09 5 MG Empaglifozin 25 mg DAILY PO 03/27/25 10:00 04/04/25 11:09 25 MG Ondansetron HCl 4 mg Q4HP PRN IV 03/27/25 00:00 Enoxaparin Sodium 30 mg DAILY SC 03/27/25 10:00 04/03/25 09:30 30 MG Acetaminophen 650 mg Q6HP PRN PO 03/27/25 00:00 Methylprednisolone Sodium Succinate 40 mg DAILY IV 03/27/25 10:00 04/04/25 11:08 40 MG Guaifenesin/ Dextromethorphan 10 ml Q4HP PRN PO 03/27/25 15:45 03/30/25 06:59 10 ML Acetaminophen/ Hydrocodone Bitart 1 tab Q6HPRN PRN PO 03/30/25 00:45 04/04/25 11:36 1 TAB Zinc Acetate/ Diphenhydramine 1 applic Q6HP PRN TOP 03/30/25 15:30 03/30/25 20:41 1 APPLIC Diphenhydramine HCl 25 mg Q6HP PRN IV 03/30/25 15:30 04/04/25 11:07 25 MG Insulin Glargine 20 units HS SC 03/30/25 22:00 04/03/25 21:01 20 UNITS Morphine Sulfate 2 mg Q30M PRN IV 03/31/25 03:00 04/03/25 09:23 2 MG Morphine Sulfate 2 mg Q4HPRN PRN IV 03/31/25 03:00 04/04/25 06:04 2 MG Diagnostic Test (Pha) 1 strip IQ4HR 04/01/25 00:00 04/04/25 11:34 1 STRIP Insulin Human Regular IQ4HR SC 04/01/25 00:00 04/04/25 11:35 4 UNITS Dextrose 50 ml UD PRN IV 03/31/25 21:15 Vancomycin HCl 250 ml @ 200 mls/hr Q12H IV 04/02/25 10:00 Cancel Nafcillin Sodium 6 gm/Sodium Chloride 500 ml @ 41.667 mls/ hr Q12H IV 04/03/25 02:00 04/04/25 01:56 41.667 MLS/HR Laboratory Results Laboratory Tests 04/04/25 05:05 Chemistry Test 04/04/25 05:05 Calcium Level 8.6 mg/dL (8.7-10.4) L Coagulation Test 04/03/25 19:20 Prothrombin Time 10.8 sec (9.3-11.8) Prothrombin Time INR 1.02 (0.9-1.15) Activated Partial Thromboplast Time 26.5 SEC (24.5-34.5) Urinalysis Test 03/26/25 20:53 Urine Color Colorless (Yellow) Urine Clarity Clear (Clear) Urine pH 5.0 (5.0-9.0) Urine Specific [place] 1.010 (1.001-1.035) Urine Protein Negative (Negative) Urine Ketones Negative (Negative) Urine Blood 2+ /uL (Negative) H Urine Nitrite Negative (Negative) Urine Bilirubin Negative (Negative) Urine Urobilinogen Normal mg/dL (Negative) Urine Leukocyte Esterase Trace /uL (Negative) Urine RBC 6 /hpf (0 - 3) Urine Microscopic WBC 2 /HPF (0-3) Urine Squamous Epithelial Cells Few /hpf (<5) Urine Bacteria None seen /hpf (None Seen) Urine Glucose 4+ mg/dL (Normal) H Microbiology Microbiology Date/Time Source Procedure Growth Status 04/01/25 11:50 Blood Blood Culture - Final Staphylococcus aureus Complete Assessment/Plan Assessment/Plan Acute on chronic hypoxic respiratory failure COPD exacerbation Acute diastolic HF exacerbation Diabetes mellitus Hypertension Chronic kidney disease Morbid obesity Bacteremia with gram positive Continue IV steroids IV vanco>changed to nafcillin Repeat blood cx MSSA on 04/03 IV lasix Duonebs Consult ID and cardiology for possible YOEL Dispo: Not ready for discharge Plan discussed with: Patient My Orders Orders - ARNOLDO LOCKHART MD Procedure Category Date Status Time * Cardiology Consult CONS 04/03/25 Transmitted 13:51 Ls Spine Wo Contrast CT 04/03/25 Resulted 13:[address] 04/03/25 Resulted Contras 13:17 Complete Blood Count LAB 04/05/25 Verified 05:00 Complete Blood Count LAB 04/06/25 Verified 05:00 Complete Blood Count LAB 04/07/25 Verified 05:00 Complete Blood Count LAB 04/08/25 Verified 05:00 Complete Blood Count LAB 04/09/25 Verified 05:00 Complete Blood Count LAB 04/10/25 Verified 05:00 Basic Metabolic Panel LAB 04/05/25 Verified 05:00 Basic Metabolic Panel LAB 04/06/25 Verified 05:00 Basic Metabolic Panel LAB 04/07/25 Verified 05:00 Basic Metabolic Panel LAB 04/08/25 Verified 05:00 Basic Metabolic Panel LAB 04/09/25 Verified 05:00 Basic Metabolic Panel LAB 04/10/25 Verified 05:00 Date of Service: Apr 04, 2025 Billing Provider: ARNOLDO LOCKHART MD Common Visit Codes: [id number] INP/OBS CARE(HIGH) ARNOLDO LOCKHART MD Apr 04, 2025 13:04
--- NOTE | 2025-04-04 18:19 | DVHOP2 ---
Operative Report - 2 Report Details Date: 04/04/25 Preop Diagnosis: Sepsis Postop Diagnosis: Normal transesophageal echocardiogram Surgeon: Crista Paz MD Anesthesiologist: Conscious sedation Anesthesia: Mac, Local Consent: The patient was informed of the risks and benefits of the procedure. These include but are not limited to complications of anesthesia, postoperative infection, incomplete relief of symptoms, recurrence of symptoms, damage to blood vessels, nerves and tendons, deep venous thrombosis, pulmonary embolism and possible need for repeat surgery in the future. Complications: No complications Findings: Normal transesophageal echocardiogram Indications for Surgery: Sepsis, bacteremia Name of Procedure Performed Transesophageal echocardiogram Procedure Details Procedure Details: Prior full informed consent obtained the patient was prepped and draped in usual fashion placed in the left lateral and semi-Thornton position. Lidocaine gel was given to gargle. Transesophageal probe was passed without difficulty. Standard views obtained. Conclusions: Technically good study. The patient is in a sinus rhythm. Concentric LVH. Mild left atrial enlargement. Mild aneurysmal intra-atrial septum. Mild sclerosis of the aortic valve. The mitral, tricuspid and pulmonic appeared to be within normal limits. Left ventricular systolic performance is preserved. EF is about 60% with normal right ventricular function. Dopplers unremarkable. There was mild tricuspid and mitral insufficiency without aortic insufficiency.. No intra-atrial septal defect no ventricular septal defect. The appendage is within normal limits. No thrombi and/or vegetations discernible. Bubble study performed shows no crossover into the left system. Transgastric views were normal. The evaluation of the aorta was normal. Condition Good Disposition Still a Patient Date of Service: Apr 04, 2025 Billing Provider: CRISTA PAZ Sr., MD Cardiology Common Codes: [id number] INP/OBS CARE (High) Cardiology Procedure Codes: 44027-EON W/IMG DOC INCL PROB ACQ CRISTA PAZ Sr., MD Apr 04, 2025 18:19
[2025-04-05] VITALS (19 sets, daily range): BP systolic 106–136; BP diastolic 65–82; PULSE 75–101; RESP 16–20; TEMP 97.4–97.9; O2SAT 93–100
--- NOTE | 2025-04-05 06:24 | DVHPN2 ---
Consult Progress Note Date Seen: Apr 05, 2025 Subjective Patient reports: Feels better (chest pain improved, rash improved) Objective vital signs Vital Sign Date Time Temp Pulse Resp B/P (MAP) Pulse Ox O2 Delivery O2 Flow Rate FiO2 04/05/25 05:20 78 18 131/68 04/05/25 05:00 97.9 93 97.9 04/05/25 01:43 Nasal Cannula* 3 32 Total Intake and Output 04/04/25 04/04/25 04/05/25 15:00 23:00 07:00 Intake Total 800 ml 600 ml Output Total 650 ml 700 ml Balance 150 ml -100 ml medications Current Medications Medications Dose Ordered Sig/Melia Route Start Time Stop Time Status Last Admin Dose Admin Levalbuterol HCl 1.25 mg Q6HR NEB 03/27/25 00:00 04/05/25 01:42 Nitroglycerin 0.4 mg Q5MINP PRN SL 03/26/25 22:15 Furosemide 20 mg DAILY IV 03/27/25 10:00 04/04/25 11:06 Lisinopril 40 mg DAILY PO 03/27/25 10:00 04/04/25 11:09 Amlodipine Besylate 5 mg DAILY PO 03/27/25 10:00 04/04/25 11:09 Empaglifozin 25 mg DAILY PO 03/27/25 10:00 04/04/25 11:09 Ondansetron HCl 4 mg Q4HP PRN IV 03/27/25 00:00 Enoxaparin Sodium 30 mg DAILY SC 03/27/25 10:00 04/03/25 09:30 Acetaminophen 650 mg Q6HP PRN PO 03/27/25 00:00 Methylprednisolone Sodium Succinate 40 mg DAILY IV 03/27/25 10:00 04/04/25 11:08 Guaifenesin/ Dextromethorphan 10 ml Q4HP PRN PO 03/27/25 15:45 03/30/25 06:59 Acetaminophen/ Hydrocodone Bitart 1 tab Q6HPRN PRN PO 03/30/25 00:45 04/04/25 11:36 Zinc Acetate/ Diphenhydramine 1 applic Q6HP PRN TOP 03/30/25 15:30 03/30/25 20:41 Diphenhydramine HCl 25 mg Q6HP PRN IV 03/30/25 15:30 04/04/25 11:07 Insulin Glargine 20 units HS SC 03/30/25 22:00 04/04/25 22:31 Morphine Sulfate 2 mg Q30M PRN IV 03/31/25 03:00 04/05/25 04:50 Morphine Sulfate 2 mg Q4HPRN PRN IV 03/31/25 03:00 04/04/25 06:04 Diagnostic Test (Pha) 1 strip IQ4HR 04/01/25 00:00 04/05/25 04:04 Insulin Human Regular IQ4HR SC 04/01/25 00:00 04/05/25 00:07 Dextrose 50 ml UD PRN IV 03/31/25 21:15 Vancomycin HCl 250 ml @ 200 mls/hr Q12H IV 04/02/25 10:00 Cancel Nafcillin Sodium 6 gm/Sodium Chloride 500 ml @ 41.667 mls/ hr Q12H IV 04/03/25 02:00 04/05/25 02:01 laboratory and microbiology Laboratory Tests 04/04/25 05:05 Test 04/04/25 05:05 Range/Units Serum Glucose 133 H 74-106 mg/dL Problem List/Assessment/Plan Problems(with codes): (1) Osteomyelitis of foot, left, acute (2) Abscess of left foot (3) Diabetic foot ulcer (4) Diabetic neuropathy Problem List/Assessment/Plan ASSESSMENT AND PLAN: ID Problem List: -Methicillin-susceptible Staphylococcus aureus (MSSA) bacteremia -Type 2 diabetes mellitus with hyperglycemia (blood glucose reported in the 400s; A1c 8.2) -Chronic obstructive pulmonary disease (COPD) -History of left great toe/foot infection s/p operative debridement (May 2024) with prior polymicrobial cultures (MSSA, Enterobacter, Streptococcus group B) Assessment: This is a 64-year-old male with COPD and type 2 diabetes, with a history of left foot infection requiring incision and drainage/debridement in May 2024 and 6 weeks of IV antibiotics, now presenting approximately two months later with MSSA bacteremia and symptoms of shortness of breath, chest pain, and thoracic back pain. Blood cultures were positive on 03/26, 03/31, and 04/01 (3 of 4 bottles), with no growth at 24 hours reported as of 04/04. He received vancomycin doses in the ED on 03/29 and 04/01 and has been on nafcillin since 04/01. Transthoracic echocardiogram (03/27) showed no endocarditis; transesophageal echocardiogram (04/04) is pending. Exam of the left great toe shows prior debridement changes without fluctuance or clinical recurrence of infection. Imaging notable for cardiomegaly with pulmonary vascular congestion; CTA chest negative for pulmonary embolism; venous duplex negative for femoral-popliteal DVT. Lumbar/thoracic CTs show degenerative disc disease. 04/05: YOEL negative for endocarditis Plan: - hold benadryl, if skin rash recurs on nafacillin will need to switch to non- pencillin based antibiotic -Continue nafcillin 2 g IV every 4 hours for MSSA bacteremia. .-Obtain repeat blood cultures until clearance is confirmed; consider PICC placement once blood cultures are negative for 4872 hours. -Duration of therapy: minimum 4 weeks of IV antibiotics from first negative blood culture; extend to 6 weeks if endocarditis or osteomyelitis is identified. -If YOEL is negative for endocarditis, recommend MRI left foot with and without contrast to assess for possible residual osteomyelitis or occult abscess given prior foot infection and initial persistent bacteremia. -Glycemic control: target blood glucose <200 mg/dL to optimize wound healing; A1c 8.2. Coordinate with primary/medicine team for insulin optimization. -Monitor for signs of heart failure given radiographic cardiomegaly with pulmonary vascular congestion; defer management to primary/medicine team. -Continue supportive care; monitor vitals, oxygen requirements (currently 3 L nasal cannula with SpO2 ~9092%), and clinical status. -ID will continue to follow. Isolation Precautions: Not specified in transcript. Assessment and plan were discussed with the patient: Not specified in transcript. Plan is subject to change pending new data; updates will be added as an addendum. Provider: Jason Pascual MD + ++++++++++++++++++++++++++++++++++++++++++++++++++++++++++++++++++++++++++++++++ +++++++++++++++++++++++++++++++++++ Physical Exam: General: NAD Neck: Supple. No masses. HEENT: PERRL. Normal lids and conjunctiva. Moist mucous membranes. Oropharynx without lesions, exudates or excessive erythema. Normal appearance of the external aspects of the nose and ears. Heart: Regular rhythm, normal rate. No murmur. No lower extremity edema. Lungs: Normal respiratory effort. Clear to auscultation bilaterally. No wheezes. No crackles. Abdomen: Soft. Non-tender. Non-distended. No masses or abdominal hernia. Msk: No digital cyanosis. Normal strength and tone in all 4 limbs. Left great toe/plantar surface with changes consistent with prior debridement; no fluctuance; no clinical evidence of recurrent infection noted on exam today. Skin: Warm and dry, no rashes. Mild rash under abdomen noted. Neuro: Alert. No facial droop or slurred speech. Extra-ocular movements intact. Sensation intact to soft touch in all 4 limbs. Psych: Appropriate mood. Full affect. Oriented to person, place, time, and situation. Plan discussed with: Patient Dietary Evaluation Review Comments: CCHO-60, Cardiac diet Weight management Expected Outcomes/Goals: controlled DM, gradual wt loss JASON PASCUAL MD Apr 05, 2025 06:24
--- NOTE | 2025-04-05 06:24 | DVHINCON2 ---
Date of service: Apr 04, 2025 Family History: Diabetes mellitus G8 MOTHER, G8 MOTHER Diabetes mellitus G8 MOTHER, G8 MOTHER Hypercholesterolemia G8 MOTHER Hypertension G8 MOTHER Allergies: Coded Allergies: NO KNOWN ALLERGIES (Unverified , 06/19/24) Home Meds Active Scripts Sennosides-Docusate Sodium (Senokot S) 1 Tab Tab, 1 TAB PO BID for 30 Days, #60 TAB Prov:CAROL PROCTOR SMELLER 02/06/25 Hydrocodone-Acetaminophen (Hydrocodone Bitartrate/AC 5-325 mg) 1 Tab Tab, 1 TAB PO Q6HP PRN for 7 Days, #28 TAB Prov:CAROL PROCTOR SMELLER 02/06/25 Hydrocodone-Acetaminophen (Hydrocodone Bitartrate/AC 5-325 mg) 1 Tab Tab, 1 TAB PO TIDP PRN for 3 Days, #9 TAB Prov:MIMA QUIROS MD 06/26/24 Amoxicillin & Pot Clavulanate (Augmentin) 500 Mg Tab, 500 MG PO BID for 42 Days, #84 TAB Prov:CECI MOSER 06/26/24 Reported Medications Sennosides-Docusate Sodium (Senexon-S) 1 Tab Tab, 1 TAB PO BID for 30 Days, #60 03/28/25 Gabapentin (Gabapentin) 400 Mg Cap, 1 CAP PO QID for 90 Days, #360 03/28/25 Metformin HCl (Metformin Hydrochloride) 1,000 Mg Tab, 1 TAB PO Q12HR for 90 Days, #180 03/28/25 Empagliflozin (Jardiance) 25 Mg Tab, 1 TAB PO DAILY for 90 Days, #90 03/28/25 Ipratropium-Albuterol (Ipratropium [place]/Albut) 1 Rosalba Rosalba, 3 ML NEB Q6HR PRN for 90 Days, #1080 03/28/25 Resmetirom (Rezdiffra) 100 Mg Tab, 1 TAB PO DAILY for 30 Days, #30 03/28/25 Tamsulosin Hcl (Tamsulosin Hcl) 0.4 Mg Cap, 1 CAP PO DAILY for 90 Days, #90 03/28/25 Insulin Glargine (Lantus Solostar) 100 Unit/Ml Inj, 40 UNIT SC BID for 56 Days, #45 03/28/25 Escitalopram Oxalate (ESCITALOPRAM OXALATE) 5 Mg Tab, 1 TAB PO DAILY for 90 Days, #90 03/28/25 Atorvastatin Calcium (ATORVASTATIN CALCIUM) 40 Mg Tab, 1 TAB PO DAILY for 90 Days, #90 03/28/25 Pioglitazone Hydrochloride (PIOGLITAZONE HCL) 45 Mg Tab, 1 TAB PO DAILY for 90 Days, #90 03/28/25 Amlodipine Besylate (Amlodipine Besylate) 5 Mg Tab, 1 TAB PO DAILY for 90 Days, #90 03/28/25 Lisinopril (Lisinopril) 40 Mg Tab, 1 TAB PO DAILY for 90 Days, #90 03/28/25 Cyclosporine (Ophth) (Cyclosporine) 0.05 % Emu, 1 DROP OP BID for 90 Days, #360 03/28/25 Budesonide (Inhalation) (Budesonide) 0.25 Mg/2 Ml Love, 1 VIAL NEB BID for 90 Days, #180 03/28/25 Clotrimazole W/ Betamethasone (Clotrimazole/Betamethason 1-0.05 %) 1 Cre Cre, 1 APPLIC EX BID for 30 Days, #45 APPLY TO THE AFFECTED AREA TWICE A DAY. 03/28/25 Tramadol Hcl (Tramadol Hcl) 50 Mg Tab, 1 TAB PO Q8HR PRN for PAIN for 15 Days, #45 03/28/25 Hydroxyzine Hcl (Hydroxyzine Hcl) 25 Mg Tab, 1 TAB PO Q6HR PRN for FOR ITCHING for 15 Days, #60 03/28/25 Benzonatate (Benzonatate) 200 Mg Cap, 1 CAP PO TID PRN for COUGH for 30 Days, #90 03/28/25 Insulin Lispro (Insulin Lispro Kwikpen) 100 Unit/Ml Inj, UNITS SC UD for 90 Days, #45 PLEASE SEE ATTACHED FOR DETAILED INSTRUCTIONS, MAX 45 UNITS PER DAY. 03/28/25 Albuterol Sulfate (Albuterol Sulfate Hfa) 108 Mcg/Act Aer, 2 PUFF INH Q4HR PRN for 48 Days, #54 03/28/25 Gabapentin (Gabapentin) 300 Mg Cap, 400 MG PO QID for 30 Days, MG 06/20/24 Beclomethasone Dipropionate (Qvar Redihaler) 80 Mcg/Act Aer, 80 MCG IN BID, AER 06/20/24 Albuterol Sulfate (Albuterol Sulfate Hfa) 108 Mcg/Act Aer, 90 MCG IN Q4HPRN PRN for wheezing, AER 06/20/24 Budesonide (Inhalation) (Budesonide) 0.25 Mg/2 Ml Love, 1 VIAL NEB BID 06/20/24 Cholecalciferol (VITAMIN D3) 2,000 Unit Tab, 1 CAP PO DAILY 06/20/24 Pioglitazone Hydrochloride (PIOGLITAZONE HCL) 45 Mg Tab, 1 DAILY 06/20/24 Metformin Hydrochloride (Metformin Hcl) 1,000 Mg Tab, 1 TAB PO 06/20/24 Tamsulosin Hcl (Tamsulosin Hcl) 0.4 Mg Cap 06/20/24 Empagliflozin (Jardiance) 25 Mg Tab, 1 DAILY 06/20/24 Lisinopril (Lisinopril) 40 Mg Tab, 1 DAILY 06/20/24 Benzonatate (Benzonatate) 100 Mg Cap, 1 CAP PO TID PRN for cough 06/20/24 Atorvastatin Calcium (ATORVASTATIN CALCIUM) 40 Mg Tab, 1 TAB PO 06/20/24 Amlodipine Besylate (Amlodipine Besylate) 5 Mg Tab, 1 TAB PO DAILY 06/20/24 Acetaminophen (Acetaminophen) 500 Mg Tab, 500 MG PO Q6HPRN PRN for mild pain , TAB 06/20/24 Vital Signs Vital Signs Date Time Temp Pulse Resp B/P (MAP) Pulse Ox O2 Delivery O2 Flow Rate FiO2 04/05/25 05:20 78 18 131/68 04/05/25 05:00 97.9 93 97.9 04/05/25 01:43 Nasal Cannula* 3 32 Labs/Diagnostic Data Labs Test 04/04/25 05:05 04/03/25 19:20 04/02/25 03:58 04/01/25 07:30 Range/Units White Blood Count 11.4 H 4.4-10.8 10^3/uL Red Blood Count 4.91 4.5-5.90 10^6/uL Hemoglobin 13.5 13.5-17.5 g/dL Hematocrit 40.6 L 41.0-53.0 % Mean Corpuscular Volume 82.7 80.0-100.0 fL Mean Corpuscular Hemoglobin 27.5 L 28.0-32.0 pg Mean Corpuscular Hemoglobin Concent 33.3 32.0-36.0 g/dL Red Cell Distribution Width 16.1 H 11.8-14.3 % Platelet Count 379 140-450 10^3/uL Mean Platelet Volume 8.7 6.9-10.8 fL Neutrophils (%) (Auto) 69.2 37.0-80.0 % Lymphocytes (%) (Auto) 19.4 10.0-50.0 % Monocytes (%) (Auto) 9.6 0.0-12.0 % Eosinophils (%) (Auto) 1.5 0.0-7.0 % Basophils (%) (Auto) 0.3 0.0-2.0 % Neutrophils # (Auto) 7.9 1.6-8.6 10 ^3/uL Lymphocytes # (Auto) 2.2 0.4-5.4 10 ^3/uL Monocytes # (Auto) 1.1 0-1.3 10 ^3/uL Eosinophils # (Auto) 0.2 0-0.8 10 ^3/uL Basophils # (Auto) 0 0-0.2 10 ^3/uL Nucleated Red Blood Cells 0.0 % Sodium Level 143 136-145 mmol/L Potassium Level 3.9 3.5-5.1 mmol/L Chloride Level 100 98-107 mmol/L Carbon Dioxide Level 30 20-31 mmol/L Anion Gap 13 5-15 Blood Urea Nitrogen 34 H 9-23 mg/dL Creatinine 1.22 0.700-1.30 mg/dL Glomerular Filtration Rate Calc 66 >90 mL/min BUN/Creatinine Ratio 27.9 H 10.0-20.0 Serum Glucose 133 H 74-106 mg/dL Calcium Level 8.6 L 8.7-10.4 mg/dL Prothrombin Time 10.8 9.3-11.8 sec Prothrombin Time INR 1.02 0.9-1.15 Activated Partial Thromboplast Time 26.5 24.5-34.5 SEC Vancomycin Level Trough 11.9 H 5-10 ug/mL Magnesium Level 3.0 H 1.6-2.6 mg/dL Test 03/31/25 12:07 03/31/25 08:35 03/27/25 04:43 03/27/25 00:20 Range/Units Random Vancomycin Level 11.3 H 5-10 ug/mL POC Glucose 196 H 70-106 mg/dl Hepatitis B Surface Antigen Negative Negative Hepatitis C Antibody Negative Negative Hemoglobin A1c 8.2 H <5.7 % A1C Triglycerides Level 57 < 150 mg/dL Cholesterol Level 169 < 200 mg/dL LDL Cholesterol 115 H < 100 mg/dL HDL Cholesterol 47 40-59 mg/dL Thyroid Stimulating Hormone (TSH) 0.62 0.55-4.78 uIU/mL Test 03/26/25 21:56 03/26/25 20:53 03/26/25 19:00 Range/Units Troponin I High Sensitivity 15 </=54 ng/L Urine Color Colorless Yellow Urine Clarity Clear Clear Urine pH 5.0 5.0-9.0 Urine Specific [place] 1.010 1.001-1.035 Urine Protein Negative Negative Urine Ketones Negative Negative Urine Blood 2+ H Negative /uL Urine Nitrite Negative Negative Urine Bilirubin Negative Negative Urine Urobilinogen Normal Negative mg/dL Urine Leukocyte Esterase Trace Negative /uL Urine RBC 6 0 - 3 /hpf Urine Microscopic WBC 2 0-3 /HPF Urine Squamous Epithelial Cells Few <5 /hpf Urine Bacteria None seen None Seen /hpf Urine Glucose 4+ H Normal mg/dL D-Dimer, Quantitative 16.70 H 0.0-0.49 mg/L FEU Lactic Acid Level 1.3 0.4-2.0 mmol/L Total Bilirubin 0.5 0.2-1.0 mg/dL Aspartate Amino Transferase (AST) 28 13-40 U/L Alanine Aminotransferase (ALT) 27 7-40 U/L Alkaline Phosphatase 109 46-116 U/L B-Type Natriuretic Peptide 16.38 0-100 pg/mL Total Protein 7.3 5.7-8.2 g/dL Albumin 4.2 3.2-4.8 g/dL Microbiology Date/Time Source Procedure Growth Status 04/01/25 11:50 Blood Blood Culture - Final Staphylococcus aureus Complete Problems(with codes): (1) Osteomyelitis of foot, left, acute (2) Abscess of left foot (3) Diabetic foot ulcer Plan/Recommendation ASSESSMENT AND PLAN: ID Problem List: -Methicillin-susceptible Staphylococcus aureus (MSSA) bacteremia -Type 2 diabetes mellitus with hyperglycemia (blood glucose reported in the 400s; A1c 8.2) -Chronic obstructive pulmonary disease (COPD) -History of left great toe/foot infection s/p operative debridement (May 2024) with prior polymicrobial cultures (MSSA, Enterobacter, Streptococcus group B) Assessment: This is a 64-year-old male with COPD and type 2 diabetes, with a history of left foot infection requiring incision and drainage/debridement in May 2024 and 6 weeks of IV antibiotics, now presenting approximately two months later with MSSA bacteremia and symptoms of shortness of breath, chest pain, and thoracic back pain. Blood cultures were positive on 03/26, 03/31, and 04/01 (3 of 4 bottles), with no growth at 24 hours reported as of 04/04. He received vancomycin doses in the ED on 03/29 and 04/01 and has been on nafcillin since 04/01. Transthoracic echocardiogram (03/27) showed no endocarditis; transesophageal echocardiogram (04/04) is pending. Exam of the left great toe shows prior debridement changes without fluctuance or clinical recurrence of infection. Imaging notable for cardiomegaly with pulmonary vascular congestion; CTA chest negative for pulmonary embolism; venous duplex negative for femoral-popliteal DVT. Lumbar/thoracic CTs show degenerative disc disease. Plan: -Continue nafcillin 2 g IV every 4 hours for MSSA bacteremia. -Follow-up YOEL (04/04) results to evaluate for endocarditis. -Obtain repeat blood cultures until clearance is confirmed; consider PICC placement once blood cultures are negative for 4872 hours. -Duration of therapy: minimum 4 weeks of IV antibiotics from first negative blood culture; extend to 6 weeks if endocarditis or osteomyelitis is identified. -If YOEL is negative for endocarditis, recommend MRI left foot with and without contrast to assess for possible residual osteomyelitis or occult abscess given prior foot infection and initial persistent bacteremia. -Glycemic control: target blood glucose <200 mg/dL to optimize wound healing; A1c 8.2. Coordinate with primary/medicine team for insulin optimization. -Monitor for signs of heart failure given radiographic cardiomegaly with pulmonary vascular congestion; defer management to primary/medicine team. -Continue supportive care; monitor vitals, oxygen requirements (currently 3 L nasal cannula with SpO2 ~9092%), and clinical status. -ID will continue to follow. Isolation Precautions: Not specified in transcript. Assessment and plan were discussed with the patient: Not specified in transcript. Plan is subject to change pending new data; updates will be added as an addendum. Provider: Jason Pascual MD History: History obtained from: Todays clinical transcript. HPI: -64-year-old male with COPD and type 2 diabetes. -May 2024: Left foot infection; operative debridement; polymicrobial cultures (MSSA, Enterobacter, Streptococcus group B); completed 6 weeks IV antibiotics. -Current presentation (approximately two months later): bacteremia with shortness of breath, chest pain, and thoracic back pain. -Blood cultures positive for MSSA on 03/26, 03/31, 04/01 (3/4 bottles). No growth at 24 hours as of 04/04. -Antibiotics: vancomycin doses in ED on 03/29 and 04/01; nafcillin initiated 04/01 and continued since. -Imaging: CXR cardiomegaly/pulmonary vascular congestion; CTA chest negative for PE; venous duplex negative for femoral-popliteal DVT. -Echocardiography: TTE (03/27) without endocarditis; YOEL (04/04) pending. -Exam of left great toe/plantar surface shows prior debridement; no fluctuance or evidence of recurrent infection. -Blood glucose reported in 400s; A1c 8.2. Review of Systems: -Constitutional: Not discussed. -HEENT: Not discussed. -Respiratory: Positive for shortness of breath. -Cardiovascular: Positive for chest pain. -Gastrointestinal: Not discussed. -Genitourinary: Not discussed. -Musculoskeletal: Positive for back pain (thoracic). -Skin: Mild rash under abdomen noted. -Neurological: Not discussed. -Psychiatric: Not discussed. -Endocrine: Hyperglycemia reported (blood sugars in 400s). -Hematologic/Lymphatic: Not discussed. -Allergic/Immunologic: Not discussed. Past Medical History: -Chronic obstructive pulmonary disease (COPD) -Type 2 diabetes mellitus -History of left foot infection (polymicrobial: MSSA, Enterobacter, Streptococcus group B) Past Surgical History: -Left foot operative debridement (May 2024). Further procedural details not specified in transcript. Home Medications: -Not provided in transcript. Allergies: -Not provided in transcript. Family History: -Not provided in transcript. Social History: -Not provided in transcript. Objective: Vital Signs on Arrival: -Not provided in transcript. Most Recent Vital Signs: -T 97.9 F -HR 88 bpm -RR 16/min -BP 132/65 mmHg -SpO2 9092% on 3 L/min nasal cannula Admission Weight: -Not provided in transcript. BMI: Not provided in transcript. Physical Exam: General: NAD Neck: Supple. No masses. HEENT: PERRL. Normal lids and conjunctiva. Moist mucous membranes. Oropharynx without lesions, exudates or excessive erythema. Normal appearance of the external aspects of the nose and ears. Heart: Regular rhythm, normal rate. No murmur. No lower extremity edema. Lungs: Normal respiratory effort. Clear to auscultation bilaterally. No wheezes. No crackles. Abdomen: Soft. Non-tender. Non-distended. No masses or abdominal hernia. Msk: No digital cyanosis. Normal strength and tone in all 4 limbs. Left great toe/plantar surface with changes consistent with prior debridement; no fluctuance; no clinical evidence of recurrent infection noted on exam today. Skin: Warm and dry, no rashes. Mild rash under abdomen noted. Neuro: Alert. No facial droop or slurred speech. Extra-ocular movements intact. Sensation intact to soft touch in all 4 limbs. Psych: Appropriate mood. Full affect. Oriented to person, place, time, and situation. Lines: -Not provided in transcript. Diagnostic Studies: -Microbiology: -Blood cultures: MSSA positive on 03/26, 03/31, 04/01 (3 of 4 bottles). No growth at 24 hours reported as of 04/04. -Prior (May 2024) foot wound cultures: MSSA, Enterobacter, Streptococcus group B. -Echocardiography: -TTE (03/27): No signs of endocarditis; no severe valvular abnormalities reported. -YOEL (04/04): Results pending. -Imaging: -Chest radiograph: Cardiomegaly with pulmonary vascular congestion. -CT angiography chest: No pulmonary embolism; no acute thoracic findings; mild dependent atelectatic changes. -Venous duplex: No right or left femoral-popliteal venous thrombosis. -CT lumbar/thoracic spine: Moderate degenerative disc disease (lumbar and thoracic). Pertinent Imaging: -CXR: Cardiomegaly; pulmonary vascular congestion. -CTA chest: No PE; no acute thoracic process. -Venous Doppler (LE): No femoral-popliteal DVT. -CT lumbar/thoracic spine: Moderate degenerative disc disease. Current Antimicrobial Therapy: -Nafcillin 2 g IV every 4 hours (since 04/01/2025) -Prior: Vancomycin doses administered in ED on 03/29 and 04/01/2025 Isolation Precautions: -Not specified in transcript. Plan discussed with: Patient JASON PASCUAL MD Apr 05, 2025 06:24
[2025-04-05 07:19] LABS: Chloride 103 mmol/L (98-107); Potassium 3.6 mmol/L (3.5-5.1); Sodium 141 mmol/L (136-145)
[2025-04-05 07:21] LABS: Anion Gap 11 (5-15); Carbon Dioxide 27 mmol/L (20-31)
[2025-04-05 07:26] LABS: BUN/Creatinine Ratio 28.4 (10.0-20.0); Blood Urea Nitrogen 27 mg/dL (9-23); Calcium 8.3 mg/dL (8.7-10.4); Glucose 102 mg/dL (74-106)
[2025-04-05 07:45] LABS: Hematocrit 41.0 % (41.0-53.0); Hemoglobin 13.4 g/dL (13.5-17.5); Mean Corpuscular Hemoglobin 27.0 pg (28.0-32.0); Mean Corpuscular Volume 82.6 fL (80.0-100.0); Nucleated Red Blood Cells % 0.1 %
--- NOTE | 2025-04-05 18:14 | DVHPN2 ---
Subjective feels SOB Reviewed: H&P Changes from previous H/P or p: No Changes Objective Vitals Vital Signs Date Time Temp Pulse Resp B/P (MAP) Pulse Ox O2 Delivery O2 Flow Rate FiO2 04/05/25 16:49 97.9 88 16 132/65 (87) 93 97.9 04/05/25 10:15 Nasal Cannula* 3 32 Intake/Output Intake and Output 04/05/25 05:00 Intake Total 1400 ml Output Total 1350 ml Balance 50 ml Intake Oral 1400 ml Output Urine Total 1350 ml General Appearance: Alert, Oriented X3 HEENT: Atraumatic Lungs: Other (wheezing on exam bilateral) Cardiovascular: Regular rate, Normal S1, Normal S2 Abdomen: Normal bowel sounds Medications Current Medications Medications Dose Ordered Sig/Melia Route Start Time Stop Time Status Last Admin Dose Admin Levalbuterol HCl 1.25 mg Q6HR NEB 03/27/25 00:00 04/05/25 13:47 1.25 MG Nitroglycerin 0.4 mg Q5MINP PRN SL 03/26/25 22:15 Furosemide 20 mg DAILY IV 03/27/25 10:00 04/05/25 10:02 20 MG Lisinopril 40 mg DAILY PO 03/27/25 10:00 04/05/25 10:04 40 MG Amlodipine Besylate 5 mg DAILY PO 03/27/25 10:00 04/05/25 10:03 5 MG Empaglifozin 25 mg DAILY PO 03/27/25 10:00 04/05/25 10:04 25 MG Ondansetron HCl 4 mg Q4HP PRN IV 03/27/25 00:00 Enoxaparin Sodium 30 mg DAILY SC 03/27/25 10:00 04/05/25 10:03 30 MG Acetaminophen 650 mg Q6HP PRN PO 03/27/25 00:00 Methylprednisolone Sodium Succinate 40 mg DAILY IV 03/27/25 10:00 04/05/25 10:02 40 MG Guaifenesin/ Dextromethorphan 10 ml Q4HP PRN PO 03/27/25 15:45 03/30/25 06:59 10 ML Acetaminophen/ Hydrocodone Bitart 1 tab Q6HPRN PRN PO 03/30/25 00:45 04/05/25 10:06 1 TAB Zinc Acetate/ Diphenhydramine 1 applic Q6HP PRN TOP 03/30/25 15:30 03/30/25 20:41 1 APPLIC Diphenhydramine HCl 25 mg Q6HP PRN IV 03/30/25 15:30 04/05/25 10:32 25 MG Insulin Glargine 20 units HS SC 03/30/25 22:00 04/04/25 22:31 20 UNITS Morphine Sulfate 2 mg Q30M PRN IV 03/31/25 03:00 04/05/25 04:50 2 MG Morphine Sulfate 2 mg Q4HPRN PRN IV 03/31/25 03:00 04/04/25 06:04 2 MG Diagnostic Test (Pha) 1 strip IQ4HR 04/01/25 00:00 04/05/25 15:32 1 STRIP Insulin Human Regular IQ4HR SC 04/01/25 00:00 04/05/25 15:54 20 UNITS Dextrose 50 ml UD PRN IV 03/31/25 21:15 Vancomycin HCl 250 ml @ 200 mls/hr Q12H IV 04/02/25 10:00 Cancel Nafcillin Sodium 6 gm/Sodium Chloride 500 ml @ 41.667 mls/ hr Q12H IV 04/03/25 02:00 04/05/25 16:33 41.667 MLS/HR Laboratory Results Laboratory Tests 04/05/25 06:25 Chemistry Test 04/05/25 06:25 Calcium Level 8.3 mg/dL (8.7-10.4) L Urinalysis Test 03/26/25 20:53 Urine Color Colorless (Yellow) Urine Clarity Clear (Clear) Urine pH 5.0 (5.0-9.0) Urine Specific [place] 1.010 (1.001-1.035) Urine Protein Negative (Negative) Urine Ketones Negative (Negative) Urine Blood 2+ /uL (Negative) H Urine Nitrite Negative (Negative) Urine Bilirubin Negative (Negative) Urine Urobilinogen Normal mg/dL (Negative) Urine Leukocyte Esterase Trace /uL (Negative) Urine RBC 6 /hpf (0 - 3) Urine Microscopic WBC 2 /HPF (0-3) Urine Squamous Epithelial Cells Few /hpf (<5) Urine Bacteria None seen /hpf (None Seen) Urine Glucose 4+ mg/dL (Normal) H Microbiology Microbiology Date/Time Source Procedure Growth Status 04/04/25 13:40 Blood Blood Culture - Preliminary NO GROWTH AFTER 24 HOURS OF INCUBATION. Resulted Assessment/Plan Assessment/Plan Acute on chronic hypoxic respiratory failure COPD exacerbation Acute diastolic HF exacerbation Diabetes mellitus Hypertension Chronic kidney disease Morbid obesity Bacteremia with gram positive Continue IV steroids IV vanco>changed to nafcillin Repeat blood cx MSSA on 04/03 IV lasix Duonebs ID consulted YOEL negative for any vegetations Dispo: Not ready for discharge Plan discussed with: Patient Date of Service: Apr 05, 2025 Billing Provider: ARNOLDO LOCKHART MD Common Visit Codes: [id number] INP/OBS CARE(HIGH) ARNOLDO LOCKHART MD Apr 05, 2025 18:14
[2025-04-06] VITALS (16 sets, daily range): BP systolic 99–141; BP diastolic 62–97; PULSE 73–107; RESP 15–20; TEMP 97.9–98.5; O2SAT 90–100
[2025-04-06] MEDS: NAFCILLIN SOD 2GM 2 GM in SODIUM CHL 0.9% 100 ML IV SCH ×2 (01:00→09:19)
[2025-04-06 06:28] LABS: Hemoglobin 13.4 g/dL (13.5-17.5); Nucleated Red Blood Cells % 0.1 %
[2025-04-06 06:31] LABS: Hematocrit 40.6 % (41.0-53.0); Mean Corpuscular Hemoglobin 27.3 pg (28.0-32.0); Mean Corpuscular Volume 82.5 fL (80.0-100.0)
[2025-04-06 06:39] LABS: Anion Gap 10 (5-15); Carbon Dioxide 29 mmol/L (20-31); Chloride 102 mmol/L (98-107); Sodium 141 mmol/L (136-145)
[2025-04-06 06:45] LABS: BUN/Creatinine Ratio 19.5 (10.0-20.0); Blood Urea Nitrogen 22 mg/dL (9-23); Glucose 103 mg/dL (74-106)
[2025-04-06 06:46] LABS: Calcium 8.4 mg/dL (8.7-10.4); Potassium 3.5 mmol/L (3.5-5.1)
--- NOTE | 2025-04-06 13:38 | DVHPN2 ---
Subjective feels SOB Reviewed: H&P Changes from previous H/P or p: No Changes Objective Vitals Vital Signs Date Time Temp Pulse Resp B/P (MAP) Pulse Ox O2 Delivery O2 Flow Rate FiO2 04/06/25 12:42 98.4 102 17 113/79 (90) 90 98.4 04/06/25 12:12 Nasal Cannula 4.0 04/06/25 12:12 36 Intake/Output Intake and Output 04/06/25 07:00 Intake Total 2245 ml Output Total 1610 ml Balance 635 ml Intake Oral 1745 ml IV Total 500 ml Output Urine Total 1610 ml General Appearance: Alert, Oriented X3 HEENT: Atraumatic Lungs: Other (wheezing on exam bilateral) Cardiovascular: Regular rate, Normal S1, Normal S2 Abdomen: Normal bowel sounds Medications Current Medications Medications Dose Ordered Sig/Melia Route Start Time Stop Time Status Last Admin Dose Admin Levalbuterol HCl 1.25 mg Q6HR NEB 03/27/25 00:00 04/06/25 12:12 1.25 MG Nitroglycerin 0.4 mg Q5MINP PRN SL 03/26/25 22:15 Furosemide 20 mg DAILY IV 03/27/25 10:00 04/06/25 09:22 20 MG Lisinopril 40 mg DAILY PO 03/27/25 10:00 04/06/25 09:23 40 MG Amlodipine Besylate 5 mg DAILY PO 03/27/25 10:00 04/06/25 09:23 5 MG Empaglifozin 25 mg DAILY PO 03/27/25 10:00 04/06/25 09:23 25 MG Ondansetron HCl 4 mg Q4HP PRN IV 03/27/25 00:00 Enoxaparin Sodium 30 mg DAILY SC 03/27/25 10:00 04/06/25 09:24 30 MG Acetaminophen 650 mg Q6HP PRN PO 03/27/25 00:00 Methylprednisolone Sodium Succinate 40 mg DAILY IV 03/27/25 10:00 04/06/25 09:24 40 MG Guaifenesin/ Dextromethorphan 10 ml Q4HP PRN PO 03/27/25 15:45 03/30/25 06:59 10 ML Acetaminophen/ Hydrocodone Bitart 1 tab Q6HPRN PRN PO 03/30/25 00:45 04/06/25 00:33 1 TAB Zinc Acetate/ Diphenhydramine 1 applic Q6HP PRN TOP 03/30/25 15:30 03/30/25 20:41 1 APPLIC Diphenhydramine HCl 25 mg Q6HP PRN IV 03/30/25 15:30 04/05/25 10:32 25 MG Insulin Glargine 20 units HS SC 03/30/25 22:00 04/05/25 21:29 20 UNITS Morphine Sulfate 2 mg Q30M PRN IV 03/31/25 03:00 04/05/25 04:50 2 MG Morphine Sulfate 2 mg Q4HPRN PRN IV 03/31/25 03:00 04/06/25 09:22 2 MG Diagnostic Test (Pha) 1 strip IQ4HR 04/01/25 00:00 04/06/25 08:00 1 STRIP Insulin Human Regular IQ4HR SC 04/01/25 00:00 04/05/25 23:42 8 UNITS Dextrose 50 ml UD PRN IV 03/31/25 21:15 Vancomycin HCl 250 ml @ 200 mls/hr Q12H IV 04/02/25 10:00 Cancel Nafcillin Sodium 2 gm/Sodium Chloride 100 ml @ 100 mls/hr Q4H IV 04/06/25 09:00 04/06/25 09:19 100 MLS/HR Laboratory Results Laboratory Tests 04/06/25 05:44 Chemistry Test 04/06/25 05:44 Calcium Level 8.4 mg/dL (8.7-10.4) L Urinalysis Test 03/26/25 20:53 Urine Color Colorless (Yellow) Urine Clarity Clear (Clear) Urine pH 5.0 (5.0-9.0) Urine Specific [place] 1.010 (1.001-1.035) Urine Protein Negative (Negative) Urine Ketones Negative (Negative) Urine Blood 2+ /uL (Negative) H Urine Nitrite Negative (Negative) Urine Bilirubin Negative (Negative) Urine Urobilinogen Normal mg/dL (Negative) Urine Leukocyte Esterase Trace /uL (Negative) Urine RBC 6 /hpf (0 - 3) Urine Microscopic WBC 2 /HPF (0-3) Urine Squamous Epithelial Cells Few /hpf (<5) Urine Bacteria None seen /hpf (None Seen) Urine Glucose 4+ mg/dL (Normal) H Microbiology Microbiology Date/Time Source Procedure Growth Status 04/04/25 13:40 Blood Blood Culture - Preliminary NO GROWTH AFTER 24 HOURS OF INCUBATION. Resulted Assessment/Plan Assessment/Plan Acute on chronic hypoxic respiratory failure COPD exacerbation Acute diastolic HF exacerbation Diabetes mellitus Hypertension Chronic kidney disease Morbid obesity Bacteremia with gram positive Continue IV steroids IV vanco>changed to nafcillin Repeat blood cx MSSA Repeat blood cx negative IV lasix Duonebs ID consulted YOEL negative for any vegetations Dispo: Not ready for discharge Plan discussed with: Patient Date of Service: Apr 06, 2025 Billing Provider: ARNOLDO LOCKHART MD Common Visit Codes: [id number] INP/OBS CARE(HIGH) ARNOLDO LOCKHART MD Apr 06, 2025 13:38
[2025-04-07] VITALS (20 sets, daily range): BP systolic 90–131; BP diastolic 51–84; PULSE 78–106; RESP 15–22; TEMP 97.8–98.7; O2SAT 93–100
[2025-04-07 08:54] LABS: Hematocrit 37.9 % (41.0-53.0); Hemoglobin 12.5 g/dL (13.5-17.5); Mean Corpuscular Hemoglobin 27.4 pg (28.0-32.0); Mean Corpuscular Volume 83.2 fL (80.0-100.0); Nucleated Red Blood Cells % 0.0 %
[2025-04-07 09:02] LABS: Chloride 104 mmol/L (98-107); Potassium 3.5 mmol/L (3.5-5.1); Sodium 142 mmol/L (136-145)
[2025-04-07 09:03] LABS: Anion Gap 11 (5-15); Calcium 8.4 mg/dL (8.7-10.4); Carbon Dioxide 27 mmol/L (20-31)
[2025-04-07 09:08] LABS: BUN/Creatinine Ratio 15.8 (10.0-20.0); Blood Urea Nitrogen 16 mg/dL (9-23); Glucose 92 mg/dL (74-106)
--- NOTE | 2025-04-07 13:16 | DVHPN2 ---
Subjective feeling better but still weak Reviewed: H&P Changes from previous H/P or p: No Changes Objective Vitals Vital Signs Date Time Temp Pulse Resp B/P (MAP) Pulse Ox O2 Delivery O2 Flow Rate FiO2 04/07/25 12:53 98.7 106 17 127/76 (93) 97 98.7 04/07/25 06:46 Nasal Cannula 4.0 04/07/25 06:46 36 Intake/Output Intake and Output 04/07/25 07:00 Intake Total 3845 ml Output Total 2850 ml Balance 995 ml Intake Oral 3845 ml Output Urine Total 2850 ml # Voids 12 # Bowel Movements 2 General Appearance: Alert, Oriented X3 HEENT: Atraumatic Lungs: Other (wheezing on exam bilateral) Cardiovascular: Regular rate, Normal S1, Normal S2 Abdomen: Normal bowel sounds Medications Current Medications Medications Dose Ordered Sig/Melia Route Start Time Stop Time Status Last Admin Dose Admin Levalbuterol HCl 1.25 mg Q6HR NEB 03/27/25 00:00 04/07/25 11:36 1.25 MG Nitroglycerin 0.4 mg Q5MINP PRN SL 03/26/25 22:15 Furosemide 20 mg DAILY IV 03/27/25 10:00 04/07/25 09:27 20 MG Lisinopril 40 mg DAILY PO 03/27/25 10:00 04/07/25 09:26 40 MG Amlodipine Besylate 5 mg DAILY PO 03/27/25 10:00 04/07/25 09:28 5 MG Empaglifozin 25 mg DAILY PO 03/27/25 10:00 04/07/25 09:25 25 MG Ondansetron HCl 4 mg Q4HP PRN IV 03/27/25 00:00 Acetaminophen 650 mg Q6HP PRN PO 03/27/25 00:00 Methylprednisolone Sodium Succinate 40 mg DAILY IV 03/27/25 10:00 04/07/25 09:26 40 MG Guaifenesin/ Dextromethorphan 10 ml Q4HP PRN PO 03/27/25 15:45 03/30/25 06:59 10 ML Acetaminophen/ Hydrocodone Bitart 1 tab Q6HPRN PRN PO 03/30/25 00:45 04/07/25 09:24 1 TAB Zinc Acetate/ Diphenhydramine 1 applic Q6HP PRN TOP 03/30/25 15:30 03/30/25 20:41 1 APPLIC Diphenhydramine HCl 25 mg Q6HP PRN IV 03/30/25 15:30 04/05/25 10:32 25 MG Insulin Glargine 20 units HS SC 03/30/25 22:00 04/06/25 22:03 20 UNITS Morphine Sulfate 2 mg Q30M PRN IV 03/31/25 03:00 04/05/25 04:50 2 MG Morphine Sulfate 2 mg Q4HPRN PRN IV 03/31/25 03:00 04/06/25 09:22 2 MG Diagnostic Test (Pha) 1 strip IQ4HR 04/01/25 00:00 04/07/25 11:48 1 STRIP Insulin Human Regular IQ4HR SC 04/01/25 00:00 04/07/25 11:55 12 UNITS Dextrose 50 ml UD PRN IV 03/31/25 21:15 Vancomycin HCl 250 ml @ 200 mls/hr Q12H IV 04/02/25 10:00 Cancel Nafcillin Sodium 2 gm/Sodium Chloride 100 ml @ 100 mls/hr Q4H IV 04/06/25 09:00 04/07/25 09:28 100 MLS/HR Laboratory Results Laboratory Tests 04/07/25 07:32 Chemistry Test 04/07/25 07:32 Calcium Level 8.4 mg/dL (8.7-10.4) L Urinalysis Test 03/26/25 20:53 Urine Color Colorless (Yellow) Urine Clarity Clear (Clear) Urine pH 5.0 (5.0-9.0) Urine Specific [place] 1.010 (1.001-1.035) Urine Protein Negative (Negative) Urine Ketones Negative (Negative) Urine Blood 2+ /uL (Negative) H Urine Nitrite Negative (Negative) Urine Bilirubin Negative (Negative) Urine Urobilinogen Normal mg/dL (Negative) Urine Leukocyte Esterase Trace /uL (Negative) Urine RBC 6 /hpf (0 - 3) Urine Microscopic WBC 2 /HPF (0-3) Urine Squamous Epithelial Cells Few /hpf (<5) Urine Bacteria None seen /hpf (None Seen) Urine Glucose 4+ mg/dL (Normal) H Microbiology Microbiology Date/Time Source Procedure Growth Status 04/04/25 13:40 Blood Blood Culture - Preliminary NO GROWTH AFTER 48 HOURS OF INCUBATION. Resulted Assessment/Plan Assessment/Plan Acute on chronic hypoxic respiratory failure COPD exacerbation Acute diastolic HF exacerbation Diabetes mellitus Hypertension Chronic kidney disease Morbid obesity Bacteremia with gram positive Continue IV steroids IV vanco>changed to nafcillin Repeat blood cx MSSA Repeat blood cx negative 04/04 IV lasix Duonebs ID consulted continue nafcillin YOEL negative for any vegetations Dispo: Not ready for discharge Plan discussed with: Patient Date of Service: Apr 07, 2025 Billing Provider: ARNOLDO LOCKHART MD Common Visit Codes: [id number] INP/OBS CARE(HIGH) ARNOLDO LOCKHART MD Apr 07, 2025 13:16
--- NOTE | 2025-04-07 15:53 | DVH ---
EXAMINATION: MRI MRI L FOOT WO CONTRAST TECHNIQUE: MRI of the left foot was performed without IV contrast. Multiplanar multisequence MR imaging was performed . HISTORY: R/O OSTEO, pain COMPARISON: CT CT L FOOT WO CONTRAST on DOS: 01/28/25 FINDINGS: Extensive destructive and erosive changes involving the proximal phalanx of the great toe in the 1st metatarsal head with associated T1 signal hypointensity. There is associated bone marrow edema throughout the 1st metatarsal, beginning at the mid shaft and extending up to the metatarsal head. There is edema in the proximal phalanx of the great toe. Diffuse fatty atrophy of the intrinsic foot musculature, in keeping with denervation. There is diffuse subcutaneous edema. No drainable fluid collection. IMPRESSION: Extensive destructive and erosive changes involving the proximal phalanx of the great toe and 1st metatarsal head with associated bone marrow edema. Findings are consistent with osteomyelitis. Diffuse subcutaneous edema without drainable fluid collection.
[2025-04-08] VITALS (15 sets, daily range): BP systolic 104–133; BP diastolic 49–84; PULSE 82–106; RESP 16–19; TEMP 97.3–98.3; O2SAT 94–100
[2025-04-08 06:01] LABS: Hematocrit 36.9 % (41.0-53.0); Hemoglobin 12.5 g/dL (13.5-17.5); Mean Corpuscular Hemoglobin 28.0 pg (28.0-32.0); Mean Corpuscular Volume 82.8 fL (80.0-100.0); Nucleated Red Blood Cells % 0.1 %
[2025-04-08 06:08] LABS: Anion Gap 10 (5-15); Carbon Dioxide 26 mmol/L (20-31); Chloride 105 mmol/L (98-107); Potassium 3.6 mmol/L (3.5-5.1); Sodium 141 mmol/L (136-145)
[2025-04-08 06:14] LABS: BUN/Creatinine Ratio 14.7 (10.0-20.0); Blood Urea Nitrogen 14 mg/dL (9-23); Calcium 8.1 mg/dL (8.7-10.4)
[2025-04-08 06:15] LABS: Glucose 115 mg/dL (74-106)
--- NOTE | 2025-04-08 16:27 | DVHPN2 ---
Subjective Patient is complaining of upper back pain, only on IV antibiotic. Reviewed: H&P Changes from previous H/P or p: No Changes Objective Vitals Vital Signs Date Time Temp Pulse Resp B/P (MAP) Pulse Ox O2 Delivery O2 Flow Rate FiO2 04/08/25 13:43 62 17 116/74 04/08/25 13:00 97.4 95 97.4 04/08/25 08:00 Nasal Cannula* 3 32 Intake/Output Intake and Output 04/08/25 07:00 Intake Total 3690 ml Output Total 900 ml Balance 2790 ml Intake Oral 3390 ml IV Total 300 ml Output Urine Total 900 ml # Voids 8 # Bowel Movements 1 Exam HEENT pupils are reactive Neck is supple CV is S1-S2 regular rate and rhythm Respiratory diminished breath sounds bases GI positive bowel sound Extremity no edema TELEPHONIC NURSE no motor deficit General Appearance: Alert, Oriented X3 HEENT: Atraumatic Lungs: Other (wheezing on exam bilateral) Cardiovascular: Regular rate, Normal S1, Normal S2 Abdomen: Normal bowel sounds Medications Current Medications Medications Dose Ordered Sig/Melia Route Start Time Stop Time Status Last Admin Dose Admin Levalbuterol HCl 1.25 mg Q6HR NEB 03/27/25 00:00 04/08/25 12:34 1.25 MG Nitroglycerin 0.4 mg Q5MINP PRN SL 03/26/25 22:15 Furosemide 20 mg DAILY IV 03/27/25 10:00 04/07/25 09:27 20 MG Lisinopril 40 mg DAILY PO 03/27/25 10:00 04/07/25 09:26 40 MG Amlodipine Besylate 5 mg DAILY PO 03/27/25 10:00 04/07/25 09:28 5 MG Empaglifozin 25 mg DAILY PO 03/27/25 10:00 04/08/25 10:00 25 MG Ondansetron HCl 4 mg Q4HP PRN IV 03/27/25 00:00 Acetaminophen 650 mg Q6HP PRN PO 03/27/25 00:00 Methylprednisolone Sodium Succinate 40 mg DAILY IV 03/27/25 10:00 04/08/25 10:00 40 MG Guaifenesin/ Dextromethorphan 10 ml Q4HP PRN PO 03/27/25 15:45 03/30/25 06:59 10 ML Zinc Acetate/ Diphenhydramine 1 applic Q6HP PRN TOP 03/30/25 15:30 03/30/25 20:41 1 APPLIC Diphenhydramine HCl 25 mg Q6HP PRN IV 03/30/25 15:30 04/05/25 10:32 25 MG Insulin Glargine 20 units HS SC 03/30/25 22:00 04/07/25 22:05 20 UNITS Morphine Sulfate 2 mg Q30M PRN IV 03/31/25 03:00 04/05/25 04:50 2 MG Morphine Sulfate 2 mg Q4HPRN PRN IV 03/31/25 03:00 04/08/25 13:13 2 MG Diagnostic Test (Pha) 1 strip IQ4HR 04/01/25 00:00 04/08/25 12:09 1 STRIP Insulin Human Regular IQ4HR SC 04/01/25 00:00 04/08/25 12:00 8 UNITS Dextrose 50 ml UD PRN IV 03/31/25 21:15 Vancomycin HCl 250 ml @ 200 mls/hr Q12H IV 04/02/25 10:00 Cancel Nafcillin Sodium 2 gm/Sodium Chloride 100 ml @ 100 mls/hr Q4H IV 04/06/25 09:00 04/08/25 13:00 100 MLS/HR Laboratory Results Laboratory Tests 04/08/25 05:05 Chemistry Test 04/08/25 05:05 Calcium Level 8.1 mg/dL (8.7-10.4) L Urinalysis Test 03/26/25 20:53 Urine Color Colorless (Yellow) Urine Clarity Clear (Clear) Urine pH 5.0 (5.0-9.0) Urine Specific [place] 1.010 (1.001-1.035) Urine Protein Negative (Negative) Urine Ketones Negative (Negative) Urine Blood 2+ /uL (Negative) H Urine Nitrite Negative (Negative) Urine Bilirubin Negative (Negative) Urine Urobilinogen Normal mg/dL (Negative) Urine Leukocyte Esterase Trace /uL (Negative) Urine RBC 6 /hpf (0 - 3) Urine Microscopic WBC 2 /HPF (0-3) Urine Squamous Epithelial Cells Few /hpf (<5) Urine Bacteria None seen /hpf (None Seen) Urine Glucose 4+ mg/dL (Normal) H Microbiology Microbiology Date/Time Source Procedure Growth Status 04/04/25 13:40 Blood Blood Culture - Preliminary NO GROWTH AFTER 72 HOURS OF INCUBATION. Resulted Assessment/Plan Assessment/Plan 65-year-old male with a known history of diabetes mellitus type 2, hypertension, dyslipidemia, morbid obesity classII who initially presented to the hospital with shortness of breaths and cough found to have 1. Acute on chronic hypoxic respiratory failure suspect secondary to acute COPD exacerbation 2. Acute COPD exacerbation 3. Gram-positive bacteremia with a MSSA 4. Uncontrolled hyperglycemia in the setting of Diabetes mellitus type 2 5. Hypertension 6. Dyslipidemia neck 7. Morbid obesity classII 8. Acute kidney injury suspected secondary to vasomotor nephropathy currently stable 9. Acute osteomyelitis of the left great toe, currently on IV antibiotic -patient is status post YOEL shows no evidence of endocarditis, continue broad- spectrum IV antibiotics, follow up Infectious Disease regarding IV antibiotics for home -MRI of the left foot shows a.m. acute osteomyelitis of the left great toe, podiatry consultation -IV antibiotics, repeat blood cultures, O2 supplementation, IV Solu-Medrol. Plan discussed with: Patient, Other My Orders Orders - ROXANNA ABREU MD Procedure Category Date Status Time *Podiatry Consult CONS 04/08/25 Transmitted [facility]) 16:21 Date of Service: Apr 08, 2025 Billing Provider: ROXANNA ABREU MD Common Visit Codes: [id number] INP/OBS CARE(HIGH) ROXANNA ABREU MD Apr 08, 2025 16:27
[2025-04-08] MEDS ORDERED: VANCOMYCIN PER PHARMACY 0 MG IV SCH (23:45)
[2025-04-09] VITALS (20 sets, daily range): BP systolic 113–150; BP diastolic 66–80; PULSE 75–97; RESP 14–20; TEMP 97.7–99.2; O2SAT 94–100
[2025-04-09] MEDS: VANCOMYCIN 1GM/250ML IV SCH (00:13)
[2025-04-09] MEDS: NAFCILLIN SOD 2GM 2 GM in SODIUM CHL 0.9% 100 ML IV SCH (03:30)
[2025-04-09 07:28] LABS: Hematocrit 39.9 % (41.0-53.0); Hemoglobin 13.0 g/dL (13.5-17.5); Mean Corpuscular Hemoglobin 27.8 pg (28.0-32.0); Mean Corpuscular Volume 85.1 fL (80.0-100.0); Nucleated Red Blood Cells % 0.0 %
[2025-04-09 07:43] LABS: Anion Gap 11 (5-15); Carbon Dioxide 28 mmol/L (20-31); Chloride 103 mmol/L (98-107); Potassium 3.9 mmol/L (3.5-5.1); Sodium 142 mmol/L (136-145)
[2025-04-09 07:45] LABS: Calcium 8.4 mg/dL (8.7-10.4)
[2025-04-09 07:49] LABS: BUN/Creatinine Ratio 14.6 (10.0-20.0); Blood Urea Nitrogen 13 mg/dL (9-23); Glucose 114 mg/dL (74-106)
--- NOTE | 2025-04-09 12:05 | DVHCONRES ---
Date Seen: Apr 09, 2025 Reason for Consultation Concern for osteomyelitis History of Present Illness 65-year-old male presents for evaluation of shortness for breath. Patient reports a two day history of worsening shortness for breath with associated nonproductive cough. Denies fever or chills. No chest pain at the moment. No other acute complaints. Past Medical History See H&P Past Surgical History See H&P Family History: Diabetes mellitus G8 MOTHER, G8 MOTHER Diabetes mellitus G8 MOTHER, G8 MOTHER Hypercholesterolemia G8 MOTHER Hypertension G8 MOTHER Allergies: Coded Allergies: NO KNOWN ALLERGIES (Unverified , 06/19/24) Home Meds Active Scripts Sennosides-Docusate Sodium (Senokot S) 1 Tab Tab, 1 TAB PO BID for 30 Days, #60 TAB Prov:CAROL PROCTOR BUSINESS WRITER 02/06/25 Hydrocodone-Acetaminophen (Hydrocodone Bitartrate/AC 5-325 mg) 1 Tab Tab, 1 TAB PO Q6HP PRN for 7 Days, #28 TAB Prov:CAROL PROCTOR BUSINESS WRITER 02/06/25 Hydrocodone-Acetaminophen (Hydrocodone Bitartrate/AC 5-325 mg) 1 Tab Tab, 1 TAB PO TIDP PRN for 3 Days, #9 TAB Prov:MIMA QUIROS MD 06/26/24 Amoxicillin & Pot Clavulanate (Augmentin) 500 Mg Tab, 500 MG PO BID for 42 Days, #84 TAB Prov:CECI MOSER 06/26/24 Reported Medications Sennosides-Docusate Sodium (Senexon-S) 1 Tab Tab, 1 TAB PO BID for 30 Days, #60 03/28/25 Gabapentin (Gabapentin) 400 Mg Cap, 1 CAP PO QID for 90 Days, #360 03/28/25 Metformin HCl (Metformin Hydrochloride) 1,000 Mg Tab, 1 TAB PO Q12HR for 90 Days, #180 03/28/25 Empagliflozin (Jardiance) 25 Mg Tab, 1 TAB PO DAILY for 90 Days, #90 03/28/25 Ipratropium-Albuterol (Ipratropium Hospers/Albut) 1 Rosalba Rosalba, 3 ML NEB Q6HR PRN for 90 Days, #1080 03/28/25 Resmetirom (Rezdiffra) 100 Mg Tab, 1 TAB PO DAILY for 30 Days, #30 03/28/25 Tamsulosin Hcl (Tamsulosin Hcl) 0.4 Mg Cap, 1 CAP PO DAILY for 90 Days, #90 03/28/25 Insulin Glargine (Lantus Solostar) 100 Unit/Ml Inj, 40 UNIT SC BID for 56 Days, #45 03/28/25 Escitalopram Oxalate (ESCITALOPRAM OXALATE) 5 Mg Tab, 1 TAB PO DAILY for 90 Days, #90 03/28/25 Atorvastatin Calcium (ATORVASTATIN CALCIUM) 40 Mg Tab, 1 TAB PO DAILY for 90 Days, #90 03/28/25 Pioglitazone Hydrochloride (PIOGLITAZONE HCL) 45 Mg Tab, 1 TAB PO DAILY for 90 Days, #90 03/28/25 Amlodipine Besylate (Amlodipine Besylate) 5 Mg Tab, 1 TAB PO DAILY for 90 Days, #90 03/28/25 Lisinopril (Lisinopril) 40 Mg Tab, 1 TAB PO DAILY for 90 Days, #90 03/28/25 Cyclosporine (Ophth) (Cyclosporine) 0.05 % Emu, 1 DROP OP BID for 90 Days, #360 03/28/25 Budesonide (Inhalation) (Budesonide) 0.25 Mg/2 Ml Love, 1 VIAL NEB BID for 90 D ays, #180 03/28/25 Clotrimazole W/ Betamethasone (Clotrimazole/Betamethason 1-0.05 %) 1 Cre Cre, 1 APPLIC EX BID for 30 Days, #45 APPLY TO THE AFFECTED AREA TWICE A DAY. 03/28/25 Tramadol Hcl (Tramadol Hcl) 50 Mg Tab, 1 TAB PO Q8HR PRN for PAIN for 15 Days, #45 03/28/25 Hydroxyzine Hcl (Hydroxyzine Hcl) 25 Mg Tab, 1 TAB PO Q6HR PRN for FOR ITCHING for 15 Days, #60 03/28/25 Benzonatate (Benzonatate) 200 Mg Cap, 1 CAP PO TID PRN for COUGH for 30 Days, #90 03/28/25 Insulin Lispro (Insulin Lispro Kwikpen) 100 Unit/Ml Inj, UNITS SC UD for 90 Days, #45 PLEASE SEE ATTACHED FOR DETAILED INSTRUCTIONS, MAX 45 UNITS PER DAY. 03/28/25 Albuterol Sulfate (Albuterol Sulfate Hfa) 108 Mcg/Act Aer, 2 PUFF INH Q4HR PRN for 48 Days, #54 03/28/25 Gabapentin (Gabapentin) 300 Mg Cap, 400 MG PO QID for 30 Days, MG 06/20/24 Beclomethasone Dipropionate (Qvar Redihaler) 80 Mcg/Act Aer, 80 MCG IN BID, AER 06/20/24 Albuterol Sulfate (Albuterol Sulfate Hfa) 108 Mcg/Act Aer, 90 MCG IN Q4HPRN PRN for wheezing, AER 06/20/24 Budesonide (Inhalation) (Budesonide) 0.25 Mg/2 Ml Love, 1 VIAL NEB BID 06/20/24 Cholecalciferol (VITAMIN D3) 2,000 Unit Tab, 1 CAP PO DAILY 06/20/24 Pioglitazone Hydrochloride (PIOGLITAZONE HCL) 45 Mg Tab, 1 DAILY 06/20/24 Metformin Hydrochloride (Metformin Hcl) 1,000 Mg Tab, 1 TAB PO 06/20/24 Tamsulosin Hcl (Tamsulosin Hcl) 0.4 Mg Cap 06/20/24 Empagliflozin (Jardiance) 25 Mg Tab, 1 DAILY 06/20/24 Lisinopril (Lisinopril) 40 Mg Tab, 1 DAILY 06/20/24 Benzonatate (Benzonatate) 100 Mg Cap, 1 CAP PO TID PRN for cough 06/20/24 Atorvastatin Calcium (ATORVASTATIN CALCIUM) 40 Mg Tab, 1 TAB PO 06/20/24 Amlodipine Besylate (Amlodipine Besylate) 5 Mg Tab, 1 TAB PO DAILY 06/20/24 Acetaminophen (Acetaminophen) 500 Mg Tab, 500 MG PO Q6HPRN PRN for mild pain , TAB 06/20/24 Current Medications Current Medications Medications (Trade) Dose Ordered Sig/Melia Route PRN Reason Start Time Stop Time Status Last Admin Vancomycin HCl 0 ml @ 0 mls/hr PER PHARMACY IV 04/08/25 23:45 Vancomycin HCl 250 ml @ 250 mls/hr Q1H IV 04/08/25 23:45 04/09/25 01:44 DC 04/09/25 01:34 Nafcillin Sodium 2 gm/Sodium Chloride 100 ml @ 100 mls/hr Q4H IV 04/09/25 03:00 04/09/25 09:30 Vital Signs Vital Signs Date Time Temp Pulse Resp B/P (MAP) Pulse Ox O2 Delivery O2 Flow Rate FiO2 04/09/25 10:00 118/71 04/09/25 08:53 97.9 93 18 94 97.9 04/09/25 08:00 Nasal Cannula* 3 32 Physical Exam Dermatological: Skin is dry with mild erythema and some maceration around the wound site No gross deformities noted Mild non-pitting edema present bilaterally Hyperkeratosis on the left hallux Vascular: Dorsalis pedis and posterior tibial pulses are 1+ bilaterally Capillary refill is under 2 seconds Skin temperature is warm bilaterally Neurologic: Protective sensation is absent on the plantar forefoot bilaterally Monofilament testing reveals decreased sensation in multiple plantar sites Musculoskeletal: Range of motion at the ankle and MTP joints is within normal limits. Strength is 5/5 in all tested muscle groups. Gait is antalgic due to offloading of the affected limb. Labs/Diagnostic Data Labs Test 04/09/25 06:08 04/05/25 12:05 04/03/25 19:20 04/02/25 03:58 Range/Units White Blood Count 11.4 H 4.4-10.8 10^3/uL Red Blood Count 4.69 4.5-5.90 10^6/uL Hemoglobin 13.0 L 13.5-17.5 g/dL Hematocrit 39.9 L 41.0-53.0 % Mean Corpuscular Volume 85.1 80.0-100.0 fL Mean Corpuscular Hemoglobin 27.8 L 28.0-32.0 pg Mean Corpuscular Hemoglobin Concent 32.6 32.0-36.0 g/dL Red Cell Distribution Width 17.2 H 11.8-14.3 % Platelet Count 377 140-450 10^3/uL Mean Platelet Volume 8.3 6.9-10.8 fL Neutrophils (%) (Auto) 69.0 37.0-80.0 % Lymphocytes (%) (Auto) 18.5 10.0-50.0 % Monocytes (%) (Auto) 7.7 0.0-12.0 % Eosinophils (%) (Auto) 4.3 0.0-7.0 % Basophils (%) (Auto) 0.5 0.0-2.0 % Neutrophils # (Auto) 7.9 1.6-8.6 10 ^3/uL Lymphocytes # (Auto) 2.1 0.4-5.4 10 ^3/uL Monocytes # (Auto) 0.9 0-1.3 10 ^3/uL Eosinophils # (Auto) 0.5 0-0.8 10 ^3/uL Basophils # (Auto) 0.1 0-0.2 10 ^3/uL Nucleated Red Blood Cells 0.0 % Sodium Level 142 136-145 mmol/L Potassium Level 3.9 3.5-5.1 mmol/L Chloride Level 103 98-107 mmol/L Carbon Dioxide Level 28 20-31 mmol/L Anion Gap 11 5-15 Blood Urea Nitrogen 13 9-23 mg/dL Creatinine 0.89 0.700-1.30 mg/dL Glomerular Filtration Rate Calc 96 >90 mL/min BUN/Creatinine Ratio 14.6 10.0-20.0 Serum Glucose 114 H 74-106 mg/dL Calcium Level 8.4 L 8.7-10.4 mg/dL Troponin I High Sensitivity 5 </=54 ng/L Prothrombin Time 10.8 9.3-11.8 sec Prothrombin Time INR 1.02 0.9-1.15 Activated Partial Thromboplast Time 26.5 24.5-34.5 SEC Vancomycin Level Trough 11.9 H 5-10 ug/mL Test 04/01/25 07:30 03/31/25 12:07 03/31/25 08:35 03/27/25 04:43 Range/Units Magnesium Level 3.0 H 1.6-2.6 mg/dL Random Vancomycin Level 11.3 H 5-10 ug/mL POC Glucose 196 H 70-106 mg/dl Hepatitis B Surface Antigen Negative Negative Hepatitis C Antibody Negative Negative Test 03/27/25 00:20 03/26/25 20:53 03/26/25 19:00 Range/Units Hemoglobin A1c 8.2 H <5.7 % A1C Triglycerides Level 57 < 150 mg/dL Cholesterol Level 169 < 200 mg/dL LDL Cholesterol 115 H < 100 mg/dL HDL Cholesterol 47 40-59 mg/dL Thyroid Stimulating Hormone (TSH) 0.62 0.55-4.78 uIU/mL Urine Color Colorless Yellow Urine Clarity Clear Clear Urine pH 5.0 5.0-9.0 Urine Specific [place] 1.010 1.001-1.035 Urine Protein Negative Negative Urine Ketones Negative Negative Urine Blood 2+ H Negative /uL Urine Nitrite Negative Negative Urine Bilirubin Negative Negative Urine Urobilinogen Normal Negative mg/dL Urine Leukocyte Esterase Trace Negative /uL Urine RBC 6 0 - 3 /hpf Urine Microscopic WBC 2 0-3 /HPF Urine Squamous Epithelial Cells Few <5 /hpf Urine Bacteria None seen None Seen /hpf Urine Glucose 4+ H Normal mg/dL D-Dimer, Quantitative 16.70 H 0.0-0.49 mg/L FEU Lactic Acid Level 1.3 0.4-2.0 mmol/L Total Bilirubin 0.5 0.2-1.0 mg/dL Aspartate Amino Transferase (AST) 28 13-40 U/L Alanine Aminotransferase (ALT) 27 7-40 U/L Alkaline Phosphatase 109 46-116 U/L B-Type Natriuretic Peptide 16.38 0-100 pg/mL Total Protein 7.3 5.7-8.2 g/dL Albumin 4.2 3.2-4.8 g/dL Microbiology Date/Time Source Procedure Growth Status 04/04/25 13:40 Blood Blood Culture - Preliminary Resulted Problems(with codes): (1) Hypertension (2) Cellulitis of left foot (3) Hypoxemia (4) Dyspnea (5) Acute respiratory distress (6) Pulmonary vascular congestion (7) Elevated d-dimer (8) Diabetic foot ulcer (9) Abscess of left foot (10) Osteomyelitis of foot, left, acute (11) Diabetic neuropathy Plan/Recommendation ASSESSMENT: Patient is a 65 year old seen on the floor for a worsening ulcer PLAN: - The patients chart was reviewed, clinical findings were discussed with the patient, the etiologies of the conditions were discussed in detail, and a treatment plan was agreed to at this time, with both oral and written inst ructions provided. - reviewed advanced imaging - toe continues to be healed as seen in clinic - a surgical intervention at this point - no antibiotics for the toe - healed appropriately All questions were answered and concerns addressed to the patient's satisfaction. The patient was given the phone number to the clinic and was told how to make contact with the clinic should any concerns or questions arise. Patient understands that if any questions or concerns arise prior to the next appointment, we should be contacted immediately. FOLLOW-UP: Continue to follow while inpatient Plan discussed with: Patient Visit Coding Podiatry Date of Service if different f: Apr 09, 2025 Billing Provider: ARABELLA OLIVAS DPM Podiatry Common Visit Codes: CONSULT ONLY Podiatry Consult Codes: 38012-CY/OBS CONSLTJ NEW/EST HI 80 ARABELLA OLIVAS DPM Apr 09, 2025 12:05
[2025-04-09] MEDS: CYCLOBENZAPRINE HCL 10 MG TAB PO PRN (12:46)
--- NOTE | 2025-04-09 14:08 | DVHPN2 ---
Subjective Patient denies any complaints besides upper back pain. Reviewed: H&P Changes from previous H/P or p: No Changes Objective Vitals Vital Signs Date Time Temp Pulse Resp B/P (MAP) Pulse Ox O2 Delivery O2 Flow Rate FiO2 04/09/25 13:00 98.0 87 18 130/67 (88) 97 98.0 04/09/25 08:00 Nasal Cannula* 3 32 Intake/Output Intake and Output 04/09/25 07:00 Intake Total 1350 ml Output Total 1475 ml Balance -125 ml Intake Oral 1350 ml Output Urine Total 1475 ml # Bowel Movements 2 Exam HEENT pupils are reactive Neck is supple CV is S1-S2 regular rate and rhythm Respiratory diminished breath sounds bases GI positive bowel sound Extremity no edema FILLER SPREADER no motor deficit General Appearance: Alert, Oriented X3 HEENT: Atraumatic Lungs: Other (wheezing on exam bilateral) Cardiovascular: Regular rate, Normal S1, Normal S2 Abdomen: Normal bowel sounds Medications Current Medications Medications Dose Ordered Sig/Melia Route Start Time Stop Time Status Last Admin Dose Admin Levalbuterol HCl 1.25 mg Q6HR NEB 03/27/25 00:00 04/09/25 12:37 1.25 MG Nitroglycerin 0.4 mg Q5MINP PRN SL 03/26/25 22:15 Furosemide 20 mg DAILY IV 03/27/25 10:00 04/09/25 10:00 20 MG Lisinopril 40 mg DAILY PO 03/27/25 10:00 04/09/25 10:00 40 MG Amlodipine Besylate 5 mg DAILY PO 03/27/25 10:00 04/09/25 10:00 5 MG Empaglifozin 25 mg DAILY PO 03/27/25 10:00 04/09/25 10:00 25 MG Ondansetron HCl 4 mg Q4HP PRN IV 03/27/25 00:00 Acetaminophen 650 mg Q6HP PRN PO 03/27/25 00:00 Methylprednisolone Sodium Succinate 40 mg DAILY IV 03/27/25 10:00 04/09/25 10:00 40 MG Guaifenesin/ Dextromethorphan 10 ml Q4HP PRN PO 03/27/25 15:45 03/30/25 06:59 10 ML Zinc Acetate/ Diphenhydramine 1 applic Q6HP PRN TOP 03/30/25 15:30 03/30/25 20:41 1 APPLIC Diphenhydramine HCl 25 mg Q6HP PRN IV 03/30/25 15:30 04/05/25 10:32 25 MG Insulin Glargine 20 units HS SC 03/30/25 22:00 04/08/25 22:08 20 UNITS Diagnostic Test (Pha) 1 strip IQ4HR 04/01/25 00:00 04/09/25 11:41 1 STRIP Insulin Human Regular IQ4HR SC 04/01/25 00:00 04/09/25 11:59 8 UNITS Dextrose 50 ml UD PRN IV 03/31/25 21:15 Vancomycin HCl 250 ml @ 200 mls/hr Q12H IV 04/02/25 10:00 Cancel Vancomycin HCl 0 ml @ 0 mls/hr PER PHARMACY IV 04/08/25 23:45 Nafcillin Sodium 2 gm/Sodium Chloride 100 ml @ 100 mls/hr Q4H IV 04/09/25 03:00 04/09/25 09:30 100 MLS/HR Acetaminophen/ Hydrocodone Bitart 1 tab Q4HPRN PRN PO 04/09/25 12:15 Morphine Sulfate 4 mg Q4HPRN PRN IV 04/09/25 12:15 Cyclobenzaprine HCl 5 mg Q8HPRN PRN PO 04/09/25 12:15 04/09/25 12:46 5 MG Laboratory Results Laboratory Tests 04/09/25 06:08 Chemistry Test 04/09/25 06:08 Calcium Level 8.4 mg/dL (8.7-10.4) L Urinalysis Test 03/26/25 20:53 Urine Color Colorless (Yellow) Urine Clarity Clear (Clear) Urine pH 5.0 (5.0-9.0) Urine Specific [place] 1.010 (1.001-1.035) Urine Protein Negative (Negative) Urine Ketones Negative (Negative) Urine Blood 2+ /uL (Negative) H Urine Nitrite Negative (Negative) Urine Bilirubin Negative (Negative) Urine Urobilinogen Normal mg/dL (Negative) Urine Leukocyte Esterase Trace /uL (Negative) Urine RBC 6 /hpf (0 - 3) Urine Microscopic WBC 2 /HPF (0-3) Urine Squamous Epithelial Cells Few /hpf (<5) Urine Bacteria None seen /hpf (None Seen) Urine Glucose 4+ mg/dL (Normal) H Microbiology Microbiology Date/Time Source Procedure Growth Status 04/04/25 13:40 Blood Blood Culture - Preliminary Resulted Assessment/Plan Assessment/Plan 65-year-old male with a known history of diabetes mellitus type 2, hypertension, dyslipidemia, morbid obesity classII who initially presented to the hospital with shortness of breaths and cough found to have 1. Acute on chronic hypoxic respiratory failure suspect secondary to acute COPD exacerbation 2. Acute COPD exacerbation 3. Gram-positive bacteremia with a MSSA 4. Uncontrolled hyperglycemia in the setting of Diabetes mellitus type 2 5. Hypertension 6. Dyslipidemia neck 7. Morbid obesity classII 8. Acute kidney injury suspected secondary to vasomotor nephropathy currently stable 9. Acute osteomyelitis of the left great toe, currently on IV antibiotic -patient's has a persistent bacteremia, repeat cultures has been ordered -patient is status post YOEL shows no evidence of endocarditis, continue broad- spectrum IV antibiotics, follow up Infectious Disease regarding IV antibiotics for home -MRI of the left foot shows a.m. acute osteomyelitis of the left great toe, podiatry consultation -IV antibiotics, repeat blood cultures, O2 supplementation, IV Solu-Medrol. Plan discussed with: Patient My Orders Orders - ROXANNA ABREU MD Procedure Category Date Status Time *Podiatry Consult CONS 04/08/25 Transmitted Edwige([facility]) 16:21 Blood Culture LIZA 04/09/25 In Process 11:57 Hydrocodone-Acet PHA 04/09/25 In Process 5/325mg Tab ([facility] 12:15 Morphine Sulfate PHA 04/09/25 In Process Injection 12:15 Cyclobenzaprine PHA 04/09/25 In Process Tablet (Flexeril 12:15 Date of Service: Apr 09, 2025 Billing Provider: ROXANNA ABREU MD Common Visit Codes: [id number] INP/OBS CARE(HIGH) ROXANNA ABREU MD Apr 09, 2025 14:08
[2025-04-10] VITALS (17 sets, daily range): BP systolic 101–146; BP diastolic 67–90; PULSE 73–106; RESP 18–20; TEMP 97.3–98.4; O2SAT 92–98
[2025-04-10] MEDS: MORPHINE SULFATE 4 MG/ML SYR/VIAL IV PRN (06:54)
[2025-04-10 07:09] LABS: Chloride 103 mmol/L (98-107); Potassium 3.7 mmol/L (3.5-5.1); Sodium 143 mmol/L (136-145)
[2025-04-10 07:10] LABS: Anion Gap 11 (5-15); Carbon Dioxide 29 mmol/L (20-31)
[2025-04-10 07:12] LABS: Hematocrit 36.5 % (41.0-53.0); Hemoglobin 12.5 g/dL (13.5-17.5); Mean Corpuscular Hemoglobin 28.1 pg (28.0-32.0); Mean Corpuscular Volume 82.2 fL (80.0-100.0); Nucleated Red Blood Cells % 0.0 %
[2025-04-10 07:15] LABS: BUN/Creatinine Ratio 16.0 (10.0-20.0); Blood Urea Nitrogen 16 mg/dL (9-23)
[2025-04-10 07:22] LABS: Calcium 8.4 mg/dL (8.7-10.4); Glucose 135 mg/dL (74-106)
--- NOTE | 2025-04-10 14:33 | DVHPN2 ---
Consult Progress Note Objective vital signs Vital Sign Date Time Temp Pulse Resp B/P (MAP) Pulse Ox O2 Delivery O2 Flow Rate FiO2 04/10/25 13:00 97.3 89 18 117/77 (90) 96 97.3 04/10/25 08:00 Nasal Cannula* 3 32 Total Intake and Output 04/09/25 04/09/25 04/10/25 15:00 23:00 07:00 Intake Total 1131 ml 400 ml Output Total 450 ml 575 ml Balance 681 ml -175 ml medications Current Medications Medications Dose Ordered Sig/Melia Route Start Time Stop Time Status Last Admin Dose Admin Levalbuterol HCl 1.25 mg Q6HR NEB 03/27/25 00:00 04/10/25 11:40 1.25 MG Nitroglycerin 0.4 mg Q5MINP PRN SL 03/26/25 22:15 Furosemide 20 mg DAILY IV 03/27/25 10:00 04/10/25 10:48 20 MG Lisinopril 40 mg DAILY PO 03/27/25 10:00 04/10/25 10:47 40 MG Amlodipine Besylate 5 mg DAILY PO 03/27/25 10:00 04/10/25 10:47 5 MG Empaglifozin 25 mg DAILY PO 03/27/25 10:00 04/10/25 10:46 25 MG Ondansetron HCl 4 mg Q4HP PRN IV 03/27/25 00:00 Acetaminophen 650 mg Q6HP PRN PO 03/27/25 00:00 Methylprednisolone Sodium Succinate 40 mg DAILY IV 03/27/25 10:00 04/10/25 10:46 40 MG Guaifenesin/ Dextromethorphan 10 ml Q4HP PRN PO 03/27/25 15:45 03/30/25 06:59 10 ML Zinc Acetate/ Diphenhydramine 1 applic Q6HP PRN TOP 03/30/25 15:30 03/30/25 20:41 1 APPLIC Diphenhydramine HCl 25 mg Q6HP PRN IV 03/30/25 15:30 04/05/25 10:32 25 MG Insulin Glargine 20 units HS SC 03/30/25 22:00 04/09/25 22:11 20 UNITS Diagnostic Test (Pha) 1 strip IQ4HR 04/01/25 00:00 04/10/25 12:03 1 STRIP Insulin Human Regular IQ4HR SC 04/01/25 00:00 04/10/25 12:04 8 UNITS Dextrose 50 ml UD PRN IV 03/31/25 21:15 Vancomycin HCl 250 ml @ 200 mls/hr Q12H IV 04/02/25 10:00 Cancel Nafcillin Sodium 2 gm/Sodium Chloride 100 ml @ 100 mls/hr Q4H IV 04/09/25 03:00 04/10/25 10:45 100 MLS/HR Acetaminophen/ Hydrocodone Bitart 1 tab Q4HPRN PRN PO 04/09/25 12:15 Morphine Sulfate 4 mg Q4HPRN PRN IV 04/09/25 12:15 04/10/25 06:54 4 MG Cyclobenzaprine HCl 5 mg Q8HPRN PRN PO 04/09/25 12:15 04/10/25 10:46 5 MG laboratory and microbiology Laboratory Tests 04/10/25 06:16 Test 04/10/25 06:16 Range/Units Serum Glucose 135 H 74-106 mg/dL Problem List/Assessment/Plan Problem List/Assessment/Plan ASSESSMENT AND PLAN: ID Problem List: -Methicillin-susceptible Staphylococcus aureus (MSSA) bacteremia -Type 2 diabetes mellitus with hyperglycemia (blood glucose reported in the 400s; A1c 8.2) -Chronic obstructive pulmonary disease (COPD) -History of left great toe/foot infection s/p operative debridement (May 2024) with prior polymicrobial cultures (MSSA, Enterobacter, Streptococcus group B) Assessment: This is a 64-year-old male with COPD and type 2 diabetes, with a history of left foot infection requiring incision and drainage/debridement in May 2024 and 6 weeks of IV antibiotics, now presenting approximately two months later with MSSA bacteremia and symptoms of shortness of breath, chest pain, and thoracic back pain. Blood cultures were positive on 03/26, 03/31, and 04/01 (3 of 4 bottles), with no growth at 24 hours reported as of 04/04. He received vancomycin doses in the ED on 03/29 and 04/01 and has been on nafcillin since 04/01. Transthoracic echocardiogram (03/27) showed no endocarditis; transesophageal echocardiogram (04/04) is pending. Exam of the left great toe shows prior debridement changes without fluctuance or clinical recurrence of infection. Imaging notable for cardiomegaly with pulmonary vascular congestion; CTA chest negative for pulmonary embolism; venous duplex negative for femoral-popliteal DVT. Lumbar/thoracic CTs show degenerative disc disease. 04/05: YOEL negative for endocarditis Plan: - hold benadryl, if skin rash recurs on nafacillin will need to switch to non- pencillin based antibiotic -Continue nafcillin 2 g IV every 4 hours for MSSA bacteremia. .-Obtain repeat blood cultures until clearance is confirmed; consider PICC placement once blood cultures are negative for 4872 hours. -Duration of therapy: minimum 4 weeks of IV antibiotics from first negative blood culture; extend to 6 weeks if endocarditis or osteomyelitis is identified. -If YOEL is negative for endocarditis, recommend MRI left foot with and without contrast to assess for possible residual osteomyelitis or occult abscess given prior foot infection and initial persistent bacteremia. -Glycemic control: target blood glucose <200 mg/dL to optimize wound healing; A1c 8.2. Coordinate with primary/medicine team for insulin optimization. -Monitor for signs of heart failure given radiographic cardiomegaly with pulmonary vascular congestion; defer management to primary/medicine team. -Continue supportive care; monitor vitals, oxygen requirements (currently 3 L nasal cannula with SpO2 ~9092%), and clinical status. -ID will continue to follow. Isolation Precautions: Not specified in transcript. Assessment and plan were discussed with the patient: Not specified in transcript. Plan is subject to change pending new data; updates will be added as an addendum. Provider: Jason Pascual MD + ++++++++++++++++++++++++++++++++++++++++++++++++++++++++++++++++++++++++++++++++ +++++++++++++++++++++++++++++++++++ Physical Exam: General: NAD Neck: Supple. No masses. HEENT: PERRL. Normal lids and conjunctiva. Moist mucous membranes. Oropharynx without lesions, exudates or excessive erythema. Normal appearance of the external aspects of the nose and ears. Heart: Regular rhythm, normal rate. No murmur. No lower extremity edema. Lungs: Normal respiratory effort. Clear to auscultation bilaterally. No wheezes. No crackles. Abdomen: Soft. Non-tender. Non-distended. No masses or abdominal hernia. Msk: No digital cyanosis. Normal strength and tone in all 4 limbs. Left great toe/plantar surface with changes consistent with prior debridement; no fluctuance; no clinical evidence of recurrent infection noted on exam today. Skin: Warm and dry, no rashes. Mild rash under abdomen noted. Neuro: Alert. No facial droop or slurred speech. Extra-ocular movements intact. Sensation intact to soft touch in all 4 limbs. Psych: Appropriate mood. Full affect. Oriented to person, place, time, and situation. Dietary Evaluation Review Comments: CCHO-60, Cardiac diet Weight management Expected Outcomes/Goals: controlled DM, gradual wt loss JASON PASCUAL MD Apr 10, 2025 14:33
--- NOTE | 2025-04-10 14:42 | DVHPN2 ---
Consult Progress Note Date Seen: Apr 10, 2025 Subjective Patient reports: Feels better (no fever or chills) Objective vital signs Vital Sign Date Time Temp Pulse Resp B/P (MAP) Pulse Ox O2 Delivery O2 Flow Rate FiO2 04/10/25 13:00 97.3 89 18 117/77 (90) 96 97.3 04/10/25 08:00 Nasal Cannula* 3 32 Total Intake and Output 04/09/25 04/09/25 04/10/25 15:00 23:00 07:00 Intake Total 1131 ml 400 ml Output Total 450 ml 575 ml Balance 681 ml -175 ml medications Current Medications Medications Dose Ordered Sig/Melia Route Start Time Stop Time Status Last Admin Dose Admin Levalbuterol HCl 1.25 mg Q6HR NEB 03/27/25 00:00 04/10/25 11:40 1.25 MG Nitroglycerin 0.4 mg Q5MINP PRN SL 03/26/25 22:15 Furosemide 20 mg DAILY IV 03/27/25 10:00 04/10/25 10:48 20 MG Lisinopril 40 mg DAILY PO 03/27/25 10:00 04/10/25 10:47 40 MG Amlodipine Besylate 5 mg DAILY PO 03/27/25 10:00 04/10/25 10:47 5 MG Empaglifozin 25 mg DAILY PO 03/27/25 10:00 04/10/25 10:46 25 MG Ondansetron HCl 4 mg Q4HP PRN IV 03/27/25 00:00 Acetaminophen 650 mg Q6HP PRN PO 03/27/25 00:00 Methylprednisolone Sodium Succinate 40 mg DAILY IV 03/27/25 10:00 04/10/25 10:46 40 MG Guaifenesin/ Dextromethorphan 10 ml Q4HP PRN PO 03/27/25 15:45 03/30/25 06:59 10 ML Zinc Acetate/ Diphenhydramine 1 applic Q6HP PRN TOP 03/30/25 15:30 03/30/25 20:41 1 APPLIC Diphenhydramine HCl 25 mg Q6HP PRN IV 03/30/25 15:30 04/05/25 10:32 25 MG Insulin Glargine 20 units HS SC 03/30/25 22:00 04/09/25 22:11 20 UNITS Diagnostic Test (Pha) 1 strip IQ4HR 04/01/25 00:00 04/10/25 12:03 1 STRIP Insulin Human Regular IQ4HR SC 04/01/25 00:00 04/10/25 12:04 8 UNITS Dextrose 50 ml UD PRN IV 03/31/25 21:15 Vancomycin HCl 250 ml @ 200 mls/hr Q12H IV 04/02/25 10:00 Cancel Nafcillin Sodium 2 gm/Sodium Chloride 100 ml @ 100 mls/hr Q4H IV 04/09/25 03:00 04/10/25 10:45 100 MLS/HR Acetaminophen/ Hydrocodone Bitart 1 tab Q4HPRN PRN PO 04/09/25 12:15 Morphine Sulfate 4 mg Q4HPRN PRN IV 04/09/25 12:15 04/10/25 06:54 4 MG Cyclobenzaprine HCl 5 mg Q8HPRN PRN PO 04/09/25 12:15 04/10/25 10:46 5 MG laboratory and microbiology Laboratory Tests 04/10/25 06:16 Test 04/10/25 06:16 Range/Units Serum Glucose 135 H 74-106 mg/dL Problem List/Assessment/Plan Problem List/Assessment/Plan ASSESSMENT AND PLAN: ID Problem List: -Methicillin-susceptible Staphylococcus aureus (MSSA) bacteremia -Type 2 diabetes mellitus with hyperglycemia (blood glucose reported in the 400s; A1c 8.2) -Chronic obstructive pulmonary disease (COPD) -History of left great toe/foot infection s/p operative debridement (May 2024) with prior polymicrobial cultures (MSSA, Enterobacter, Streptococcus group B) Assessment: This is a 64-year-old male with COPD and type 2 diabetes, with a history of left foot infection requiring incision and drainage/debridement in May 2024 and 6 weeks of IV antibiotics, now presenting approximately two months later with MSSA bacteremia and symptoms of shortness of breath, chest pain, and thoracic back pain. Blood cultures were positive on 03/26, 03/31, and 04/01 (3 of 4 bottles), with no growth at 24 hours reported as of 04/04. He received vancomycin doses in the ED on 03/29 and 04/01 and has been on nafcillin since 04/01. Transthoracic echocardiogram (03/27) showed no endocarditis; transesophageal echocardiogram (04/04) is pending. Exam of the left great toe shows prior debridement changes without fluctuance or clinical recurrence of infection. Imaging notable for cardiomegaly with pulmonary vascular congestion; CTA chest negative for pulmonary embolism; venous duplex negative for femoral-popliteal DVT. Lumbar/thoracic CTs show degenerative disc disease. 04/05: YOEL negative for endocarditis 04/06: .13 blood cultures positive in 1/4 bottles 04/07: MRI foot confirm persistent osteomyelitis in foot 04/09: repeatb blood cultures drawn Plan: - anticipate 6 weeks of nafcillin + oral rifampin -Continue nafcillin 2 g IV every 4 hours for MSSA bacteremia. .-Obtain repeat blood cultures until clearance is confirmed; consider PICC placement once blood cultures are negative for 4872 hours. -Glycemic control: target blood glucose <200 mg/dL to optimize wound healing; A1c 8.2. Coordinate with primary/medicine team for insulin optimization. -Monitor for signs of heart failure given radiographic cardiomegaly with pulmonary vascular congestion; defer management to primary/medicine team. -Continue supportive care; monitor vitals, oxygen requirements (currently 3 L nasal cannula with SpO2 ~9092%), and clinical status. -ID will continue to follow. Isolation Precautions: Not specified in transcript. Assessment and plan were discussed with the patient: Not specified in transcript. Plan is subject to change pending new data; updates will be added as an addendum. Provider: Jason Pascual MD + ++++++++++++++++++++++++++++++++++++++++++++++++++++++++++++++++++++++++++++++++ +++++++++++++++++++++++++++++++++++ Physical Exam: General: NAD Neck: Supple. No masses. HEENT: PERRL. Normal lids and conjunctiva. Moist mucous membranes. Oropharynx without lesions, exudates or excessive erythema. Normal appearance of the external aspects of the nose and ears. Heart: Regular rhythm, normal rate. No murmur. No lower extremity edema. Lungs: Normal respiratory effort. Clear to auscultation bilaterally. No wheezes. No crackles. Abdomen: Soft. Non-tender. Non-distended. No masses or abdominal hernia. Msk: No digital cyanosis. Normal strength and tone in all 4 limbs. Left great toe/plantar surface with changes consistent with prior debridement; no fluctuance; no clinical evidence of recurrent infection noted on exam today. Skin: Warm and dry, no rashes. Mild rash under abdomen noted. Neuro: Alert. No facial droop or slurred speech. Extra-ocular movements intact. Sensation intact to soft touch in all 4 limbs. Psych: Appropriate mood. Full affect. Oriented to person, place, time, and situation. Dietary Evaluation Review Comments: CCHO-60, Cardiac diet Weight management Expected Outcomes/Goals: controlled DM, gradual wt loss JASON PASCUAL MD Apr 10, 2025 14:42
--- NOTE | 2025-04-10 16:19 | DVHPN2 ---
Subjective Patient denies any complaints besides upper back pain. Reviewed: H&P Changes from previous H/P or p: No Changes Objective Vitals Vital Signs Date Time Temp Pulse Resp B/P (MAP) Pulse Ox O2 Delivery O2 Flow Rate FiO2 04/10/25 13:00 97.3 89 18 117/77 (90) 96 97.3 04/10/25 08:00 Nasal Cannula* 3 32 Intake/Output Intake and Output 04/10/25 07:00 Intake Total 1531 ml Output Total 1025 ml Balance 506 ml Intake Oral 1531 ml Output Urine Total 1025 ml # Voids 5 # Bowel Movements 1 Exam HEENT pupils are reactive Neck is supple CV is S1-S2 regular rate and rhythm Respiratory diminished breath sounds bases GI positive bowel sound Extremity no edema [employer] no motor deficit General Appearance: Alert, Oriented X3 HEENT: Atraumatic Lungs: Other (wheezing on exam bilateral) Cardiovascular: Regular rate, Normal S1, Normal S2 Abdomen: Normal bowel sounds Medications Current Medications Medications Dose Ordered Sig/Melia Route Start Time Stop Time Status Last Admin Dose Admin Levalbuterol HCl 1.25 mg Q6HR NEB 03/27/25 00:00 04/10/25 11:40 1.25 MG Nitroglycerin 0.4 mg Q5MINP PRN SL 03/26/25 22:15 Furosemide 20 mg DAILY IV 03/27/25 10:00 04/10/25 10:48 20 MG Lisinopril 40 mg DAILY PO 03/27/25 10:00 04/10/25 10:47 40 MG Amlodipine Besylate 5 mg DAILY PO 03/27/25 10:00 04/10/25 10:47 5 MG Empaglifozin 25 mg DAILY PO 03/27/25 10:00 04/10/25 10:46 25 MG Ondansetron HCl 4 mg Q4HP PRN IV 03/27/25 00:00 Acetaminophen 650 mg Q6HP PRN PO 03/27/25 00:00 Methylprednisolone Sodium Succinate 40 mg DAILY IV 03/27/25 10:00 04/10/25 10:46 40 MG Guaifenesin/ Dextromethorphan 10 ml Q4HP PRN PO 03/27/25 15:45 03/30/25 06:59 10 ML Zinc Acetate/ Diphenhydramine 1 applic Q6HP PRN TOP 03/30/25 15:30 03/30/25 20:41 1 APPLIC Diphenhydramine HCl 25 mg Q6HP PRN IV 03/30/25 15:30 04/05/25 10:32 25 MG Insulin Glargine 20 units HS SC 03/30/25 22:00 04/09/25 22:11 20 UNITS Diagnostic Test (Pha) 1 strip IQ4HR 04/01/25 00:00 04/10/25 16:16 1 STRIP Insulin Human Regular IQ4HR SC 04/01/25 00:00 04/10/25 16:16 16 UNITS Dextrose 50 ml UD PRN IV 03/31/25 21:15 Vancomycin HCl 250 ml @ 200 mls/hr Q12H IV 04/02/25 10:00 Cancel Nafcillin Sodium 2 gm/Sodium Chloride 100 ml @ 100 mls/hr Q4H IV 04/09/25 03:00 04/10/25 15:26 100 MLS/HR Acetaminophen/ Hydrocodone Bitart 1 tab Q4HPRN PRN PO 04/09/25 12:15 Morphine Sulfate 4 mg Q4HPRN PRN IV 04/09/25 12:15 04/10/25 06:54 4 MG Cyclobenzaprine HCl 5 mg Q8HPRN PRN PO 04/09/25 12:15 04/10/25 10:46 5 MG Rifampin 300 mg BIDAC PO 04/10/25 17:00 Laboratory Results Laboratory Tests 04/10/25 06:16 Chemistry Test 04/10/25 06:16 Calcium Level 8.4 mg/dL (8.7-10.4) L Urinalysis Test 03/26/25 20:53 Urine Color Colorless (Yellow) Urine Clarity Clear (Clear) Urine pH 5.0 (5.0-9.0) Urine Specific [place] 1.010 (1.001-1.035) Urine Protein Negative (Negative) Urine Ketones Negative (Negative) Urine Blood 2+ /uL (Negative) H Urine Nitrite Negative (Negative) Urine Bilirubin Negative (Negative) Urine Urobilinogen Normal mg/dL (Negative) Urine Leukocyte Esterase Trace /uL (Negative) Urine RBC 6 /hpf (0 - 3) Urine Microscopic WBC 2 /HPF (0-3) Urine Squamous Epithelial Cells Few /hpf (<5) Urine Bacteria None seen /hpf (None Seen) Urine Glucose 4+ mg/dL (Normal) H Microbiology Microbiology Date/Time Source Procedure Growth Status 04/09/25 13:42 Blood Blood Culture - Preliminary NO GROWTH AFTER 24 HOURS OF INCUBATION. Resulted Assessment/Plan Assessment/Plan 65-year-old male with a known history of diabetes mellitus type 2, hypertension, dyslipidemia, morbid obesity classII who initially presented to the hospital with shortness of breaths and cough found to have 1. Acute on chronic hypoxic respiratory failure suspect secondary to acute COPD exacerbation 2. Acute COPD exacerbation 3. Gram-positive bacteremia with a MSSA 4. Uncontrolled hyperglycemia in the setting of Diabetes mellitus type 2 5. Hypertension 6. Dyslipidemia neck 7. Morbid obesity classII 8. Acute kidney injury suspected secondary to vasomotor nephropathy currently stable 9. Acute osteomyelitis of the left great toe, currently on IV antibiotic -patient's has a persistent bacteremia, repeat cultures has been ordered -patient is status post YOEL shows no evidence of endocarditis, continue broad- spectrum IV antibiotics, follow up Infectious Disease regarding IV antibiotics for home -MRI of the left foot shows a.m. acute osteomyelitis of the left great toe, podiatry consultation -IV antibiotics, repeat blood cultures, O2 supplementation, IV Solu-Medrol. Plan discussed with: Patient My Orders Orders - ROXANNA ABREU MD Procedure Category Date Status Time * Picc Line Consult CONS 04/10/25 Transmitted 14:54 PTPTT LAB 04/10/25 Logged 15:11 Prothrombin Time W/ LAB 04/10/25 Logged INR 15:11 Date of Service: Apr 10, 2025 Billing Provider: ROXANNA ABREU MD Common Visit Codes: 11930-EHQIKKXFLM INP/OBS CARE(HIGH) ROXANNA ABREU MD Apr 10, 2025 16:19
[2025-04-10 17:41] LABS: INR 0.98 (0.9-1.15); Partial Thromboplastin Time 27.0 SEC (24.5-34.5); Prothrombin Time 10.4 sec (9.3-11.8)
[2025-04-10] MEDS: rifAMPin 300 MG CAP PO SCH (17:50)
[2025-04-10] MEDS: LIDOCAINE 1% (LOCAL ANESTH.) PF 5ml SDV ID PRN (19:15)
[2025-04-10] MEDS: SODIUM CHLOR 0.9% PF (SALINE LOCK) 10ML VIAL/SYR IV SCH (22:29)
[2025-04-10] MEDS: HYDROcodone-ACET 5/325MG TAB PO PRN (22:30)
[2025-04-11] VITALS (16 sets, daily range): BP systolic 99–146; BP diastolic 57–80; PULSE 76–117; RESP 17–20; TEMP 97.8–98.2; O2SAT 93–100
[2025-04-11] MEDS ORDERED: RIFA300C58 PO (14:23)
--- NOTE | 2025-04-11 14:24 | DVHPN2 ---
Consult Progress Note Date Seen: Apr 11, 2025 Subjective Patient reports: Feels better (picc line in place) Objective vital signs Vital Sign Date Time Temp Pulse Resp B/P (MAP) Pulse Ox O2 Delivery O2 Flow Rate FiO2 04/11/25 12:43 97.9 96 18 142/79 (100) 93 97.9 04/11/25 08:00 Nasal Cannula* 3 32 Total Intake and Output 04/10/25 04/10/25 04/11/25 15:00 23:00 07:00 Intake Total 200 ml 2744 ml 850 ml Output Total 3325 ml 590 ml Balance 200 ml -581 ml 260 ml medications Current Medications Medications Dose Ordered Sig/Melia Route Start Time Stop Time Status Last Admin Dose Admin Levalbuterol HCl 1.25 mg Q6HR NEB 03/27/25 00:00 04/11/25 11:33 1.25 MG Nitroglycerin 0.4 mg Q5MINP PRN SL 03/26/25 22:15 Furosemide 20 mg DAILY IV 03/27/25 10:00 04/11/25 09:50 20 MG Lisinopril 40 mg DAILY PO 03/27/25 10:00 04/11/25 09:47 40 MG Amlodipine Besylate 5 mg DAILY PO 03/27/25 10:00 04/11/25 09:48 5 MG Empaglifozin 25 mg DAILY PO 03/27/25 10:00 04/11/25 09:48 25 MG Ondansetron HCl 4 mg Q4HP PRN IV 03/27/25 00:00 Acetaminophen 650 mg Q6HP PRN PO 03/27/25 00:00 Methylprednisolone Sodium Succinate 40 mg DAILY IV 03/27/25 10:00 04/11/25 09:50 40 MG Guaifenesin/ Dextromethorphan 10 ml Q4HP PRN PO 03/27/25 15:45 03/30/25 06:59 10 ML Zinc Acetate/ Diphenhydramine 1 applic Q6HP PRN TOP 03/30/25 15:30 03/30/25 20:41 1 APPLIC Diphenhydramine HCl 25 mg Q6HP PRN IV 03/30/25 15:30 04/05/25 10:32 25 MG Insulin Glargine 20 units HS SC 03/30/25 22:00 04/10/25 22:27 20 UNITS Diagnostic Test (Pha) 1 strip IQ4HR 04/01/25 00:00 04/11/25 12:03 1 STRIP Insulin Human Regular IQ4HR SC 04/01/25 00:00 04/11/25 12:03 12 UNITS Dextrose 50 ml UD PRN IV 03/31/25 21:15 Vancomycin HCl 250 ml @ 200 mls/hr Q12H IV 04/02/25 10:00 Cancel Nafcillin Sodium 2 gm/Sodium Chloride 100 ml @ 100 mls/hr Q4H IV 04/09/25 03:00 04/11/25 11:25 100 MLS/HR Acetaminophen/ Hydrocodone Bitart 1 tab Q4HPRN PRN PO 04/09/25 12:15 04/11/25 11:13 1 TAB Morphine Sulfate 4 mg Q4HPRN PRN IV 04/09/25 12:15 04/10/25 06:54 4 MG Cyclobenzaprine HCl 5 mg Q8HPRN PRN PO 04/09/25 12:15 04/11/25 09:51 5 MG Rifampin 300 mg BIDAC PO 04/10/25 17:00 04/11/25 06:15 300 MG Lidocaine HCl 0.5 ml ONCE PRN ID 04/10/25 19:30 04/10/25 19:15 0.5 ML Sodium Chloride 10 ml QSHIFT@10,22 IV 04/10/25 22:00 04/11/25 09:53 10 ML laboratory and microbiology Laboratory Tests 04/10/25 06:16 Test 04/10/25 06:16 Range/Units Serum Glucose 135 H 74-106 mg/dL Problem List/Assessment/Plan Problem List/Assessment/Plan ASSESSMENT AND PLAN: ID Problem List: -Methicillin-susceptible Staphylococcus aureus (MSSA) bacteremia -Type 2 diabetes mellitus with hyperglycemia (blood glucose reported in the 400s; A1c 8.2) -Chronic obstructive pulmonary disease (COPD) -History of left great toe/foot infection s/p operative debridement (May 2024) with prior polymicrobial cultures (MSSA, Enterobacter, Streptococcus group B) Assessment: This is a 64-year-old male with COPD and type 2 diabetes, with a history of left foot infection requiring incision and drainage/debridement in May 2024 and 6 weeks of IV antibiotics, now presenting approximately two months later with MSSA bacteremia and symptoms of shortness of breath, chest pain, and thoracic back pain. Blood cultures were positive on 03/26, 03/31, and 04/01 (3 of 4 bottles), with no growth at 24 hours reported as of 04/04. He received vancomycin doses in the ED on 03/29 and 04/01 and has been on nafcillin since 04/01. Transthoracic echocardiogram (03/27) showed no endocarditis; transesophageal echocardiogram (04/04) is pending. Exam of the left great toe shows prior debridement changes without fluctuance or clinical recurrence of infection. Imaging notable for cardiomegaly with pulmonary vascular congestion; CTA chest negative for pulmonary embolism; venous duplex negative for femoral-popliteal DVT. Lumbar/thoracic CTs show degenerative disc disease. 04/05: YOEL negative for endocarditis 04/06: 04.04 blood cultures positive in 1/4 bottles 04/07: MRI foot confirm persistent osteomyelitis in foot 04/09: repeatb blood cultures drawn 04/11: blood cultures remain ngtd, picc line place Plan: - anticipate 6 weeks of nafcillin + oral rifampin -Continue nafcillin 2 g IV every 4 hours for MSSA bacteremia. .-Obtain repeat blood cultures until clearance is confirmed; consider PICC placement once blood cultures are negative for 4872 hours. -Glycemic control: target blood glucose <200 mg/dL to optimize wound healing; A1c 8.2. Coordinate with primary/medicine team for insulin optimization. -Monitor for signs of heart failure given radiographic cardiomegaly with pulmonary vascular congestion; defer management to primary/medicine team. -Continue supportive care; monitor vitals, oxygen requirements (currently 3 L nasal cannula with SpO2 ~9092%), and clinical status. -ID will continue to follow. Isolation Precautions: Not specified in transcript. Assessment and plan were discussed with the patient: Not specified in transcript. Plan is subject to change pending new data; updates will be added as an addendum. Provider: Jason Pascual MD + ++++++++++++++++++++++++++++++++++++++++++++++++++++++++++++++++++++++++++++++++ +++++++++++++++++++++++++++++++++++ Physical Exam: General: NAD Neck: Supple. No masses. HEENT: PERRL. Normal lids and conjunctiva. Moist mucous membranes. Oropharynx without lesions, exudates or excessive erythema. Normal appearance of the external aspects of the nose and ears. Heart: Regular rhythm, normal rate. No murmur. No lower extremity edema. Lungs: Normal respiratory effort. Clear to auscultation bilaterally. No wheezes. No crackles. Abdomen: Soft. Non-tender. Non-distended. No masses or abdominal hernia. Msk: No digital cyanosis. Normal strength and tone in all 4 limbs. Left great toe/plantar surface with changes consistent with prior debridement; no fluctuance; no clinical evidence of recurrent infection noted on exam today. Skin: Warm and dry, no rashes. Mild rash under abdomen noted. Neuro: Alert. No facial droop or slurred speech. Extra-ocular movements intact. Sensation intact to soft touch in all 4 limbs. Psych: Appropriate mood. Full affect. Oriented to person, place, time, and situation. Plan discussed with: Patient Dietary Evaluation Review Comments: CCHO-60, Cardiac diet Weight management Expected Outcomes/Goals: controlled DM, gradual wt loss JASON PASCUAL MD Apr 11, 2025 14:24
--- NOTE | 2025-04-11 15:10 | DVHDS2 ---
Discharge Summary Date of Admission Mar 26, 2025 at 22:05 Date of Discharge: Apr 11, 2025 Labs/Diagnostic Data: Laboratory Results Test 04/10/25 17:02 04/10/25 06:16 04/05/25 12:05 04/02/25 03:58 Prothrombin Time 10.4 sec (9.3-11.8) Prothrombin Time INR 0.98 (0.9-1.15) Activated Partial Thromboplast Time 27.0 SEC (24.5-34.5) White Blood Count 10.0 10^3/uL (4.4-10.8) Red Blood Count 4.44 10^6/uL (4.5-5.90) Hemoglobin 12.5 g/dL (13.5-17.5) Hematocrit 36.5 % (41.0-53.0) Mean Corpuscular Volume 82.2 fL (80.0-100.0) Mean Corpuscular Hemoglobin 28.1 pg (28.0-32.0) Mean Corpuscular Hemoglobin Concent 34.2 g/dL (32.0-36.0) Red Cell Distribution Width 16.4 % (11.8-14.3) Platelet Count 386 10^3/uL (140-450) Mean Platelet Volume 8.3 fL (6.9-10.8) Neutrophils (%) (Auto) 68.1 % (37.0-80.0) Lymphocytes (%) (Auto) 18.3 % (10.0-50.0) Monocytes (%) (Auto) 8.1 % (0.0-12.0) Eosinophils (%) (Auto) 4.8 % (0.0-7.0) Basophils (%) (Auto) 0.7 % (0.0-2.0) Neutrophils # (Auto) 6.8 10 ^3/uL (1.6-8.6) Lymphocytes # (Auto) 1.8 10 ^3/uL (0.4-5.4) Monocytes # (Auto) 0.8 10 ^3/uL (0-1.3) Eosinophils # (Auto) 0.5 10 ^3/uL (0-0.8) Basophils # (Auto) 0.1 10 ^3/uL (0-0.2) Nucleated Red Blood Cells 0.0 % Sodium Level 143 mmol/L (136-145) Potassium Level 3.7 mmol/L (3.5-5.1) Chloride Level 103 mmol/L (98-107) Carbon Dioxide Level 29 mmol/L (20-31) Anion Gap 11 (5-15) Blood Urea Nitrogen 16 mg/dL (9-23) Creatinine 1.00 mg/dL (0.700-1.30) Glomerular Filtration Rate Calc 84 mL/min (>90) BUN/Creatinine Ratio 16.0 (10.0-20.0) Serum Glucose 135 mg/dL (74-106) Calcium Level 8.4 mg/dL (8.7-10.4) Troponin I High Sensitivity 5 ng/L (</=54) Vancomycin Level Trough 11.9 ug/mL (5-10) Test 04/01/25 07:30 03/31/25 12:07 03/31/25 08:35 03/27/25 04:43 Magnesium Level 3.0 mg/dL (1.6-2.6) Random Vancomycin Level 11.3 ug/mL (5-10) POC Glucose 196 mg/dl (70-106) Hepatitis B Surface Antigen Negative (Negative) Hepatitis C Antibody Negative (Negative) Test 03/27/25 00:20 03/26/25 20:53 03/26/25 19:00 Hemoglobin A1c 8.2 % A1C (<5.7) Triglycerides Level 57 mg/dL (< 150) Cholesterol Level 169 mg/dL (< 200) LDL Cholesterol 115 mg/dL (< 100) HDL Cholesterol 47 mg/dL (40-59) Thyroid Stimulating Hormone (TSH) 0.62 uIU/mL (0.55-4.78) Urine Color Colorless (Yellow) Urine Clarity Clear (Clear) Urine pH 5.0 (5.0-9.0) Urine Specific [place] 1.010 (1.001-1.035) Urine Protein Negative (Negative) Urine Ketones Negative (Negative) Urine Blood 2+ /uL (Negative) Urine Nitrite Negative (Negative) Urine Bilirubin Negative (Negative) Urine Urobilinogen Normal mg/dL (Negative) Urine Leukocyte Esterase Trace /uL (Negative) Urine RBC 6 /hpf (0 - 3) Urine Microscopic WBC 2 /HPF (0-3) Urine Squamous Epithelial Cells Few /hpf (<5) Urine Bacteria None seen /hpf (None Seen) Urine Glucose 4+ mg/dL (Normal) D-Dimer, Quantitative 16.70 mg/L FEU (0.0-0.49) Lactic Acid Level 1.3 mmol/L (0.4-2.0) Total Bilirubin 0.5 mg/dL (0.2-1.0) Aspartate Amino Transferase (AST) 28 U/L (13-40) Alanine Aminotransferase (ALT) 27 U/L (7-40) Alkaline Phosphatase 109 U/L (46-116) B-Type Natriuretic Peptide 16.38 pg/mL (0-100) Total Protein 7.3 g/dL (5.7-8.2) Albumin 4.2 g/dL (3.2-4.8) Other Laboratory Tests 04/10/25 06:16 Brief Hx & Hospital Course: 65-year-old male with a known history of diabetes mellitus type 2, hypertension, dyslipidemia, morbid obesity classII who initially presented to the hospital with shortness of breaths and cough found to have acute on chronic hypoxic respiratory failure secondary to acute COPD exacerbation. Patient was treated with the med nebs Solu-Medrol and O2 supplementation. Patient's has a Gram- positive bacteremia with MSSA which was treated with the IV antibiotics. Patient was seen by infectious disease specialist as well. Patient will be discharged to home with the home health home IV antibiotics with a nevus in 12 g IV daily until05/22. Also rifampicin has been sent as well. Patient is being discharged with the home health home safety evaluation and home IV antibiotics. Condition at Discharge: Stable Final Diagnosis/Problems List 65-year-old male with a known history of diabetes mellitus type 2, hypertension, dyslipidemia, morbid obesity classII who initially presented to the hospital with shortness of breaths and cough found to have 1. Acute on chronic hypoxic respiratory failure suspect secondary to acute COPD exacerbation 2. Acute COPD exacerbation 3. Gram-positive bacteremia with a MSSA 4. Uncontrolled hyperglycemia in the setting of Diabetes mellitus type 2 5. Hypertension 6. Dyslipidemia neck 7. Morbid obesity classII 8. Acute kidney injury suspected secondary to vasomotor nephropathy currently stable 9. Acute osteomyelitis of the left great toe, currently on IV antibiotic Discharge Disposition: Home with Health Services SNF Discharge Will this Physician continue t: No Discharge Instruct/Medications Diet: Cardiac 2g Na,low cholest Diet comment: 1800 ADA diet Activity: No Restrictions, As Tolerated Follow Up/Referral: Please follow up with the PCP in one week Lab follow up with Dr. Milad Pascual one week Medications: Medication as prescribed and reconciled New Medications: Rifampin (Rifampin) 300 Mg Cap 300 MG PO BIDAC for 42 Days, #84 CAP Scheduled Albuterol Sulfate (Albuterol Sulfate Hfa), 2 PUFF INH Q4HR PRN, (Reported) Amlodipine Besylate (Amlodipine Besylate), 1 TAB PO DAILY, (Reported) Amlodipine Besylate (Amlodipine Besylate), 1 TAB PO DAILY, (Reported) Amoxicillin & Pot Clavulanate (Augmentin), 500 MG PO BID Atorvastatin Calcium (Atorvastatin Calcium), 1 TAB PO DAILY, (Reported) Beclomethasone Dipropionate (Qvar Redihaler), 80 MCG IN BID, (Reported) Budesonide (Inhalation) (Budesonide), 1 VIAL NEB BID, (Reported) Budesonide (Inhalation) (Budesonide), 1 VIAL NEB BID, (Reported) Cholecalciferol (Vitamin D3), 1 CAP PO DAILY, (Reported) Clotrimazole W/ Betamethasone (Clotrimazole/Betamethason 1-0.05 %), 1 APPLIC EX BID, (Reported) Cyclosporine (Ophth) (Cyclosporine), 1 DROP OP BID, (Reported) Empagliflozin (Jardiance), 1 DAILY, (Reported) Empagliflozin (Jardiance), 1 TAB PO DAILY, (Reported) Escitalopram Oxalate (Escitalopram Oxalate), 1 TAB PO DAILY, (Reported) Gabapentin (Gabapentin), 400 MG PO QID, (Reported) Gabapentin (Gabapentin), 1 CAP PO QID, (Reported) Insulin Glargine (Lantus Solostar), 40 UNIT SC BID, (Reported) Insulin Lispro (Insulin Lispro Kwikpen), UNITS SC UD, (Reported) Ipratropium-Albuterol (Ipratropium [place]/Albut), 3 ML NEB Q6HR PRN, (Reported) Lisinopril (Lisinopril), 1 DAILY, (Reported) Lisinopril (Lisinopril), 1 TAB PO DAILY, (Reported) Metformin HCl (Metformin Hydrochloride), 1 TAB PO Q12HR, (Reported) Pioglitazone Hydrochloride (Pioglitazone Hcl), 1 DAILY, (Reported) Pioglitazone Hydrochloride (Pioglitazone Hcl), 1 TAB PO DAILY, (Reported) Resmetirom (Rezdiffra), 1 TAB PO DAILY, (Reported) Rifampin (Rifampin), 300 MG PO BIDAC Sennosides-Docusate Sodium (Senokot S), 1 TAB PO BID Sennosides-Docusate Sodium ([place]-S), 1 TAB PO BID, (Reported) Tamsulosin Hcl (Tamsulosin Hcl), 1 CAP PO DAILY, (Reported) Scheduled PRN Acetaminophen (Acetaminophen), 500 MG PO Q6HPRN PRN for mild pain , (Reported) Albuterol Sulfate (Albuterol Sulfate Hfa), 90 MCG IN Q4HPRN PRN for wheezing, (Reported) Benzonatate (Benzonatate), 1 CAP PO TID PRN for cough, (Reported) Benzonatate (Benzonatate), 1 CAP PO TID PRN for COUGH, (Reported) Hydrocodone-Acetaminophen (Hydrocodone Bitartrate/AC 5-325 mg), 1 TAB PO TIDP PRN Hydrocodone-Acetaminophen (Hydrocodone Bitartrate/AC 5-325 mg), 1 TAB PO Q6HP PRN Hydroxyzine Hcl (Hydroxyzine Hcl), 1 TAB PO Q6HR PRN for FOR ITCHING, (Reported) Tramadol Hcl (Tramadol Hcl), 1 TAB PO Q8HR PRN for PAIN, (Reported) Miscellaneous Medications Atorvastatin Calcium (Atorvastatin Calcium), 1 TAB PO, (Reported) Metformin Hydrochloride (Metformin Hcl), 1 TAB PO, (Reported) Tamsulosin Hcl (Tamsulosin Hcl), (Reported) Discharge Statement: "Patient was advised to return to the ER or call 911 if any headaches, dizziness, shortness of breath, chest pain, abdominal pain, bleeding, fevers, or worsening of medical condition. Patient was counseled about treatment plan, medications, possible side effects, patientverbalized understanding. All questions were answered to the best of my ability. This discharge took greater then 30 minutes in planning, reviewing documentation, counseling the patient, and discussing with other team members." ASSESSMENT ASSESSMENT Assessment 65-year-old male with a known history of diabetes mellitus type 2, hypertension, dyslipidemia, morbid obesity classII who initially presented to the hospital with shortness of breaths and cough found to have 1. Acute on chronic hypoxic respiratory failure suspect secondary to acute COPD exacerbation 2. Acute COPD exacerbation 3. Gram-positive bacteremia with a MSSA 4. Uncontrolled hyperglycemia in the setting of Diabetes mellitus type 2 5. Hypertension 6. Dyslipidemia neck 7. Morbid obesity classII 8. Acute kidney injury suspected secondary to vasomotor nephropathy currently stable 9. Acute osteomyelitis of the left great toe, currently on IV antibiotic Date of Service: Apr 11, 2025 Billing Provider: ROXANNA ABREU MD Common Visit Codes: 64097-XCN/OBS DISCH DAY >30min ROXANNA ABREU MD Apr 11, 2025 15:10
[2025-04-12] VITALS (12 sets, daily range): BP systolic 114–141; BP diastolic 61–80; PULSE 73–107; RESP 16–20; TEMP 97.4–98; O2SAT 90–100
[2025-04-12] MEDS: HYDROcodone-ACET 5/325MG TAB PO PRN (06:13)
--- NOTE | 2025-04-12 15:56 | DVHPN2 ---
Subjective Patient denies any complaints, currently discharged on hold as BR still draining IV antibiotics and home health. Reviewed: H&P Changes from previous H/P or p: No Changes Objective Vitals Vital Signs Date Time Temp Pulse Resp B/P (MAP) Pulse Ox O2 Delivery O2 Flow Rate FiO2 04/12/25 12:38 98.0 78 16 136/79 (98) 94 98.0 04/12/25 12:15 Nasal Cannula* 2 28 Intake/Output Intake and Output 04/12/25 07:00 Intake Total 2000 ml Output Total 1830 ml Balance 170 ml Intake Oral 1400 ml IV Total 600 ml Output Urine Total 1830 ml # Bowel Movements 2 Exam HEENT pupils are reactive Neck is supple CV is S1-S2 regular rate and rhythm Respiratory diminished breath sounds bases GI positive bowel sound Extremity no edema [employer]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 General Appearance: Alert, Oriented X3 HEENT: Atraumatic Lungs: Other (wheezing on exam bilateral) Cardiovascular: Regular rate, Normal S1, Normal S2 Abdomen: Normal bowel sounds Medications Current Medications Medications Dose Ordered Sig/Melia Route Start Time Stop Time Status Last Admin Dose Admin Levalbuterol HCl 1.25 mg Q6HR NEB 03/27/25 00:00 04/12/25 12:14 1.25 MG Nitroglycerin 0.4 mg Q5MINP PRN SL 03/26/25 22:15 Furosemide 20 mg DAILY IV 03/27/25 10:00 04/12/25 09:12 20 MG Lisinopril 40 mg DAILY PO 03/27/25 10:00 04/12/25 09:14 40 MG Amlodipine Besylate 5 mg DAILY PO 03/27/25 10:00 04/12/25 09:14 5 MG Empaglifozin 25 mg DAILY PO 03/27/25 10:00 04/12/25 09:13 25 MG Ondansetron HCl 4 mg Q4HP PRN IV 03/27/25 00:00 Acetaminophen 650 mg Q6HP PRN PO 03/27/25 00:00 Methylprednisolone Sodium Succinate 40 mg DAILY IV 03/27/25 10:00 04/12/25 09:12 40 MG Zinc Acetate/ Diphenhydramine 1 applic Q6HP PRN TOP 03/30/25 15:30 03/30/25 20:41 1 APPLIC Diphenhydramine HCl 25 mg Q6HP PRN IV 03/30/25 15:30 04/05/25 10:32 25 MG Insulin Glargine 20 units HS SC 03/30/25 22:00 04/11/25 22:01 20 UNITS Diagnostic Test (Pha) 1 strip IQ4HR 04/01/25 00:00 04/12/25 04:01 1 STRIP Insulin Human Regular IQ4HR SC 04/01/25 00:00 04/12/25 14:04 8 UNITS Dextrose 50 ml UD PRN IV 03/31/25 21:15 Vancomycin HCl 250 ml @ 200 mls/hr Q12H IV 04/02/25 10:00 Cancel Nafcillin Sodium 2 gm/Sodium Chloride 100 ml @ 100 mls/hr Q4H IV 04/09/25 03:00 04/12/25 12:36 100 MLS/HR Morphine Sulfate 4 mg Q4HPRN PRN IV 04/09/25 12:15 04/10/25 06:54 4 MG Cyclobenzaprine HCl 5 mg Q8HPRN PRN PO 04/09/25 12:15 04/11/25 09:51 5 MG Rifampin 300 mg BIDAC PO 04/10/25 17:00 04/12/25 06:05 300 MG Lidocaine HCl 0.5 ml ONCE PRN ID 04/10/25 19:30 04/10/25 19:15 0.5 ML Sodium Chloride 10 ml QSHIFT@10,22 IV 04/10/25 22:00 04/12/25 09:15 10 ML Acetaminophen/ Hydrocodone Bitart 1 tab Q6HPRN PRN PO 04/11/25 15:30 04/12/25 06:13 1 TAB Laboratory Results Laboratory Tests 04/10/25 06:16 Urinalysis Test 03/26/25 20:53 Urine Color Colorless (Yellow) Urine Clarity Clear (Clear) Urine pH 5.0 (5.0-9.0) Urine Specific [place] 1.010 (1.001-1.035) Urine Protein Negative (Negative) Urine Ketones Negative (Negative) Urine Blood 2+ /uL (Negative) H Urine Nitrite Negative (Negative) Urine Bilirubin Negative (Negative) Urine Urobilinogen Normal mg/dL (Negative) Urine Leukocyte Esterase Trace /uL (Negative) Urine RBC 6 /hpf (0 - 3) Urine Microscopic WBC 2 /HPF (0-3) Urine Squamous Epithelial Cells Few /hpf (<5) Urine Bacteria None seen /hpf (None Seen) Urine Glucose 4+ mg/dL (Normal) H Microbiology Microbiology Date/Time Source Procedure Growth Status 04/09/25 13:42 Blood Blood Culture - Preliminary NO GROWTH AFTER 72 HOURS OF INCUBATION. Resulted Assessment/Plan Assessment/Plan 65-year-old male with a known history of diabetes mellitus type 2, hypertension, dyslipidemia, morbid obesity classII who initially presented to the hospital with shortness of breaths and cough found to have 1. Acute on chronic hypoxic respiratory failure suspect secondary to acute COPD exacerbation 2. Acute COPD exacerbation 3. Gram-positive bacteremia with a MSSA 4. Uncontrolled hyperglycemia in the setting of Diabetes mellitus type 2 5. Hypertension 6. Dyslipidemia neck 7. Morbid obesity classII 8. Acute kidney injury suspected secondary to vasomotor nephropathy currently stable 9. Acute osteomyelitis of the left great toe, currently on IV antibiotic -patient's has a persistent bacteremia, repeat cultures has been ordered -patient is status post YOEL shows no evidence of endocarditis, continue broad- spectrum IV antibiotics, follow up Infectious Disease regarding IV antibiotics for home -MRI of the left foot shows a.m. acute osteomyelitis of the left great toe, podiatry consultation -IV antibiotics, repeat blood cultures are negative. Discharge plan once antibiotics has been arranged. Plan discussed with: Patient Date of Service: Apr 12, 2025 Billing Provider: ROXANNA ABREU MD Common Visit Codes: [id number] INP/OBS CARE(MOD) ROXANNA ABREU MD Apr 12, 2025 15:56
--- NOTE | 2025-04-13 23:20 | DVHPN2 ---
Consult Progress Note Objective vital signs Vital Sign Date Time Temp Pulse Resp B/P (MAP) Pulse Ox O2 Delivery O2 Flow Rate FiO2 04/12/25 18:34 93 20 100 04/12/25 18:24 Room Air 0.0 04/12/25 18:24 21 04/12/25 16:33 97.7 114/78 (90) 97.7 Total Intake and Output 04/12/25 04/12/25 04/13/25 15:00 23:00 07:00 Intake Total 800 ml Output Total 650 ml Balance -650 ml 800 ml medications Current Medications Medications Dose Ordered Sig/Melia Route Start Time Stop Time Status Last Admin Dose Admin Vancomycin HCl 250 ml @ 200 mls/hr Q12H IV 04/02/25 10:00 Cancel laboratory and microbiology Laboratory Tests 04/10/25 06:16 Test 04/10/25 06:16 Range/Units Serum Glucose 135 H 74-106 mg/dL Problem List/Assessment/Plan Problem List/Assessment/Plan ASSESSMENT AND PLAN: ID Problem List: -Methicillin-susceptible Staphylococcus aureus (MSSA) bacteremia -Type 2 diabetes mellitus with hyperglycemia (blood glucose reported in the 400s; A1c 8.2) -Chronic obstructive pulmonary disease (COPD) -History of left great toe/foot infection s/p operative debridement (May 2024) with prior polymicrobial cultures (MSSA, Enterobacter, Streptococcus group B) Assessment: This is a 64-year-old male with COPD and type 2 diabetes, with a history of left foot infection requiring incision and drainage/debridement in May 2024 and 6 weeks of IV antibiotics, now presenting approximately two months later with MSSA bacteremia and symptoms of shortness of breath, chest pain, and thoracic back pain. Blood cultures were positive on 03/26, 03/31, and 04/01 (3 of 4 bottles), with no growth at 24 hours reported as of 04/04. He received vancomycin doses in the ED on 03/29 and 04/01 and has been on nafcillin since 04/01. Transthoracic echocardiogram (03/27) showed no endocarditis; transesophageal echocardiogram (04/04) is pending. Exam of the left great toe shows prior debridement changes without fluctuance or clinical recurrence of infection. Imaging notable for cardiomegaly with pulmonary vascular congestion; CTA chest negative for pulmonary embolism; venous duplex negative for femoral-popliteal DVT. Lumbar/thoracic CTs show degenerative disc disease. 04/05: YOEL negative for endocarditis 04/06: 11.13 blood cultures positive in 1/4 bottles 04/07: MRI foot confirm persistent osteomyelitis in foot 04/09: repeatb blood cultures drawn 04/11: blood cultures remain ngtd, picc line place Plan: - anticipate 6 weeks of nafcillin + oral rifampin -Continue nafcillin 2 g IV every 4 hours for MSSA bacteremia. .-Obtain repeat blood cultures until clearance is confirmed; consider PICC placement once blood cultures are negative for 4872 hours. -Glycemic control: target blood glucose <200 mg/dL to optimize wound healing; A1c 8.2. Coordinate with primary/medicine team for insulin optimization. -Monitor for signs of heart failure given radiographic cardiomegaly with pulmonary vascular congestion; defer management to primary/medicine team. -Continue supportive care; monitor vitals, oxygen requirements (currently 3 L nasal cannula with SpO2 ~9092%), and clinical status. -ID will continue to follow. Isolation Precautions: Not specified in transcript. Assessment and plan were discussed with the patient: Not specified in transcript. Plan is subject to change pending new data; updates will be added as an addendum. Provider: Jason Pascual MD + ++++++++++++++++++++++++++++++++++++++++++++++++++++++++++++++++++++++++++++++++ +++++++++++++++++++++++++++++++++++ Physical Exam: General: NAD Neck: Supple. No masses. HEENT: PERRL. Normal lids and conjunctiva. Moist mucous membranes. Oropharynx without lesions, exudates or excessive erythema. Normal appearance of the external aspects of the nose and ears. Heart: Regular rhythm, normal rate. No murmur. No lower extremity edema. Lungs: Normal respiratory effort. Clear to auscultation bilaterally. No wheezes. No crackles. Abdomen: Soft. Non-tender. Non-distended. No masses or abdominal hernia. Msk: No digital cyanosis. Normal strength and tone in all 4 limbs. Left great toe/plantar surface with changes consistent with prior debridement; no fluctuance; no clinical evidence of recurrent infection noted on exam today. Skin: Warm and dry, no rashes. Mild rash under abdomen noted. Neuro: Alert. No facial droop or slurred speech. Extra-ocular movements intact. Sensation intact to soft touch in all 4 limbs. Psych: Appropriate mood. Full affect. Oriented to person, place, time, and situation. Dietary Evaluation Review Comments: CCHO-60, Cardiac diet Weight management Expected Outcomes/Goals: controlled DM, gradual wt loss JASON PASCUAL MD Apr 13, 2025 23:20
== END 2025-04-12 19:26 | disposition home or self-care (01) | DRG 871 ==
LOC: ER 18:35 → EDBD 18:35 → OVERFLOW 22:05 → MERGE 22:05 → TELE-WESTW 23:58
PROVIDERS: ADMIT Internal Medicine; ATTEND Internal Medicine
PROC: B24BZZ4 Ultrasonography of Heart with Aorta, Transesophageal (ICD-10-PCS; principal; 2025-04-04)
PROC: 02HV33Z Insertion of Infusion Device into Superior Vena Cava, Percutaneous Approach (ICD-10-PCS; 2025-04-10)
PROC: B548ZZA Ultrasonography of Superior Vena Cava, Guidance (ICD-10-PCS; 2025-04-10)
DX: A41.9 Sepsis, unspecified organism (principal); I50.33 Acute on chronic diastolic (congestive) heart failure; J96.21 Acute and chronic respiratory failure with hypoxia; N17.0 Acute kidney failure with tubular necrosis; I13.0 Hypertensive heart and chronic kidney disease with heart failure and stage 1 through stage 4 chronic kidney disease, or unspecified chronic kidney disease; M86.172 Other acute osteomyelitis, left ankle and foot; B95.61 Methicillin susceptible Staphylococcus aureus infection as the cause of diseases classified elsewhere; B96.89 Other specified bacterial agents as the cause of diseases classified elsewhere; J44.1 Chronic obstructive pulmonary disease with (acute) exacerbation; E11.22 Type 2 diabetes mellitus with diabetic chronic kidney disease; E66.01 Morbid (severe) obesity due to excess calories; N18.9 Chronic kidney disease, unspecified; F39 Unspecified mood [affective] disorder; M06.9 Rheumatoid arthritis, unspecified; I08.1 Rheumatic disorders of both mitral and tricuspid valves; R45.851 Suicidal ideations; E11.65 Type 2 diabetes mellitus with hyperglycemia; E78.5 Hyperlipidemia, unspecified; E11.69 Type 2 diabetes mellitus with other specified complication; N40.0 Benign prostatic hyperplasia without lower urinary tract symptoms; M51.369 Other intervertebral disc degeneration, lumbar region without mention of lumbar back pain or lower extremity pain; Z79.82 Long term (current) use of aspirin; Z79.84 Long term (current) use of oral hypoglycemic drugs; Z79.4 Long term (current) use of insulin; Z79.899 Other long term (current) drug therapy; Z79.2 Long term (current) use of antibiotics; Z87.891 Personal history of nicotine dependence; Z83.3 Family history of diabetes mellitus; Z82.49 Family history of ischemic heart disease and other diseases of the circulatory system; Z68.38 Body mass index [BMI] 38.0-38.9, adult
CPT/HCPCS: 36415; 36569; 71045; 71275; 72128; 72131; 73718; 76937; 80048; 80053; 80061; 80202; 81001; 82565; 82962; 83036; 83605; 83735; 83880; 84443; 84484; 85025; 85379; 85610; 85730; 86803; 86850; 86900; 86901; 87040; 87077; 87147; 87186; 87340; 93005; 93306; 93312; 93970; 94640; 96374; 96375; 99152; 99291; G0378; J1815; J2250